=== PATIENT | male | born 1970 | race Caucasian/White ===

== ENCOUNTER 2016-08-04 19:11 | Emergency (ER) | payer OTHER ==
[~2016-08-04] VITALS: Ht 190.5 cm; Wt 131.8 kg
[~2016-08-04 19:11] MED LIST: ALBUAER19 INH; HYDR-5688 PO
[2016-08-04 19:22] VITALS: TEMP 36.8; Ht 190.5 cm; Wt 131.8 kg
--- NOTE | 2016-08-04 21:01 | DIAGNOSTIC IMAGING REPORT ---
CHEST ONE VIEW PORTABLE CLINICAL HISTORY: Altered mental status. Chest tightness. Weakness. COMPARISON STUDY: 11/20/2015 FINDINGS: The cardiac and mediastinal contours are normal. There is no evidence of focal pulmonary consolidation. There is no evidence of failure. No pleural effusions are visualized.[ There is equivocal irregularity of the cortex the proximal left humeral diaphysis. IMPRESSION: 1. No active disease in the chest 2. Equivocal cortical irregularity of the proximal left humerus Electronically signed by: Balwinder Grier M.D. 08/04/2016 9:00 PM Dictated Date/Time: 08/04/2016 8:58 PM
--- NOTE | 2016-08-04 21:20 | DIAGNOSTIC IMAGING REPORT ---
CT HEAD WITHOUT CONTRAST (CT) CLINICAL HISTORY: Altered mental status and weakness COMPARISON STUDY: March 30, 2014 TECHNIQUE: Axial CT of the brain is performed from the vertex to the skull base. IV contrast was not administered for this examination. CT DOSE: 537.48 mGy.cm FINDINGS: No intra or extra-axial mass lesions are visualized. There is no CT evidence of acute cortical infarction. There is no evidence of midline shift. There is no acute hemorrhage. No calvarial fractures are visualized. There is no evidence of pathologic ventricular dilatation. There is no evidence of acute sinusitis IMPRESSION: No acute intracranial findings Electronically signed by: Balwinder Grier M.D. 08/04/2016 9:19 PM Dictated Date/Time: 08/04/2016 9:18 PM
[2016-08-04] MEDS ORDERED: HYDR100C PO (21:21)
[2016-08-04] MEDS: MoRPHine SULFATE 4 MG/ML 1 ML CARP\\VIAL IV PRN ×2 (21:28→22:55)
[2016-08-04 21:48] LABS: BASO % 0.9 %; BASO ABS # 0.06 K/uL (0-0.2); COMPLETE YES; EOS % 2.9 %; HEMATOCRIT 40.4 % (42-52); IG% 0.1 %; LYMPH % 38.8 %; LYMPH ABS # 2.64 K/uL (1.2-3.4); MEAN CELL VOLUME 85.8 fL (80-100); MEAN CORPUSCULAR HEMOGLOBIN 28.5 pg (25-34); MEAN CORPUSCULAR HGB CONC 33.2 g/dl (32-36); MEAN PLATELET VOLUME 11.9 fL (7.4-10.4); MONO % 7.2 %; NEUT % 50.1 %; PLATELET COUNT 232 K/uL (130-400); RED BLOOD COUNT 4.71 M/uL (4.7-6.1); WHITE BLOOD COUNT 6.81 K/uL (4.8-10.8)
[2016-08-04 22:19] LABS: ALT/SGPT 18 U/L (12-78); BLOOD UREA NITROGEN 13 mg/dl (7-18); BUN/CREATININE RATIO 12.7 (10-20); CALCIUM 8.9 mg/dl (8.5-10.1); CARBON DIOXIDE 25 mmol/L (21-32); CHLORIDE 107 mmol/L (98-107); GLUCOSE 89 mg/dl (70-99); POTASSIUM 4.4 mmol/L (3.5-5.1); SODIUM 141 mmol/L (136-145)
[2016-08-04 22:33] LABS: ALKALINE PHOSPHATASE 95 U/L (45-117); AST/SGOT 14 U/L (15-37)
--- NOTE | 2016-08-04 23:30 | EMERGENCY ROOM VISIT NOTE ---
History Report prepared by Davonte: Shana Chavira Under the Supervision of: Dr. Sonido Carbajal D.O. First contact with patient: 20:35 Chief Complaint: CHEST PAIN Stated Complaint: TIGHTNESS IN CHEST,RIGHT SIDE PAIN,HEADACHE Nursing Triage Summary: "I've been having pains in my chest for 2 days. I thought it was from stress because I have a lot of sress right now". Pt also c/o right arm numbness and CARMICHAEL. Hx of "mild stroke". History of Present Illness The patient is a 46 year old male who presents to the Emergency Room with complaints of constant chest pain starting 2 days ago that he describes as a tightness and like "gun has shot him in the chest." The patient currently rates the pain as a 8/10 in severity. The patient states that he has been dealing with a lot of family stress lately along with work stress. The patient states that he has also been experiencing right sided weakness and a headache over the last day. He states that he has also experienced dizziness and SOB. The patient' s states that she thought the patient was going to pass out while walking into the ED tonight. The patient states that his has history of a mild stroke which with his symptoms concerned him to come into the ED tonight. Source of History: patient, spouse/significant other () Onset: 2 days [employer] Position: chest Symptom Intensity: 8/10 Quality: other (tightness) Timing: constant Associated Symptoms: + SOB, + headache, + weakness (right sided) Note: Associated symptoms: dizziness. Review of Systems See HPI for pertinent positives & negatives. A total of 10 systems reviewed and were otherwise negative. 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 (20) Visit for suture removal (21) Visit for suture removal (22) Wound infection Surgical Problems: (1) Hx of cholecystectomy Family History Cancer Diabetes mellitus FH: heart disease Gallbladder disease Heart disease Hypertension Kidney disease Lung disease Social History Smoking Status: Current Every Day Smoker Alcohol Use: none Drug Use: none Marital Status: Housing Status: lives with family Occupation Status: unemployed, disabled Current/Historical Medications Scheduled Bupropion HCl (Bupropion HCl Sr), 150 MG PO QAM Clonazepam (Klonopin), 1 MG PO BID Divalproex Sodium (Depakote Etended-Release), 2,000 MG PO HS Hydroxyzine Pamoate (Vistaril), 100 MG PO HS Lurasidone Hcl (Latuda), 40 MG PO QAM Metformin Hcl (Glucophage), 500 MG PO BID Prazosin Hcl (Prazosin), 2 MG PO HS Prazosin Hcl (Prazosin), 1 MG PO HS Scheduled PRN Albuterol Inhaler (Ventolin Inhaler), 2 PUFFS INH QID PRN for Wheezing Allergies Coded Allergies: Penicillins (Verified Allergy, Intermediate, hives. PER PT. HAS TAKEN AUGMENTIN W/O A PROBLEM., 06/03/16) Aspirin (Verified Adverse Reaction, Mild, nausea, 06/03/16) Physical Exam Vital Signs Date Time Temp Pulse Resp B/P Pulse Ox O2 Delivery O2 Flow Rate FiO2 08/04/16 22:55 81 16 155/98 08/04/16 22:20 79 16 143/100 95 Room Air 08/04/16 21:50 82 08/04/16 21:30 81 16 148/79 95 Room Air 08/04/16 19:24 95 Room Air 08/04/16 19:22 36.8 90 20 166/104 95 Room Air Physical Exam CONSTITUTIONAL/VITAL SIGNS: Reviewed / noted above. GENERAL: Non-toxic in appearance. INTEGUMENTARY: Warm, dry, and [place]. HEAD: Normocephalic. EYES: without scleral icterus or trauma. ENT/OROPHARYNX: clear and moist. LYMPHADENOPATHY/NECK: Is supple without lymphadenopathy or meningismus. RESPIRATORY: Lungs clear and equal. CARDIOVASCULAR: Regular rate and rhythm. GI/ABDOMEN: Soft and nontender. No organomegaly or pulsatile mass. No rebound or guarding. Normal bowel sounds. EXTREMITIES: Warm and well perfused. BACK: No CVA tenderness. NEUROLOGICAL: Intact without focal deficits. PSYCHIATRIC: normal affect. MUSCULOSKELETAL: Normally developed with good muscle tone. Medical Decision & Procedures ER Provider Diagnostic Interpretation: X ray results and stated below per my interpretation and radiology interpretation. CHEST ONE VIEW PORTABLE CLINICAL HISTORY: Altered mental status. Chest tightness. Weakness. COMPARISON STUDY: 11/20/2015 FINDINGS: The cardiac and mediastinal contours are normal. There is no evidence of focal pulmonary consolidation. There is no evidence of failure. No pleural effusions are visualized.[ There is equivocal irregularity of the cortex the proximal left humeral diaphysis. IMPRESSION: 1. No active disease in the chest 2. Equivocal cortical irregularity of the proximal left humerus Electronically signed by: Balwinder Grier M.D. 08/04/2016 9:00 PM Dictated Date/Time: 08/04/2016 8:[address] results as stated below per my review and radiologist interpretation: CT HEAD WITHOUT CONTRAST (CT) CLINICAL HISTORY: Altered mental status and weakness COMPARISON STUDY: March 30, 2014 TECHNIQUE: Axial CT of the brain is performed from the vertex to the skull base. IV contrast was not administered for this examination. CT DOSE: 537.48 mGy.cm FINDINGS: No intra or extra-axial mass lesions are visualized. There is no CT evidence of acute cortical infarction. There is no evidence of midline shift. There is no acute hemorrhage. No calvarial fractures are visualized. There is no evidence of pathologic ventricular dilatation. There is no evidence of acute sinusitis IMPRESSION: No acute intracranial findings Electronically signed by: Balwinder Grier M.D. 08/04/2016 9:19 PM Dictated Date/Time: 08/04/2016 9:18 PM Laboratory Results 08/04/16 21:30 Red Blood Count 4.71, Mean Corpuscular Volume 85.8, Mean Corpuscular Hemoglobin 28.5, Mean Corpuscular Hemoglobin Concent 33.2, Mean Platelet Volume 11.9, Neutrophils (%) (Auto) 50.1, Lymphocytes (%) (Auto) 38.8, Monocytes (%) (Auto) 7.2, Eosinophils (%) (Auto) 2.9, Basophils (%) (Auto) 0.9, Neutrophils # (Auto) 3.41, Lymphocytes # (Auto) 2.64, Monocytes # (Auto) 0.49, Eosinophils # (Auto) 0.20, Basophils # (Auto) 0.06 08/04/16 21:30 Test 08/04/16 21:30 White Blood Count 6.81 K/uL (4.8-10.8) Red Blood Count 4.71 M/uL (4.7-6.1) Hemoglobin 13.4 g/dL (14.0-18.0) Hematocrit 40.4 % (42-52) Mean Corpuscular Volume 85.8 fL (80-100) Mean Corpuscular Hemoglobin 28.5 pg (25-34) Mean Corpuscular Hemoglobin Concent 33.2 g/dl (32-36) Platelet Count 232 K/uL (130-400) Mean Platelet Volume 11.9 fL (7.4-10.4) Neutrophils (%) (Auto) 50.1 % Lymphocytes (%) (Auto) 38.8 % Monocytes (%) (Auto) 7.2 % Eosinophils (%) (Auto) 2.9 % Basophils (%) (Auto) 0.9 % Neutrophils # (Auto) 3.41 K/uL (1.4-6.5) Lymphocytes # (Auto) 2.64 K/uL (1.2-3.4) Monocytes # (Auto) 0.49 K/uL (0.11-0.59) Eosinophils # (Auto) 0.20 K/uL (0-0.5) Basophils # (Auto) 0.06 K/uL (0-0.2) RDW Standard Deviation 44.4 fL (36.4-46.3) RDW Coefficient of Variation 14.1 % (11.5-14.5) Immature Granulocyte % (Auto) 0.1 % Immature Granulocyte # (Auto) 0.01 K/uL (0.00-0.02) Anion Gap 9.0 mmol/L (3-11) Est Creatinine Clear Calc Drug Dose 135.0 ml/min Estimated GFR () 104.1 Estimated GFR (Non- 89.9 BUN/Creatinine Ratio 12.7 (10-20) Calcium Level 8.9 mg/dl (8.5-10.1) Magnesium Level 2.0 mg/dl (1.8-2.4) Total Bilirubin 0.2 mg/dl (0.2-1) Direct Bilirubin < 0.1 mg/dl (0-0.2) Aspartate Amino Transf (AST/SGOT) 14 U/L (15-37) Alanine Aminotransferase (ALT/SGPT) 18 U/L (12-78) Alkaline Phosphatase 95 U/L (45-117) Total Creatine Kinase 93 U/L (39-308) Creatine Kinase MB < 0.5 ng/ml (0.5-3.6) Creatine Kinase MB Ratio (0-3.0) Troponin I < 0.015 ng/ml (0-0.045) Total Protein 6.5 gm/dl (6.4-8.2) Albumin 3.1 gm/dl (3.4-5.0) Lipase 258 U/L (73-393) Thyroid Stimulating Hormone (TSH) 1.580 uIu/ml (0.300-4.500) Laboratory results as stated above per my review. Medications Administered Medications (Trade) Dose Ordered Sig/Carito Route Start Time Stop Time Status Last Admin Dose Admin Morphine Sulfate (MoRPHine SULFATE INJ) 4 mg Q1H PRN IV 08/04/16 20:45 08/18/16 20:44 08/04/16 22:55 4 MG ECG Indication: chest pain Rate (beats per minute): 90 Findings: no ectopy, other (no acute injury) ED Course 2036: Previous medical records were reviewed. The patient was evaluated in room C12B. A complete history and physical examination was performed. 2044: Ordered Morphine Sulfate 4 mg IV. 2329: On reevaluation, the patient is resting comfortably. I discussed the results and findings with the patient. He verbalized agreement of the treatment plan. The patient was discharged home. Medical Decision the differential was considered includes acute myocardial infarction, acute coronary syndrome, myocarditis, pericarditis, pericardial effusions /tamponade, esophageal perforation, thoracic aortic dissection, pulmonary embolism, pneumonia, pneumothorax, pancreatitis, shingles, acute cholecystitis, perforated abdominal viscus. This is a 46-year-old male who presents to the ED with a chief complaint of chest discomfort. He states that he has been under a lot of stress recently with in-laws. He states that he has had a headache for the past 24 hours and feels like his right side is weak. The patient also had a little dizziness when he came in. He is also reports chest pain for the past 2 days with a tightness in his chest. He claims that it feels like a 44 caliber was shot in his chest. He has a little shortness of breath. Patient's physical exam vital signs are stable. He is a normal exam. A chest x-ray did not show acute disease. CT scan of the brain was negative for acute disease. EKG shows a normal sinus rhythm. Complete metabolic panel was unremarkable. Troponin was negative. TSH is normal. CBC is unremarkable. The patient was told results the test. He is felt to be stable for discharge and outpatient follow-up. Impression Primary Impression: Precordial chest pain Additional Impressions: Headache Stress Ruled Out: Shoulder pain, left Scribe Attestation The scribe's documentation has been prepared under my direction and personally reviewed by me in its entirety. I confirm that the note above accurately reflects all work, treatment, procedures, and medical decision making performed by me. Departure Information Dispostion Home / Self-Care Referrals Michael Omalley III, M.D. (PCP) Forms HOME CARE DOCUMENTATION FORM, IMPORTANT VISIT INFORMATION Patient Instructions Chest Pain - [facility], [facility] Additional Instructions Follow-up with your doctor for further care and evaluation in 1-2 days. Return to the emergency department for worsening or new symptoms or any concerns. You have been examined and treated today on an emergency basis only. This is not a substitute for, or an effort to provide, complete comprehensive medical care. It is impossible to recognize and treat all injuries or illnesses in a single emergency department visit. It is therefore important that you follow up closely with your doctor. Call as soon as possible for an appointment. Problem Qualifiers
[2016-08-04] MEDS ORDERED: GLC/500 PO (23:54)
[2016-08-05] VITALS: BP 134/91; PULSE 95; O2SAT 97
[2016-09-17] MEDS ORDERED: PRAZ2CAP2 PO (01:59)
[2016-09-17] MEDS ORDERED: CLON1TAB3 PO (21:33)
[2016-09-23] MEDS ORDERED: PRED10TA PO (00:21)
[2016-10-03] MEDS ORDERED: CLIN300C2 PO (13:19)
[2016-10-10] MEDS ORDERED: PRAZ2CAP3 PO (13:23)
[2016-10-10] MEDS ORDERED: METR-163 PO (13:24)
[2017-01-09] MEDS ORDERED: LCTX PO (13:24)
[2017-01-09] MEDS ORDERED: PANT40TA PO (13:25)
[2017-01-09] MEDS ORDERED: LISI-729 PO (13:25)
[2017-01-09] MEDS ORDERED: DPKSR/500 PO (21:21)
[2017-01-09] MEDS ORDERED: PRAZ1CAP28 PO (21:21)
[2017-01-09] MEDS ORDERED: WLLSR150 PO (21:33)
== END 2016-08-05 | disposition home or self-care (01) ==
LOC: C.EDB 19:13 → C.EDC 08-05
DX: R07.2 Precordial pain (principal); R51 Headache; F43.9 Reaction to severe stress, unspecified; F41.9 Anxiety disorder, unspecified; J45.909 Unspecified asthma, uncomplicated; F31.89 Other bipolar disorder; F20.9 Schizophrenia, unspecified; F17.200 Nicotine dependence, unspecified, uncomplicated; Z79.899 Other long term (current) drug therapy; Z86.73 Personal history of transient ischemic attack (TIA), and cerebral infarction without residual deficits; Z86.14 Personal history of Methicillin resistant Staphylococcus aureus infection; Z83.3 Family history of diabetes mellitus; Z82.49 Family history of ischemic heart disease and other diseases of the circulatory system

== ENCOUNTER 2016-09-17 22:01 | Emergency (ER) | payer OTHER ==
[~2016-09-17] VITALS: Ht 190.5 cm; Wt 130.0 kg
[~2016-09-17 22:01] MED LIST changes: +CLON1TAB3 PO; +GLC/500 PO; -HYDR-5688 PO; +HYDR100C PO; +PRAZ2CAP2 PO
[2016-09-17 22:03] VITALS: TEMP 36.5; Ht 190.5 cm; Wt 130.0 kg
[2016-09-17] MEDS ORDERED: MoRPHine SULFATE 4 MG/ML 1 ML CARP\\VIAL IV STA (22:29)
[2016-09-17] MEDS ORDERED: ONDANSETRON INJ 2 MG/ML 2 ML VIAL IV STA (22:29)
[2016-09-17] MEDS ORDERED: SODIUM CHLORIDE 0.9% 1000ML 1,000 ML IV STA (22:29)
[2016-09-17] MEDS ORDERED: DIPH1TAB PO (22:33)
[2016-09-17] MEDS ORDERED: MELO7.5T5 PO (22:33)
[2016-09-17] MEDS ORDERED: FLX/5 PO (22:33)
[2016-09-17] MEDS ORDERED: VNTHFA/IN INH (22:33)
[2016-09-17 22:54] LABS: BASO % 0.4 %; BASO ABS # 0.03 K/uL (0-0.2); COMPLETE YES; EOS % 3.2 %; IG% 0.3 %; LYMPH ABS # 3.21 K/uL (1.2-3.4); MEAN CELL VOLUME 82.8 fL (80-100); MEAN CORPUSCULAR HEMOGLOBIN 28.4 pg (25-34); MEAN CORPUSCULAR HGB CONC 34.3 g/dl (32-36); MEAN PLATELET VOLUME 10.9 fL (7.4-10.4); MONO % 7.3 %; NEUT % 47.8 %; PLATELET COUNT 190 K/uL (130-400); RED BLOOD COUNT 4.83 M/uL (4.7-6.1); WHITE BLOOD COUNT 7.83 K/uL (4.8-10.8)
[2016-09-17 23:10] LABS: ALT/SGPT 26 U/L (12-78); AST/SGOT 11 U/L (15-37); BLOOD UREA NITROGEN 19 mg/dl (7-18); BUN/CREATININE RATIO 17.2 (10-20); CALCIUM 8.4 mg/dl (8.5-10.1); CARBON DIOXIDE 27 mmol/L (21-32); CHLORIDE 109 mmol/L (98-107); GLUCOSE 90 mg/dl (70-99); POTASSIUM 4.2 mmol/L (3.5-5.1); SODIUM 144 mmol/L (136-145)
[2016-09-17 23:13] LABS: ALKALINE PHOSPHATASE 79 U/L (45-117)
[2016-09-18 00:01] LABS: URINE APPEARANCE CLEAR (CLEAR); URINE BILIRUBIN NEG (NEG); URINE COLOR YELLOW; URINE EPITHELIAL CELL AUTO >30 /lpf (0-5); URINE NITRITE NEG (NEG); URINE SPECIFIC GRAVITY 1.015 (1.000-1.030); UROBILINOGEN NEG (NEG)
[2016-09-18 00:09] LABS: MANUAL MICROSCOPIC REQUIRED? NO; REVIEW REQ? YES
[2016-09-18] MEDS ORDERED: KETOROLAC TROMETHAMINE 30 MG/ML VIAL IV STA (01:15)
[2016-09-18] MEDS ORDERED: HYDROmorphone INJ 1 MG/ML SYR IV STA (01:15)
[2016-09-18] MEDS ORDERED: OXYC1TAB3 PO (01:26)
--- NOTE | 2016-09-18 01:47 | EMERGENCY ROOM VISIT NOTE ---
History Report prepared by Davonte: Cruzito Hernandez Under the Supervision of: Faviola CardozaO. First contact with patient: 22:17 Chief Complaint: BACK PAIN Stated Complaint: LOW BACK PAIN,INCONTINENT History of Present Illness The patient is a 46 year old male with type 2 diabetes who presents to the Emergency Room with complaints of constant lower back pain beginning three days prior to arrival. He currently rates his discomfort as a 9/10 in severity. The patient associates urinary incontinence, burning with urination, and lower back pain that radiates into his left buttock and left upper back with today's symptoms. He states movement worsens his symptoms. The patient notes he lost control of his bladder last night, while he was sleeping and again tonight while laying in bed watching a movie. He states he has been able to have normal bowel movements. The patient denies previous back issues. Pt denies numbness in the legs or groin, headache, change in vision, fevers, cough, runny nose, chest pain, shortness of breath, nausea, vomiting, diarrhea, pain with urination, and melena. He denies any history of cancer or fevers greater than 100.4. 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 A total of 10 systems reviewed and were otherwise negative. 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 (20) Visit for suture removal (21) Visit for suture removal (22) Wound infection Surgical Problems: (1) Hx of cholecystectomy Family History Cancer Diabetes mellitus FH: heart disease Gallbladder disease Heart disease Hypertension Kidney disease Lung disease Social History Smoking Status: Current Every Day Smoker Alcohol Use: none Drug Use: none Marital Status: Housing Status: lives with family Occupation Status: unemployed, disabled Current/Historical Medications Scheduled Albuterol Hfa (Ventolin Hfa), 2 PUFFS INH Q6H Bupropion HCl (Bupropion HCl Sr), 150 MG PO QAM Clonazepam (Klonopin), 1 MG PO BID Divalproex Sodium (Depakote Etended-Release), 2,000 MG PO HS Hydroxyzine Pamoate (Vistaril), 100 MG PO HS Lurasidone Hcl (Latuda), 40 MG PO QAM Meloxicam (Mobic), 7.5 MG PO DAILY Metformin HCl (Metformin HCl), 500 MG PO AMPM Prazosin Hcl (Prazosin), 2 MG PO HS Prazosin Hcl (Prazosin), 1 MG PO HS Temazepam (Restoril), 15 MG PO HS Scheduled PRN Cyclobenzaprine HCl (Cyclobenzaprine HCl), 5 MG PO TID PRN for Muscle Spasms Diphenhydramine Hcl (Benadryl Allergy), 50 MG PO Q4 PRN for Itching Oxycodone Immediate Rel Tab (Roxicodone Ir), 5 MG PO Q6H PRN for Pain Allergies Coded Allergies: Penicillins (Verified Allergy, Intermediate, hives. PER PT. HAS TAKEN AUGMENTIN W/O A PROBLEM., 06/03/16) Aspirin (Verified Adverse Reaction, Mild, nausea, 06/03/16) Physical Exam Vital Signs Date Time Temp Pulse Resp B/P Pulse Ox O2 Delivery O2 Flow Rate FiO2 09/18/16 00:10 89 18 121/83 96 Room Air 09/17/16 22:03 36.5 93 20 145/91 97 Room Air Physical Exam GENERAL: sitting up in bed, uncomfortable, disheveled EYE EXAM: normal conjunctiva OROPHARYNX: no exudate, no erythema, lips, buccal mucosa, and tongue normal and mucous membranes are moist NECK: supple, no nuchal rigidity, no adenopathy, non-tender LUNGS: Clear to auscultation. Normal chest wall mechanics HEART: no murmurs, S1 normal and S2 normal ABDOMEN: abdomen soft, non-tender, normo-active bowel sounds, no masses, no rebound or guarding. BACK: Back is symmetrical on inspection and there is no deformity, no midline tenderness, no CVA tenderness. SKIN: no rashes and no bruising RECTAL: + rectal tone UPPER EXTREMITIES: upper extremities are grossly normal. LOWER EXTREMITIES: No pitting edema. NEURO EXAM: Normal sensorium, cranial nerves II-XII grossly intact, normal speech, no gross weakness of arms, legs: flexion/extension hip, knee, ankle and EHL 5/5 bilaterally. Able to walk on heels and toes. Patellar and Achilles reflexes are 1/4 bilaterally, gross sensation intact. DPs 2/4. Medical Decision & Procedures ER Provider Diagnostic Interpretation: CT:Per my review, radiologist interpretation. MRI L SPINE: Conus medullaris terminates at L1-L2 and distal cord is normal in signal. Multilevel disc desiccation and mild degenerative changes as delineated: L3-L4, facet arthropathy/ligamentous hypertrophy and minimal disc bulge cause mild right foraminal narrowing. L4-L5, posterior disc/osteophyte complex and facet arthropathy cause mild bilateral foraminal narrowing. L5-S1, posterior disc bulge and facet arthropathy cause mild foraminal narrowing. Bone marrow signal and vertebral body heights are preserved. Radiologist: Hammad Sarkar MD Study ready at 00:56 and initial results transmitted at 01:17 Laboratory Results 09/17/16 22:42 Red Blood Count 4.83, Mean Corpuscular Volume 82.8, Mean Corpuscular Hemoglobin 28.4, Mean Corpuscular Hemoglobin Concent 34.3, Mean Platelet Volume 10.9, Neutrophils (%) (Auto) 47.8, Lymphocytes (%) (Auto) 41.0, Monocytes (%) (Auto) 7.3, Eosinophils (%) (Auto) 3.2, Basophils (%) (Auto) 0.4, Neutrophils # (Auto) 3.75, Lymphocytes # (Auto) 3.21, Monocytes # (Auto) 0.57, Eosinophils # (Auto) 0.25, Basophils # (Auto) 0.03 09/17/16 22:42 Test 09/17/16 22:42 09/17/16 23:45 White Blood Count 7.83 K/uL (4.8-10.8) Red Blood Count 4.83 M/uL (4.7-6.1) Hemoglobin 13.7 g/dL (14.0-18.0) Hematocrit 40.0 % (42-52) Mean Corpuscular Volume 82.8 fL (80-100) Mean Corpuscular Hemoglobin 28.4 pg (25-34) Mean Corpuscular Hemoglobin Concent 34.3 g/dl (32-36) Platelet Count 190 K/uL (130-400) Mean Platelet Volume 10.9 fL (7.4-10.4) Neutrophils (%) (Auto) 47.8 % Lymphocytes (%) (Auto) 41.0 % Monocytes (%) (Auto) 7.3 % Eosinophils (%) (Auto) 3.2 % Basophils (%) (Auto) 0.4 % Neutrophils # (Auto) 3.75 K/uL (1.4-6.5) Lymphocytes # (Auto) 3.21 K/uL (1.2-3.4) Monocytes # (Auto) 0.57 K/uL (0.11-0.59) Eosinophils # (Auto) 0.25 K/uL (0-0.5) Basophils # (Auto) 0.03 K/uL (0-0.2) RDW Standard Deviation 43.0 fL (36.4-46.3) RDW Coefficient of Variation 14.2 % (11.5-14.5) Immature Granulocyte % (Auto) 0.3 % Immature Granulocyte # (Auto) 0.02 K/uL (0.00-0.02) Anion Gap 8.0 mmol/L (3-11) Est Creatinine Clear Calc Drug Dose 121.9 ml/min Estimated GFR () 92.8 Estimated GFR (Non- 80.1 BUN/Creatinine Ratio 17.2 (10-20) Calcium Level 8.4 mg/dl (8.5-10.1) Total Bilirubin 0.2 mg/dl (0.2-1) Direct Bilirubin < 0.1 mg/dl (0-0.2) Aspartate Amino Transf (AST/SGOT) 11 U/L (15-37) Alanine Aminotransferase (ALT/SGPT) 26 U/L (12-78) Alkaline Phosphatase 79 U/L (45-117) Total Protein 6.5 gm/dl (6.4-8.2) Albumin 3.2 gm/dl (3.4-5.0) Lipase 243 U/L (73-393) Urine Color YELLOW Urine Appearance CLEAR (CLEAR) Urine pH 6.0 (4.5-7.5) Urine Specific Velpen 1.015 (1.000-1.030) Urine Protein NEG (NEG) Urine Glucose (UA) NEG (NEG) Urine Ketones NEG (NEG) Urine Occult Blood NEG (NEG) Urine Nitrite NEG (NEG) Urine Bilirubin NEG (NEG) Urine Urobilinogen NEG (NEG) Urine Leukocyte Esterase TRACE (NEG) Urine WBC (Auto) 1-5 /hpf (0-5) Urine RBC (Auto) 0-4 /hpf (0-4) Urine Hyaline Casts (Auto) 0 /lpf (0-5) Urine Epithelial Cells (Auto) >30 /lpf (0-5) Urine Bacteria (Auto) NEG (NEG) Urine Renal Epithelial Cells /lpf (0-5) Urine Pathogenic Casts /lpf (0) Laboratory results per my review. Medications Administered Medications (Trade) Dose Ordered Sig/Carito Route Start Time Stop Time Status Last Admin Dose Admin Sodium Chloride (Nss 1000ml) 1,000 ml @ 999 mls/hr Q1H1M STAT IV 09/17/16 22:29 09/17/16 23:29 DC 09/18/16 00:17 999 MLS/HR Ondansetron HCl (Zofran Inj) 4 mg NOW STAT IV 09/17/16 22:29 09/17/16 22:31 DC 09/18/16 00:17 4 MG Morphine Sulfate (MoRPHine SULFATE INJ) 4 mg NOW STAT IV 09/17/16 22:29 09/17/16 22:31 DC 09/18/16 00:18 4 MG Hydromorphone HCl (Dilaudid Inj) 1 mg NOW STAT IV 09/18/16 01:15 09/18/16 01:16 DC 09/18/16 01:25 0.5 MG Ketorolac Tromethamine (Toradol Inj) 30 mg NOW STAT IV 09/18/16 01:15 09/18/16 01:16 DC 09/18/16 01:25 30 MG ED Course ED COURSE: Vital signs were reviewed and showed normal vitals. The patients medical record was reviewed The above diagnostic studies were performed and reviewed. ED treatments and interventions as stated above. 2220: The patient was evaluated in room A10. A complete history and physical examination was performed. 2229: Ordered Morphine Sulfate 4 mg IV, Zofran Inj 4 mg IV, Sodium Chloride 1, 000 ml @ 999 mls/hr IV. 0101: Reevaluated the patient at this time, and he is providing a urine sample. 0115: Ordered Toradol Inj 30 mg IV, Dilaudid Inj 1 mg IV. 0120: Upon reevaluation, the patient is doing well.I discussed my findings with the patient and he understands and agrees with the treatment plan. Based on the patients age, coexisting illnesses, exam and lab findings the decision to treat as an outpatient was made. The patient remained stable while under my care. The patient appeared well at the time of discharge. Medical Decision Differential diagnoses includes but is not limited to lumbar radiculopathy, muscle strain, facture, cauda equina, mass, and disc herniation. Patient is a 46-year-old male who presents the ER for lower back pain. This radiates across his bilateral lower back and tracks into his right and left gluteus. He is completely neurologically intact. He does complain of 2 bouts of urinary incontinence will sleeping. Postvoid bladder scanned was 70 MLS. Rectal tone is intact. Patellar and Achilles reflexes are intact. Vitals are unremarkable. He was given IV morphine and Toradol with improvement of his pain. MRI of the spine is noted as above. There is no signs of cauda equina. He has no fevers, abscess or impingement along the spinal canal. Based on his symptoms, exam and MRI was discharged follow-up with his primary care doctor. UA showed no signs of infection. Patient was discharged with prescription for OxyIR. Discussed with Pt concerning signs and symptoms to watch out for. Pt was instructed to follow up with their PCP and discussed with the patient their option to return to the ED at anytime for persistent or worsening symptoms. The appropriate anticipatory guidance and out-patient management, including indications for return to the emergency department, were explained at length to the patient and understood. [place] Drug Monitoring Program Search Results: patient reviewed within database, no issues identified Impression Primary Impression: Back pain Scribe Attestation The scribe's documentation has been prepared under my direction and personally reviewed by me in its entirety. I confirm that the note above accurately reflects all work, treatment, procedures, and medical decision making performed by me. Departure Information Dispostion Home / Self-Care Prescriptions Oxycodone Immediate Rel Tab (ROXICODONE IR) 5 Mg Tab 5 MG PO Q6H Y for Pain, #15 TAB Prov: Nathaniel Andrew Perdomo, DO 09/18/16 Referrals Michael Omalley III, M.D. (PCP) Forms HOME CARE DOCUMENTATION FORM, IMPORTANT VISIT INFORMATION Patient Instructions Back Pain - [facility], [facility] Additional Instructions Please follow up with your primary care doctor with in the next 24 hours. Any worsening of your symptoms, please return to the ED immediately. This includes numbness or weakness in your groin or legs, unable to peak, unable to poop, unable to walk, fevers greater than 100.4, or any other concerning signs or symptoms from your standpoint. You were given medications during this visit that will inhibit your ability to drive, operate machinery and work. Please do NOT drive, operate machinery or work for the next 12hrs. You were also given a prescription for a narcotic/Oxy IR. While taking this medication you should also not drive, operate machinery and or work. No heavy lifting and please try to rest as much as possible. Problem Qualifiers Primary Impression: Back pain Back pain location: low back pain Chronicity: unspecified Back pain laterality: unspecified Sciatica presence: unspecified whether sciatica present Qualified Codes: M54.5 - Low back pain
[2016-09-18 02:04] VITALS: BP 144/88; PULSE 91; O2SAT 97
--- NOTE | 2016-09-18 08:09 | DIAGNOSTIC IMAGING REPORT ---
LUMBAR SPINE MRI HISTORY: severe lower back pain. Lost control of bladder TECHNIQUE: Multiplanar multisequence MRI of the lumbar spine was performed without the use of contrast. COMPARISON: None. FINDINGS: For the purpose of the report the L5-S1 disc space will be located on axial image 27 of 30. Alignment and curvature is intact. No fracture or subluxation. Mild subcutaneous edema within the lumbar region. Visualized paraspinal soft tissues are unremarkable. The conus terminates at the L1-L2 disc space level. Mild disc space narrowing at L4-L5 and L5-S1. L1-L2: No significant central canal or neural foraminal narrowing. L2-L3: No significant central canal or neural foraminal narrowing. L3-L4: Minimal disc bulge with facet arthropathy resulting in minimal right neural foraminal narrowing. No central canal narrowing. L4-L5: Broad-based posterior disc bulge with facet hypertrophy. No severe central canal narrowing. Minimal right neural foraminal narrowing. L5-S1: Small focal central disc protrusion without significant central canal or neural foraminal narrowing. IMPRESSION: 1. Small focal central disc protrusion at L5-S1 without significant central canal or neural foraminal narrowing. 2. Additional mild degenerative changes as described above. 3. No fracture or subluxation. Electronically signed by: Jordan Gillette M.D. 09/18/2016 8:07 AM Dictated Date/Time: 09/18/2016 8:02 AM
[2016-09-23] MEDS ORDERED: PRED10TA PO (00:21)
[2016-10-03] MEDS ORDERED: CLIN300C2 PO (13:19)
[2016-10-10] MEDS ORDERED: PRAZ2CAP3 PO (13:23)
[2016-10-10] MEDS ORDERED: METR-163 PO (13:24)
[2017-01-09] MEDS ORDERED: LCTX PO (13:24)
[2017-01-09] MEDS ORDERED: LISI-729 PO (13:25)
[2017-01-09] MEDS ORDERED: PANT40TA PO (13:25)
[2017-01-09] MEDS ORDERED: PRAZ1CAP28 PO (21:21)
[2017-01-09] MEDS ORDERED: DPKSR/500 PO (21:21)
[2017-01-09] MEDS ORDERED: WLLSR150 PO (21:33)
== END 2016-09-18 02:09 | disposition home or self-care (01) ==
LOC: C.EDB 22:02 → C.EDA 09-18 02:09
DX: M54.5 Low back pain (principal); F41.9 Anxiety disorder, unspecified; F31.9 Bipolar disorder, unspecified; F20.9 Schizophrenia, unspecified; J45.909 Unspecified asthma, uncomplicated; K82.9 Disease of gallbladder, unspecified; F17.200 Nicotine dependence, unspecified, uncomplicated; Z86.14 Personal history of Methicillin resistant Staphylococcus aureus infection; Z86.73 Personal history of transient ischemic attack (TIA), and cerebral infarction without residual deficits; Z90.49 Acquired absence of other specified parts of digestive tract; Z79.4 Long term (current) use of insulin; Z79.899 Other long term (current) drug therapy; Z88.0 Allergy status to penicillin; Z88.6 Allergy status to analgesic agent; Z80.9 Family history of malignant neoplasm, unspecified; Z83.3 Family history of diabetes mellitus; Z82.49 Family history of ischemic heart disease and other diseases of the circulatory system; Z83.79 Family history of other diseases of the digestive system; Z84.1 Family history of disorders of kidney and ureter

== ENCOUNTER 2016-09-23 23:05 | Emergency (ER) | payer OTHER ==
[~2016-09-23 23:05] MED LIST changes: -ALBUAER19 INH; +DIPH1TAB PO; +FLX/5 PO; -GLC/500 PO; -HYDR100C PO; +MELO7.5T5 PO; +OXYC1TAB3 PO; +PRED10TA PO; +VNTHFA/IN INH
[2016-09-23 23:16] VITALS: TEMP 37.3; Ht 190.5 cm
[2016-09-23] MEDS ORDERED: DIPHTHERIA/TETANUS/PERTUSSIS 0.5 ML SYR/VIAL IM. ONE (23:45)
[2016-09-24] MEDS ORDERED: MELO15TA4 PO (00:17)
[2016-09-24 00:28] LABS: BASO % 0.3 %; BASO ABS # 0.02 K/uL (0-0.2); COMPLETE YES; EOS % 0.3 %; HEMATOCRIT 39.3 % (42-52); IG% 0.4 %; LYMPH % 14.6 %; LYMPH ABS # 1.07 K/uL (1.2-3.4); MEAN CELL VOLUME 85.2 fL (80-100); MEAN CORPUSCULAR HEMOGLOBIN 27.8 pg (25-34); MEAN CORPUSCULAR HGB CONC 32.6 g/dl (32-36); MEAN PLATELET VOLUME 11.3 fL (7.4-10.4); MONO % 2.4 %; PLATELET COUNT 207 K/uL (130-400); RED BLOOD COUNT 4.61 M/uL (4.7-6.1); WHITE BLOOD COUNT 7.35 K/uL (4.8-10.8)
[2016-09-24 00:50] LABS: ALT/SGPT 23 U/L (12-78); AST/SGOT 11 U/L (15-37); BLOOD UREA NITROGEN 10 mg/dl (7-18); BUN/CREATININE RATIO 7.5 (10-20); CALCIUM 8.7 mg/dl (8.5-10.1); CARBON DIOXIDE 24 mmol/L (21-32); CHLORIDE 110 mmol/L (98-107); GLUCOSE 272 mg/dl (70-99); POTASSIUM 4.4 mmol/L (3.5-5.1); SODIUM 144 mmol/L (136-145)
[2016-09-24 00:52] LABS: ACETAMINOPHEN < 2 ug/ml (10-30)
[2016-09-24 00:53] LABS: ALKALINE PHOSPHATASE 85 U/L (45-117)
[2016-09-24 01:24] LABS: URINE APPEARANCE CLEAR (CLEAR); URINE BILIRUBIN NEG (NEG); URINE COLOR YELLOW; URINE NITRITE NEG (NEG); URINE SPECIFIC GRAVITY 1.016 (1.000-1.030); UROBILINOGEN NEG (NEG); ZZUR CULT IF INDIC CLEAN CATCH NO
[2016-09-24 01:34] LABS: MANUAL MICROSCOPIC REQUIRED? NO; REVIEW REQ? NO
[2016-09-24 01:48] LABS: BENZODIAZEPINE, URINE NEG (NEG); COCAINE,URINE NEG (NEG); PHENCYCLIDINE, URINE NEG (NEG)
--- NOTE | 2016-09-24 02:32 | EMERGENCY ROOM VISIT NOTE ---
History Report prepared by Davonte: Rosales Dixon Under the Supervision of: Dr. Katt Garvey M.D. First contact with patient: 23:30 Chief Complaint: FALL Stated Complaint: FELL AND CUT RIGHT BICEP History of Present Illness The patient is a 46 year old male who presents to the Emergency Room with complaints of a constant right bicep laceration occurring today. He admits to self-cutting his arm tonight. He has a history of bipolar disorder and states that he has been very stressed out lately. The patient denies any suicidal ideation and states that he cuts himself in order to "release pain and anger". He states "I've just been doing things for other people, but don't get any appreciation". He denies any alcohol consumption today. The patient notes that he is on muscle relaxers, steroids as well as a few other medications and states that he took these medications fairly recently. Source of History: patient Onset: Today Position: arm (right bicep) Quality: other (laceration) Timing: constant Review of Systems See HPI for pertinent positives & negatives. A total of 10 systems reviewed and were otherwise negative. 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 (20) Visit for suture removal (21) Visit for suture removal (22) Wound infection Surgical Problems: (1) Hx of cholecystectomy Family History Cancer Diabetes mellitus FH: heart disease Gallbladder disease Heart disease Hypertension Kidney disease Lung disease Social History Smoking Status: Current Every Day Smoker Alcohol Use: none Drug Use: none Marital Status: Housing Status: lives with family Occupation Status: unemployed, disabled Current/Historical Medications Scheduled Bupropion HCl (Bupropion HCl Sr), 150 MG PO QAM Clonazepam (Klonopin), 1 MG PO BID Divalproex Sodium (Depakote Etended-Release), 2,000 MG PO HS Hydroxyzine Pamoate (Vistaril), 100 MG PO HS Lurasidone Hcl (Latuda), 40 MG PO QAM Meloxicam (Meloxicam), 15 MG PO DAILY Metformin HCl (Metformin HCl), 500 MG PO BIDM Prazosin Hcl (Prazosin), 2 MG PO HS Prazosin Hcl (Prazosin), 1 MG PO HS Prednisone (Prednisone), 10 MG PO UD Temazepam (Restoril), 15 MG PO HS Scheduled PRN Cyclobenzaprine HCl (Cyclobenzaprine HCl), 5 MG PO HS PRN for back pain Diphenhydramine Hcl (Benadryl Allergy), 50 MG PO Q4 PRN for Itching Allergies Coded Allergies: Penicillins (Verified Allergy, Intermediate, hives. PER PT. HAS TAKEN AUGMENTIN W/O A PROBLEM., 09/24/16) Aspirin (Verified Adverse Reaction, Mild, nausea, 09/24/16) Physical Exam Vital Signs Date Time Temp Pulse Resp B/P Pulse Ox O2 Delivery O2 Flow Rate FiO2 09/24/16 14:44 85 18 146/56 98 09/24/16 07:22 92 18 153/92 96 Room Air 09/24/16 04:02 79 17 158/71 95 Room Air 09/24/16 02:21 76 16 152/79 97 Room Air 09/23/16 23:16 37.3 72 20 145/86 95 Room Air Physical Exam Vital signs reviewed. General: Malodorous, disheveled male, somewhat intoxicated appearing. HEENT: No scleral icterus, PERRLA, neck supple. Atraumatic. No cervical spine tenderness. Cardiovascular: Regular rate and rhythm, no extra sounds. Pulmonary: Clear to auscultation bilaterally, normal work of breathing. Abdomen: Soft, nontender, nondistended, positive bowel sounds. Musculoskeletal: No peripheral edema. Multiple superficial lacerations to the RUE along the proximal arm with one deeper laceration. Appears to be self inflicted. Small abrasion to the right parietal scalp that appears to be healing. Neurologic: Patient awake alert and oriented x 3 Skin: Warm, dry, no rash Psych: Negative suicidal ideation. Negative homicidal ideation. Medical Decision & Procedures ER Provider Diagnostic Interpretation: CT results per statrad and my review. CT HEAD: No acute intracranial hemorrhage, mass effect or edema. No displaced skull fracture. Laboratory Results 09/24/16 00:15 Red Blood Count 4.61, Mean Corpuscular Volume 85.2, Mean Corpuscular Hemoglobin 27.8, Mean Corpuscular Hemoglobin Concent 32.6, Mean Platelet Volume 11.3, Neutrophils (%) (Auto) 82.0, Lymphocytes (%) (Auto) 14.6, Monocytes (%) (Auto) 2.4, Eosinophils (%) (Auto) 0.3, Basophils (%) (Auto) 0.3, Neutrophils # (Auto) 6.03, Lymphocytes # (Auto) 1.07, Monocytes # (Auto) 0.18, Eosinophils # (Auto) 0.02, Basophils # (Auto) 0.02 09/24/16 00:15 Test 09/24/16 00:15 09/24/16 00:50 White Blood Count 7.35 K/uL (4.8-10.8) Red Blood Count 4.61 M/uL (4.7-6.1) Hemoglobin 12.8 g/dL (14.0-18.0) Hematocrit 39.3 % (42-52) Mean Corpuscular Volume 85.2 fL (80-100) Mean Corpuscular Hemoglobin 27.8 pg (25-34) Mean Corpuscular Hemoglobin Concent 32.6 g/dl (32-36) Platelet Count 207 K/uL (130-400) Mean Platelet Volume 11.3 fL (7.4-10.4) Neutrophils (%) (Auto) 82.0 % Lymphocytes (%) (Auto) 14.6 % Monocytes (%) (Auto) 2.4 % Eosinophils (%) (Auto) 0.3 % Basophils (%) (Auto) 0.3 % Neutrophils # (Auto) 6.03 K/uL (1.4-6.5) Lymphocytes # (Auto) 1.07 K/uL (1.2-3.4) Monocytes # (Auto) 0.18 K/uL (0.11-0.59) Eosinophils # (Auto) 0.02 K/uL (0-0.5) Basophils # (Auto) 0.02 K/uL (0-0.2) RDW Standard Deviation 45.4 fL (36.4-46.3) RDW Coefficient of Variation 14.6 % (11.5-14.5) Immature Granulocyte % (Auto) 0.4 % Immature Granulocyte # (Auto) 0.03 K/uL (0.00-0.02) Anion Gap 10.0 mmol/L (3-11) Estimated GFR () 75.8 Estimated GFR (Non- 65.4 BUN/Creatinine Ratio 7.5 (10-20) Calcium Level 8.7 mg/dl (8.5-10.1) Total Bilirubin 0.2 mg/dl (0.2-1) Direct Bilirubin < 0.1 mg/dl (0-0.2) Aspartate Amino Transf (AST/SGOT) 11 U/L (15-37) Alanine Aminotransferase (ALT/SGPT) 23 U/L (12-78) Alkaline Phosphatase 85 U/L (45-117) Total Protein 6.4 gm/dl (6.4-8.2) Albumin 3.0 gm/dl (3.4-5.0) Salicylates Level 2.4 mg/dl (2.8-20) Acetaminophen Level < 2 ug/ml (10-30) Ethyl Alcohol mg/dL < 3.0 mg/dl (0-3) Urine Color YELLOW Urine Appearance CLEAR (CLEAR) Urine pH 7.0 (4.5-7.5) Urine Specific [place] 1.016 (1.000-1.030) Urine Protein NEG (NEG) Urine Glucose (UA) 3+ (NEG) Urine Ketones NEG (NEG) Urine Occult Blood NEG (NEG) Urine Nitrite NEG (NEG) Urine Bilirubin NEG (NEG) Urine Urobilinogen NEG (NEG) Urine Leukocyte Esterase NEG (NEG) Urine Opiates Screen NEG (NEG) Urine Methadone, Qualitative NEG (NEG) Urine Barbiturates NEG (NEG) Urine Phencyclidine (PCP) Level NEG (NEG) Ur Amphetamine/Methamphetamine NEG (NEG) MDMA (Ecstasy) Screen POS (NEG) Urine Benzodiazepines Screen NEG (NEG) Urine Cocaine Metabolite NEG (NEG) Urine Marijuana (THC) NEG (NEG) Date/Time Source Procedure Growth Status 09/24/16 04:05 Nasal MRSA DNA Surveillance Screen - Final Specimen Negative for MRSA by DNA Probe Complete Laboratory results per my review. Medications Administered Medications (Trade) Dose Ordered Sig/Carito Route Start Time Stop Time Status Last Admin Dose Admin Diphtheria/ Pertussis/Tetanus Vacc (Adacel Inj) 0.5 ml ONCE ONCE IM. 09/23/16 23:45 09/23/16 23:46 DC 09/24/16 02:19 0.5 ML Haloperidol Lactate (Haldol Inj) 5 mg NOW STAT IM 09/24/16 04:39 09/24/16 04:41 DC 09/24/16 05:13 5 MG Lorazepam (Ativan Inj) 2 mg NOW STAT IM 09/24/16 04:39 09/24/16 04:41 DC 09/24/16 05:13 2 MG Bupropion HCl (Wellbutrin-Sr Tab) 150 mg NOW STAT PO 09/24/16 06:45 09/24/16 06:47 DC 09/24/16 07:22 150 MG Lurasidone HCl (Latuda Tab) 40 mg NOW STAT PO 09/24/16 06:45 09/24/16 06:47 DC 09/24/16 07:22 40 MG Metformin HCl (Glucophage Tab) 500 mg NOW STAT PO 09/24/16 06:45 09/24/16 06:47 DC 09/24/16 07:22 500 MG Procedure Location: right proximal arm Total length: 7 cm Complexity: simple Verbal consent was obtained after the risks and benefits were explained, including but not limited to bleeding, scarring, infection, pain, and bone/joint /nerve damage. At this time, the risks of the procedure are less than the risks of NOT performing the procedure. A time out was taken and the correct patient and site identified. The skin was prepped with betadine. Copious irrigation was performed using normal saline. The skin was re-prepped with betadine and a sterile field set. The wound was explored for foreign bodies and none found. Examination revealed no injury to deep structures such as tendons, bone, or significant blood vessels. Debridement was not performed. The wound edges were approximated using Dermabond and Steri-strips. Hemostasis and excellent approximation was achieved. Antibacterial ointment and a sterile dressing applied. Detailed wound care instructions and signs and symptoms of infection reviewed with the the patient. No complications and the patient tolerated the procedure well. ECG Indication: other (possible fall) Rate (beats per minute): 89 Rhythm: normal sinus Findings: no acute ischemic change, no ectopy, other (QTC 438) ED Course 2338: Past medical records reviewed. The patient was evaluated in room B7. A complete history and physical examination was performed. 2345: Ordered Adacel Inj 0.5 mg IM. 0140: I conducted the laceration repair. See the procedure note for details. The patient is medically clear. [facility] will be called. 0345: I spoke with the loan servicing representative from [employer]. He notes that the patient made comments about hearing voices that were telling him to harm other people, and that he has been extremely paranoid lately. He recommends the patient receive inpatient treatment. The loan servicing representative from [facility] signed a 302 petitioning statement against the patient. A bed-search is now underway. 0415: The patient was moved to A5. 0439: Ordered Ativan Inj 2 mg IM, Haldol Inj 5 mg IM. 0635: I reassessed the patient. He is resting comfortably. 0730: The patient was signed out to Dr. Mooney at the change of shift as a 302 pending bed placement. Medical Decision Differential diagnosis: Etiologies such as mood disorder, infection, hypoglycemia, electrolyte abnormalities, cardiac sources, intracerebral event, toxicologic, neurologic, as well as others were entertained. This pt was evaluated and appeared to be in no distress. Patient's right upper extremities laceration is not consistent with accidental trauma. It appears that this is self-inflicted. Patient was medically cleared and played was repaired, please see my note above. Patient was given an Adacel injection. Patient became agitated and was evaluated by [facility]. He admitted to suicidal ideation with the plan to use a pistol. The patient was initially voluntary however became involuntary and was petitioned by [facility]. He was medicated with Haldol 5 mg and Ativan 2 mg and was able to rest. Patient was signed out at the change of shift to Dr. Mooney pending bed search and placement. Impression Primary Impression: Mood disorder Additional Impression: Suicidal ideation Scribe Attestation The scribe's documentation has been prepared under my direction and personally reviewed by me in its entirety. I confirm that the note above accurately reflects all work, treatment, procedures, and medical decision making performed by me. Departure Information Dispostion Still a Patient (Signed out to Dr. Mooney) Referrals Lyssa, Michael E.,III,M.D. (PCP) Patient Instructions My [facility] Problem Qualifiers
[2016-09-24] MEDS ORDERED: HALOPERIDOL LACTATE 5 MG/ML 1 ML VIAL IM STA (04:39)
[2016-09-24] MEDS ORDERED: LORAZEPAM 2 MG/ML 1 ML VIAL IM STA (04:39)
--- NOTE | 2016-09-24 06:28 | DIAGNOSTIC IMAGING REPORT ---
CT HEAD WITHOUT CONTRAST (CT) CLINICAL HISTORY: Head pain status post closed head injury COMPARISON STUDY: 08/04/2016 TECHNIQUE: Axial CT of the brain is performed from the vertex to the skull base. IV contrast was not administered for this examination. CT DOSE: 800.40 mGycm FINDINGS: No intra or extra-axial mass lesions are visualized. There is no CT evidence of acute cortical infarction. There is no evidence of midline shift. There is no acute hemorrhage. No calvarial fractures are visualized. There is no evidence of pathologic ventricular dilatation. There is no evidence of acute sinusitis IMPRESSION: No acute intracranial findings Electronically signed by: Balwinder Grier M.D. 09/24/2016 6:26 AM Dictated Date/Time: 09/24/2016 6:25 AM
[2016-09-24] MEDS ORDERED: METFORMIN HCL 500 MG TAB PO STA (06:45)
[2016-09-24] MEDS ORDERED: BuPROPion SR 150 MG TABCR PO STA (06:45)
[2016-09-24] MEDS ORDERED: LURASIDONE HCL 40 MG TAB PO STA (06:45)
--- NOTE | 2016-09-24 07:43 | EMERGENCY ROOM VISIT NOTE ---
ED Visit Note First contact with patient: 07:41 The patient was taken in signout from Dr. Garvey at the change of shift. He is on a 302 and [facility] is working on placement. She has ordered his morning medications. The patient was given lunch. He was resting comfortably. He had no requests only on my assessment. He was accepted for inpatient care and was transported uneventfully.
[2016-09-24 14:44] VITALS: BP 146/56; PULSE 85; O2SAT 98
[2016-09-29 11:38] LABS: SYNTHETIC CANNABINOIDS QL URIN NEGATIVE (Negative)
[2016-10-03] MEDS ORDERED: CLIN300C2 PO (13:19)
[2016-10-10] MEDS ORDERED: PRAZ2CAP3 PO (13:23)
[2016-10-10] MEDS ORDERED: METR-163 PO (13:24)
[2017-01-09] MEDS ORDERED: LCTX PO (13:24)
[2017-01-09] MEDS ORDERED: PANT40TA PO (13:25)
[2017-01-09] MEDS ORDERED: LISI-729 PO (13:25)
[2017-01-09] MEDS ORDERED: DPKSR/500 PO (21:21)
[2017-01-09] MEDS ORDERED: PRAZ1CAP28 PO (21:21)
[2017-01-09] MEDS ORDERED: WLLSR150 PO (21:33)
== END 2016-09-24 14:45 ==
LOC: C.EDB 23:06 → C.EDA 09-24 14:45
DX: S41.111A Laceration without foreign body of right upper arm, initial encounter (principal); X78.9XXA Intentional self-harm by unspecified sharp object, initial encounter; Z23 Encounter for immunization; F31.9 Bipolar disorder, unspecified; R45.851 Suicidal ideations; F41.9 Anxiety disorder, unspecified; Z86.73 Personal history of transient ischemic attack (TIA), and cerebral infarction without residual deficits; F20.9 Schizophrenia, unspecified; Z90.49 Acquired absence of other specified parts of digestive tract; F17.210 Nicotine dependence, cigarettes, uncomplicated; Z83.3 Family history of diabetes mellitus; Z82.49 Family history of ischemic heart disease and other diseases of the circulatory system; Z79.899 Other long term (current) drug therapy

== ENCOUNTER 2017-01-09 21:40 | Emergency (ER) | payer OTHER ==
[~2017-01-09] VITALS: Ht 188 cm; Wt 117.3 kg
[~2017-01-09 21:40] MED LIST changes: +CLIN300C2 PO; -CLON1TAB3 PO; -DIPH1TAB PO; +DPKSR/500 PO; -FLX/5 PO; +LCTX PO; +LISI-729 PO; -MELO7.5T5 PO; +METR-163 PO; -OXYC1TAB3 PO; +PANT40TA PO; +PRAZ1CAP28 PO; -PRAZ2CAP2 PO; +PRAZ2CAP3 PO; -PRED10TA PO; -VNTHFA/IN INH; +WLLSR150 PO
[2017-01-09 21:42] VITALS: TEMP 37.2; Ht 188 cm; Wt 117.3 kg
[2017-01-09] MEDS ORDERED: XYLOCAINE 1%/SOD BICARB 20 ML VIAL INFIL ONE (22:15)
[2017-01-09] MEDS ORDERED: CEPHALEXIN 500MG HOME PACK 1 EA BTL PO ONE (22:15)
[2017-01-09] MEDS ORDERED: SEPTRA DS HOME PACK 1 EA VIAL PO ONE (22:15)
[2017-01-09] MEDS ORDERED: TEMA15CA4 PO (22:33)
[2017-01-09] MEDS ORDERED: HYDR100C PO (22:33)
[2017-01-09] MEDS ORDERED: GLC500 PO (22:33)
[2017-01-09] MEDS ORDERED: OXYCODONE IR HOME PACK PO ONE (23:00)
[2017-01-09] MEDS ORDERED: CEPH500C2 PO (23:05)
[2017-01-09] MEDS ORDERED: SULF800T23 PO (23:05)
[2017-01-09 23:16] VITALS: BP 136/71; PULSE 80; O2SAT 98
[2017-01-09] MEDS ORDERED: LURA40TA PO (23:52)
--- NOTE | 2017-01-10 04:56 | EMERGENCY ROOM VISIT NOTE ---
History First contact with patient: 21:52 Chief Complaint: INFECTION Stated Complaint: CYST ON TAIL BONE, HX OF MRSA Nursing Triage Summary: Pilianidial cyst X 1.5 days. Negative nausea/vomiting. HIstory of the same. History of Present Illness The patient is a 46 year old male who presents to the Emergency Room with complaints of pilonidal cyst pain for the past 2 days has a history of abscesses. Patient denies fevers, nausea, vomiting, diarrhea, abdominal pain, chest pain, dyspnea. He is time by mouth fluids and food. No IV drug abuse. He does smoke. Review of Systems See HPI for pertinent positives & negatives. A total of 6 systems reviewed and were otherwise negative. Past Medical/Surgical History Medical Problems: (1) Alcohol dependence (2) ANXIETY STATE NOS (3) Asthma (4) ASTHMA, UNSPECIFIED (5) BIPOL I, REC EPIS OR CURRENT DEPR, SEVERE, SPEC W PSYCH BEH (6) Bronchitis (7) Cellulitis (8) CVA (9) Encounter for wound re-check (10) Encounter for wound re-check (11) Epigastric pain (12) Epigastric pain (13) Gall bladder disease (14) Hx MRSA infection (15) Laceration (16) SCHIZOPHRENIA NOS-UNSPEC (17) Shoulder pain, left (18) TOBACCO USE DISORDER (19) VARIANTS MIGRAINE NEC W/O INTRACT MGRN W/O STATUS MGRAINOSUS (20) Visit for suture removal (21) Visit for suture removal (22) Wound infection Surgical Problems: (1) Hx of cholecystectomy Family History Cancer Diabetes mellitus FH: heart disease Gallbladder disease Heart disease Hypertension Kidney disease Lung disease Social History Smoking Status: Current Every Day Smoker Alcohol Use: none Drug Use: marijuana Marital Status: Housing Status: lives with family Occupation Status: unemployed, disabled Current/Historical Medications Scheduled Bupropion HCl (Bupropion HCl Sr), 150 MG PO QAM Cephalexin Monohydrate (Keflex), 500 MG PO QID Divalproex Sodium (Depakote Etended-Release), 2,000 MG PO HS Hydroxyzine Pamoate (Vistaril), 100 MG PO HS Lactobacillus Acidophilus (Lactinex), 2 TAB PO BID Lisinopril (Zestril), 5 MG PO DAILY Lurasidone Hcl (Latuda), 60 MG PO HS Metformin HCl (Metformin HCl), 500 MG PO BIDM Pantoprazole (Protonix), 40 MG PO BID Prazosin Hcl (Prazosin), 3 MG PO HS Sulfa/Trimethoprim (Bactrim Ds 800MG/160MG), 1 TAB PO BID Temazepam (Restoril), 15 MG PO HS Allergies Coded Allergies: Penicillins (Verified Allergy, Intermediate, hives. PER PT. HAS TAKEN AUGMENTIN W/O A PROBLEM., 09/24/16) Aspirin (Verified Adverse Reaction, Mild, nausea, 09/24/16) Physical Exam Vital Signs Date Time Temp Pulse Resp B/P (MAP) Pulse Ox O2 Delivery O2 Flow Rate FiO2 01/09/17 23:16 80 16 136/71 98 01/09/17 21:42 37.2 93 18 149/90 97 Room Air Pain Rating (0-10): 0 Physical Exam VITALS: Vitals are noted on the nurse's note and reviewed by myself. Vital signs stable. GENERAL: Pleasant male, in no acute distress, nondiaphoretic, well-developed well-nourished. SKIN: Capillary reflex less than 2 seconds. HEENT: Normocephalic. PERRLA. EOMI. Nares patent. Mucous membranes moist. Neck is supple without nuchal rigidity. HEART: Regular rate and rhythm without murmurs gallops or rubs. LUNGS: Clear to auscultation bilaterally without wheezes, rales or rhonchi. No retractions or accessory muscle use. ABDOMEN: Positive bowel sounds x 4. Normal tympanic percussion. Soft, nontender, without masses or organomegaly. Harding sign negative. No guarding or rebound tenderness. Rectal exam: pilonidal cyst with abscess present that is fluctuant MUSCULOSKELETAL: No gross musculoskeletal defects. No pedal edema. No calf tenderness. NEURO: Patient was alert and oriented to person place and time. Normal sensation to light and sharp touch. No focal neurological deficits. Medical Decision & Procedures Medications Administered Medications (Trade) Dose Ordered Sig/Carito Route Start Time Stop Time Status Last Admin Dose Admin Lidocaine HCl (Buffered Lidocaine 1% Inj) 20 ml ONE ONCE INFIL 01/09/17 22:15 01/09/17 22:16 DC 01/09/17 22:19 20 ML Trimethoprim/ Sulfamethoxazole (Sulfameth/ Trimeth Ds 800/ 160MG Home Pack) 1 homepack UD ONCE PO 7/14/17 22:15 01/09/17 22:16 DC 01/09/17 22:19 1 HOMEPACK Cephalexin Monohydrate (Keflex 500MG Home Pack) 1 homepack NOW ONCE PO 01/09/17 22:15 01/09/17 22:16 DC 01/09/17 22:19 1 HOMEPACK Procedure Incision & Drainage Indication: Abscess. Location: pilonidal cyst/abscess Verbal consent was obtained after the risks and benefits were explained, including but not limited to bleeding, scarring, infection, pain, and bone/joint /nerve damage. At this time, the risks of the procedure are less than the risks of NOT performing the procedure. A time out was taken and the correct patient and site identified. The skin was prepped with betadine and a sterile field set. The wound was anesthetized with 4 ml of 1% lidocaine without epinephrine. The abscess cavity was entered with a number 11 blade and bloody purulent material expressed. Copious irrigation was performed using normal saline. The wound was explored for foreign bodies and none found. Debridement was not performed. Packing placed and a sterile dressing applied. Detailed wound care instructions and signs and symptoms of worsening infection reviewed with the patient. No complications and the patient tolerated the procedure well. ED Course Prior records reviewed and summarized as above. Triage Nursing notes reviewed. Additional history obtained from [place]. The patient's history was concerning for swelling and redness of the skin. Differential diagnosis: Etiologies such as cellulitis, abscess, MRSA infection, DVT, necrotizing fasciitis, dermatitis, drug eruption, as well as others were entertained.. Physical examination: The physical examination was consistent with abscess ER treatment provided: Keflex, Bactrim, I&D as above On reassessment the patient felt better. Diagnostics interpreted by me: Deferred This appears to be pilonidal abscess. This is recurrent for the patient. He was advised to follow surgery for removal of this. He is advised follow-up family care for wound repacking 2-3 days or here in the ER sooner for severe pain, fevers, vomiting, worsening signs or symptoms or as needed. By the evaluation outlined above emergent etiologies such as necrotizing fasciitis, as well as others were deemed relatively unlikely. The pt informed about the findings as listed above. All questions were answered and pleased with the treatment. Return instructions were outlined and the patient was discharged in stable condition. Outpatient prescription management: Keflex, Bactrim Referral: The patient was referred back to primary care physician for follow-up in 2 to 3 days for a recheck of the current condition. Medical Decision As above Impression Primary Impression: Pilonidal abscess Departure Information Dispostion Home / Self-Care Condition GOOD Prescriptions Sulfa/Trimethoprim (Bactrim Ds 800MG/160MG) Tab 1 TAB PO BID for 9 Days, #18 TAB Prov: Patricia Lynch .KORI 01/09/17 Cephalexin Monohydrate (KEFLEX) 500 Mg Cap 500 MG PO QID for 9 Days, #36 CAP Prov: Patricia Lynch .KORI 01/09/17 Referrals Justyna Gamez M.D. (PCP) Forms WORK / SCHOOL INSTRUCTIONS, HOME CARE DOCUMENTATION FORM, IMPORTANT VISIT INFORMATION Patient Instructions [facility], ED Cyst Pilonidal Infected IandD Additional Instructions Cephalexin(Keflex) 500mg: Take one pill four times daily for 10 days for your skin infection. All antibiotics can cause diarrhea. If this occurs and you feel worse or it does not resolve in 1-2 days follow up with your doctor or return to the Emergency Department as this could be signs of serious underlying problems. Any medication can cause an allergic reaction, stop the pills immediately and return to the ER for rash, hives, breathing difficulties, or swelling. Trimethoprim-Sulfamethoxazole(Bactrim DS): Take one pill twice daily for 10 days for your skin infection. All antibiotics can cause diarrhea. If this occurs and you feel worse or it does not resolve in 1-2 days follow up with your doctor or return to the Emergency Department as this could be signs of serious underlying problems. Any medication can cause an allergic reaction, stop the pills immediately and return to the ER for rash, hives, breathing difficulties, or swelling. Ibuprofen(Motrin, Advil) may be used for fever or pain. Use 600mg every six hours as needed. Take with food. Avoid using more than 2400mg in a 24 hour period. Do not use 2400mg per day for more than three consecutive days without physician direction. Prolonged inappropriate use can lead to stomach upset or ulcers. (AND/OR) Acetaminophen(Tylenol) may be used for fever or pain. Use 1000mg every six hours as needed. Avoid using more than 3000mg in a 24 hour period. Rest and drink plenty of fluids. Continue current medications. See a general surgeon for removal of your Pilonidal cyst as this is a recurrent problem for your. Return to the ER for severe pain, persistent fevers, spreading redness, or any worsening of your condition. Follow up with your primary physician within 2-3 days for a recheck of the current condition and wound repacking. Bring your packing material with you to your appointment. Do not open this.
== END 2017-01-09 23:17 | disposition home or self-care (01) ==
LOC: C.EDB 21:41 → C.EDC 23:17
DX: L05.01 Pilonidal cyst with abscess (principal); J45.909 Unspecified asthma, uncomplicated; F41.1 Generalized anxiety disorder; F20.9 Schizophrenia, unspecified; F31.5 Bipolar disorder, current episode depressed, severe, with psychotic features; F17.200 Nicotine dependence, unspecified, uncomplicated; Z86.14 Personal history of Methicillin resistant Staphylococcus aureus infection; Z90.49 Acquired absence of other specified parts of digestive tract; Z83.3 Family history of diabetes mellitus; Z82.49 Family history of ischemic heart disease and other diseases of the circulatory system; Z79.899 Other long term (current) drug therapy

== ENCOUNTER 2017-01-11 18:58 | Emergency (ER) | payer OTHER ==
[~2017-01-11] VITALS: Ht 188 cm; Wt 118.9 kg
[~2017-01-11 18:58] MED LIST changes: +CEPH500C2 PO; -CLIN300C2 PO; +GLC500 PO; +HYDR100C PO; +LURA40TA PO; -METR-163 PO; -PRAZ2CAP3 PO; +SULF800T23 PO; +TEMA15CA4 PO
[2017-01-11 19:01] VITALS: TEMP 37.4; Ht 188 cm; Wt 118.9 kg
[2017-01-11 19:23] VITALS: BP 141/88; PULSE 97; O2SAT 97
--- NOTE | 2017-01-11 19:50 | EMERGENCY ROOM VISIT NOTE ---
History Report prepared by Davonte: Amari Donohue Under the Supervision of: Dr. Andrew Armstrong D.O. First contact with patient: 19:06 Chief Complaint: PACKING REMOVAL Stated Complaint: HAD CYST REMOVED, NEEDS PACKING REMOVED Nursing Triage Summary: needs packing removed from tailbone area History of Present Illness The patient is a 46 year old male who presents to the Emergency Room for packing removal. The patient noticed an abscess on tailbone 4 days ago. He was evaluated in the Emergency Room 3 days ago by Taylor Lynch PA-C, and had an I&D procedure performed. He was discharged home on Bactrim and Keflex. He was told to return to the Emergency Room today to have the packing removed. The patient states that the area of incision/abscess seems to be improving. This is the third time that patient has had an abscess in the area. Pt denies headache, change in vision, fevers, chest pain, shortness of breath, nausea, vomiting, and diarrhea. Source of History: patient Onset: 4 days ago Position: other (global) Quality: other (packing removal ) Associated Symptoms: No fevers, No headache, No chest pain, No SOB, No nausea, No diarrhea Review of Systems See HPI for pertinent positives & negatives. A total of 10 systems reviewed and were otherwise negative. 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 (20) Visit for suture removal (21) Visit for suture removal (22) Wound infection Surgical Problems: (1) Hx of cholecystectomy Family History Cancer Diabetes mellitus FH: heart disease Gallbladder disease Heart disease Hypertension Kidney disease Lung disease Social History Smoking Status: Current Every Day Smoker Alcohol Use: none Drug Use: marijuana Marital Status: Housing Status: lives with family Occupation Status: unemployed, disabled Current/Historical Medications Scheduled Bupropion HCl (Bupropion HCl Sr), 150 MG PO QAM Cephalexin Monohydrate (Keflex), 500 MG PO QID Divalproex Sodium (Depakote Etended-Release), 2,000 MG PO HS Hydroxyzine Pamoate (Vistaril), 100 MG PO HS Lactobacillus Acidophilus (Lactinex), 2 TAB PO BID Lisinopril (Zestril), 5 MG PO DAILY Lurasidone Hcl (Latuda), 60 MG PO HS Metformin HCl (Metformin HCl), 500 MG PO BIDM Pantoprazole (Protonix), 40 MG PO BID Prazosin Hcl (Prazosin), 3 MG PO HS Sulfa/Trimethoprim (Bactrim Ds 800MG/160MG), 1 TAB PO BID Temazepam (Restoril), 15 MG PO HS Allergies Coded Allergies: Penicillins (Verified Allergy, Intermediate, hives. PER PT. HAS TAKEN AUGMENTIN W/O A PROBLEM., 09/24/16) Aspirin (Verified Adverse Reaction, Mild, nausea, 09/24/16) Physical Exam Vital Signs Date Time Temp Pulse Resp B/P (MAP) Pulse Ox O2 Delivery O2 Flow Rate FiO2 01/11/17 19:23 97 18 141/88 97 01/11/17 19:01 37.4 97 18 141/88 97 Room Air Physical Exam GENERAL: Sitting up in bed, alert, well appearing, well nourished, no distress, non-toxic EYE EXAM: normal conjunctiva OROPHARYNX: no exudate, no erythema, lips, buccal mucosa, and tongue normal and mucous membranes are moist NECK: supple, no nuchal rigidity, no adenopathy, non-tender LUNGS: Clear to auscultation. Normal chest wall mechanics HEART: no murmurs, S1 normal and S2 normal ABDOMEN: abdomen soft, non-tender, normo-active bowel sounds, no masses, no rebound or guarding. BACK: Back is symmetrical on inspection and there is no deformity, no midline tenderness, no CVA tenderness. 1.5 cm by 2 cm cut into the muscle belly without purulence and minimal surrounding erythema less than 1 cm. Unable to palpate bone. Packing was removed. Appears to be healing well. SKIN: no rashes and no bruising UPPER EXTREMITIES: upper extremities are grossly normal. LOWER EXTREMITIES: No pitting edema. NEURO EXAM: Normal sensorium, cranial nerves II-XII grossly intact, normal speech, no gross weakness of arms, no gross weakness of legs. Medical Decision & Procedures ED Course ED COURSE: Vital signs were reviewed and showed hypertensive. The patients medical record was reviewed The above diagnostic studies were performed and reviewed. ED treatments and interventions as stated above. 190: The patient was evaluated in room A02. A complete history and physical examination was performed. 191: Upon reevaluation, the patient is resting comfortably.I discussed my findings with the patient and he understands and agrees with the treatment plan. Based on the patients age, coexisting illnesses, exam and lab findings the decision to treat as an outpatient was made. The patient remained stable while under my care. The patient appeared well at the time of discharge. Medical Decision Medication Reconciliation: I attest that I have personally reviewed the patient' s current medication list. Blood Pressure Screening: The patient was found to have a slightly elevated blood pressure due to circumstances. I do not believe that the patient requires hypertension monitoring. Differential diagnosis: Etiologies such as cellulitis, abscess, MRSA infection, DVT, necrotizing fasciitis, dermatitis, drug eruption, as well as others were entertained. Patient is a 46-year-old male that was seen here on who had an I&D performed for a pilonidal abscess. Packing was placed. Patient was placed on Bactrim and Keflex. Patient returns today to have packing removed. He notes it feels significantly better. There was minimal surrounding erythema without discharge. Packing was removed and intact. Patient was encouraged to continue antibiotics and follow-up with general surgery. Discussed with Pt concerning signs and symptoms to watch out for. Pt was instructed to follow up with their PCP and discussed with the patient their option to return to the ED at anytime for persistent or worsening symptoms. The appropriate anticipatory guidance and out-patient management, including indications for return to the emergency department, were explained at length to the patient and understood. Impression Primary Impression: Pilonidal abscess Scribe Attestation The scribe's documentation has been prepared under my direction and personally reviewed by me in its entirety. I confirm that the note above accurately reflects all work, treatment, procedures, and medical decision making performed by me. Departure Information Dispostion Home / Self-Care Referrals Justyna Gamez M.D. (PCP) Forms HOME CARE DOCUMENTATION FORM, IMPORTANT VISIT INFORMATION, WORK / SCHOOL INSTRUCTIONS Patient Instructions ED Cyst Pilonidal Infected [place], [facility] Additional Instructions Please follow up with your primary care doctor with in the next 24 hours. Any worsening of your symptoms, please return to the ED immediately. This includes fevers greater than 100.4, worsening pain, new drainage, surrounding redness, or any other concerning signs or symptoms from your standpoint. Please follow-up with general surgery as previously discussed within the next week. Please take antibiotics as prescribed. Use Motrin or Tylenol as needed for pain.
== END 2017-01-11 19:25 | disposition home or self-care (01) ==
LOC: C.EDB 18:59 → C.EDA 19:25
DX: L05.01 Pilonidal cyst with abscess (principal); J45.909 Unspecified asthma, uncomplicated; F41.9 Anxiety disorder, unspecified; J20.9 Acute bronchitis, unspecified; F17.200 Nicotine dependence, unspecified, uncomplicated; K86.1 Other chronic pancreatitis; Z86.73 Personal history of transient ischemic attack (TIA), and cerebral infarction without residual deficits; Z86.14 Personal history of Methicillin resistant Staphylococcus aureus infection; Z86.19 Personal history of other infectious and parasitic diseases; Z90.49 Acquired absence of other specified parts of digestive tract; Z79.84 Long term (current) use of oral hypoglycemic drugs; Z79.899 Other long term (current) drug therapy; Z88.0 Allergy status to penicillin; Z88.6 Allergy status to analgesic agent; Z80.9 Family history of malignant neoplasm, unspecified; Z83.3 Family history of diabetes mellitus; Z82.49 Family history of ischemic heart disease and other diseases of the circulatory system; Z83.79 Family history of other diseases of the digestive system; Z84.1 Family history of disorders of kidney and ureter

== ENCOUNTER 2017-06-01 20:12 | Observation (INO) | payer OTHER ==
[~2017-06-01] VITALS: Ht 188 cm; Wt 116.4 kg
[~2017-06-01 20:12] MED LIST changes: -CEPH500C2 PO; -DPKSR/500 PO; -GLC500 PO; -HYDR100C PO; -LURA40TA PO; -PRAZ1CAP28 PO; -SULF800T23 PO; -TEMA15CA4 PO
[2017-06-01] MEDS ORDERED: ALBUT/IPRATROP 3MG/0.5MG NEB 3 ML VIAL INH STA (20:25)
[2017-06-01] MEDS ORDERED: NITROGLYCERIN OINT 2% 1GM PACKET EXT ONE (20:30)
[2017-06-01] MEDS ORDERED: METHYLPREDNISOLONE 125 MG VIAL IV STA (20:52)
--- NOTE | 2017-06-01 20:54 | DIAGNOSTIC IMAGING REPORT ---
CHEST ONE VIEW PORTABLE CLINICAL HISTORY: Atypical chest pain COMPARISON STUDY: 08/04/2016 FINDINGS: The cardiac and mediastinal contours are normal. There is no evidence of focal pulmonary consolidation. There is no evidence of failure. No pleural effusions are visualized.[ IMPRESSION: No active disease in the chest. Electronically signed by: Balwinder Grier M.D. 06/01/2017 8:52 PM Dictated Date/Time: 06/01/2017 8:52 PM
[2017-06-01] MEDS ORDERED: INDSR/60 PO (20:58)
[2017-06-01] MEDS ORDERED: RANI150T2 PO (20:58)
[2017-06-01 21:00] LABS: BASO % 0.5 %; BASO ABS # 0.07 K/uL (0-0.2); COMPLETE YES; EOS % 4.1 %; HEMATOCRIT 41.4 % (42-52); IG% 0.5 %; LYMPH % 16.1 %; LYMPH ABS # 2.34 K/uL (1.2-3.4); MEAN CELL VOLUME 88.7 fL (80-100); MEAN CORPUSCULAR HEMOGLOBIN 29.3 pg (25-34); MEAN CORPUSCULAR HGB CONC 33.1 g/dl (32-36); MEAN PLATELET VOLUME 11.4 fL (7.4-10.4); MONO % 6.3 %; NEUT % 72.5 %; PLATELET COUNT 230 K/uL (130-400); RED BLOOD COUNT 4.67 M/uL (4.7-6.1); WHITE BLOOD COUNT 14.52 K/uL (4.8-10.8)
[2017-06-01 21:13] LABS: INR 0.9 (0.9-1.1); PROTHROMBIN TIME (PATIENT) 9.9 SECONDS (9.0-12.0)
[2017-06-01 21:16] LABS: BLOOD UREA NITROGEN 18 mg/dl (7-18); BUN/CREATININE RATIO 16.6 (10-20); CALCIUM 9.2 mg/dl (8.5-10.1); CARBON DIOXIDE 27 mmol/L (21-32); CHLORIDE 106 mmol/L (98-107); CREATININE 1.09 mg/dl (0.60-1.40); GLUCOSE 83 mg/dl (70-99); POTASSIUM 4.7 mmol/L (3.5-5.1); SODIUM 140 mmol/L (136-145)
[2017-06-01] MEDS ORDERED: DPKSR/500 PO (21:21)
[2017-06-01] MEDS ORDERED: PRAZ1CAP28 PO (21:21)
[2017-06-01] MEDS ORDERED: TEMA15CA4 PO (22:33)
[2017-06-01] MEDS ORDERED: HYDR100C PO (22:33)
[2017-06-01] MEDS ORDERED: GLC500 PO (22:33)
[2017-06-01] MEDS ORDERED: ASPIRIN 81 MG ECTAB PO STA (23:09)
[2017-06-01 23:28] LABS: ALKALINE PHOSPHATASE 101 U/L (45-117); ALT/SGPT 10 U/L (12-78); AST/SGOT 8 U/L (15-37)
[2017-06-01] MEDS ORDERED: LURA40TA PO (23:52)
[2017-06-02] MEDS ORDERED: SODIUM CHLORIDE 0.9% 1000ML 1,000 ML IV SCH (00:24)
[2017-06-02] MEDS ORDERED: GLUCOSE 10 TABS/TUBE PO PRN (00:30)
[2017-06-02] MEDS ORDERED: GLUCOSE 40% GEL 15 GM TUBE PO PRN (00:30)
[2017-06-02] MEDS ORDERED: LORAZEPAM 2 MG/ML 1 ML VIAL IV PRN (00:30)
[2017-06-02] MEDS ORDERED: PROCHLORPERAZINE INJ 5 MG in SYRINGE 4 ML IV PRN (00:30)
[2017-06-02] MEDS ORDERED: GLUCAGON FOR INJ 1 MG VIAL SQ PRN (00:30)
[2017-06-02] MEDS ORDERED: ACETAMINOPHEN 325 MG TAB PO PRN (00:30)
[2017-06-02] MEDS ORDERED: TRAMADOL HCL 50 MG TAB PO PRN (00:30)
[2017-06-02] MEDS ORDERED: NITROGLYCERIN 0.4 MG SL PER TAB CHARGE SL PRN (00:30)
[2017-06-02] MEDS ORDERED: DEXTROSE 50% 50 ML SYR IV PRN (00:30)
[2017-06-02] MEDS ORDERED: MoRPHine SULFATE 4 MG/ML 1 ML CARP\\VIAL IV PRN (00:30)
[2017-06-02] MEDS ORDERED: LEVALBUTEROL/IPRATROPIUM NEB INH PRN (00:30)
[2017-06-02 00:50] VITALS: BP 132/84; PULSE 88; TEMP 37.5; O2SAT 94; BMI 32.9
[2017-06-02] MEDS ORDERED: LEVALBUTEROL 1.25MG/0.5ML NEB INH PRN (01:00)
[2017-06-02] MEDS ORDERED: IPRATROPIUM BROMIDE NEB SOLN 0.02% 2.5 ML VIAL INH PRN (01:00)
--- NOTE | 2017-06-02 01:25 | EMERGENCY ROOM VISIT NOTE ---
History Report prepared by Davonte: Argelia Byrd Under the Supervision of: Dr. John Herbert M.D. First contact with patient: 20:16 Chief Complaint: CHEST PAIN Stated Complaint: CHEST PAIN History of Present Illness The patient is a 46 year old male who presents to the Emergency Room with complaints of constant chest pain beginning 1 hour [employer]. The patient was at home when his symptoms started. His mother had fallen out of her wheelchair and he was trying to lift her up off the floor. While this was happening his dogs got into a fight and he was also trying to break the dogs up. He thinks that he became overwhelmed and overexerted himself. The patient developed chest pain and shortness of breath. He became diaphoretic and his left arm started hurting. He states, "It felt like someone was sitting on my chest." He has had similar symptoms in the past. The patient was brought to the ED by ambulance. He was given 2 nitro SL en route and states that his symptoms have started to improve with rest and after the nitro. The patient is currently complaining of a headache. He has a personal history of DM and COPD. He has never had a cardiac catheterization. He does report that his father had an NJ when he was in his 40s. Source of History: patient Onset: 1 hour [employer] Position: chest Quality: pressure (someone sitting on chest) Timing: constant Modifying Factors (Worsening): other (exertion) Modifying Factors (Relieving): rest, other (nitro) Associated Symptoms: + headache, + diaphoresis, + SOB Review of Systems See HPI for pertinent positives & negatives. A total of 10 systems reviewed and were otherwise negative. 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 (20) Visit for suture removal (21) Visit for suture removal (22) Wound infection Surgical Problems: (1) Hx of cholecystectomy Family History Cancer Diabetes mellitus FH: heart disease Gallbladder disease Heart disease Hypertension Kidney disease Lung disease Social History Smoking Status: Current Every Day Smoker Alcohol Use: none Drug Use: marijuana Marital Status: Housing Status: lives with family Occupation Status: unemployed, disabled Current/Historical Medications Scheduled Divalproex Sodium (Depakote Etended-Release), 2,000 MG PO HS Hydroxyzine Pamoate (Vistaril), 100 MG PO HS Lactobacillus Acidophilus (Lactinex), 1 TAB PO BID Lurasidone Hcl (Latuda), 60 MG PO HS Metformin HCl (Metformin HCl), 500 MG PO BIDM Pantoprazole (Protonix), 40 MG PO BID Prazosin Hcl (Prazosin), 3 MG PO HS Propranolol Hcl (Propranolol ER), 60 MG PO DAILY Ranitidine HCl (Ranitidine HCl), 150 MG PO BID Temazepam (Restoril), 15 MG PO HS Allergies Coded Allergies: Penicillins (Verified Allergy, Intermediate, hives. PER PT. HAS TAKEN AUGMENTIN W/O A PROBLEM., 09/24/16) Physical Exam Vital Signs Date Time Temp Pulse Resp B/P (MAP) Pulse Ox O2 Delivery O2 Flow Rate FiO2 06/02/17 00:40 95 20 138/80 95 Room Air 06/01/17 23:18 105 18 125/88 97 Room Air 06/01/17 22:16 87 20 134/103 96 Room Air 06/01/17 20:47 83 18 143/87 96 Room Air 06/01/17 20:47 95 Room Air 06/01/17 20:30 36.8 87 20 126/80 95 Room Air 06/01/17 20:30 95 Room Air 06/01/17 20:30 95 Room Air 06/01/17 20:19 86 Physical Exam Constitutional: Vital signs reviewed. Eyes: Pupils are equal round reactive to light. Conjunctiva are noninjected. ENT: Pharynx is clear without erythema or exudate. Mucous membranes are moist. Neck supple without meningeal signs. Respiratory: Wheezing bilaterally. Breath sounds are equal bilaterally. Cardiovascular: Regular rate and rhythm. No rubs or gallops. GI: Soft, nondistended and nontender. Bowel sounds are present. Musculoskeletal: No peripheral edema. No lower extremity tenderness. Integumentary: No cyanosis. Neurological: The patient is awake and alert. No focal deficits. Psychiatric: Normal affect. Medical Decision & Procedures ER Provider Diagnostic Interpretation: Radiology results as stated below per my review and the radiologist's interpretation: CHEST ONE VIEW PORTABLE CLINICAL HISTORY: Atypical chest pain COMPARISON STUDY: 08/04/2016 FINDINGS: The cardiac and mediastinal contours are normal. There is no evidence of focal pulmonary consolidation. There is no evidence of failure. No pleural effusions are visualized.[ IMPRESSION: No active disease in the chest. Electronically signed by: Balwinder Grier M.D. 06/01/2017 8:52 PM Dictated Date/Time: 06/01/2017 8:52 PM Laboratory Results 06/01/17 20:31 Red Blood Count 4.67, Mean Corpuscular Volume 88.7, Mean Corpuscular Hemoglobin 29.3, Mean Corpuscular Hemoglobin Concent 33.1, Mean Platelet Volume 11.4, Neutrophils (%) (Auto) 72.5, Lymphocytes (%) (Auto) 16.1, Monocytes (%) (Auto) 6.3, Eosinophils (%) (Auto) 4.1, Basophils (%) (Auto) 0.5, Neutrophils # (Auto) 10.54, Lymphocytes # (Auto) 2.34, Monocytes # (Auto) 0.91, Eosinophils # (Auto) 0.59, Basophils # (Auto) 0.07 06/01/17 20:31 Test 06/01/17 20:31 06/01/17 20:39 06/01/17 23:27 White Blood Count 14.52 K/uL (4.8-10.8) Red Blood Count 4.67 M/uL (4.7-6.1) Hemoglobin 13.7 g/dL (14.0-18.0) Hematocrit 41.4 % (42-52) Mean Corpuscular Volume 88.7 fL (80-100) Mean Corpuscular Hemoglobin 29.3 pg (25-34) Mean Corpuscular Hemoglobin Concent 33.1 g/dl (32-36) Platelet Count 230 K/uL (130-400) Mean Platelet Volume 11.4 fL (7.4-10.4) Neutrophils (%) (Auto) 72.5 % Lymphocytes (%) (Auto) 16.1 % Monocytes (%) (Auto) 6.3 % Eosinophils (%) (Auto) 4.1 % Basophils (%) (Auto) 0.5 % Neutrophils # (Auto) 10.54 K/uL (1.4-6.5) Lymphocytes # (Auto) 2.34 K/uL (1.2-3.4) Monocytes # (Auto) 0.91 K/uL (0.11-0.59) Eosinophils # (Auto) 0.59 K/uL (0-0.5) Basophils # (Auto) 0.07 K/uL (0-0.2) RDW Standard Deviation 45.8 fL (36.4-46.3) RDW Coefficient of Variation 14.2 % (11.5-14.5) Immature Granulocyte % (Auto) 0.5 % Immature Granulocyte # (Auto) 0.07 K/uL (0.00-0.02) Prothrombin Time 9.9 SECONDS (9.0-12.0) Prothromb Time International Ratio 0.9 (0.9-1.1) Activated Partial Thromboplast Time 25.7 SECONDS (21.0-31.0) Partial Thromboplastin Ratio 1.0 Anion Gap 7.0 mmol/L (3-11) Estimated GFR () 93.8 Estimated GFR (Non- 81.0 BUN/Creatinine Ratio 16.6 (10-20) Calcium Level 9.2 mg/dl (8.5-10.1) Magnesium Level 2.0 mg/dl (1.8-2.4) Total Bilirubin 0.2 mg/dl (0.2-1) Direct Bilirubin < 0.1 mg/dl (0-0.2) Aspartate Amino Transf (AST/SGOT) 8 U/L (15-37) Alanine Aminotransferase (ALT/SGPT) 10 U/L (12-78) Alkaline Phosphatase 101 U/L (45-117) Total Protein 6.8 gm/dl (6.4-8.2) Albumin 3.1 gm/dl (3.4-5.0) Lipase 190 U/L (73-393) Bedside Troponin I < 0.030 ng/ml (0-0.045) Troponin I < 0.015 ng/ml (0-0.045) Valproic Acid (Depakene) Level 87 mcg/ml (50-100) Laboratory results as reviewed by me. Medications Administered Medications (Trade) Dose Ordered Sig/Carito Route Start Time Stop Time Status Last Admin Dose Admin Nitroglycerin (Nitroglycerin 2% Oint) 0.5 inch NOW ONCE EXT 06/01/17 20:30 06/01/17 20:31 DC 06/01/17 20:43 0.5 INCH Albuterol/ Ipratropium (Duoneb) 3 ml NOW STAT INH 06/01/17 20:25 06/01/17 20:28 DC 06/01/17 20:43 3 ML Methylprednisolone Sodium Succinate (Solu-Medrol IV) 125 mg NOW STAT IV 06/01/17 20:52 06/01/17 20:53 DC 06/01/17 20:58 125 MG Aspirin (Ecotrin Tab) 81 mg NOW STAT PO 06/01/17 23:09 06/01/17 23:22 DC 06/01/17 23:29 81 MG ECG Indication: chest pain Rate (beats per minute): 83 Rhythm: normal sinus Findings: no acute ischemic change, no ectopy ED Course 2015: The patient was evaluated in room B4B. A complete history and physical exam was performed. 2024: DuoNeb 3 ml INH 2029: Nitroglycerin 0.5 inch EXT 2049: Upon reevaluation the patient's discomfort is almost gone. He is still wheezing on exam but is still using the neb. 2051: Solu-Medrol 125 mg IV 2131: I reassessed the patient at this time. He is feeling better and resting comfortably. His chest discomfort has completely resolved. I discussed the results and treatment plan with the patient. I answered all pertaining questions that he had. He expressed understanding and verbalized agreement. 2150: I spoke with Dr. Ramirez. We discussed the patients case. [facility] Medical Decision This is a 46-year-old male who presents with chest pain. Differential diagnosis includes unstable angina, NJ, GERD, pneumonia, pneumothorax, pleurisy. I did perform a limited focused review of portions of the patient's old chart on the electronic medical record. The patient has had no recent pertinent visits to this hospital. I did evaluate the patient as noted above. Patient is presenting with the sensation of someone sitting on his chest after exerting himself. He does have cardiac risk factors including smoking history, obesity and a family history of heart disease. His father had an NJ in his 40s. IV access was established. The patient was placed on a continuous rn ante partum. The patient was given a DuoNeb here. He is also given nitroglycerin paste and Solu-Medrol 125 mg IV. I did order and personally review the patient's 12-lead EKG and chest x-ray as described above. Twelve-lead EKG is unremarkable. I did order and review the patient's blood work as noted in the electronic medical record. Initial troponin is negative. I did reassess patient. His chest pain is resolved. He still has some wheezing. I did discuss his test results with him and recommended hospitalization for repeat cardiac enzymes and further care. I did discuss case with the hospitalist and rn case manager. Medication Reconcilliation Current Medication List: was personally reviewed by me Blood Pressure Screening Patient's blood pressure: Elevated blood pressure Blood pressure disposition: Elevated BP felt to be situational Consults Time Called: 2139 Consulting Physician: Dr. Ramirez Returned Call: [address] Ramirez. We discussed the patients case. The patient will be evaluated by the [facility] for further management. Impression Primary Impression: Exertional chest pain Additional Impression: COPD exacerbation Scribe Attestation The scribe's documentation has been prepared under my direct and personally reviewed by me in its entirety. I confirm that the note above accurately reflects all work, treatment, procedures, and medical decision making performed by me. Departure Information Dispostion Being Evaluated By Hospitalist Referrals Justyna Gamez M.D. (PCP) Patient Instructions [facility] Problem Qualifiers
[2017-06-02] MEDS ORDERED: IV FLUIDS COMPLETED PRN (01:45)
[2017-06-02] MEDS ORDERED: INSULIN ASPART 100 UNITS/ML 3 ML PEN SC ONE ×2 (02:15→04:59)
[2017-06-02] MEDS ORDERED: PANTOprazole SOD 40 MG TAB PO ONE (02:15)
[2017-06-02] MEDS ORDERED: hydrOXYzine HCL 25 MG TAB PO ONE (02:15)
[2017-06-02] MEDS ORDERED: PRAZOSIN HCL 1 MG CAP PO ONE (02:15)
[2017-06-02] MEDS ORDERED: RANITIDINE HCL 150 MG TAB PO ONE (02:15)
[2017-06-02] MEDS ORDERED: LURASIDONE HCL 40 MG TAB PO ONE (02:15)
[2017-06-02] MEDS ORDERED: TEMAZEPAM 15 MG CAP PO ONE (02:15)
[2017-06-02 04:00] VITALS: BP 130/77; PULSE 88; TEMP 36.6; O2SAT 93
[2017-06-02 04:24] LABS: HEMATOCRIT 39.7 % (42-52); MEAN CELL VOLUME 87.8 fL (80-100); MEAN CORPUSCULAR HEMOGLOBIN 29.4 pg (25-34); MEAN CORPUSCULAR HGB CONC 33.5 g/dl (32-36); MEAN PLATELET VOLUME 11.5 fL (7.4-10.4); PLATELET COUNT 218 K/uL (130-400); RED BLOOD COUNT 4.52 M/uL (4.7-6.1)
[2017-06-02 04:45] LABS: BLOOD UREA NITROGEN 22 mg/dl (7-18); BUN/CREATININE RATIO 19.1 (10-20); CALCIUM 8.9 mg/dl (8.5-10.1); CARBON DIOXIDE 26 mmol/L (21-32); CHLORIDE 106 mmol/L (98-107); CREATININE 1.16 mg/dl (0.60-1.40); GLUCOSE 197 mg/dl (70-99); POTASSIUM 4.5 mmol/L (3.5-5.1); SODIUM 136 mmol/L (136-145)
[2017-06-02] MEDS ORDERED: INFLUENZA VIRUS QUAD VACCINE 0.5 ML SYR IM. ONE (04:45)
[2017-06-02] MEDS ORDERED: INFLUENZA ADMINISTRATION CHARGE ONE (04:45)
[2017-06-02 04:50] LABS: CHOLESTEROL 171 mg/dl (0-200); CHOLESTEROL/HDL RATIO 3.7; HDL CHOLESTEROL 46 mg/dl; LDL CHOLESTEROL CALCULATED 102 mg/dl; TRIGLYCERIDES 113 mg/dl (0-150); VERY LOW DENSITY LIPOPROT CALC 23 mg/dl
--- NOTE | 2017-06-02 04:52 | HISTORY & PHYSICAL EXAMINATION ---
DATE OF ADMISSION: 06/01/2017 PRIMARY CARE DOCTOR: Justyna Gamez MD. CHIEF COMPLAINT: Chest pain. HISTORY OF PRESENT ILLNESS: History obtained from patient and records. Medical history significant for hypertension, mood disorder, ongoing tobacco abuse, chronic anemia (baseline hemoglobin 13), COPD as per records, heterozygous factor V Leiden mutation, schizophrenia as per records, chronic tremors, DM2 on oral meds. Recent confinement under Orthopedics service May 2016 for left knee surgery. Today, the patient stressed out after trying to breakup a fight between house dogs. Patient subsequently noted epigastric pain going to chest with some shortness of breath, burning. He felt sweaty. Could not take a deep breath, usual smoker's cough symptoms. At the Emergency Room, the patient relieved with nitroglycerin, Solu-Medrol, aspirin and DuoNebs. MEDICAL HISTORY: As above. SURGERIES: Orthopedic procedures, wound repair pilonidal cyst removal. HOME MEDICATIONS: Include Depakote, Vistaril, Latuda, Lactinex, metformin, Protonix, ranitidine, Restoril, propranolol. ALLERGIES: PENICILLIN. FAMILY HISTORY: There is a family history of heart disease. PERSONAL AND SOCIAL HISTORY: Eight cigarettes a day. No chronic intake of alcoholic beverages. On disability. REVIEW OF SYSTEMS: As per HPI, all 10 systems reviewed. All other ROS negative. PHYSICAL EXAMINATION: VITAL SIGNS: Blood pressure was noted to be 126/80, pulse rate 87, RR 26, T 37 sats 92 on room air. GENERAL: Noted to be slightly anxious, obese, no respiratory distress. SKIN: Multiple tattoos. Pallor, warm. HEENT: Partial alopecia. [place] palpebral conjuctivae. No ptosis. Dry mucosa. NECK: Short neck. No tenderness. CHEST: Occasional wheeze. No tenderness. HEART: Regular rate and rhythm. No murmur. ABDOMEN: Soft, some distension, nontender. EXTREMITIES: No edema, no tenderness. No gross deformities. NEUROLOGIC: Coherent. No gross focality. LABORATORY DATA: Hemoglobin was noted to be 13.7, hematocrit 41, white cell 14.5, platelets noted to be 230. Sodium noted to be 140, potassium 4.7, chloride 106, CO2 27, BUN 18, creatinine 0.1, glucose was noted to be 83. Troponin normal. Hemoglobin A1c November 2016 was 5.3. Chest x-ray, no active disease. EKG as per my interpretation, rate 85, normal sinus rhythm, no ischemia. T-wave inversions in the septal leads. ASSESSMENT: 1. Atypical chest pain secondary to GERD rule out acute coronary syndrome given patient risk factors for ischemic heart disease 2. hypertension, stable 3. chronic obstructive pulmonary disease, ongoing tobacco abuse no acute exacerbation off breathing issues 4. Mood disorder, stable on medications. 2. DM 2 on oral meds, well controlled as of recent hemoglobin A1C. PLAN: Observation PCU Continue home PPI Aspirin for now for secondary CAD prevention until ACS ruled out. Stress test in the morning if troponin normal. ISS BG goal 140-180. Nicotine patch. DVT prophylaxis, Lovenox subQ. Full code. MTDD
[2017-06-02 05:12] LABS: BASO % 0.2 %; BASO ABS # 0.02 K/uL (0-0.2); COMPLETE YES; EOS % 0.2 %; IG% 0.3 %; LYMPH % 12.2 %; LYMPH ABS # 1.31 K/uL (1.2-3.4); MONO % 1.5 %; NEUT % 85.6 %
[2017-06-02] MEDS ORDERED: INSULIN ASPART 100 UNITS/ML 3 ML PEN SC SCH (07:00)
[2017-06-02 07:14] VITALS: BP 118/77; PULSE 92; TEMP 36.6; O2SAT 92
[2017-06-02] MEDS ORDERED: ASPIRIN 81 MG ECTAB PO SCH (09:00)
[2017-06-02] MEDS ORDERED: LACTOBACILLUS ACIDOPHILUS (FLORANEX) TAB PO SCH (09:00)
[2017-06-02] MEDS ORDERED: PROPRANOLOL HCL 60 MG LA CAP PO SCH (09:00)
[2017-06-02] MEDS ORDERED: NICOTINE 7 MG/24 HR TDSY TD SCH (09:00)
[2017-06-02] MEDS ORDERED: RANITIDINE HCL 150 MG TAB PO SCH (09:00)
[2017-06-02] MEDS ORDERED: PANTOprazole SOD 40 MG TAB PO SCH (09:00)
[2017-06-02] MEDS ORDERED: ENOXAPARIN 40 MG/0.4 ML SYR SC SCH (09:00)
[2017-06-02 11:25] VITALS: BP 123/71; PULSE 89; TEMP 36.6; O2SAT 92
[2017-06-02] MEDS: INSULIN ASPART 100 UNITS/ML 3 ML PEN SC SCH ×2 (12:07→16:15)
[2017-06-02 14:18] VITALS: Ht 188 cm; Wt 116.4 kg
--- NOTE | 2017-06-02 14:54 | Progress Note ---
Internal Med Progress Note Date of Service: Jun 02, 2017. Provider Documentation: SUBJECTIVE: resting comfortably denies chest pain or sob afebrile no nausea OBJECTIVE: Vital Signs-as noted below Exam: General-alert and awake and oriented ENT-normal hearing Neck-no neck masses Lungs-cta b/l no wheezing or crackles Heart-s1 and s2 heard regular rate and rhythm no murmurs Abdomen-soft BS present non tender Extremities-no edema no erythema Neuro-alert and awake moves extremities Lab data as noted below. ASSESSMENT & PLAN: 1. Atypical chest pain secondary to GERD rule out acute coronary syndrome given patient risk factors for ischemic heart disease serial ce and ekg unremarkable await stress echo. currently asymptomatic. 2. hypertension, stable on Inderal. 3. chronic obstructive pulmonary disease, ongoing tobacco abuse stable. 4. Mood disorder, stable on medications. 5. DM 2 on oral meds, well controlled as of recent hemoglobin A1C currently holding po meds. On iss. will monitor DVT PROPHYLAXIS Lovenox DISPOSITION possible d/c today if stress echo negative Vital Signs: Date Time Temp Pulse Resp B/P (MAP) Pulse Ox O2 Delivery O2 Flow Rate FiO2 06/02/17 12:00 Room Air 06/02/17 11:25 36.6 89 20 123/71 (88) 92 06/02/17 08:00 Room Air 06/02/17 07:14 36.6 92 14 118/77 (91) 92 Room Air 06/02/17 04:00 Room Air 06/02/17 04:00 36.6 88 20 130/77 (94) 93 Room Air 06/02/17 00:50 37.5 88 20 132/84 94 Room Air 06/02/17 00:40 95 20 138/80 95 Room Air 06/01/17 23:18 105 18 125/88 97 Room Air 06/01/17 22:16 87 20 134/103 96 Room Air 06/01/17 20:47 83 18 143/87 96 Room Air 06/01/17 20:47 95 Room Air 06/01/17 20:30 36.8 87 20 126/80 95 Room Air 06/01/17 20:30 95 Room Air 06/01/17 20:30 95 Room Air 06/01/17 20:19 86 Lab Results: Results Past 24 Hours Test 06/01/17 20:31 06/01/17 20:39 06/01/17 23:27 06/02/17 02:47 Range/Units White Blood Count 14.52 4.8-10.8 K/uL Red Blood Count 4.67 4.7-6.1 M/uL Hemoglobin 13.7 14.0-18.0 g/dL Hematocrit 41.4 42-52 % Mean Corpuscular Volume 88.7 80-100 fL Mean Corpuscular Hemoglobin 29.3 25-34 pg Mean Corpuscular Hemoglobin Concent 33.1 32-36 g/dl Platelet Count 230 130-400 K/uL Mean Platelet Volume 11.4 7.4-10.4 fL Neutrophils (%) (Auto) 72.5 % Lymphocytes (%) (Auto) 16.1 % Monocytes (%) (Auto) 6.3 % Eosinophils (%) (Auto) 4.1 % Basophils (%) (Auto) 0.5 % Neutrophils # (Auto) 10.54 1.4-6.5 K/uL Lymphocytes # (Auto) 2.34 1.2-3.4 K/uL Monocytes # (Auto) 0.91 0.11-0.59 K/uL Eosinophils # (Auto) 0.59 0-0.5 K/uL Basophils # (Auto) 0.07 0-0.2 K/uL RDW Standard Deviation 45.8 36.4-46.3 fL RDW Coefficient of Variation 14.2 11.5-14.5 % Immature Granulocyte % (Auto) 0.5 % Immature Granulocyte # (Auto) 0.07 0.00-0.02 K/uL Prothrombin Time 9.9 9.0-12.0 SECONDS Prothromb Time International Ratio 0.9 0.9-1.1 Activated Partial Thromboplast Time 25.7 21.0-31.0 SECONDS Partial Thromboplastin Ratio 1.0 Sodium Level 140 136-145 mmol/L Potassium Level 4.7 3.5-5.1 mmol/L Chloride Level 106 98-107 mmol/L Carbon Dioxide Level 27 21-32 mmol/L Anion Gap 7.0 3-11 mmol/L Blood Urea Nitrogen 18 7-18 mg/dl Creatinine 1.09 0.60-1.40 mg/dl Estimated GFR () 93.8 Estimated GFR (Non- 81.0 BUN/Creatinine Ratio 16.6 10-20 Random Glucose 83 70-99 mg/dl Calcium Level 9.2 8.5-10.1 mg/dl Magnesium Level 2.0 1.8-2.4 mg/dl Total Bilirubin 0.2 0.2-1 mg/dl Direct Bilirubin < 0.1 0-0.2 mg/dl Aspartate Amino Transf (AST/SGOT) 8 15-37 U/L Alanine Aminotransferase (ALT/SGPT) 10 12-78 U/L Alkaline Phosphatase 101 45-117 U/L Total Protein 6.8 6.4-8.2 gm/dl Albumin 3.1 3.4-5.0 gm/dl Lipase 190 73-393 U/L Bedside Troponin I < 0.030 0-0.045 ng/ml Troponin I < 0.015 0-0.045 ng/ml Valproic Acid (Depakene) Level 87 50-100 mcg/ml Bedside Glucose 190 70-99 mg/dl Test 06/02/17 04:05 06/02/17 06:08 06/02/17 11:23 Range/Units White Blood Count 10.70 4.8-10.8 K/uL Red Blood Count 4.52 4.7-6.1 M/uL Hemoglobin 13.3 14.0-18.0 g/dL Hematocrit 39.7 42-52 % Mean Corpuscular Volume 87.8 80-100 fL Mean Corpuscular Hemoglobin 29.4 25-34 pg Mean Corpuscular Hemoglobin Concent 33.5 32-36 g/dl Platelet Count 218 130-400 K/uL Mean Platelet Volume 11.5 7.4-10.4 fL Neutrophils (%) (Auto) 85.6 % Lymphocytes (%) (Auto) 12.2 % Monocytes (%) (Auto) 1.5 % Eosinophils (%) (Auto) 0.2 % Basophils (%) (Auto) 0.2 % Neutrophils # (Auto) 9.16 1.4-6.5 K/uL Lymphocytes # (Auto) 1.31 1.2-3.4 K/uL Monocytes # (Auto) 0.16 0.11-0.59 K/uL Eosinophils # (Auto) 0.02 0-0.5 K/uL Basophils # (Auto) 0.02 0-0.2 K/uL RDW Standard Deviation 45.4 36.4-46.3 fL RDW Coefficient of Variation 14.1 11.5-14.5 % Immature Granulocyte % (Auto) 0.3 % Immature Granulocyte # (Auto) 0.03 0.00-0.02 K/uL Sodium Level 136 136-145 mmol/L Potassium Level 4.5 3.5-5.1 mmol/L Chloride Level 106 98-107 mmol/L Carbon Dioxide Level 26 21-32 mmol/L Anion Gap 4.0 3-11 mmol/L Blood Urea Nitrogen 22 7-18 mg/dl Creatinine 1.16 0.60-1.40 mg/dl Est Creatinine Clear Calc Drug Dose 107.9 ml/min Estimated GFR () 87.0 Estimated GFR (Non- 75.1 BUN/Creatinine Ratio 19.1 10-20 Random Glucose 197 70-99 mg/dl Calcium Level 8.9 8.5-10.1 mg/dl Troponin I < 0.015 0-0.045 ng/ml Triglycerides Level 113 0-150 mg/dl Cholesterol Level 171 0-200 mg/dl HDL Cholesterol 46 mg/dl LDL Cholesterol, Calculated 102 mg/dl VLDL Cholesterol, Calculated 23 mg/dl Cholesterol/HDL Ratio 3.7 Bedside Glucose 185 203 70-99 mg/dl
--- NOTE | 2017-06-02 16:26 | EXERCISE STRESS ECHO ---
*NOTICE TO RECEIVING [employer]Y This information is strictly Confidential and protected under [place] law. [place] law prohibits you from making any further disclosure of this information unless further disclosure is expressly permitted by the written consent of the person to whom it pertains or is authorized by law. A general authorization for the release of medical or other information is not sufficient for this purpose. Hospital accepts no responsibility if the information is made available to any other person, INCLUDING THE PATIENT. Interpretation Summary * Name: WILLIAM LEMON Study Date: 06/02/2017 01:55 PM BP: 124/69 mmHg * Patient Location: C.2T\S\E221\S\1 HR: 88 * : 1970 (M/d/yyyy) Gender: Male Height: 74 in * Age: 46 yrs Ethnicity: [place] Weight: 256 lb * Ordering Physician: Sixto Ramirez * Referring Physician: Self, Referred * Performed By: Kendal Murillo RCS * * Reason For Study: CHEST PAIN * BSA: 2.4 m2 * STRESS STUDY: Normal exercise stress echocardiogram. No echocardiographic or ECG evidence of myocardial ischemia having achieved heart rate adequate for diagnostic purposes. * Exercise capacity is below average. * -- Conclusions -- * Left ventricular systolic function is normal. * Ejection Fraction = 60-65%. * Pulse wave TDI of the anterior and posterior mitral annulas demonstrates normal LV relaxation Procedure Details * ECHOEX, CPT #[id number] * ECHO COLOR FLOW, CPT #[id number] * ECHO DOPPLER, CPT #[id number] Left Ventricle * The left ventricle is normal in size. * There is no thrombus. * There is normal left ventricular wall thickness. * Left ventricular systolic function is normal. * Ejection Fraction = 60-65%. * The left ventricular ejection fraction increases normally with stress. The left ventricular end-systolic cavity size reduces post-stress (normal response). The left ventricular wall motion with stress is normal. * Resting wall motion: Normal. Stress wall motion: Appropriate increase in Left ventricular systolic function and decrease in cavity size. No stress induced segmental wall motion abnormalities. Right Ventricle * The right ventricle is normal in size and function. Atria * The left atrial size is normal. * Right atrial size is normal. * No ASD detected; PFO is not assessed. Mitral Valve * The mitral valve is normal. * Redundant elongated chordae are noted. * There is no mitral valve stenosis. * There is trace mitral regurgitation. Tricuspid Valve * The tricuspid valve is normal. * There is no tricuspid stenosis. * No tricuspid regurgitation. Aortic Valve * The aortic valve is trileaflet. * No hemodynamically significant valvular aortic stenosis. * No aortic regurgitation is present. Pulmonic Valve * The pulmonic valve is not well visualized. Great Vessels * The aortic root is normal size. Pericardium * There is no pericardial effusion. Stress Parameters * The baseline ECG displays normal sinus rhythm. * Stress ECG: No ST changes. No arrhythmias. * The stress portion of this study was personally supervised by the undersigned interpreting physician. * Rest heart rate was '88' BPM. * Rest blood pressure was '124/69' * Maximum heart rate achieved was 151 bpm. * Maximum heart rate was 86 % of maximum age-predicted heart rate. * Maximum blood pressure was '175/74' * Total exercise time was '05:53' * Maximum exercise MET level achieved was '7.00' METS * Maximum treadmill speed was '2.50' miles per hour. * Maximum treadmill elevation was '12.00'% grade. * Dobutamine infusion was terminated due to achieving target heart rate * Exercise was stopped due to fatigue. * Normal blood pressure response to exercise. Left Ventricular Diastolic Function * Pulse wave TDI of the anterior and posterior mitral annulas demonstrates normal LV relaxation MMode 2D Measurements and Calculations IVSd 1.2 cm IVSs 1.7 cm LVIDd 4.6 cm LVIDs 2.7 cm LVPWd 1.1 cm LVPWs 1.6 cm IVS/LVPW 1.1 FS 41.4 % EDV(Teich) 95.6 ml ESV(Teich) 26.4 ml EF(Teich) 72.4 % EDV(cubed) 95.2 ml ESV(cubed) 19.2 ml EF(cubed) 79.9 % % IVS thick 42.5 % % LVPW thick 43.5 % LV mass(C)d 191.7 grams LV mass(C)dI 79.4 grams/m\S\2 LV mass(C)s 162.2 grams LV mass(C)sI 67.2 grams/m\S\2 SV(Teich) 69.2 ml SI(Teich) 28.7 ml/m\S\2 SV(cubed) 76.0 ml SI(cubed) 31.5 ml/m\S\2 Ao root diam 3.3 cm Ao root area 8.7 cm\S\2 ACS 2.3 cm LA dimension 3.2 cm LA/Ao 0.97 LVOT diam 2.0 cm LVOT area 3.0 cm\S\2 LVAd ap4 34.2 cm\S\2 LVLd ap4 8.4 cm EDV(MOD-sp4) 111.6 ml EDV(sp4-el) 118.5 ml LVAs ap4 21.1 cm\S\2 LVLs ap4 6.6 cm ESV(MOD-sp4) 55.7 ml ESV(sp4-el) 56.8 ml EF(MOD-sp4) 50.1 % EF(sp4-el) 52.1 % LVAd ap2 35.0 cm\S\2 LVLd ap2 8.8 cm EDV(MOD-sp2) 116.0 ml EDV(sp2-el) 118.0 ml LVAs ap2 24.1 cm\S\2 LVLs ap2 7.9 cm ESV(MOD-sp2) 62.6 ml ESV(sp2-el) 62.2 ml EF(MOD-sp2) 46.1 % EF(sp2-el) 47.3 % LVLd %diff 5.2 % EDV(MOD-bp) 114.4 ml LVLs %diff 16.2 % ESV(MOD-bp) 63.5 ml EF(MOD-bp) 44.5 % SV(MOD-sp4) 55.9 ml SI(MOD-sp4) 23.2 ml/m\S\2 SV(MOD-sp2) 53.5 ml SI(MOD-sp2) 22.2 ml/m\S\2 SV(MOD-bp) 50.9 ml SI(MOD-bp) 21.1 ml/m\S\2 SV(sp4-el) 61.7 ml SI(sp4-el) 25.6 ml/m\S\2 SV(sp2-el) 55.8 ml SI(sp2-el) 23.1 ml/m\S\2 Doppler Measurements and Calculations MV E max moses 59.3 cm/sec MV A max moses 70.1 cm/sec MV E/A 0.85 MV P1/2t max moses 68.2 cm/sec MV P1/2t 75.7 msec MVA(P1/2t) 2.9 cm\S\2 MV dec slope 263.7 cm/sec\S\2 MV dec time 0.28 sec Ao V2 max 115.6 cm/sec Ao max PG 5.3 mmHg Ao max PG (full) 1.2 mmHg FABBY(V,A) 2.7 cm\S\2 FABBY(V,D) 2.7 cm\S\2 LV V1 max PG 4.2 mmHg LV V1 max 102.1 cm/sec PA V2 max 82.0 cm/sec PA max PG 2.7 mmHg
[2017-06-02 16:41] VITALS: BP 139/88; PULSE 93; TEMP 37; O2SAT 93
--- NOTE | 2017-06-02 17:43 | Discharge Instructions ---
Discharge Instructions Date of Service Jun 02, 2017. Admission Reason for Admission: Chest Pain Discharge Discharge Diagnosis / Problem: chest pain Discharge Goals Goal(s): Decrease discomfort, Improve function Activity Recommendations Activity Limitations: resume your previous activity . Instructions / Follow-Up Instructions / Follow-Up FOLLOWUP WITH FAMILY DOCTOR IN ONE WEEK Current Hospital Diet Patient's current hospital diet: AHA Diet (Heart Healthy), Diabetes Type 2 Diet Discharge Diet Recommended Diet: AHA Diet (Heart Healthy), Diabetes Type 2 Diet Pending Studies Studies pending at discharge: no Laboratory Results Lipid Panel Test 06/02/17 04:05 Range/Units Triglycerides Level 113 0-150 mg/dl Cholesterol Level 171 0-200 mg/dl HDL Cholesterol 46 mg/dl Cholesterol/HDL Ratio 3.7 LDL Cholesterol, Calculated 102 mg/dl Medical Emergencies . Who to Call and When: Medical Emergencies: If at any time you feel your situation is an emergency, please call 911 immediately. . Non-Emergent Contact Non-Emergency issues call your: Primary Care Provider . . "Provider Documentation" section prepared by Adam Covarrubias. . VTE Core Measure Inpt VTE Proph given/why not?: Enoxaparin (Lovenox)SQ (REFUSED)
[2017-06-02 17:57] VITALS: BP 139/88; PULSE 93; TEMP 37; O2SAT 93
--- NOTE | 2017-06-02 18:09 | Discharge Summary ---
Discharge Summary Date of Service Jun 02, 2017. Discharge Summary Admission Date: Jun 01, 2017 at 23:59 Discharge Date: Jun 02, 2017 Discharge Disposition: Home Principal Diagnosis: CHEST PAIN Secondary Diagnoses/Problems: hypertension, mood disorder, ongoing tobacco abuse, chronic anemia (baseline hemoglobin 13), COPD as per records, heterozygous factor V Leiden mutation, schizophrenia as per records, chronic tremors, DM2 on oral meds. Procedures: CXR: No active disease in the chest. STRESS ECHO: Normal exercise stress echocardiogram. No echocardiographic or ECG evidence of myocardial ischemia having achieved heart rate adequate for diagnostic purposes. * Exercise capacity is below average. * -- Conclusions -- * Left ventricular systolic function is normal. * Ejection Fraction = 60-65%. * Pulse wave TDI of the anterior and posterior mitral annulas demonstrates normal LV relaxation Medication Reconciliation Continued Medications: Divalproex Sodium (Depakote Etended-Release) 500 Mg Tabcr 2000 MG PO HS Hydroxyzine Pamoate (Vistaril) 100 Mg Cap 100 MG PO HS, CAP Lactobacillus Acidophilus (Lactinex) Tab 1 TAB PO BID, TAB Lurasidone Hcl (Latuda) 40 Mg Tab 60 MG PO HS, TAB Metformin HCl (Metformin HCl) 500 Mg Tab 500 MG PO BIDM Pantoprazole (Protonix) 40 Mg Tab 40 MG PO BID, TAB Prazosin Hcl (Prazosin) 1 Mg Cap 3 MG PO HS Propranolol Hcl (Propranolol ER) 60 Mg Capcr 60 MG PO DAILY Ranitidine HCl (Ranitidine HCl) 150 Mg Tab 150 MG PO BID Temazepam (Restoril) 15 Mg Cap 15 MG PO HS, CAP Admission Information HPI (per Admitting provider): History obtained from patient and records. Medical history significant for hypertension, mood disorder, ongoing tobacco abuse, chronic anemia (baseline hemoglobin 13), COPD as per records, heterozygous factor V Leiden mutation, schizophrenia as per records, chronic tremors, DM2 on oral meds. Recent confinement under Orthopedics service May 2016 for left knee surgery. Today, the patient stressed out after trying to breakup a fight between house dogs. Patient subsequently noted epigastric pain going to chest with some shortness of breath, burning. He felt sweaty. Could not take a deep breath, usual smoker's cough symptoms. At the Emergency Room, the patient relieved with nitroglycerin, Solu-Medrol, aspirin and DuoNebs. Physical Exam (per Admitting): VITAL SIGNS: Blood pressure was noted to be 126/80, pulse rate 87, RR 26, T 37 sats 92 on room air. GENERAL: Noted to be slightly anxious, obese, no respiratory distress. SKIN: Multiple tattoos. Pallor, warm. HEENT: Partial alopecia. [place] palpebral conjuctivae. No ptosis. Dry mucosa. NECK: Short neck. No tenderness. CHEST: Occasional wheeze. No tenderness. HEART: Regular rate and rhythm. No murmur. ABDOMEN: Soft, some distension, nontender. EXTREMITIES: No edema, no tenderness. No gross deformities. NEUROLOGIC: Coherent. No gross focality Hospital Course 1. Atypical chest pain secondary to GERD rule out acute coronary syndrome given patient risk factors for ischemic heart disease serial ce and ekg unremarkable await stress echo. currently asymptomatic. 2. hypertension, stable on Inderal. 3. chronic obstructive pulmonary disease, ongoing tobacco abuse stable. 4. Mood disorder, stable on medications. 5. DM 2 on oral meds, well controlled as of recent hemoglobin A1C currently holding po meds. On iss. will monitor DVT PROPHYLAXIS Lovenox DISPOSITION possible d/c today if stress echo negative Total time spent on discharge = 35MINUTES This includes examination of the patient, discharge planning, medication reconciliation, and communication with other providers. Discharge Instructions Discharge Instructions Date of Service Jun 02, 2017. Admission Reason for Admission: Chest Pain Discharge Discharge Diagnosis / Problem: chest pain Discharge Goals Goal(s): Decrease discomfort, Improve function Activity Recommendations Activity Limitations: resume your previous activity . Instructions / Follow-Up Instructions / Follow-Up FOLLOWUP WITH FAMILY DOCTOR IN ONE WEEK Current Hospital Diet Patient's current hospital diet: AHA Diet (Heart Healthy), Diabetes Type 2 Diet Discharge Diet Recommended Diet: AHA Diet (Heart Healthy), Diabetes Type 2 Diet Pending Studies Studies pending at discharge: no Laboratory Results Lipid Panel Test 06/02/17 04:05 Range/Units Triglycerides Level 113 0-150 mg/dl Cholesterol Level 171 0-200 mg/dl HDL Cholesterol 46 mg/dl Cholesterol/HDL Ratio 3.7 LDL Cholesterol, Calculated 102 mg/dl Medical Emergencies . Who to Call and When: Medical Emergencies: If at any time you feel your situation is an emergency, please call 911 immediately. . Non-Emergent Contact Non-Emergency issues call your: Primary Care Provider . . "Provider Documentation" section prepared by Adam Covarrubias. . VTE Core Measure Inpt VTE Proph given/why not?: Enoxaparin (Lovenox)SQ (REFUSED)
[2017-06-02] MEDS ORDERED: DIVALPROEX 500 MG EXTENDED RELEASE TAB PO ONE (20:15)
[2017-06-02] MEDS ORDERED: DIVALPROEX 500 MG EXTENDED RELEASE TAB PO SCH (21:00)
[2017-06-02] MEDS ORDERED: PRAZOSIN HCL 3 MG PO SCH (21:00)
[2017-06-02] MEDS ORDERED: LURASIDONE HCL 40 MG TAB PO SCH (21:00)
[2017-06-02] MEDS ORDERED: HYDROXYZINE PAMOATE 100 MG PO SCH (21:00)
[2017-06-02] MEDS ORDERED: hydrOXYzine HCL 25 MG TAB PO SCH (21:00)
[2017-06-02] MEDS ORDERED: TEMAZEPAM 15 MG CAP PO SCH (21:00)
== END 2017-06-02 18:08 | disposition home or self-care (01) ==
LOC: EDBD 20:12 → C.EDB 20:14 → C.2T 23:59 → ENRESERV 06-02 00:07
PROVIDERS: ADMIT Internal Medicine; ATTEND Internal Medicine
DX: R07.89 Other chest pain (principal); K21.9 Gastro-esophageal reflux disease without esophagitis; J44.9 Chronic obstructive pulmonary disease, unspecified; F31.5 Bipolar disorder, current episode depressed, severe, with psychotic features; Z86.73 Personal history of transient ischemic attack (TIA), and cerebral infarction without residual deficits; Z86.14 Personal history of Methicillin resistant Staphylococcus aureus infection; Z90.49 Acquired absence of other specified parts of digestive tract; E11.9 Type 2 diabetes mellitus without complications; Z82.49 Family history of ischemic heart disease and other diseases of the circulatory system; Z83.3 Family history of diabetes mellitus; F17.210 Nicotine dependence, cigarettes, uncomplicated; Z88.0 Allergy status to penicillin; D68.51 Activated protein C resistance; Z79.84 Long term (current) use of oral hypoglycemic drugs; E66.9 Obesity, unspecified; I10 Essential (primary) hypertension

== ENCOUNTER → 2017-09-03 | Outpatient (CLI) | payer OTHER ==
[~2017-09-03] MED LIST changes: +DPKSR/500 PO; +GLC500 PO; +HYDR100C PO; +INDSR/60 PO; -LISI-729 PO; +LURA40TA PO; +PRAZ1CAP28 PO; +RANI150T2 PO; +TEMA15CA4 PO; -WLLSR150 PO
--- NOTE | 2017-09-03 10:38 | DIAGNOSTIC IMAGING REPORT ---
R UPPER EXT JOINT WITHOUT CLINICAL HISTORY: RIGHT SHOULDER PAIN pain TECHNIQUE: MRI multi axial acquisition COMPARISON STUDY: 03/06/2015 FINDINGS: Heterogeneous bone marrow signal of the humeral metaphysis. This is identical compared to the prior study and appears to relate to a chronic bone infarct. The biceps tendon is intact within the bicipital groove. Rotator cuff is intact. No evidence for full-thickness rotator cuff tear. Minimal degenerative subchondral cystic change posterolateral aspect humeral head unchanged. Glenoid labrum is intact with no well-defined acute labral tear. Minimal degenerative change of the apices of the glenoid labrum unchanged from the prior exam. IMPRESSION: 1. No acute process of the shoulder. 2. Rotator cuff is intact with no rotator cuff tear. 3. 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 4. Minimal degenerative truncation of the apex of the glenoid labrum also considered chronic. The above report was generated using voice recognition software. It may contain grammatical, syntax or spelling errors. Electronically signed by: Antonio Martin M.D. 09/03/2017 10:36 AM Dictated Date/Time: 09/03/2017 10:32 AM
== END | disposition home or self-care (01) ==
LOC: C.MRIBC 09:38
PROVIDERS: ATTEND Orthopaedic Surgery
DX: M75.101 Unspecified rotator cuff tear or rupture of right shoulder, not specified as traumatic (principal)

== ENCOUNTER 2019-03-06 19:33 | Inpatient (IN) ==
[2019-03-06] MEDS ORDERED: SODIUM CHLORIDE 0.9% 500 ML IV SCH (20:00)
[2019-03-06 20:40] LABS: Appearance Urine Clear (Clear); Bacteria Urine Automated Negative (Negative); Bilirubin Urine Negative (Negative); Blood Urine 3+ (Negative); Color Urine Dark Yellow; Epithelial Cell Urine Auto >30 /lpf (0-5); Glucose Urine UA Negative (Negative); Ketones Urine Negative (Negative); Leukocyte Esterase Urine Trace (Negative); Nitrite Urine Negative (Negative); Protein Urine Negative (Negative); RBC Urine Automated >30 /hpf (0-4); Specific Gravity Urine 1.018 (1.000-1.030); Urobilinogen Urine Negative (Negative)
--- NOTE | 2019-03-06 20:41 | XRay Report ---
SINGLE VIEW CHEST CLINICAL HISTORY: Atypical chest pain. FINDINGS: An AP, portable, upright chest radiograph is compared to study dated 06/01/2017. The cardiom ediastinal silhouette is unremarkable. There is mild bibasilar atelectasis. The lungs and pleural spa favio are otherwise clear. No pneumothorax is seen. The bony thorax is grossly intact. IMPRESSION: No active disease in the chest. Electronically signed by: Tripp Bhardwaj M.D. 03/06/2019 8:40 PM
[2019-03-06 20:58] LABS: Basophils # (auto) 0.04 K/uL (0-0.2); Basophils % (auto) 0.6 %; Eosinophils % (auto) 10.2 %; Hematocrit (blood only) 37.8 % (42-52); Hemoglobin 12.7 g/dL (14.0-18.0); Immature Granulocytes # (auto) 0.02 K/uL (0.00-0.02); Immature Granulocytes % (auto) 0.3 %; Lymphocytes # (auto) 2.66 K/uL (1.2-3.4); Lymphocytes % (auto) 38.9 %; Mean Corpuscular Hgb Conc 33.6 g/dL (32-36); Mean Corpuscular Volume 87.5 fL (80-100); Mean Platelet Volume 10.7 fL (7.4-10.4); Monocytes # (auto) 0.46 K/uL (0.11-0.59); Monocytes % (auto) 6.7 %; Neutrophils # (auto) 2.96 K/uL (1.4-6.5); Neutrophils % (auto) 43.3 %; Platelet Count 222 K/uL (130-400); RDW Coefficient of Variation 14.6 % (11.5-14.5); RDW Standard Deviation 46.7 fL (36.4-46.3); Red Blood Count 4.32 M/uL (4.7-6.1); White Blood Count 6.84 K/uL (4.8-10.8)
[2019-03-06 21:10] LABS: Alanine Aminotransferase 14 U/L (12-78); Albumin Level 2.7 gm/dl (3.4-5.0); Aspartate Aminotransferase 10 U/L (15-37); BUN Creatinine Ratio 13.5 (10-20); Blood Urea Nitrogen 13 mg/dl (7-18); Calcium 8.9 mg/dl (8.5-10.1); Carbon Dioxide 28 mmol/L (21-32); Chloride 110 mmol/L (98-107); Creatinine Clr Calc Pharmacy 128.6 ml/min; Est GFR (African American) 103.9; Est GFR (Non-African American) 89.7; Glucose 161 mg/dl (70-99); Potassium 3.7 mmol/L (3.5-5.1); Sodium 146 mmol/L (136-145)
[2019-03-06 21:14] LABS: Albumin Globulin Ratio 0.8 (0.9-2); Alkaline Phosphatase 70 U/L (45-117); Bilirubin,Total 0.3 mg/dl (0.2-1); Globulin 3.4 gm/dl (2.5-4.0); Total Protein 6.1 gm/dl (6.4-8.2)
[2019-03-06] MEDS ORDERED: ONDANSETRON INJ 2 MG/ML 2 ML VIAL IV STA (21:22)
[2019-03-06] MEDS ORDERED: KETOROLAC 30 MG/ML VIAL IV STA (21:22)
[2019-03-06] MEDS ORDERED: FLUTICASONE PROPIONATE NA SPR 16 GM BTL PRN (23:31)
[2019-03-06] MEDS ORDERED: ACETAMINOPHEN 325 MG TAB PO PRN (23:31)
[2019-03-06 23:50] LABS: Troponin I < 0.015 ng/ml (0-0.045)
[2019-03-07] MEDS: NITROGLYCERIN SL 0.4 MG/TAB TAB SL PRN ×2 (00:28→13:45)
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
[2019-03-07] MEDS: MoRPHine SULFATE 4 MG/ML 1 ML CARP\\VIAL IV PRN ×6 (01:20→22:24)
[2019-03-07] MEDS: LORazepam 0.5 MG TAB PO PRN ×3 (01:20→22:24)
--- NOTE | 2019-03-07 02:24 | History and Physical Report ---
DATE OF ADMISSION: 03/06/2019 CHIEF COMPLAINT: Chest pain and flank pain. HISTORY OF PRESENT ILLNESS: This is a 48-year-old male with past medical history significant for prediabetes, COPD, mild persistent asthma, hypertension, history of gross hematuria, history of heterozygous factor V Leiden mutation, history of MRSA infection, history of tobacco use disorder, presents with chest pain and also ongoing flank pain. The patient says he has noticed chest pain about 3 days ago, retrosternal in nature, feels as someone sitting on his chest and it comes and goes, mostly on exertion, associated with shortness of breath, has COPD, but some shortness of breath is more than his usual. Denies dizziness, was nauseous earlier, but currently no nausea, no sweating. He also has ongoing flank pains and hematuria. He is following with Urology, saw Urology on 02/10/2019. He has difficulty starting urine. Ultrasound on 12/22/2018 showed nonobstructing 9-mm right mid pole calculus. Small right renal cyst located in the mid pole region, may have hemorrhagic changes. He was started on Flomax by Urology and since the stone is intraparenchymal, no treatment was planned and plan was to try Flomax. But the patient says he still gets hematuria on and off. Recently in the ER on 03/03/2019, with flank pain, and hematuria and CAT scan done at that time shows there was no renal or ureteral calculi or obstructive uropathy, . He has no diarrhea, no constipation, no blood in the stools. No swelling in the legs, no rash, no headaches, no blurred vision, no runny nose, no sore throat, no difficulty swallowing. Currently, resting comfortably and hemodynamically stable. ALLERGIES: PENICILLINS AND ASPIRIN. PAST MEDICAL HISTORY: As mentioned above. PAST SURGICAL HISTORY: Cyst excision on the right flank, colonoscopy, I&D of pilonidal abscess, removal of left knee cartilage, cholecystectomy. MEDICATIONS: The patient is currently on Zantac 150 mg p.o. b.i.d., Abilify 5 mg p.o. daily, Ativan 0.5 mg p.o. t.i.d. p.r.n., Flomax 0.4 mg daily, propranolol ER 60 mg p.o. daily, Trelegy Ellipta 1 puff daily, hydrochlorothiazide 12.5 mg p.o. daily, Colace 100 mg p.o. b.i.d., MiraLax 17 g p.o. daily p.r.n., Flonase 2 sprays each nostril daily, Depakote ER 1500 mg p.o. at bedtime, hydroxyzine 50 mg in a.m. and 100 mg at bedtime, Protonix 40 mg p.o. b.i.d., Wellbutrin SR 150 mg p.o. daily, Benadryl 50 mg p.r.n. for allergic reaction. FAMILY HISTORY: Significant for, mother has allergies, factor V deficiency, breast cancer. Father had heart attack at age of 45. Paternal uncle has heart attack. Paternal grandfather has [place]. SOCIAL HISTORY: , smokes quarter pack a day for 27 years. No alcohol use, no drug use. REVIEW OF SYMPTOMS: As per HPI. Rest of review of systems negative. PHYSICAL EXAMINATION: GENERAL: The patient is of moderate build, not in acute distress. VITAL SIGNS: Temperature 37, pulse 86, respiratory rate 21, blood pressure 149/92, oxygen 97% room air. HEENT: No pallor, no icterus. Pupils equal, round, reactive to light. NECK: No JVD, no neck masses, no carotid bruit. CARDIOVASCULAR: S1, S2 heard, regular rate and rhythm, no murmur, no gallop. RESPIRATORY SYSTEM: Normal AP diameter. No accessory muscle use. No wheezing, no crackles. ABDOMEN: Soft, bowel sounds present, nontender. No distention. Mild b/l CVA tenderness. CENTRAL NERVOUS SYSTEM: Cranial nerves II-XII grossly intact, nonfocal. EXTREMITIES: No edema, no erythema. LABORATORY DATA: WBC 6.8, hemoglobin 12.7, hematocrit 37.8, platelets 222. Sodium 146, potassium 3.7, chloride 110, bicarbonate 28, BUN 13, creatinine 0.9, serum glucose 161, calcium 8.9, total bilirubin 0.3, AST 10, ALT 14, alkaline phosphatase 70, lipase 183. Urinalysis positive for blood, trace leukocyte esterase. Chest x-ray, no acute disease in the chest. EKG: Normal sinus rhythm, rate of 96, no acute ST changes seen. ASSESSMENT AND PLAN: This is a 48-year-old male who presents with chest pain on exertion and also ongoing flank pain and hematuria. 1. Chest pain with exertional shortness of breath, going for last 3 days. Initial EKG and troponins are negative. Risk factors are age, smoking history and family history. We will observe in tele floor. Serial cardiac enzymes, echocardiogram. Keep n.p.o. and consult cardiology for possible stress test in a.m. 2. Flank pain and hematuria. Ultrasound done on 12/22/2018 showed 9-mm right intraparenchymal kidney stone and left renal cyst and hematuria on and off, followed with Urology and also difficulty initiating micturition. Saw Urology on 02/10/2019, recommendation was for a trial of Flomax. The patient says he started on flomax and he did not see much improvement. He was in the ER because of same complaints on 03/03/2019 and CAT scan at that time was unremarkable. UA done today shows some 3+ blood. His hemoglobin is 12.7, slightly lower from the last admission. We will follow labs in a.m. If any concerns, we will consult Urology while patient is in the hospital. 3. History of chronic obstructive pulmonary disease Continue his home inhalers, currently stable. 4. Gastroesophageal reflux disease. Continue his PPI. 5. Prediabetes. We will follow his HbA1c levels. 6. Hypertension, on hydrochlorothiazide. We will monitor his blood pressure. 7. Generalized anxiety disorder and possible bipolar disorder, follows with Psychiatry. Recently psych changed his medications. We will continue the current medications and follow up with psych. 6. Deep venous thrombosis prophylaxis, sequential compression devices. DISPOSITION: Admit to tele. Observe in tele. Expect discharge home and follow with family doctor. Level 1 full code. MTDD
[2019-03-07 05:45] LABS: Basophils # (auto) 0.04 K/uL (0-0.2); Basophils % (auto) 0.5 %; Eosinophils # (auto) 0.83 K/uL (0-0.5); Eosinophils % (auto) 10.4 %; Hematocrit (blood only) 38.1 % (42-52); Hemoglobin 12.6 g/dL (14.0-18.0); Immature Granulocytes # (auto) 0.01 K/uL (0.00-0.02); Immature Granulocytes % (auto) 0.1 %; Lymphocytes # (auto) 3.71 K/uL (1.2-3.4); Lymphocytes % (auto) 46.7 %; Mean Corpuscular Hgb Conc 33.1 g/dL (32-36); Mean Corpuscular Volume 89.4 fL (80-100); Mean Platelet Volume 10.6 fL (7.4-10.4); Monocytes # (auto) 0.64 K/uL (0.11-0.59); Monocytes % (auto) 8.1 %; Neutrophils # (auto) 2.72 K/uL (1.4-6.5); Neutrophils % (auto) 34.2 %; Platelet Count 193 K/uL (130-400); RDW Coefficient of Variation 14.9 % (11.5-14.5); RDW Standard Deviation 48.3 fL (36.4-46.3); Red Blood Count 4.26 M/uL (4.7-6.1); White Blood Count 7.95 K/uL (4.8-10.8)
[2019-03-07 05:59] LABS: Partial Thromboplastin Time 26.9 Seconds (21.0-31.0); Prothrombin Time 10.4 Seconds (9.0-12.0)
[2019-03-07 06:16] LABS: BUN Creatinine Ratio 17.4 (10-20); Calcium 8.5 mg/dl (8.5-10.1); Creatinine Clr Calc Pharmacy 137.1 ml/min; Est GFR (African American) 112.1; Est GFR (Non-African American) 96.7; Magnesium 1.7 mg/dl (1.8-2.4); Potassium 3.6 mmol/L (3.5-5.1)
[2019-03-07 06:26] LABS: Estimated Average Glucose 117 mg/dl; Hemoglobin A1C 5.7 % (4.5-5.6)
[2019-03-07] MEDS ORDERED: PERFLUTREN LIPID MICROSPHERE (DEFINITY) IV ONE (07:39)
[2019-03-07] MEDS ORDERED: NITROGLYCERIN SL 0.4 MG/TAB TAB ONE ×2 (09:34→09:49)
[2019-03-07] MEDS: hydroCHLOROthiazide 25 MG TAB PO SCH (10:00)
[2019-03-07] MEDS: BuPROPion SR 150 MG TABCR PO SCH (10:01)
[2019-03-07] MEDS: TAMSULOSIN HCL 0.4 MG CAP PO SCH (10:01)
[2019-03-07] MEDS ORDERED: ASPIRIN 81 MG ECTAB PO STA (10:01)
[2019-03-07] MEDS: ARIPiprazole 5 MG TAB PO SCH (10:01)
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
--- NOTE | 2019-03-07 22:01 | Hospitalist Progress Note ---
Date of Service March 07, 2019 Assessment & Plan (1) Unstable angina: Presented with exertional chest pressure and dyspnea. Multiple risk factors for ischemic heart disease. No acute changes on resting EKG. Serial troponins normal. Abnormal stress test at low-level activity. Symptoms and stress test findings consistent with unstable angina. Cardiac catheterization with possible PCI recommended. Patient has been experiencing gross hematuria as discussed below, making antithrombotic therapy more challenging. Case discussed with Urology. It was felt that the highest priority should be given to cardiac concerns with further urologic management as necessary. Patient was started on aspirin therapy and had no adverse reactions despite he reported history of a allergy or adverse reaction in childhood. Continue propranolol for tremor + CAD. Check lipid profile. (2) Hyperglycemia: Random blood sugar at the time of admission was 161. Fasting blood sugar today 95. Hemoglobin A1c 5.7. Patient does not have diabetes. (3) Hypomagnesemia: Serum magnesium 1.7. Replace. Follow. (4) Hematuria: Recent gross hematuria. CT of abdomen pelvis performed on 03/02 demonstrated thickening of the urinary bladder. Further evaluation per Urology. (5) DVT prophylaxis: SCDs ordered. Ambulate as cardiac status allows. (6) Discharge planning issues: Anticipated discharge to home. Internal Medicine follow-up with Dr. Justyna Gamez. Subjective Recheck for multiple problems. Patient seen in their room around 1120. visiting. Admitted with worsening exertional chest pressure and dyspnea. Seen in consultation by Cardiology. Symptoms reproduced during treadmill stress echo this morning at low levels of activity with associated ST and wall motion abnormalities. Cardiac catheterization and consideration of PCI recommended, but procedure postponed pending further discussion with Urology in light of hematuria. Urine described as orange-colored yesterday, clearer today. No dysuria. History of aspirin allergy from childhood, details not known. Received a dose of aspirin this morning without a signs of allergic reaction. Review of Systems: Constitutional- no fever. Cardiac- as noted above. Pulmonary- no cough or SOB. GI- no nausea, vomiting, diarrhea, melena, hematochezia. - as noted above. Otherwise, as noted above. Physical Exam Physical Exam: Constitutional- afebrile, no acute distress Eyes- sclerae anicteric Respiratory- clear to auscultation, no respiratory distress Cardiovascular- cardiac rhythm regular, no murmurs or gallops appreciated, no JVD, no pretibial edema or calf tenderness Gastrointestinal- normal bowel sounds, soft, nondistended, nontender Skin- warm and dry, no rash Psychiatric- alert, oriented Neuro- resting tremor hands Results & Data Vital Signs (Past 12 Hours) Vital Signs Temp Pulse Pulse Resp BP BP Pulse Ox 03/07/19 19:37 36.5 C 76 18 158/83 H 95 03/07/19 15:47 36.9 C 72 21 134/85 95 03/07/19 14:20 78 03/07/19 11:15 36.9 C 77 21 130/86 96 Laboratory Results Laboratory Results - last 24 hr 03/06/19 03/07/19 03/07/19 20:39 05:23 05:23 WBC 7.95 RBC 4.26 L Hgb 12.6 L Hct 38.1 L MCV 89.4 MCH 29.6 MCHC 33.1 RDW Std Deviation 48.3 H RDW Coeff of Ale 14.9 H Plt Count 193 MPV 10.6 H Immature Gran % (Auto) 0.1 Neut % (Auto) 34.2 Lymph % (Auto) 46.7 [place] % (Auto) 8.1 Eos % (Auto) 10.4 Baso % (Auto) 0.5 Immature Gran # (Auto) 0.01 Neut # (Auto) 2.72 Lymph # (Auto) 3.71 H [place] # (Auto) 0.64 H Eos # (Auto) 0.83 H Baso # (Auto) 0.04 PT INR APTT PTT Ratio Sodium 145 Potassium 3.6 Chloride 110 H Carbon Dioxide 29 Anion Gap 6.0 BUN 16 Creatinine 0.93 Est Cr Clr Drug Dosing 137.1 Est GFR ( Amer) 112.1 Est GFR (Non-Af Amer) 96.7 BUN/Creatinine Ratio 17.4 Glucose 95 Estimat Average Glucose Hemoglobin A1c Calcium 8.5 Magnesium 1.7 L Troponin I < 0.015 03/07/19 03/07/19 03/07/19 05:23 05:23 05:23 WBC RBC Hgb Hct MCV MCH MCHC RDW Std Deviation RDW Coeff of Ale Plt Count MPV Immature Gran % (Auto) Neut % (Auto) Lymph % (Auto) [place] % (Auto) Eos % (Auto) Baso % (Auto) Immature Gran # (Auto) Neut # (Auto) Lymph # (Auto) [place] # (Auto) Eos # (Auto) Baso # (Auto) PT 10.4 INR 1.0 APTT 26.9 PTT Ratio 1.0 Sodium Potassium Chloride Carbon Dioxide Anion Gap BUN Creatinine Est Cr Clr Drug Dosing Est GFR ( Amer) Est GFR (Non-Af Amer) BUN/Creatinine Ratio Glucose Estimat Average Glucose 117 Hemoglobin A1c 5.7 H Calcium Magnesium Troponin I < 0.015 03/07/19 11:17 WBC RBC Hgb Hct MCV MCH MCHC RDW Std Deviation RDW Coeff of Ale Plt Count MPV Immature Gran % (Auto) Neut % (Auto) Lymph % (Auto) [place] % (Auto) Eos % (Auto) Baso % (Auto) Immature Gran # (Auto) Neut # (Auto) Lymph # (Auto) [place] # (Auto) Eos # (Auto) Baso # (Auto) PT INR APTT PTT Ratio Sodium Potassium Chloride Carbon Dioxide Anion Gap BUN Creatinine Est Cr Clr Drug Dosing Est GFR ( Amer) Est GFR (Non-Af Amer) BUN/Creatinine Ratio Glucose Estimat Average Glucose Hemoglobin A1c Calcium Magnesium Troponin I < 0.015 ECG Additional Comments: EKG performed at 0630 reviewed and demonstrated normal sinus rhythm at 70/minute, no acute ST or T wave abnormalities. (1) Hematuria Hematuria type: unspecified type Qualified Code(s): R31.9 - Hematuria, unspecified
[2019-03-07] MEDS: DIVALPROEX DELAY RELEASE 500 MG TAB PO SCH (22:21)
[2019-03-07] MEDS: PROPRANOLOL HCL 60 MG LA CAP PO SCH (22:22)
[2019-03-07] MEDS: PANTOprazole 40 MG TAB PO SCH (22:23)
[2019-03-08] MEDS: ONDANSETRON INJ 2 MG/ML 2 ML VIAL IV PRN ×2 (06:05→17:28)
[2019-03-08] MEDS: MoRPHine SULFATE 4 MG/ML 1 ML CARP\\VIAL IV PRN ×3 (06:08→22:12)
[2019-03-08 06:46] LABS: BUN Creatinine Ratio 15.3 (10-20); Calcium 8.9 mg/dl (8.5-10.1); Creatinine Clr Calc Pharmacy 126.4 ml/min; Est GFR (African American) 101.5; Est GFR (Non-African American) 87.5; Magnesium 1.8 mg/dl (1.8-2.4); Potassium 3.6 mmol/L (3.5-5.1)
[2019-03-08] MEDS ORDERED: ASPIRIN 81 MG ECTAB PO STA (09:34)
[2019-03-08] MEDS: BuPROPion SR 150 MG TABCR PO SCH (09:43)
[2019-03-08] MEDS: hydroCHLOROthiazide 25 MG TAB PO SCH (09:44)
[2019-03-08] MEDS: ARIPiprazole 5 MG TAB PO SCH (09:44)
[2019-03-08] MEDS: MAGNESIUM OXIDE 400 MG TAB PO SCH ×2 (09:45→20:18)
[2019-03-08] MEDS: TAMSULOSIN HCL 0.4 MG CAP PO SCH (09:45)
[2019-03-08] MEDS ORDERED: HEPARIN (PORCINE) 1000 UNIT/ML 10 ML (CATH LAB USE ONLY) ONE (12:01)
[2019-03-08] MEDS ORDERED: NiCARDipine HCL INJ 2.5 MG/ML 10 ML AMP ONE (12:01)
[2019-03-08] MEDS ORDERED: NITROGLYCERIN/D5W 100MCG/ML 20ML SYR ONE (12:01)
[2019-03-08] MEDS ORDERED: fentaNYL citrate 100 MCG/2 ML VIAL ONE (12:01)
[2019-03-08] MEDS ORDERED: MIDAZOLAM HCL 1 MG/ML 2ML VIAL ONE ×2 (12:01→12:55)
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
--- NOTE | 2019-03-08 12:22 | Pre Anesthesia Assessment ---
Date of Service March 08, 2019 Pre Sedation Assessment Vital Signs Temp Pulse Pulse Pulse Resp BP BP 03/08/19 12:00 98.8 F 87 18 117/80 03/08/19 07:48 97.9 F 80 18 142/96 H 03/08/19 07:35 68 03/08/19 04:26 97.7 F 80 18 138/92 03/07/19 23:04 97.9 F 75 18 136/87 03/07/19 19:37 97.7 F 76 18 158/83 H 03/07/19 15:47 98.4 F 72 21 134/85 03/07/19 14:20 78 Pulse Ox 03/08/19 12:00 95 03/08/19 07:48 94 03/08/19 07:35 03/08/19 04:26 95 03/07/19 23:04 95 03/07/19 19:37 95 03/07/19 15:47 95 03/07/19 14:20 Cardiovascular RRR, no murmur, no edema Respiratory normal respiratory effort, lungs clear to auscultation Pre-Sedation Airway Assessment Smoking Status: Unknown if ever smoked Hx Sleep Apnea: No Hx Difficult Intubation: No Short, Thick Neck: No Thyromental Distance: > or= 3.5 Finger Breadths Oral Cavity: + WNL Mallampati Class: III ASA: ASA3 Procedure Planning Contraindications for Sedation: none Current Medications Reviewed: Yes Notes The planned sedation has been discussed with the patient. Informed Consent was obtained. I have identified the patient, determined the appropriateness of sedation and have assessed the patient immediately prior to the procedure. All medicine(s) and interventions are by my order.
--- NOTE | 2019-03-08 12:59 | Post Anesthesia Assessment ---
Date of Service March 08, 2019 Post Sedation Assessment Vital Signs Temp Pulse Pulse Pulse Resp BP BP 03/08/19 12:00 98.8 F 87 18 117/80 03/08/19 07:48 97.9 F 80 18 142/96 H 03/08/19 07:35 68 03/08/19 04:26 97.7 F 80 18 138/92 03/07/19 23:04 97.9 F 75 18 136/87 03/07/19 19:37 97.7 F 76 18 158/83 H 03/07/19 15:47 98.4 F 72 21 134/85 03/07/19 14:20 78 Pulse Ox 03/08/19 12:00 95 03/08/19 07:48 94 03/08/19 07:35 03/08/19 04:26 95 03/07/19 23:04 95 03/07/19 19:37 95 03/07/19 15:47 95 03/07/19 14:20 Recovery Score Activity: Moves 4 extremities Respiration: Deep Breath/Cough Circulation: +/-20% PreAnes Value Consciousness: Fully Awake Oxygen Saturation: O2 needed for >90% Discharge Sedation Level of Care: Fast Track Phase II Post Sedation Plan On clinical assessment, the patient appears to have tolerated the sedation without complications. Patient is recovering as anticipated. Patient will continue to be monitored by nursing and may be discharged when sedation discharge criteria are met per below protocol. Upon Completions of procedure and additional 15 minutes continue every 5 minute vital signs and the P.A.R. score; then discharge to a Phase I or Fast Track to Phase II per the following guidelines: * Discharge Patient to appropriate Phase II area if PAR is 8 or greater or return to pre- procedure baseline. The post - procedure orders will be as directed. * If PAR score is less than 8 or not return to pre-procedure baseline then patient will follow Phase I monitoring till PAR is reached for Phase II. The Phase I may be done in procedure room or may call to secure a Phase I area. * If naloxone or flumazenil are used for reversal, hold in Phase I for continued monitoring from when last reversal dose was given for a minimum of 60 minutes or longer pending the nurse and/or physician discretion of patient condition before discharge to Phase II. Please call the Sedation Physician to re-evaluate and complete post-note for discharge to Phase II area. Do NOT discharge from procedure sedation or Phase 1 until post- sedation evaluation note is complete by procedure /sedation MD Sedation Discharge Instructions to be given to the patient at discharge to home.
--- NOTE | 2019-03-08 13:07 | Cardiac Catheterization ---
[facility] Data: Inspector Insulation Cardiac Status Clinical evaluation leading to the procedure CAD Presenation: Positive Stress Test Anginal Classification: CCS III Heart Failure: No Cardiogenic Shock within 24 Hours: No Cardiac Arrest within 24 Hours: No Imaging Studies Past 6 Months: Yes Stress Studies Past 6 Months: Yes Stress Echocardiogram: Yes - Positive and Risk/Extent of Ischemia (Intermediate) Diagnostic Physicians Name: Laron Reyes MD Status: Elective Closure Device Percutaneous Entry Location: Radial Recommendations: Medical Therapy and/or Counseling Intraprocedure Events Significant Disection: No Perforation: No Cardiac Cath Procedure Full Procedure Date March 08, 2019 Pre-Procedure Diagnosis Pre-Procedure Diagnosis: Positive Stress Test AUC Score AUC Score: 7 Post-Procedure Diagnosis Post-Procedure Diagnosis: Normal Coronary Arteries and Normal Intracardiac Pressures Procedure(s) Performed Procedure(s) Performed: Coronary Angiography and Left Heart Cath Clinic Administrator Laron Reyes MD Steam Heating Installer(s) Raúl Estimated Blood Loss Estimated Blood Loss: 10 Medication(s) Medication(s): Fentanyl, Heparin, Lidocaine 1%, Nicardipine, Nitroglycerin and Versed Summary of Findings Indication: Abnormal stress test Access: 6 Fr right radial artery Catheters: Warfield, JR4, AR-1, RCA eventually cannulated with AL1 Findings: LM -moderate caliber vessel, no significant disease LAD -moderate caliber vessel, proximal luminal irregularities, tapers in mid segment and extends around apex. Large diagonal with proximal luminal irregularities. Circumflex -moderate caliber, luminal irregularities. Gives off moderate caliber OM1, OM 2 without significant disease. RCA -very large caliber vessel, dominant, anterior takeoff. Mid segment luminal irregularities. LVEDP -10 Arterial Closure: TR band Summary: 1. Essentially normal coronary arteries 2. Normal intracardiac filling pressure Recommendations: Continued ASCVD risk factor modification Further evaluation of chest pain per Dr. Maier Hemodynamics Rest Ao:: 129/84/102 Final Ao: 131/84/107 LV: 133/10 Recommendations Recommendations: Medical Therapy and/or Counseling Specimens Specimens: None Radiation Exposure (mGy) 1960 Contrast (mls) 70 Fluids (cc crystalloids) Fluids (cc crystalloids): 80 Drains Drains: None Anesthesia Moderate Procedural Complication(s) None Disposition PCU
[2019-03-08] MEDS ORDERED: SODIUM CHLORIDE 0.9% 500 ML IV SCH (13:15)
--- NOTE | 2019-03-08 13:38 | Cardiology Progress Note ---
Date of Service March 08, 2019 Assessment & Plan (1) Exertional chest pain: cardiac cath without any cad no cardiac source for chest pain no further testing necessary no cardiac follow up needed and will not be scheduled ok to d/c from cardiac standpoint. (2) Bilateral flank pain: f/u with urology for ureteral calculi (3) Aspirin allergy: tolerated 2 doses of aspirin 81mg without issue given ongoing bleeding and lack of cad, would not continue aspirin Subjective Pt seen and examined, some chest discomfort overnight, improved with morphine. Cardiac cath negative for CAD. tele reviewed: sinus rhythm without arrhythmia or significant ectopy Review of Systems Review of Systems: All systems reviewed & are unremarkable except as noted in HPI & below Physical Exam Physical Exam: General: Awake, alert and oriented x 3. No acute distress. HEENT: Normocephalic, atraumatic. Pupils equal, round and reactive to light and accommodation. Extraocular muscles are intact. Anicteric sclera. Moist mucous membranes. Neck: No JVD. No bruit. Cardiovascular: Regular. Positive S-4. Normal S-1 and S-2. No S-3. No murmurs or rubs. Pulmonary: Clear to auscultation B/L. No rales, rhonchi or wheezing Abdomen: Bowel sounds x 4, soft. No rebound, guarding or tenderness. No organomegaly. Extremities: No clubbing, cyanosis or edema. +2 pedal pulses bilaterally. Skin: Warm and dry. Results & Data Vital Signs (Past 12 Hours) Vital Signs Temp Pulse Pulse Pulse Resp BP Pulse Ox 03/08/19 12:00 37.1 C 87 18 117/80 95 03/08/19 07:48 36.6 C 80 18 142/96 H 94 03/08/19 07:35 68 03/08/19 04:26 36.5 C 80 18 138/92 95
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
[2019-03-08] MEDS: DIVALPROEX DELAY RELEASE 500 MG TAB PO SCH (20:17)
[2019-03-08] MEDS: PROPRANOLOL HCL 60 MG LA CAP PO SCH (20:18)
[2019-03-08] MEDS: PANTOprazole 40 MG TAB PO SCH (20:22)
[2019-03-08] MEDS: LORazepam 0.5 MG TAB PO PRN (20:31)
--- NOTE | 2019-03-08 21:59 | Hospitalist Progress Note ---
Date of Service March 08, 2019 Assessment & Plan (1) Exertional chest pain: Presented with exertional chest pressure and dyspnea. Multiple risk factors for ischemic heart disease. No acute changes on resting EKG. Serial troponins normal. Abnormal stress test at low-level activity. Symptoms and stress test findings consistent with unstable angina. Cardiac catheterization with possible PCI recommended. Patient has been experiencing gross hematuria as discussed below, making antithrombotic therapy more challenging. Case discussed with Urology. It was felt that the highest priority should be given to cardiac concerns with further urologic management as necessary. Cardiac cath did not show any significant coronary artery disease. Ongoing risk factor modification. (2) Dyspnea: Experiencing chest pressure and dyspnea on exertion. OK ruled out. Treadmill stress echo suggested ischemic heart disease, but cath OK. History of factor V Leiden mutation + COPD. Prudent to rule out PE before discharge. Should not do CTA chest same day as cardiac cath. Check venous duplex lower extremities. Check CTA chest tomorrow if creatinine stable. Check 2-step pulse oximetry prior to discharge. Check outpatient PFT's if not recently done. (3) Hypertension: Continue HCTZ + propranolol. (4) COPD (chronic obstructive pulmonary disease): Continue Trelegy Ellipta. 2-step pulse oximetry prior to DC. Outpatient PFT's if not recently done. (5) Hyperglycemia: Random blood sugar at the time of admission was 161. Fasting blood sugar 03/07 was 95. Hemoglobin A1c 5.7. Patient does not have diabetes. (6) Hypomagnesemia: Serum magnesium 1.7. Replaced. Mg today = 1.8. Follow. (7) Hematuria: Recent gross hematuria. CT of abdomen pelvis performed on 03/02 demonstrated thickening of the urinary bladder. Further evaluation per Urology. (8) Smoking: Smoking cessation counseling. (9) DVT prophylaxis: SCDs ordered. Ambulate as cardiac status allows. (10) Discharge planning issues: Anticipated discharge to home. Internal Medicine follow-up with Dr. Justyna Gamez. Subjective Recheck for multiple problems. Patient seen in their room around 1120. visiting. Cardiac cath went well. No significant coronary artery disease. Has not ambulated in hallway yet since procedure. No CP / SOB at rest. Review of Systems: Constitutional- no fever. Cardiac- as noted above. Pulmonary- no cough or SOB. GI- no nausea, vomiting, diarrhea, melena, hematochezia. - as noted above. Otherwise, as noted above. Physical Exam Physical Exam: Constitutional- afebrile, no acute distress Eyes- sclerae anicteric Respiratory- clear to auscultation, no respiratory distress Cardiovascular- cardiac rhythm regular, no murmurs or gallops appreciated, no JVD, no pretibial edema or calf tenderness Gastrointestinal- normal bowel sounds, soft, nondistended, nontender Extremities- compression band applied to right wrist Skin- warm and dry, no rash Psychiatric- alert, oriented Neuro- resting tremor hands Results & Data Vital Signs (Past 12 Hours) Vital Signs Temp Pulse Pulse Resp BP Pulse Ox 03/08/19 20:31 37.0 C 74 17 132/88 96 03/08/19 18:52 78 18 139/86 95 03/08/19 17:49 76 03/08/19 16:52 77 17 136/72 96 03/08/19 16:01 36.9 C 70 21 130/76 98 03/08/19 15:00 36.7 C 74 17 149/90 H 97 03/08/19 14:30 73 133/92 03/08/19 13:52 76 134/94 03/08/19 13:37 76 140/92 03/08/19 13:23 70 03/08/19 13:22 70 141/87 H 03/08/19 12:00 37.1 C 87 18 117/80 95 Laboratory Results Laboratory Results - last 24 hr 03/08/19 03/08/19 05:49 16:00 Sodium 145 Potassium 3.6 Chloride 107 Carbon Dioxide 30 Anion Gap 8.0 BUN 16 Creatinine 1.01 Est Cr Clr Drug Dosing 126.4 Est GFR ( Amer) 101.5 Est GFR (Non-Af Amer) 87.5 BUN/Creatinine Ratio 15.3 Glucose 127 H Calcium 8.9 Magnesium 1.8 Triglycerides 146 Cholesterol 151 LDL Cholesterol, Calc 90 VLDL Cholesterol, Calc 29 HDL Cholesterol 32 Cholesterol/HDL Ratio 5 Nasal Screen MRSA (PCR) Negative (1) Hematuria Hematuria type: unspecified type Qualified Code(s): R31.9 - Hematuria, unspecified
--- NOTE | 2019-03-08 22:26 | Ultrasound Report ---
US venous doppler LE BI CLINICAL HISTORY: Chest pain and shortness of breath. Possible pulmonary embolism. Evaluate for DVT. COMPARISON STUDY: 01/01/2016 FINDINGS: Real-time and color flow Doppler imaging were performed. Flow was seen within the femoral, popliteal and calf veins with no intraluminal thrombus demonstrated. The saphenous vein is patent. IMPRESSION: No evidence of lower extremity DVT. Electronically signed by: Balwinder Grier M.D. 03/08/2019 10:24 PM
[2019-03-09] MEDS: MoRPHine SULFATE 4 MG/ML 1 ML CARP\\VIAL IV PRN (03:16)
[2019-03-09] MEDS: ONDANSETRON INJ 2 MG/ML 2 ML VIAL IV PRN (03:16)
[2019-03-09 06:45] LABS: BUN Creatinine Ratio 11.1 (10-20); Creatinine Clr Calc Pharmacy 115.5 ml/min; Est GFR (African American) 91.5
[2019-03-09] MEDS: MAGNESIUM OXIDE 400 MG TAB PO SCH (08:57)
[2019-03-09] MEDS: BuPROPion SR 150 MG TABCR PO SCH (08:57)
[2019-03-09] MEDS: ARIPiprazole 5 MG TAB PO SCH (08:58)
[2019-03-09] MEDS: TAMSULOSIN HCL 0.4 MG CAP PO SCH (08:58)
[2019-03-09] MEDS ORDERED: ASPIRIN 81 MG ECTAB PO SCH (09:00)
[2019-03-09] MEDS ORDERED: SODIUM CHLORIDE 0.9% 1000ML 1,000 ML IV SCH (09:45)
[2019-03-09] MEDS ORDERED: OPTIRAY 320 125ml IV PRN (10:04)
--- NOTE | 2019-03-09 10:17 | CT Scan Report ---
CT ANGIOGRAPHY OF THE CHEST, PULMONARY EMBOLUS PROTOCOL CLINICAL HISTORY: Shortness of breath. Chest pain. Evaluate for pulmonary embolus. COMPARISON STUDY: Chest radiograph March 06, 2019. TECHNIQUE: Following IV administration of 120 mL of Optiray-320, helical axial images of the chest we re obtained utilizing the pulmonary embolus protocol. Maximal intensity projections and sagittal and coronal reformats were viewed on an independent 3D workstation. IV contrast was administered withou t complication. Automated exposure control was utilized for the study. A dose lowering technique wa s utilized adhering to the principles of ALARA. CT DOSE: 753.89 mGy.cm FINDINGS: No pulmonary emboli are identified. There is no evidence for thoracic aortic dissection. S ize of the heart is normal. There is no pericardial effusion. No enlarged thoracic lymph nodes are no donnell. The central airways are patent. There is no consolidation to suggest pneumonia. Mild paraseptal emphysema is noted. There is no pneumothorax or pleural effusion. No suspicious lesions within the [place] thorax are noted. Biliary ductal dilatation is unchanged from earlier exams and is likely due to p revious cholecystectomy. IMPRESSION: 1. No pulmonary emboli identified. 2. No acute intrathoracic findings. 3. Mild paraseptal emphysema. Electronically signed by: Rayray Lindquist M.D. 03/09/2019 10:16 AM
--- NOTE | 2019-03-09 10:43 | Cardiology Progress Note ---
Date of Service March 09, 2019 Assessment & Plan (1) Exertional chest pain: cardiac cath without any cad no cardiac source for chest pain no further testing necessary no cardiac follow up needed and will not be scheduled ok to d/c from cardiac standpoint. (2) Bilateral flank pain: f/u with urology for ureteral calculi (3) Aspirin allergy: tolerated 2 doses of aspirin 81mg without issue given ongoing bleeding and lack of cad, would not continue aspirin at this time however, given multiple risk factors for development of atherosclerotic disease would recommend outpatient allergy/immunology eval Subjective Pt seen and examined, states that he feels well. No recurrence of chest pain since stress testing. Denies cp, sob, palpitations, lightheadedness or dizziness. tele reviewed: sinus rhythm without arrhythmia or significant ectopy Review of Systems Review of Systems: All systems reviewed & are unremarkable except as noted in HPI & below Physical Exam Physical Exam: General: Awake, alert and oriented x 3. No acute distress. HEENT: Normocephalic, atraumatic. Pupils equal, round and reactive to light and accommodation. Extraocular muscles are intact. Anicteric sclera. Moist mucous membranes. Neck: No JVD. No bruit. Cardiovascular: Regular. Positive S-4. Normal S-1 and S-2. No S-3. No murmurs or rubs. Pulmonary: Clear to auscultation B/L. No rales, rhonchi or wheezing Abdomen: Bowel sounds x 4, soft. No rebound, guarding or tenderness. No organomegaly. Extremities: No clubbing, cyanosis or edema. +2 pedal pulses bilaterally. Skin: Warm and dry. Results & Data Vital Signs (Past 12 Hours) Vital Signs Temp Pulse Pulse Pulse Pulse Pulse Pulse 03/09/19 09:45 98 H 96 H 74 03/09/19 07:18 36.5 C 74 03/09/19 04:12 36.7 C 74 03/09/19 01:10 79 03/08/19 23:42 36.9 C 76 Resp Resp Resp Resp BP Pulse Ox Pulse Ox 03/09/19 09:45 16 16 16 98 03/09/19 07:18 18 129/85 96 03/09/19 04:12 20 118/75 97 03/09/19 01:10 03/08/19 23:42 18 131/83 98 Pulse Ox Pulse Ox 03/09/19 09:45 96 95 03/09/19 07:18 03/09/19 04:12 03/09/19 01:10 03/08/19 23:42
--- NOTE | 2019-03-09 13:09 | Hospitalist Progress Note ---
Date of Service March 09, 2019 Assessment & Plan (1) Exertional chest pain: Acute coronary syndrome ruled out Acute pulmonary embolism ruled out Likely secondary to anxiety/emotional distress Possible contribution of underlying gastritis/GERD Multiple risk factors for ischemic heart disease. EKG: Negative Troponins negative Abnormal stress test at low-level activity. Symptoms and stress test findings consistent with unstable angina. Status post cardiac catheterization: Did not show any significant coronary artery disease Aspirin not indicated at this point per cardiology service, but due to multiple risk factors for atherosclerotic disease, would recommend referral to allergy s pecialist before initiating aspirin Continue PPI and ranitidine (2) Dyspnea: Resolved History of factor V Leiden mutation + COPD. Prudent to rule out PE before discharge. CT angios: No acute rule out embolism Venous Doppler of the lower extremities: No DVT Two-step exercise test: No indication for supplemental oxygen (3) Hypertension: Continue propranolol Hold HCTZ to prevent acute kidney injury as patient underwent cardiac catheterization and CT angiogram during admission Repeat basic metabolic profile to monitor renal function on follow-up with PCP this Thursday, March 28, 2019 (4) COPD (chronic obstructive pulmonary disease): Continue Trelegy Ellipta. Outpatient PFTs (5) Hyperglycemia: As per Dr. Yun: Random blood sugar at the time of admission was 161. Fasting blood sugar 03/07 was 95. Hemoglobin A1c 5.7. Patient does not have diabetes. (6) Hypomagnesemia: Serum magnesium 1.7. Replaced. Mg = 1.8. Magnesium BID repeat Mg on ff up with PCP (7) Hematuria: Recent gross hematuria. CT of abdomen pelvis performed on 03/02 demonstrated thickening of the urinary bladder. Evaluated by urologist Dr. Delvalle: Recommend outpatient cystoscopy Follow-up with urologist as an outpatient (8) Smoking: Smoking cessation counseling performed. (9) DVT prophylaxis: SCDs ordered. Ambulate as cardiac status allows. (10) Discharge planning issues: Anticipated discharge to home. Internal Medicine follow-up with Dr. Justyna Gamez on Monday, March 11, 2019 at 10:45 AM Follow-up with the urologist Dr. Delvalle for outpatient cystoscopy. Refer to structural engineering technician to rule out aspirin allergy. Subjective Follow-up for chest pain Seen sitting up in bed, comfortable, not in distress, in good spirits States he feels much better today Was able to ambulate in the hallways with no shortness of breath or chest pain, no desaturation Reports chest discomfort occurs only with emotional distress Chest pain-free today No shortness of breath, palpitations, dizziness Denies any other symptoms States he is ready for discharge today Review of Systems Review of Systems: All systems reviewed & are unremarkable except as noted in HPI & below Physical Exam Physical Exam: General- oriented x 3, not in distress, speaks in sentences with no effort or accessory muscle use Eyes- anicteric Neck- no JVD Lungs- clear breath sounds bilaterally, no rales/wheezes Heart- normal rate, regular rhythm; no murmurs Abdomen- normal bowel sounds, nondistended, soft, nontender Extremities- no pretibial edema, no calf tenderness Neuro- alert, oriented x 3; no gross focal neurologic deficits Skin- warm & dry Results & Data Vital Signs (Past 12 Hours) Vital Signs Temp Pulse Pulse Pulse Pulse Pulse Pulse 03/09/19 11:26 37.1 C 73 03/09/19 09:45 98 H 96 H 74 03/09/19 07:40 73 03/09/19 07:18 36.5 C 74 03/09/19 04:12 36.7 C 74 03/09/19 01:10 79 Resp Resp Resp Resp BP Pulse Ox Pulse Ox 03/09/19 11:26 133/83 03/09/19 09:45 16 16 16 98 03/09/19 07:40 03/09/19 07:18 18 129/85 96 03/09/19 04:12 20 118/75 97 03/09/19 01:10 Pulse Ox Pulse Ox 03/09/19 11:26 03/09/19 09:45 96 95 03/09/19 07:40 03/09/19 07:18 03/09/19 04:12 03/09/19 01:10 Laboratory Results Laboratory Results - last 24 hr 03/08/19 03/09/19 16:00 05:39 Sodium 144 Potassium 4.0 Chloride 109 H Carbon Dioxide 29 Anion Gap 6.0 BUN 12 Creatinine 1.10 Est Cr Clr Drug Dosing 115.5 Est GFR ( Amer) 91.5 Est GFR (Non-Af Amer) 79.0 BUN/Creatinine Ratio 11.1 Glucose 84 Calcium 8.0 L Nasal Screen MRSA (PCR) Negative (1) Hematuria Hematuria type: unspecified type Qualified Code(s): R31.9 - Hematuria, unspecified
--- NOTE | 2019-03-09 13:23 | Discharge Summary ---
Date of Service March 09, 2019 Admission HPI Per Admitting Provider CHIEF COMPLAINT: Chest pain and flank pain. HISTORY OF PRESENT ILLNESS: This is a 48-year-old male with past medical history significant for prediabetes, COPD, mild persistent asthma, hypertension, history of gross hematuria, history of heterozygous factor V Leiden mutation, history of MRSA infection, history of tobacco use disorder, presents with chest pain and also ongoing flank pain. The patient says he has noticed chest pain about 3 days ago, retrosternal in nature, feels as someone sitting on his chest and it comes and goes, mostly on exertion, associated with shortness of breath, has COPD, but some shortness of breath is more than his usual. Denies dizziness, was nauseous earlier, but currently no nausea, no sweating. He also has ongoing flank pains and hematuria. He is following with Urology, saw Urology on 02/10/2019. He has difficulty starting urine. Ultrasound on 12/22/2018 showed nonobstructing 9-mm right mid pole calculus. Small right renal cyst located in the mid pole region, may have hemorrhagic changes. He was started on Flomax by Urology and since the stone is intraparenchymal, no treatment was planned and plan was to try Flomax. But the patient says he still gets hematuria on and off. Recently in the ER on 03/03/2019, with flank pain, and hematuria and CAT scan done at that time shows there was no renal or ureteral calculi or obstructive uropathy, . He has no diarrhea, no constipation, no blood in the stools. No swelling in the legs, no rash, no headaches, no blurred vision, no runny nose, no sore throat, no difficulty swallowing. Currently, resting comfortably and hemodynamically stable. ALLERGIES: PENICILLINS AND ASPIRIN. PAST MEDICAL HISTORY: As mentioned above. PAST SURGICAL HISTORY: Cyst excision on the right flank, colonoscopy, I&D of pilonidal abscess, removal of left knee cartilage, cholecystectomy. MEDICATIONS: The patient is currently on Zantac 150 mg p.o. b.i.d., Abilify 5 mg p.o. daily, Ativan 0.5 mg p.o. t.i.d. p.r.n., Flomax 0.4 mg daily, propranolol ER 60 mg p.o. daily, Trelegy Ellipta 1 puff daily, hydrochlorothiazide 12.5 mg p.o. daily, Colace 100 mg p.o. b.i.d., MiraLax 17 g p.o. daily p.r.n., Flonase 2 sprays each nostril daily, Depakote ER 1500 mg p.o. at bedtime, hydroxyzine 50 mg in a.m. and 100 mg at bedtime, Protonix 40 mg p.o. b.i.d., Wellbutrin SR 150 mg p.o. daily, Benadryl 50 mg p.r.n. for allergic reaction. FAMILY HISTORY: Significant for, mother has allergies, factor V deficiency, breast cancer. Father had heart attack at age of 45. Paternal uncle has heart attack. Paternal grandfather has IA. SOCIAL HISTORY: , smokes quarter pack a day for 27 years. No alcohol use, no drug use. REVIEW OF SYMPTOMS: As per HPI. Rest of review of systems negative. Admission Exam Per Admitting Provider PHYSICAL EXAMINATION: GENERAL: The patient is of moderate build, not in acute distress. VITAL SIGNS: Temperature 37, pulse 86, respiratory rate 21, blood pressure 149/92, oxygen 97% room air. HEENT: No pallor, no icterus. Pupils equal, round, reactive to light. NECK: No JVD, no neck masses, no carotid bruit. CARDIOVASCULAR: S1, S2 heard, regular rate and rhythm, no murmur, no gallop. RESPIRATORY SYSTEM: Normal AP diameter. No accessory muscle use. No wheezing, no crackles. ABDOMEN: Soft, bowel sounds present, nontender. No distention. Mild b/l CVA tenderness. CENTRAL NERVOUS SYSTEM: Cranial nerves II-XII grossly intact, nonfocal. EXTREMITIES: No edema, no erythema. Principal Diagnosis Chest pain, acute coronary syndrome ruled out, acute pulmonary embolism ruled out Discharge Exam General- oriented x 3, not in distress, speaks in sentences with no effort or accessory muscle use Eyes- anicteric Neck- no JVD Lungs- clear breath sounds bilaterally, no rales/wheezes Heart- normal rate, regular rhythm; no murmurs Abdomen- normal bowel sounds, nondistended, soft, nontender Extremities- no pretibial edema, no calf tenderness Neuro- alert, oriented x 3; no gross focal neurologic deficits Skin- warm & dry Discharge Data Allergies Allergy/AdvReac Type Severity Reaction Status Date / Time Penicillins Allergy Intermediate Hives Verified 03/06/19 21:27 aspirin Allergy Unknown Unknown Verified 03/06/19 21:27 Consultations 03/06/19 21:22 ED Decision to Admit Stat 03/06/19 23:31 Consult Cardiology Routine 03/07/19 08:00 Consult Urology Routine 03/07/19 14:27 Consult Cardiac Catheterization Routine Procedures Performed Operation Date: 03/07/19 15:00 <No data on this case meets the specified criteria> Operation Date: 03/08/19 11:00 Actual Procedures p Cath, Left with Cors and Vent - David Reyes MD s Cineradiography w/Routine Exam - David Reyes MD Ordered Studies 03/08/19 06:39 CL Cath Imgs for PACS use only Routine 03/08/19 16:00 US venous doppler LE BI Routine IMPRESSION: No evidence of lower extremity DVT. 03/09/19 08:43 CT angio chest PE protocol Routine FINDINGS: No pulmonary emboli are identified. There is no evidence for thoracic aortic dissection. Size of the heart is normal. There is no pericardial effusion. No enlarged thoracic lymph nodes are noted. The central airways are patent. There is no consolidation to suggest pneumonia. Mild paraseptal emphysema is noted. There is no pneumothorax or pleural effusion. No suspicious lesions within the bony thorax are noted. Biliary ductal dilatation is unchanged from earlier exams and is likely due to previous cholecystectomy. IMPRESSION: 1. No pulmonary emboli identified. 2. No acute intrathoracic findings. 3. Mild paraseptal emphysema. Hospital Course (1) Exertional chest pain: Acute coronary syndrome ruled out Acute pulmonary embolism ruled out Likely secondary to anxiety/emotional distress Possible contribution of underlying gastritis/GERD Multiple risk factors for ischemic heart disease. EKG: Negative Troponins negative Abnormal stress test at low-level activity. Symptoms and stress test findings consistent with unstable angina. Status post cardiac catheterization: Did not show any significant coronary artery disease Aspirin not indicated at this point per cardiology service, but due to multiple risk factors for atherosclerotic disease, would recommend referral to criminal research specialist before initiating aspirin for CAD prevention Continue PPI and ranitidine Discussed several techniques for patient management of emotional distress, denies depression (2) Dyspnea: Resolved History of factor V Leiden mutation + COPD. Prudent to rule out PE before discharge. CT angios: No acute rule out embolism Venous Doppler of the lower extremities: No DVT Two-step exercise test: No indication for supplemental oxygen (3) Hypertension: Continue propranolol Hold HCTZ to prevent acute kidney injury as patient underwent cardiac catheterization and CT angiogram during admission Repeat basic metabolic profile to monitor renal function on follow-up with PCP this Thursday, March 28, 2019 (4) COPD (chronic obstructive pulmonary disease): Continue Trelegy Ellipta. Outpatient PFTs (5) Hyperglycemia: As per Dr. Yun: Random blood sugar at the time of admission was 161. Fasting blood sugar 03/07 was 95. Hemoglobin A1c 5.7. Patient does not have diabetes. (6) Hypomagnesemia: Serum magnesium 1.7. Replaced. from PPI? repeat Mg = 1.8. Magnesium BID x 7 days repeat Mg on ff up with PCP (7) Hematuria: Recent gross hematuria. CT of abdomen pelvis performed on 03/02 demonstrated thickening of the urinary bladder. resolved while admitted Evaluated by urologist Dr. Delvalle: Recommend outpatient cystoscopy Follow-up with urologist as an outpatient (8) Smoking: Smoking cessation counseling performed. Patient verbalized agreement. (9) DVT prophylaxis: SCDs ordered. Ambulate as cardiac status allows. (10) Discharge planning issues: Discharge to home. Internal Medicine follow-up with Dr. Justyna Gamez on Monday, March 11, 2019 at 10:45 AM Follow-up with the urologist Dr. Delvalle for outpatient cystoscopy. Refer to care associate to rule out aspirin allergy. Total Time Total Time Spent Total Time Spent (In Minutes): 45 minutes Discharge Plan Discharge Items Patient Disposition: Home - Self-Care Reason For Visit: CHEST PAIN Discharge Diagnosis: Chest pain Activity: Resume your previous activity Activity Comment: Resume activity gradually as tolerated Non-emergency contact: Primary Care Provider Call non-emergency contact if: you have any medication questions, your symptoms worsen, your pain is not controlled, your pain is worsening, your pain is unusual for you and you have a fever Follow-up/Referrals: Justyna Gamez MD [Primary Care Provider] - 03/11/19 10:45 am Yin Delvalle MD [Physician] - Diet: Heart Healthy Addtl Attending Provider Instructions: Follow-up with urologist Dr. Delvalle in 1 to 2 weeks. Contact information noted above. Please call her office for an appointment. You will also need to be referred to an criminal research specialist to evaluate possible aspirin allergy. Call primary care physician or return to the ER immediately if with worsening or recurrence of symptoms, changes with urination. Hold HCTZ for now. Dr. Gamez will advise you when you can resume HCTZ. Drink plenty of fluids, 6 to 8 glasses of water a day. Do not take NSAIDs-including ibuprofen, naproxen, etc. Always speak with your primary care physician before starting any new medication. Pending Studies at Discharge: Yes Studies:: Blood work: Basic metabolic profile and magnesium level on follow-up with primary care physician this Thursday, March 11, 2019 Stand-Alone Forms: My [facility] Medications and DC Order Prescriptions: New magnesium oxide 400 mg (241.3 mg magnesium) Tablet 400 mg PO BID 7 Days Qty: 14 RF: 0 Continued fluticasone propionate 50 mcg/actuation spray,suspension 2 spray Intranasal DAILY PRN (Reason: Allergy Symptoms) RF: 0 propranolol 60 mg capsule,extended release 24 hr 60 mg PO QPM RF: 0 pantoprazole 40 mg tablet,delayed release (DR/EC) 40 mg PO QPM RF: 0 divalproex [Depakote] 500 mg Tablet,Delayed Release (Dr/Ec) 1,500 mg PO HS RF: 0 lorazepam 0.5 mg tablet 0.5 mg PO TID PRN (Reason: Anxiety) RF: 0 aripiprazole [Abilify] 5 mg tablet 5 mg PO DAILY RF: 0 hydroxyzine HCl 50 mg tablet 100 mg PO HS RF: 0 hydroxyzine HCl 50 mg tablet 50 mg PO QAM RF: 0 Trelegy Ellipta 100-62.5-25 mcg blister with device 1 inh inhalation DAILY RF: 0 bupropion HCl 150 mg tablet sustained-release 12 hr 150 mg PO QAM RF: 0 tamsulosin 0.4 mg capsule 0.4 mg PO DAILY RF: 0 ranitidine HCl 150 mg tablet 150 mg PO BID RF: 0 Discontinued hydrochlorothiazide 12.5 mg capsule 12.5 mg PO DAILY RF: 0 Discharge Orders: Discharge Order (Routine); Ordered 03/09/19 Ordered By: Valentin Grayson Admission Data Admit Date/Time: 03/07/19 10:56 Attending Provider: Valentin Grayson Admit Provider: Adam Covarrubias Primary Care Provider: Justyna Gamez Other Providers: Adam Covarrubias ; Miguel Maeir ; Yin Delvalle ; David Reyes ; Michael Yun
== END 2019-03-09 14:11 | disposition home or self-care (01) | DRG 287 ==
LOC: ED 19:33 → 2S 19:33 → SUATTDRO 23:01 → 2S 23:25 → SUATTDRO 03-07 10:56

== ENCOUNTER 2019-06-20 15:15 | Inpatient (IN) ==
[2019-06-20] MEDS ORDERED: LORazepam 1 MG TAB PO STA (15:34)
[2019-06-20] MEDS ORDERED: ACETAMINOPHEN 325 MG TAB PO STA (15:55)
--- NOTE | 2019-06-20 15:59 | XRay Report ---
XR chest 1V portable CLINICAL HISTORY: Atypical chest pain COMPARISON STUDY: June 17, 2019 FINDINGS: The cardiac and mediastinal contours are normal. There is no evidence of focal pulmonary co nsolidation. There is no evidence of failure. No pleural effusions are visualized.[ IMPRESSION: No active disease in the chest. ACT 112: Negative or not required by law. Electronically signed by: Balwinder Grier M.D. 06/20/2019 3:58 PM
[2019-06-20 16:30] LABS: Basophils # (auto) 0.04 K/uL (0-0.2); Basophils % (auto) 0.4 %; Eosinophils # (auto) 0.09 K/uL (0-0.5); Eosinophils % (auto) 0.8 %; Hematocrit (blood only) 44.3 % (42-52); Hemoglobin 14.9 g/dL (14.0-18.0); Immature Granulocytes # (auto) 0.02 K/uL (0.00-0.02); Immature Granulocytes % (auto) 0.2 %; Lymphocytes % (auto) 27.9 %; Mean Corpuscular Hemoglobin 29.7 pg (25-34); Mean Corpuscular Hgb Conc 33.6 g/dL (32-36); Mean Corpuscular Volume 88.4 fL (80-100); Mean Platelet Volume 11.8 fL (7.4-10.4); Monocytes # (auto) 0.61 K/uL (0.11-0.59); Monocytes % (auto) 5.7 %; Neutrophils # (auto) 6.99 K/uL (1.4-6.5); Platelet Count 279 K/uL (130-400); RDW Coefficient of Variation 13.9 % (11.5-14.5); RDW Standard Deviation 45.3 fL (36.4-46.3); Red Blood Count 5.01 M/uL (4.7-6.1); White Blood Count 10.75 K/uL (4.8-10.8)
[2019-06-20 16:48] LABS: Alanine Aminotransferase 21 U/L (12-78); Albumin Level 3.8 gm/dl (3.4-5.0); Aspartate Aminotransferase 11 U/L (15-37); BUN Creatinine Ratio 10.6 (10-20); Blood Urea Nitrogen 10 mg/dl (7-18); Calcium 9.7 mg/dl (8.5-10.1); Carbon Dioxide 26 mmol/L (21-32); Chloride 109 mmol/L (98-107); Creatinine Clr Calc Pharmacy 130.9 ml/min; Est GFR (African American) 110.7; Est GFR (Non-African American) 95.5; Glucose 85 mg/dl (70-99); Potassium 3.6 mmol/L (3.5-5.1); Sodium 139 mmol/L (136-145)
[2019-06-20 16:58] LABS: Albumin Globulin Ratio 0.9 (0.9-2); Alkaline Phosphatase 141 U/L (45-117); Bilirubin,Total 0.5 mg/dl (0.2-1); Globulin 4.2 gm/dl (2.5-4.0); Thyroid Stimulating Hormone 0.769 uIu/ml (0.300-4.500); Troponin I < 0.015 ng/ml (0-0.045)
[2019-06-20 17:18] LABS: Acetaminophen < 2 ug/ml (10-30)
[2019-06-20 17:19] LABS: Salicylate 3.9 mg/dl (2.8-20)
[2019-06-20 18:00] LABS: Appearance Urine Clear (Clear); Bacteria Urine Automated 1+ (Negative); Bilirubin Urine Negative (Negative); Blood Urine Negative (Negative); Color Urine Yellow; Epithelial Cell Urine Auto >30 /lpf (0-5); Glucose Urine UA Negative (Negative); Ketones Urine Negative (Negative); Leukocyte Esterase Urine Trace (Negative); Nitrite Urine Negative (Negative); Protein Urine Negative (Negative); RBC Urine Automated 0-4 /hpf (0-4); Specific Gravity Urine 1.016 (1.000-1.030); Urobilinogen Urine Negative (Negative); pH Urine 5.5 (4.5-7.5)
[2019-06-20 18:27] LABS: Amphetamines+Metham, Urine Neg (Neg); Barbiturates, Urine Neg (Neg); Benzodiazepine, Urine Neg (Neg); Cocaine, Urine Neg (Neg); MDMA (Ecstacy), Urine Neg (Neg); Methadone, Urine Neg (Neg); Opiate, Urine Neg (Neg); Phencyclidine, Urine Neg (Neg)
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
[2019-06-20] MEDS ORDERED: SODIUM CHLORIDE 0.65% NA SOLN 45 ML (OCEAN) PRN (20:54)
[2019-06-20] MEDS ORDERED: BISMUTH SUBSALICYLATE PER ML OMNICELL CHARGE PO PRN (20:54)
[2019-06-20] MEDS ORDERED: ALUMINUM/MAGNESIUM SUSP 30 ML UDC PO PRN (20:54)
[2019-06-20] MEDS ORDERED: MAGNESIUM HYDROXIDE SUSP 30 ML UDC PO PRN (20:54)
[2019-06-20] MEDS ORDERED: ACETAMINOPHEN 325 MG TAB PO PRN (20:54)
[2019-06-20] MEDS ORDERED: FLUTICASONE PROPIONATE NA SPR 16 GM BTL PRN (20:57)
[2019-06-20] MEDS ORDERED: ALBUTEROL HFA 8 GM INHALER INH PRN (21:05)
[2019-06-20] MEDS: LORazepam 0.5 MG TAB PO SCH (21:51)
[2019-06-20] MEDS: POTASSIUM CHLORIDE 10 MEQ TABCR PO SCH (21:54)
[2019-06-20] MEDS: TAMSULOSIN HCL 0.4 MG CAP PO SCH (21:54)
[2019-06-20] MEDS: GABAPENTIN 100 MG CAP PO SCH (21:54)
[2019-06-20] MEDS: MONTELUKAST SODIUM 10 MG TABLET PO SCH (21:55)
[2019-06-20] MEDS: lisinopriL 5 MG TAB PO SCH (21:56)
[2019-06-20] MEDS ORDERED: ARIPIprazole SOLN 10 MG/10 ML UDP PO SCH (22:00)
[2019-06-20] MEDS: ARIPiprazole 10 MG TAB PO SCH (22:20)
[2019-06-20] MEDS: TIOTROPIUM BROMIDE 5 PUFF/90 MCG INH INH SCH (22:20)
[2019-06-20] MEDS: FLUTICASONE/SALMETEROL 100/50 (ADVAIR) 14 PUFF/1 INHALER INH SCH (22:20)
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
[2019-06-21] MEDS ORDERED: buPROPion HCl 75 MG TABLET PO SCH (09:00)
[2019-06-21] MEDS: LORazepam 0.5 MG TAB PO SCH ×2 (09:08→21:44)
[2019-06-21] MEDS: LORATADINE 10 MG TAB PO SCH (09:09)
[2019-06-21] MEDS: NICOTINE 14 MG/24 HR PATCH TD SCH (09:12)
[2019-06-21] MEDS: TAMSULOSIN HCL 0.4 MG CAP PO SCH (21:42)
[2019-06-21] MEDS: TIOTROPIUM BROMIDE 5 PUFF/90 MCG INH INH SCH (21:43)
[2019-06-21] MEDS: GABAPENTIN 100 MG CAP PO SCH (21:44)
[2019-06-21] MEDS: MONTELUKAST SODIUM 10 MG TABLET PO SCH (21:44)
[2019-06-21] MEDS: lisinopriL 5 MG TAB PO SCH (21:45)
[2019-06-21] MEDS: ARIPiprazole 10 MG TAB PO SCH (21:46)
[2019-06-21] MEDS: FLUTICASONE/SALMETEROL 100/50 (ADVAIR) 14 PUFF/1 INHALER INH SCH (21:47)
[2019-06-21] MEDS: POTASSIUM CHLORIDE 10 MEQ TABCR PO SCH (21:47)
--- NOTE | 2019-06-22 09:34 | Psychiatric Progress Note ---
Date of Service June 22, 2019 Impression / Recommendations Impression 48-year-old man, recently when his unexpectedly of a heart attack 1 month ago, who has a history of bipolar NOS with episodes of anger alternating with episodes of depression, and alcohol and nicotine dependence, multiple previous hospitalizations for suicidality/suicide attempts, and nonadherence with outpatient treatment, and is admitted with suicidal ideation in the context of multiple losses. He recently started with a new psychiatrist and therapist, and has had multiple medication changes over the past several months, for which he is a poor historian. He continues to drink intermittently, despite identifying as a "recovering alcoholic," and has been abusing lorazepam. He endorses suicidal thoughts to overdose or shoot himself, and has access to the means. He is struggling to function, stating that his paid the bills and did the grocery shopping, and he has had difficulty performing these tasks. He lives with his [id number] and [id number], and also identifies his own mother, who lives next door, as a support. He does not have case management, and is not in regular therapy. Inpatient treatment is indicated given the high risk for suicide if discharged, and the need for increased outpatient supports/services. (1) Suicidal ideations: -Continue inpatient hospitalization. -15-minute checks for safety. -Participate in groups and therapy. Work on healthy coping skills and discharge safety plan. -Family meeting; commend guns be removed until he has stabilized, and medications secured and dispensed daily. 06/22 - Patient willing for family meeting with mother, states it will need to be by phone as she doesn't drive. Brother also lives close to him and is supportive. (2) Bipolar disorder: 06/21 -bipolar NOS, no known history of classic manic episodes, but per old records, has a history of episodes of anger which responded well to mood stabilizing medication. Depressed mood since 's , exacerbated by interpersonal problems with SAMEER and MIL. Recommend family meeting, and that gun be removed until he has stabilized. -Continue aripiprazole 10mg daily, and consider increase to 15mg. Fasting labs from 02/2019 reviewed; FLP normal, glucose elevated 127. Patient states he has been told he has "prediabetes," but does not follow a diabetic diet or check blood sugar. -Recommend increased services including weekly therapy and case management, with psych rehab and/or [facility]. (3) Anxiety: 06/21 - patient reports anxiety is his primary concern, and has been abusing lorazepam. H/o alcohol abuse, high risk of benzo abuse/misuse, so will taper off. Discussed other options including SSRI and buspirone. Reviewed risks, benefits, and side effects; he opted for a trial of buspirone. Start 5 mg 3 times daily and titrate as tolerated. -Patient does not think bupropion has been helpful for mood, and as it may be worsening anxiety, will discontinue it. -Coordinate care with outpatient psychiatrist Dr. Craig, and recommend weekly therapy. 06/22 - Much improved. Continue taper off lorazepam. (4) Smokin/24 - Smoking cessation education provided. Patient w/ COPD and aware of risks of ongoing nicotine use. States he has tried to quit, got Wellbutrin to quit but has not used the patch as his insurance doesn't cover it. Advised he can get it over the counter, and agreed to continue 14mg patch at d/c. Will need f/u with PCP for smoking cessation. (5) Alcohol dependence: h/o alcohol dependence, denies heavy use recently, but a limited historian. Collateral information would be helpful. Taper off benzodiazepines due to abuse. Avoid controlled substances due to the high risk of abuse/misuse/negative outcomes. (6) COPD (chronic obstructive pulmonary disease): Continue home medications, and follow-up with PCP. (7) Hypertension: Continue home medications, and follow-up with PCP. (8) Abnormal finding on urinalysis: Patient denies symptoms of UTI, no treatment indicated. Culture ending. Inventory Assets Strengths: Engaged in treatment, supportive family Needs: Taper off controlled substances, increase therapy/outpatient services Risk Factors Assessment Male: Yes : Yes Do You Have Access To A Gun?: Yes Health Problems: Yes Mental Health Diagnoses: Yes Substance Use Disorders: Yes Previous Attempt: Yes Previous Attempt; Highly Lethal: Yes Family History of Suicide: No Previous Psychiatric Hospitalization: Yes Hopelessness: Yes Smoker: Yes Protective Factors Assessment : No Responsible for Young Children: No Employed: No (Disabled r/t Bipolar and PTSD) Stable Relationships: Yes Supportive Family: Yes Interval History Identifying Information WILLIAM LEMON is a 48-year-old M who currently lives in [place] with his mother in law and sister in law, has a history of bipolar disorder, alcohol and nicotine abuse, and multiple medical problems, and was admitted on 06/20/19 20:14 on a 201 voluntary commitment for suicidal ideation with a plan to shoot himself and access to guns. Chief Complaint "Pretty good, I actually talked to my ex-". Review of Systems Sleep Information Total Hours of Sleep: 6.5 Sleep Comments: pt on q-15 minute checks. Meal Information Percent Meal Consumed - Breakfast: 80 Percent Meal Consumed - Lunch: 100 Percent Meal Consumed - Dinner: 100 Subjective Subjective Patient was seen & assessed and interval progress reviewed with nursing. Staff report he has been eating well, participating in groups, and reported improved mood after receiving a phone call from his ex- who indicated she was interested in a closer relationship with him. He declined to schedule a family meeting. On my assessment, he reports mood is improved, which he attributes to talking to his ex- on the phone, who lives in [place], and she told him he should have come to her if he was having a hard time. States he was to her briefly at age 18, and get back into contact with her again about 6 months ago. He denies SI, and reports anxiety is improved. Reports good sleep last night, and is eating well. He is willing for a meeting with his mother, but hasn't been able to reach her yet. Physical Exam Psychiatric Orientation: alert and cooperative Dressed in pajamas, multiple large tattoos and earrings, malodorous Eye Contact: good eye contact Motor Behavior: steady gait and station and + psychomotor agitation (jiggling legs up and down) Speech: normal rate/rhythm/volume of speech Affect: + anxious affect; + mood not congruent with affect "good" Thought Process: goal directed thought process and + concrete thought process Thought Content: reality based without delusions Suicidal Thoughts: denies suicidal thoughts Homicidal Thoughts: denies homicidal thoughts Hallucinations: no auditory hallucinations and no visual hallucinations Cognition: recent memory grossly intact, attention grossly intact and language grossly intact Estimated Intelligence: consistent with education level Insight: + fair insight Judgement: + fair judgement Vital Signs (Past 24 Hours) Last Vital Signs Temp 36.7 C 06/22/19 06:52 Pulse 118 H 06/22/19 06:53 Resp 18 06/22/19 06:52 BP 155/74 H 06/22/19 06:53 Pulse Ox 99 06/20/19 21:18 Results & Data Current Inpatient Medications Current Inpatient Medications: Current Inpatient Medications Acetaminophen (Tylenol) 650 mg PO Q4H PRN PRN Reason: Headache or Minor Fever Stop: 07/20/19 20:53 Al Hydrox/Mg Hydrox/Simethicone (Maalox) 30 ml PO Q4H PRN PRN Reason: GI Upset Stop: 07/20/19 20:53 Albuterol (Ventolin Hfa) 2 puffs INH Q4 PRN PRN Reason: Shortness Of Breath Stop: 07/20/19 21:04 Aripiprazole (Abilify) 10 mg PO [facility] Stop: 07/20/19 21:59 Last Admin: 06/21/19 21:46 Dose: 10 mg Documented by: Bismuth Subsalicylate (Kaopectate) 15 ml PO PRN PRN PRN Reason: Loose Stool Stop: 07/20/19 20:53 Buspirone HCl (Buspar) 5 mg PO [facility] Stop: 07/21/19 13:59 Last Admin: 06/21/19 21:45 Dose: 5 mg Documented by: Fluticasone Propionate (Flonase) 2 sprays NA DAILY PRN PRN Reason: Allergy Symptoms Stop: 07/21/19 08:59 Gabapentin (Neurontin) 200 mg PO [facility] Stop: 07/20/19 21:59 Last Admin: 06/21/19 21:44 Dose: 200 mg Documented by: Hydroxyzine HCl (Vistaril) 100 mg PO [facility] Stop: 07/20/19 21:59 Last Admin: 06/21/19 21:44 Dose: 100 mg Documented by: Hydroxyzine HCl (Vistaril) 50 mg PO DAILY [facility] Stop: 07/21/19 08:59 Last Admin: 06/21/19 09:09 Dose: 50 mg Documented by: Lisinopril (Zestril) 5 mg PO [facility] Stop: 07/20/19 21:59 Last Admin: 06/21/19 21:45 Dose: 5 mg Documented by: Loratadine (Claritin) 10 mg PO [facility] Stop: 07/21/19 08:59 Last Admin: 06/21/19 09:09 Dose: 10 mg Documented by: Lorazepam (Ativan) 0.5 mg PO [facility] Stop: 07/21/19 21:59 Last Admin: 06/21/19 21:44 Dose: 0.5 mg Documented by: Magnesium Hydroxide (Milk Of Magnesia) 30 ml PO DAILY PRN PRN Reason: Constipation Stop: 07/20/19 20:53 Miscellaneous (Remove Nicoderm Patch) 1 ea N/A DAILY@[id number] [facility] Stop: 07/21/19 08:58 Last Admin: 06/21/19 09:09 Dose: Not Given Documented by: Montelukast Sodium (Singulair) 10 mg PO [facility] Stop: 07/20/19 21:59 Last Admin: 06/21/19 21:44 Dose: 10 mg Documented by: Nicotine (Nicoderm Cq) [facility] Stop: 07/21/19 08:59 Last Admin: 06/21/19 09:12 Dose: 14 mg Documented by: Potassium Chloride (Klor-Con M10) 10 meq PO [facility] Stop: 07/20/19 21:59 Last Admin: 06/21/19 21:47 Dose: 10 meq Documented by: Fluticasone/Salmeterol (Advair Diskus 100/50) 1 puffs INH [facility] Stop: 07/20/19 21:59 Last Admin: 06/21/19 21:47 Dose: 1 puffs Documented by: Sodium Chloride ([place] Nasal) 1 - 2 sprays NA PRN PRN PRN Reason: Nasal Dryness/Congestion Stop: 07/20/19 20:53 Tamsulosin HCl (Flomax) 0.4 mg PO [facility] Stop: 07/20/19 21:59 Last Admin: 06/21/19 21:42 Dose: 0.4 mg Documented by: Tiotropium [place] (Spiriva) 1 puffs INH [facility] Stop: 07/20/19 21:59 Last Admin: 06/21/19 21:43 Dose: 1 puffs Documented by: Mental Health & Subst Abuse Tx Psychiatrist Date of Appointment with Psychiatrist: 07/18/19 Therapist Name of Therapist: Chris Shultz just saw this month Date of Therapist Appointment: 08/04/19 Corrections Caseworker Name of Corrections Caseworker: open to referral Post Discharge Appointments Primary Care Physician Name Of Family Doctor: Dr. Moody Bansal ([facility]) Date of Appointment with PCP: 07/18/19
[2019-06-22] MEDS: LORATADINE 10 MG TAB PO SCH (09:42)
[2019-06-22] MEDS: NICOTINE 14 MG/24 HR PATCH TD SCH (09:43)
[2019-06-22] MEDS: FLUTICASONE/SALMETEROL 100/50 (ADVAIR) 14 PUFF/1 INHALER INH SCH (21:08)
[2019-06-22] MEDS: POTASSIUM CHLORIDE 10 MEQ TABCR PO SCH (21:09)
[2019-06-22] MEDS: MONTELUKAST SODIUM 10 MG TABLET PO SCH (21:09)
[2019-06-22] MEDS: LORazepam 0.5 MG TAB PO SCH (21:09)
[2019-06-22] MEDS: GABAPENTIN 100 MG CAP PO SCH (21:09)
[2019-06-22] MEDS: TIOTROPIUM BROMIDE 5 PUFF/90 MCG INH INH SCH (21:09)
[2019-06-22] MEDS: TAMSULOSIN HCL 0.4 MG CAP PO SCH (21:10)
[2019-06-22] MEDS: lisinopriL 5 MG TAB PO SCH (21:10)
[2019-06-22] MEDS: ARIPiprazole 10 MG TAB PO SCH (21:11)
[2019-06-23] MEDS: NICOTINE 14 MG/24 HR PATCH TD SCH (08:46)
[2019-06-23] MEDS: LORATADINE 10 MG TAB PO SCH (08:46)
--- NOTE | 2019-06-23 10:28 | Discharge Summary ---
Date of Service June 23, 2019 History of Present Illness Patient presented to the ER yesterday on referral from PCP's office for SI, after he presented there for an ER follow-up (4th ER visit in the past 30 days). His cardiac workup has been negative, yesterday had normal CXR, EKG sinus tachycardia rate 102, negative troponin, and elevated BP. Admission labs notable for alkaline phosphatase 141, UA with trace leukocyte esterase, >30 epithelial cells, 1+ bacteria. TSH normal, UDS negative. He reported that he took 5 doses of Ativan 0.5mg at home prior to coming in, and got another 1mg of Ativan in the ER. He reported worsening mood and anxiety since 05/23/2019 when his from a heart attack. A few days later, his uncle . The night prior to presentation, he found out that a friend of his had . 2 of his dogs also recently . He reported SI with thoughts to overdose or shoot himself, and said he has guns at home. He agreed to inpatient treatment and signed in voluntarily. On my assessment, he reports he saw a PA at his PCP's office for ER follow up visit, and "a floodgate opened up." States mood has been "pretty rough" for months, worsened acutely when suddenly from an MT 30 days ago, and the one month anniversary of her is tomorrow. States he has "tried to be strong, do it myself," but feels unable to cope, overwhelmed, depressed, and hopeless. His sleep has been poor (often staying up until 2 or 3am worrying about his dogs who were recently sick), and decreased appetite (reports slow weight loss over past year of around 50lbs). He has been having suicidal thoughts since his 's , and they worsened acutely yesterday with thoughts to shoot himself. Denies that he took any steps toward acting on this, and states his gun is locked and only his mother (who lives next door) has the leonard. He reports worsening anxiety in context of multiple deaths/stressors as above, which interferes with sleep. States he had to "learn to pay the bills and go grocery shopping," as his "did all that." States he was not in therapy until recently because his "took care of that, just talked to her." He reports anxiety due to arguing amongst his in laws, which has worsened since his . Reports chest tightness, lightheadedness, irritability/anger, wanting to isolate from others when anxious. He has been taking more lorazepam than prescribed and says he "just found out it can be addictive, and don't want to take anything I can be addicted to." States it is prescribed bid, but he has been taking it at least 3 times a day, and up to 5 times a day. He states he is a "recovering alcoholic," but continues to drink "only on special occasions," which includes recently going to a bar because "it was a special occasion because I just wanted to have a drink." Estimates drinking 2-3 times a month, "just one drink." Per records he has a history of OCD symptoms, and reports he often checks if his car is locked and how much money he has in his wallet (3-4 times/day), denies that it is impairing. He denies psychotic symptoms. Cannot recall when last manic episode was, "I don't really keep track of what's going on with me." States he was being seen at [facility] but [facility] a few months ago as "they were just pushing pills on me." States Dr. Craig stopped quetiapine and Depakote and started aripiprazole. Says he has been on Wellbutrin for years, initially started to stop smoking. He states his primary concern is his anxiety, and ability to function at home. Physical Exam Mental Examination Overweight male. Older than his stated age, casually dressed in [employer]. Multiple large tattoos, ear piercings. Fair hygiene and grooming. Seated in no acute distress, with good eye contact and no abnormal movements. Calm and cooperative with the assessment. Reports improved mood, and affect is euthymic, congruent, and appropriate. Thoughts are linear and goal-directed. Denies suicidal thoughts, homicidal thoughts, hallucinations, and paranoia. No delusions evident. Alert and oriented. Insight and judgment are fair. Vital Signs (Past 24 Hours) Last Vital Signs Temp 36.6 C 06/23/19 06:52 Pulse 102 H 06/23/19 06:52 Resp 18 06/23/19 06:52 BP 137/80 06/23/19 06:52 Pulse Ox 99 06/20/19 21:18 Principal Diagnosis Depression not otherwise specified History of bipolar disorder not otherwise specified Anxiety not otherwise specified Benzodiazepine use disorder Alcohol use disorder Psychiatric Data Patient was hospitalized for 3 days. On admission, his past treatment history was reviewed, which indicated he had been diagnosed with bipolar disorder not otherwise specified due to episodes of anger which responded well to mood stabilizing medication. Per records and his own report, he has no history of classic manic or hypomanic episodes. He reported mood has been depressed since his 's 1 month ago, and exacerbated prior to admission by interpersonal problems with [id number] and [id number], whom he lives with. He reported increased anxiety recently, and had been taking Ativan 3-5 times a day, more often than it was prescribed. He said he was unaware that the medication was addictive, and reports a long history of alcohol addiction, with ongoing use, although decreased from heavy daily drinking in the past. He was agreeable to recommendations to taper off the benzodiazepine, recognizing that he continues to struggle with substance use and has been unable to take the medication as prescribed. In order to address anxiety, bupropion was discontinued and buspirone started, which he tolerated well. Mood and anxiety symptoms improved quickly in the hospital, he attended and participated in groups and therapy, and was able to work on healthy coping skills and his discharge safety plan. He got in touch with his ex-, who he was to briefly at age 18, and said that greatly improved his mood. He agreed to a family meeting with his mother, who lives next door to him, which is scheduled for this afternoon prior to discharge. He endorsed access to guns, and stated they are stored in a locked safe and his mother has the leonard. Regular therapy was recommended, and he worked with the pediatric social worker to arrange outpatient treatment. Options for increased supports in the community were explored and recommended, but he declined referral for blended case management, [facility], and/or psych rehab. His insurance company assigned him a piano case and bench assembler, who will follow up with him the day after discharge and assist him in arranging therapy in the community. Day of Discharge Assessment Staff report the patient has been attending and participating in groups, displaying euthymic mood, interacting appropriately with others, and taking medications without difficulty. He is performing ADLs, and eating and sleeping well. He has been consistently denying suicidal thoughts, and reporting significantly improved mood. He has been talking about his hope for the future, namely starting a new romantic relationship. On my assessment, he states that he is "great," rates mood an 8-9 out of 10, and denies any suicidal thoughts or safety concerns. He reports good support from his mother, and agrees to continue to allow her to keep that he to his guns so that he will not have immediate access to them. They will have a meeting today prior to discharge (see social work notes for details). He is willing to follow-up with outpatient treatment, including psychiatry and therapy through [facility], while exploring options for more regular therapy in the community. He denies any side effects to medications. Spoke to Dr. Craig his outpatient psychiatrist and reviewed his presentation, history, and treatment here. Also reviewed recommendations for increased outpatient services, which he declined. Transition of Care Transition Of Care Record: was reviewed with the patient Advance Directives Advance Directives Information Provided: Yes Advance Directives: No Mental Health Advance Directive: No Advance Directives on File: No Living Will: No Power of Dog Control Officer: No Advance Directives Reason:: Declines as Mental Health Visit. Risk Factors Assessment Risk factors were mitigated by admission to the inpatient unit, adjustment of medications to target mood and anxiety symptoms, tapering him off medications that he is abusing, psychoeducation regarding his diagnoses and the recommended treatment, education regarding ongoing alcohol use and recommendations for abstinence, involving him in groups and therapy, working on healthy coping skills and discharge safety plan, exploring options for increased supports in the community, recommendations for B[facility]/psych rehab/[facility] which he declined, coordination with piano case and bench assembler through his insurance company, coordination with his outpatient psychiatrist, recommendations for regular outpatient therapy, and family meeting with his mother including discussion of securing his guns. He has demonstrated improvement in mood and anxiety, is reporting resolution of suicidal thoughts, is performing ADLs independently, and is requesting discharge. As he is no longer at acute risk of harm to himself, he can be managed as an outpatient at this time. Male: Yes : Yes Do You Have Access To A Gun?: No (Has guns, but they are stored in a safe and his mother has the leonard, so he will not have access to them.) Health Problems: Yes Mental Health Diagnoses: Yes Substance Use Disorders: Yes Previous Attempt: Yes Previous Attempt; Highly Lethal: Yes Family History of Suicide: No Previous Psychiatric Hospitalization: Yes Hopelessness: Yes Smoker: Yes Protective Factors Assessment : No Responsible for Young Children: No Employed: No (Disabled r/t Bipolar and PTSD) Stable Relationships: Yes Supportive Family: Yes Tobacco Cessation at Discharge Tobacco Cessation Medication Prescribed at Discharge: Offered & Pt Refused Total Time Total Time Spent: Greater Than 30 Minutes Total Time Includes: Examination of the patient, Discharge Planning, Medication Reconciliation and Communication with other providers Discharge Data Lab Results 06/20/19 06/20/19 06/20/19 16:08 16:08 16:08 WBC 10.75 RBC 5.01 Hgb 14.9 Hct 44.3 MCV 88.4 MCH 29.7 MCHC 33.6 RDW Std Deviation 45.3 RDW Coeff of Ale 13.9 Plt Count 279 MPV 11.8 H Immature Gran % (Auto) 0.2 Neut % (Auto) 65.0 Lymph % (Auto) 27.9 Rankin % (Auto) 5.7 Eos % (Auto) 0.8 Baso % (Auto) 0.4 Immature Gran # (Auto) 0.02 Neut # (Auto) 6.99 H Lymph # (Auto) 3.00 Rankin # (Auto) 0.61 H Eos # (Auto) 0.09 Baso # (Auto) 0.04 Sodium 139 Potassium 3.6 Chloride 109 H Carbon Dioxide 26 Anion Gap 4.0 BUN 10 Creatinine 0.94 Est Cr Clr Drug Dosing 130.9 Est GFR ( Amer) 110.7 Est GFR (Non-Af Amer) 95.5 BUN/Creatinine Ratio 10.6 Glucose 85 Calcium 9.7 Total Bilirubin 0.5 AST 11 L ALT 21 Alkaline Phosphatase 141 H Troponin I < 0.015 Total Protein 8.0 Albumin 3.8 Globulin 4.2 H Albumin/Globulin Ratio 0.9 TSH 0.769 Urine Color Urine Appearance Urine pH Ur Specific [place] Urine Protein Urine Glucose (UA) Urine Ketones Urine Blood Urine Nitrite Urine Bilirubin Urine Urobilinogen Ur Leukocyte Esterase Urine WBC (Auto) Urine RBC (Auto) U Hyaline Cast (Auto) U Epithel Cells (Auto) Urine Bacteria (Auto) Salicylates 3.9 Urine Opiates Screen Ur Methadone, Qual Acetaminophen < 2 L Urine Barbiturates Ur Phencyclidine (PCP) U Amphetamin/Meth Scrn MDMA (Ecstasy) Screen U Benzodiazepines Scrn Ur Cocaine Metabolite U Marijuana (THC) Screen Ethyl Alcohol mg/dL 06/20/19 06/20/19 06/20/19 16:08 17:43 17:43 WBC RBC Hgb Hct MCV MCH MCHC RDW Std Deviation RDW Coeff of Ale Plt Count MPV Immature Gran % (Auto) Neut % (Auto) Lymph % (Auto) Rankin % (Auto) Eos % (Auto) Baso % (Auto) Immature Gran # (Auto) Neut # (Auto) Lymph # (Auto) Rankin # (Auto) Eos # (Auto) Baso # (Auto) Sodium Potassium Chloride Carbon Dioxide Anion Gap BUN Creatinine Est Cr Clr Drug Dosing Est GFR ( Amer) Est GFR (Non-Af Amer) BUN/Creatinine Ratio Glucose Calcium Total Bilirubin AST ALT Alkaline Phosphatase Troponin I Total Protein Albumin Globulin Albumin/Globulin Ratio TSH Urine Color Yellow Urine Appearance Clear Urine pH 5.5 Ur Specific [place] 1.016 Urine Protein Negative Urine Glucose (UA) Negative Urine Ketones Negative Urine Blood Negative Urine Nitrite Negative Urine Bilirubin Negative Urine Urobilinogen Negative Ur Leukocyte Esterase Trace H Urine WBC (Auto) 1-5 Urine RBC (Auto) 0-4 U Hyaline Cast (Auto) 5-10 H U Epithel Cells (Auto) >30 H Urine Bacteria (Auto) 1+ H Salicylates Urine Opiates Screen Neg Ur Methadone, Qual Neg Acetaminophen Urine Barbiturates Neg Ur Phencyclidine (PCP) Neg U Amphetamin/Meth Scrn Neg MDMA (Ecstasy) Screen Neg U Benzodiazepines Scrn Neg Ur Cocaine Metabolite Neg U Marijuana (THC) Screen Neg Ethyl Alcohol mg/dL < 3.0 Hospital Course (1) Suicidal ideations: -Continue inpatient hospitalization. -15-minute checks for safety. -Participate in groups and therapy. Work on healthy coping skills and discharge safety plan. -Family meeting; commend guns be removed until he has stabilized, and medications secured and dispensed daily. 06/22 - Patient willing for family meeting with mother, states it will need to be by phone as she doesn't drive. Brother also lives close to him and is supportive. 06/23 -family meeting with mother prior to discharge; recommend that she continue to hold keys to his gun safe and that he not have immediate access to guns until he has had a period of stability. (2) Bipolar disorder: 06/21 -bipolar NOS, no known history of classic manic episodes, but per old records, has a history of episodes of anger which responded well to mood stabilizing medication. Depressed mood since 's , exacerbated by interpersonal problems with SAMEER and MIL. Recommend family meeting, and that gun be removed until he has stabilized. -Continue aripiprazole 10mg daily, and consider increase to 15mg. Fasting labs from 02/2019 reviewed; FLP normal, glucose elevated 127. Patient states he has been told he has "prediabetes," but does not follow a diabetic diet or check blood sugar. -Recommend increased services including weekly therapy and case management, with psych rehab and/or [facility]. 06/23 -patient's mood improved rapidly in the hospital, with noted improvement after talking to his ex- and rekindling the relationship. (3) Anxiety: 06/21 - patient reports anxiety is his primary concern, and has been abusing lorazepam. H/o alcohol abuse, high risk of benzo abuse/misuse, so will taper off. Discussed other options including SSRI and buspirone. Reviewed risks, benefits, and side effects; he opted for a trial of buspirone. Start 5 mg 3 times daily and titrate as tolerated. -Patient does not think bupropion has been helpful for mood, and as it may be worsening anxiety, will discontinue it. -Coordinate care with outpatient psychiatrist Dr. Craig, and recommend weekly therapy. 06/22 - Much improved. Continue taper off lorazepam. 06/23 -tolerated taper off lorazepam well. Prescription issued for buspirone; dose may need to be titrated as an outpatient, although at this point he reports complete resolution of anxiety. (4) Smokin/24 - Smoking cessation education provided. Patient w/ COPD and aware of risks of ongoing nicotine use. States he has tried to quit, got Wellbutrin to quit but has not used the patch as his insurance doesn't cover it. Advised he can get it over the counter, and agreed to continue 14mg patch at d/c. Will need f/u with PCP for smoking cessation. (5) Alcohol dependence: h/o alcohol dependence, denies heavy use recently, but a limited historian. Collateral information would be helpful. Taper off benzodiazepines due to abuse. Avoid controlled substances due to the high risk of abuse/misuse/negative outcomes. (6) COPD (chronic obstructive pulmonary disease): Continue home medications, and follow-up with PCP. (7) Hypertension: Continue home medications, and follow-up with PCP. (8) Abnormal finding on urinalysis: Patient denies symptoms of UTI, no treatment indicated. Culture ending. Mental Health & Subst Abuse Tx Psychiatrist Name of Psychiatrist: Chris Ragsdale [facility] Psychiatrist's Date of Appointment with Psychiatrist: 07/18/19 Time of Appointment with Psychiatrist: 2pm Therapist Name of Therapist: Chris Shultz Ramírez Therapist's Date of Therapist Appointment: 08/04/19 Therapy Appointment Comment: Padma Champion is looking into other options and will instruct you Travel Cota Name of Travel Cota: Padma Champion [facility] Phone Number for Travel Cota: [phone] Case Management Appointment Comment: Will call 06/24 Post Discharge Appointments Primary Care Physician Name Of Family Doctor: Dr. Moody Bansal (Chris Sheth) Primary Care Date of Appointment with PCP: 06/28/19 Time of Appointment with PCP: 2:45 Provider Appointment Comment: 07/18/19 12:20, Chris Sheth Smoking Cessation Counseling Tobacco Cessation Medication Prescribed at Discharge: Offered & Pt Refused Contact Information Discharge Discharge Address: [address] [place] [address] Discharge Plan Discharge Items Patient Disposition: Home - Self-Care Reason For Visit: BIPOLAR DISORDER Discharge Diagnosis: Depression not otherwise specified Anxiety not otherwise specified Benzodiazepine use disorder Activity: Per Instructions section Non-emergency contact: Primary Care Provider, Psychiatrist, Therapist and Passenger Brakeman Call non-emergency contact if: you have any medication questions and your symptoms worsen Follow-up/Referrals: Justyna Gamez MD [Primary Care Provider] - Diet: Regular Addtl Attending Provider Instructions: SPECIAL CARE INSTRUCTIONS: 1. Follow through with your scheduled aftercare appointments. If unable to keep an appointment, please call to reschedule. 2. Take your medication only as prescribed. Medication should not be changed or stopped without the approval of your doctor. In the event of worsening symptoms or concerns about side effects, contact your doctor immediately. 3. Utilize new healthy coping skills, anger management skills, and stress management skills learned during your hospitalization. Journal feelings and process them with a support person. Identify stressors or situations that may result in relapse, deterioration or inappropriate behaviors and develop a plan to deal with those issues. 4. If your coping skills are ineffective and you are in crisis, contact your ou tpatient providers for direction. If unable to reach your providers, please call the CAN HELP LINE AT or go to the closest Emergency Room. 5. You should not drink alcohol or take un-prescribed drugs. Ativan was discontinued due to abuse/overuse. 6. You have been provided with the Mental Health Advance Directives Pamphlet for your review. AFTERCARE APPOINTMENTS: * Please call your insurance company prior to your scheduled appointment to confirm your aftercare providers are covered. Take your insurance information to your appointments. WHO TO CALL AND WHEN: Medical Emergencies: For questions or emergencies related to your hospital stay, please contact the Inpatient Behavioral Health Unit at [phone]. A psychiatric social worker is on-call 19/01 for the Behavioral Health Unit for emergencies At any time you feel your situation is an emergency, you may also call 911 immediately. Your Doctors Instructions noted above were prepared by provider Neli Richardson MD. Pending Studies at Discharge: No Stand-Alone Forms: [facility], Smoking Cessation, Suicide Prevention Resources Medications and DC Order Prescriptions: New buspirone 5 mg Tablet 5 mg PO TID Qty: 90 RF: 0 Continued fluticasone propionate 50 mcg/actuation spray,suspension 2 spray Intranasal DAILY PRN (Reason: Allergy Symptoms) RF: 0 potassium chloride 10 mEq capsule, extended release 10 meq PO HS RF: 0 albuterol sulfate 90 mcg/actuation HFA aerosol inhaler 2 puff INHALATION Q4H PRN (Reason: Shortness Of Breath) RF: 0 aripiprazole 10 mg tablet 10 mg PO HS RF: 0 montelukast 10 mg tablet 10 mg PO HS RF: 0 loratadine 10 mg tablet 10 mg PO DAILY RF: 0 hydroxyzine HCl 50 mg tablet 100 mg PO HS RF: 0 hydroxyzine HCl 50 mg tablet 50 mg PO QAM RF: 0 Trelegy Ellipta 100-62.5-25 mcg blister with device 1 inh inhalation HS RF: 0 tamsulosin 0.4 mg capsule 0.4 mg PO HS RF: 0 gabapentin 100 mg capsule 200 mg PO HS RF: 0 lisinopril 5 mg Tablet 5 mg PO HS RF: 0 Discontinued lorazepam 0.5 mg tablet 0.5 mg PO BID RF: 0 acetaminophen 500 mg Tablet 3,000 mg PO DAILY PRN (Reason: Pain) RF: 0 bupropion HCl 150 mg tablet sustained-release 12 hr 150 mg PO QAM RF: 0 Discharge Orders: Discharge Order (Routine); Ordered 06/23/19 Ordered By: Neli Richardson Admission Data Admit Date/Time: 06/20/19 20:14 Attending Provider: Neli Richardson Admit Provider: Neli Richardson Primary Care Provider: Justyna Gamez Other Interventions: PSY Interdisciplinary Discharge Planning Last Done: 06/23/19 09:31 Coding Level of Care Code 47939 D/C day mgmt > 30 min Diagnoses Suicidal ideations R45.851 Bipolar disorder F31.9 Anxiety F41.9 Smoking F17.200 Alcohol dependence F10.20 COPD (chronic obstructive pulmonary disease) J44.9 Hypertension I10 Abnormal finding on urinalysis R82.90
--- NOTE | 2019-06-30 13:39 | Coding Query ---
CODING QUERY To promote full compliance with coding requirements relating to patient care, provider participation is requested in all cases of clamshell operator uncertainty. Please assist us with the question(s) below: Coding Question(s): 1. The Discharge Summary documents Depression NOS and History of Bipolar Disorder NOS. Please clarify below, in your clinical opinion. ( ) Patient has current Bipolar Disorder with Depression related to it ( ) Patient has current Bipolar Disorder with unrelated Depression ( ) Patient has No current diagnosis of Bipolar Disorder ( x ) Other: Please Specify pt reported h/ o bipolar disorder, but diagnosis during admission was depression NOS 2. There is documentation of Benzodiazepine use disorder and also documentation of abuse of Lorazepam in the record. Please specify below, in your clinical opinion. ( x) Benzodiazepine Abuse ( ) Benzodiazepine Use ( ) Other: Please specify 3. There is documentation of Alcohol use disorder, and history of alcohol dependence. Please specify below. ( ) Alcohol Abuse ( ) Alcohol Dependence ( ) Alcohol Use (x ) Other: Please specify previous diagnosis of alcohol dependence. Current DSM terminology is "alcohol use disorder" Physician's Response(s): Thank you Louisa Aguila Principal Diagnosis: "that condition established after study, to be chiefly responsible for occasioning the admission of the patient to the hospital for care." Co-Existing Principal Diagnosis: "when two or more diagnoses equally meet the criteria for principal diagnosis as determined by the circumstances of admission, diagnostic work up, and/or therapy provided, and the Alphabetic Index, Tabular List, or another coding guideline does not provide sequencing direction, any one of the diagnoses may be sequenced first." "When the physician has documented what appears to be a current diagnosis in the body of the record, but has not included the diagnosis in the final diagnostic statement, the physician should be asked whether the diagnosis should be added." (Source Coding Clinic 2 QTR90. p3-4) ZOEY
== END 2019-06-23 12:25 | disposition home or self-care (01) | DRG 881 ==
LOC: ED 15:15 → 3S 20:14

== ENCOUNTER 2019-12-15 19:50 | Inpatient (IN) ==
[2019-12-15] MEDS ORDERED: ACTIVATED CHARCOAL/SORBITOL 25 GM/120 ML TUBE PO STA (20:37)
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
[2019-12-15] MEDS ORDERED: SODIUM CHLORIDE 0.9% 1000ML 1,000 ML IV SCH (20:45)
[2019-12-15 22:54] LABS: Basophils # (auto) 0.05 K/uL (0-0.2); Basophils % (auto) 0.4 %; Eosinophils # (auto) 0.12 K/uL (0-0.5); Hematocrit (blood only) 46.2 % (42-52); Hemoglobin 15.4 g/dL (14.0-18.0); Immature Granulocytes # (auto) 0.02 K/uL (0.00-0.02); Immature Granulocytes % (auto) 0.2 %; Lymphocytes # (auto) 2.27 K/uL (1.2-3.4); Lymphocytes % (auto) 19.6 %; Mean Corpuscular Hemoglobin 29.8 pg (25-34); Mean Corpuscular Hgb Conc 33.3 g/dL (32-36); Mean Corpuscular Volume 89.5 fL (80-100); Mean Platelet Volume 12.1 fL (7.4-10.4); Monocytes # (auto) 0.48 K/uL (0.11-0.59); Monocytes % (auto) 4.1 %; Neutrophils # (auto) 8.65 K/uL (1.4-6.5); Neutrophils % (auto) 74.7 %; Platelet Count 325 K/uL (130-400); RDW Coefficient of Variation 14.9 % (11.5-14.5); Red Blood Count 5.16 M/uL (4.7-6.1); White Blood Count 11.59 K/uL (4.8-10.8)
[2019-12-15 23:10] LABS: Albumin Level 3.4 gm/dl (3.4-5.0); BUN Creatinine Ratio 10.3 (10-20); Calcium 9.4 mg/dl (8.5-10.1); Creatinine Clr Calc Pharmacy 121.5 ml/min; Est GFR (African American) 104.5; Est GFR (Non-African American) 90.2; Magnesium 1.9 mg/dl (1.8-2.4); Potassium 3.8 mmol/L (3.5-5.1)
[2019-12-15 23:12] LABS: Albumin Globulin Ratio 0.9 (0.9-2); Bilirubin,Total 0.6 mg/dl (0.2-1); Globulin 3.8 gm/dl (2.5-4.0); Total Protein 7.2 gm/dl (6.4-8.2)
[2019-12-15 23:23] LABS: Acetaminophen < 2 ug/ml (10-30); Salicylate < 1.7 mg/dl (2.8-20)
[2019-12-16] MEDS ORDERED: ACETAMINOPHEN 325 MG TAB PO STA (00:14)
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
[2019-12-16] MEDS ORDERED: PROMETHAZINE HCL 12.5 MG in SODIUM CHLORIDE 0.9% 50 ML IV PRN (01:15)
[2019-12-16] MEDS ORDERED: IBUPROFEN 200 MG TAB PO PRN (01:15)
[2019-12-16] MEDS ORDERED: LORazepam 0.5 MG/1 ML VIAL IV PRN (01:15)
[2019-12-16] MEDS ORDERED: ACETAMINOPHEN 325 MG TAB PO PRN (01:15)
[2019-12-16] MEDS ORDERED: LACTATED RINGER'S 1,000 ML IV ONE (01:15)
[2019-12-16] MEDS ORDERED: FLUTICASONE PROPIONATE NA SPR 16 GM BTL PRN (01:15)
[2019-12-16 02:39] LABS: Appearance Urine Clear (Clear); Bilirubin Urine Negative (Negative); Blood Urine Negative (Negative); Color Urine Yellow; Glucose Urine UA Negative (Negative); Ketones Urine Negative (Negative); Leukocyte Esterase Urine Negative (Negative); Nitrite Urine Negative (Negative); Protein Urine Negative (Negative); Specific Gravity Urine 1.017 (1.000-1.030); Urobilinogen Urine Negative (Negative); pH Urine 5.5 (4.5-7.5)
[2019-12-16 02:58] LABS: Amphetamines+Metham, Urine Neg (Neg); Barbiturates, Urine Neg (Neg); Benzodiazepine, Urine Neg (Neg); Cocaine, Urine Neg (Neg); MDMA (Ecstacy), Urine Neg (Neg); Methadone, Urine Neg (Neg); Opiate, Urine Neg (Neg); Phencyclidine, Urine Neg (Neg)
--- NOTE | 2019-12-16 07:23 | XRay Report ---
XR chest 1V portable CLINICAL HISTORY: od COMPARISON STUDY: Chest radiograph October 02, 2019. FINDINGS: Lung volumes are normal. Lungs are clear. There is no pneumothorax or pleural effusion. Car diac size is normal. Mediastinal contours are normal. There is no evidence for pulmonary edema. IMPRESSION: No acute cardiopulmonary findings. ACT 112: Negative or not required by law. Electronically signed by: Rayray Lindquist M.D. 12/16/2019 7:22 AM
[2019-12-16] MEDS: ENOXAPARIN INJ 40 MG/0.4 ML SYR SQ SCH (07:31)
[2019-12-16 09:42] LABS: Basophils # (auto) 0.05 K/uL (0-0.2); Basophils % (auto) 0.4 %; Eosinophils # (auto) 0.17 K/uL (0-0.5); Eosinophils % (auto) 1.5 %; Hemoglobin 14.3 g/dL (14.0-18.0); Immature Granulocytes # (auto) 0.03 K/uL (0.00-0.02); Immature Granulocytes % (auto) 0.3 %; Lymphocytes # (auto) 1.59 K/uL (1.2-3.4); Lymphocytes % (auto) 13.6 %; Mean Corpuscular Hgb Conc 32.5 g/dL (32-36); Mean Corpuscular Volume 89.2 fL (80-100); Mean Platelet Volume 11.7 fL (7.4-10.4); Monocytes # (auto) 0.56 K/uL (0.11-0.59); Monocytes % (auto) 4.8 %; Neutrophils # (auto) 9.29 K/uL (1.4-6.5); Neutrophils % (auto) 79.4 %; Platelet Count 245 K/uL (130-400); RDW Standard Deviation 48.3 fL (36.4-46.3); Red Blood Count 4.93 M/uL (4.7-6.1); White Blood Count 11.69 K/uL (4.8-10.8)
[2019-12-16 10:00] LABS: BUN Creatinine Ratio 10.6 (10-20); Calcium 8.7 mg/dl (8.5-10.1); Creatinine Clr Calc Pharmacy 114.3 ml/min; Est GFR (African American) 107.1; Est GFR (Non-African American) 92.4; Potassium 3.6 mmol/L (3.5-5.1)
[2019-12-16] MEDS ORDERED: ONDANSETRON INJ 2 MG/ML 2 ML VIAL IV PRN (12:03)
--- NOTE | 2019-12-16 15:32 | Communication Note ---
Date of Service: December 16, 2019 Received psychiatric consultation on a 49-year-old male admitted medically on 12/16/2019 s/p reported intentional ingestion of ~20 tablets each of 10mg busp irone and 50mg lamotrigine. Pt was hospitalized on our behavioral health unit in 05/2019 for suicidality in the context of depression and missing his who had of a heart attack. Diagnosis at that time was bipolar disorder, NOS - as this was a reported historical diagnosis, but patient was unable to endorse classic signs of silva. Pt reportedly claimed in the ED that he was diagnosed with schizophrenia, bipolar disorder, and depression. Reported psychiatric medications were refilled for 90-day supply on 11/18/[address] Gris Craig: aripiprazole 15mg qHS, buspirone 10mg BID, and lamotrigine 50mg BID. A 90-supply of prazosin 2mg was ordered on 09/16/2019. Patient's case was reviewed and discussed during morning report with psychiatric nurse liaison and supervising psychiatrist. Multiple attempts were made by nurse liaison to gather preliminary history; however, patient was reportedly vomiting and unable to participate in interview. He was then observed to be sl eeping. Due to reports physical discomfort, will attempt to evaluate patient when he is better able to participate in productive interview. In the interim, would suggest continuing to hold buspirone and lamotrigine in the context of overdose. A 302 petitioning statement was completed by the ED psychiatric manager of case and reads: "Pt reports to ED via ambulance after an intentional overdose. Pt reports to ED physician that he took appx: 20 of his buspar and 20 of his lamictal because he, "couldn't take it anymore." Pt states his in April and he hasn't been doing well with it. Pt reports a hx of schizophrenia, depression, and bipolar disorder. Pt is a danger to self and in need of inpatient mental health treatment." It is very likely that inpatient psychiatric treatment will be recommended once the patient is medically cleared. Should patient attempt to leave the hospital AMA, mental health delegate can be contacted to authorize a 302 warrant based on petitioning statement provided. Pt should not be permitted to leave the hospital until an appropriate psychiatric assessment can be completed to assess patient's safety and make recommendations regarding discharge planning. Dr. Miguel Qiu was directly involved in review and discussion of the patient's case and participated in medical decision making regarding treatment recommenda tions.
[2019-12-16 15:42] LABS: Potassium 3.9 mmol/L (3.5-5.1)
[2019-12-16 15:43] LABS: Magnesium 1.8 mg/dl (1.8-2.4)
[2019-12-16] MEDS: D5NSS + 20MEQ KCL 20 MEQ/1,000 ML BAG IV SCH (16:49)
--- NOTE | 2019-12-16 17:47 | Hospitalist Progress Note ---
Date of Service December 16, 2019 Assessment & Plan (1) Intentional overdose of drug in tablet form: 49-year-old male with history of hypertension, anxiety, PTSD, COPD, prediabetes, restless leg syndrome/tremors, presenting with Tensional overdose of lamotrigine and risperidone. Buspirone and Lamictal overdose History anxiety/mood disorder/PTSD as per records. --Given activated charcoal at the ER --Discussed case with [facility] control center Lamotrigine level ordered, pending --Patient is awake alert oriented x3 LFTs within normal limits EKG no arrhythmia, QT prolongation noted --We will continue supportive care specifically with GI symptoms N.p.o. for now, continue IV fluids Monitor telemetry --Hold psych meds including omeprazole, buspirone, Lamictal Psychiatry service consulted Continue one-to-one observation HTN --stable --Continue lisinopril COPD as per records --Stable, no exacerbation Hypercoagulable state -- as per records Prediabetes, hemoglobin A1c of 5.7 last 2018 Past tobacco/alcohol abuse --Denies alcohol use DVT prophylaxis per Lovenox subcu Full code Disposition Pending Likely will need admission to 3 . Admission and Anticipated Discharge Date Admission Date: December 16, 2019 Subjective Follow-up for Lamictal and risperidone overdose Seen with CHRISTINA Osborne at the bedside throughout whole encounter Resting in bed, sitting up, not in distress, comfortable, oriented x3 States he has been having nausea this morning, also had 2 episodes of diarrhea, loose black/green stools Also reports having central abdominal discomfort Nausea abdominal pain improving at this time No chest pain, shortness of breath, dizziness, headache, blurring of vision, focal neurologic deficits, lethargy, confusion States his mood is better today, ports mild anxiety, but denies depression or suicidal ideation No other symptoms Review of Systems Review of Systems: All systems reviewed & are unremarkable except as noted in HPI & below Physical Exam Physical Exam: General- oriented x 3, not in distress, speaks in sentences with no effort or accessory muscle use Head- atraumatic Eyes- PERRL, EOMI, anicteric ENT- oropharynx clear Neck- supple, no JVD, no adenopathy, no thyromegaly; carotids +2/2, no bruits appreciated Lungs- clear to auscultation bilaterally, no rales/wheezes Heart- normal rate, regular rhythm; no murmur, no gallop, no rub appreciated Abdomen- normal bowel sounds, nondistended, soft, mild tenderness at the center, no masses or hepatosplenomegaly Extremities- no pretibial edema, no calf tenderness; peripheral pulses intact Neuro- alert, oriented x 3; CN 2-12 grossly intact; motor 5/5 bi laterally;sensation 100% on all extremities; no other gross focal neurologic deficits Skin- warm & dry Psych-appropriate affect, denies suicidal ideation, depression, reports mild anxiety Results & Data Results & Data ([facility]) Vital Signs (Past 12 Hours) Vital Signs Temp Pulse Pulse Resp BP BP Pulse Ox 12/16/19 15:00 81 12/16/19 14:52 36.9 C 88 20 152/86 H 98 12/16/19 09:02 69 12/16/19 07:47 36.6 C 86 18 141/95 H 97 Laboratory Results Laboratory Results - last 24 hr 12/15/19 12/15/19 12/15/19 19:58 22:40 22:40 WBC 11.59 H RBC 5.16 Hgb 15.4 Hct 46.2 MCV 89.5 MCH 29.8 MCHC 33.3 RDW Std Deviation 49.0 H RDW Coeff of Ale 14.9 H Plt Count 325 MPV 12.1 H Immature Gran % (Auto) 0.2 Neut % (Auto) 74.7 Lymph % (Auto) 19.6 Rincon % (Auto) 4.1 Eos % (Auto) 1.0 Baso % (Auto) 0.4 Immature Gran # (Auto) 0.02 Neut # (Auto) 8.65 H Lymph # (Auto) 2.27 Rincon # (Auto) 0.48 Eos # (Auto) 0.12 Baso # (Auto) 0.05 Absolute Nucleated RBC Nucleated RBC % (auto) Neutrophils % (Manual) Band Neutrophils % Lymphocytes % (Manual) Prolymphocyte % Reactive Lymphs % (Man) Monocytes % (Manual) Eosinophils % (Manual) Basophils % (Manual) Metamyelocytes % (Man) Myelocytes % (Man) Promyelocytes % (Man) Blast Cells % (Manual) Plasma Cell % (Manual) Other Cells % Nucleated RBC % Neutrophils # (Manual) Band Neutrophils # Total Absolute Neuts Lymphocytes # (Manual) Prolymphocyte # Reactive Lymphs # Total Abs Lymphocytes Monocytes # (Manual) Eosinophils # (Manual) Basophils # (Manual) Metamyelocytes # (Man) Myelocytes # (Manual) Promyelocytes # (Man) Blast Cells # (Man) Plasma Cell # (Manual) Other Cells # Nucleated RBCs # (Man) Hypersegmented Neuts Hyposegmented Neuts Hypogranular Neuts Large Granular Lymphs # Lrg Granular Lymphs Hairy Cells Smudge Cells Toxic Granulation Toxic Vacuolation Dohle Bodies Basilio Rods Platelet Estimate Hypogranular Platelets Clumped Platelets Giant Platelets Platelet Satelliting RBC Morphology Polychromasia Hypochromasia Poikilocytosis Basophilic Stippling Anisocytosis Microcytosis Macrocytosis Spherocytes Pappenheimer Bodies Sickle Cells Target Cells Tear Drop Cells Ovalocytes Stomatocytes Dennis-Teller Bodies Echinocytes Acanthocytes (Spur) Rouleaux RBC Agglutinates Schistocytes RBC Morph Comment Sezary Cell Sodium 141 Potassium 3.8 Chloride 109 H Carbon Dioxide 23 Anion Gap 8.0 BUN 10 Creatinine 0.98 Est Cr Clr Drug Dosing 121.5 Est GFR ( Amer) 104.5 Est GFR (Non-Af Amer) 90.2 BUN/Creatinine Ratio 10.3 Glucose 102 H POC Glucose 88 Calcium 9.4 Magnesium 1.9 Total Bilirubin 0.6 AST 7 L ALT 11 L Alkaline Phosphatase 121 H Total Creatine Kinase 33 L Total Protein 7.2 Albumin 3.4 Globulin 3.8 Albumin/Globulin Ratio 0.9 Urine Color Urine Appearance Urine pH Ur Specific Dunn Urine Protein Urine Glucose (UA) Urine Ketones Urine Blood Urine Nitrite Urine Bilirubin Urine Urobilinogen Ur Leukocyte Esterase Salicylates Urine Opiates Screen Ur Methadone, Qual Acetaminophen Urine Barbiturates Lamotrigine Ur Phencyclidine (PCP) U Amphetamin/Meth Scrn MDMA (Ecstasy) Screen U Benzodiazepines Scrn Ur Cocaine Metabolite U Marijuana (THC) Screen Ethyl Alcohol mg/dL 12/15/19 12/15/19 12/16/19 22:40 22:40 01:25 WBC RBC Hgb Hct MCV MCH MCHC RDW Std Deviation RDW Coeff of Ale Plt Count MPV Immature Gran % (Auto) Neut % (Auto) Lymph % (Auto) Rincon % (Auto) Eos % (Auto) Baso % (Auto) Immature Gran # (Auto) Neut # (Auto) Lymph # (Auto) Rincon # (Auto) Eos # (Auto) Baso # (Auto) Absolute Nucleated RBC Nucleated RBC % (auto) Neutrophils % (Manual) Band Neutrophils % Lymphocytes % (Manual) Prolymphocyte % Reactive Lymphs % (Man) Monocytes % (Manual) Eosinophils % (Manual) Basophils % (Manual) Metamyelocytes % (Man) Myelocytes % (Man) Promyelocytes % (Man) Blast Cells % (Manual) Plasma Cell % (Manual) Other Cells % Nucleated RBC % Neutrophils # (Manual) Band Neutrophils # Total Absolute Neuts Lymphocytes # (Manual) Prolymphocyte # Reactive Lymphs # Total Abs Lymphocytes Monocytes # (Manual) Eosinophils # (Manual) Basophils # (Manual) Metamyelocytes # (Man) Myelocytes # (Manual) Promyelocytes # (Man) Blast Cells # (Man) Plasma Cell # (Manual) Other Cells # Nucleated RBCs # (Man) Hypersegmented Neuts Hyposegmented Neuts Hypogranular Neuts Large Granular Lymphs # Lrg Granular Lymphs Hairy Cells Smudge Cells Toxic Granulation Toxic Vacuolation Dohle Bodies Basilio Rods Platelet Estimate Hypogranular Platelets Clumped Platelets Giant Platelets Platelet Satelliting RBC Morphology Polychromasia Hypochromasia Poikilocytosis Basophilic Stippling Anisocytosis Microcytosis Macrocytosis Spherocytes Pappenheimer Bodies Sickle Cells Target Cells Tear Drop Cells Ovalocytes Stomatocytes Dennis-Teller Bodies Echinocytes Acanthocytes (Spur) Rouleaux RBC Agglutinates Schistocytes RBC Morph Comment Sezary Cell Sodium Potassium Chloride Carbon Dioxide Anion Gap BUN Creatinine Est Cr Clr Drug Dosing Est GFR ( Amer) Est GFR (Non-Af Amer) BUN/Creatinine Ratio Glucose POC Glucose Calcium Magnesium Total Bilirubin AST ALT Alkaline Phosphatase Total Creatine Kinase Total Protein Albumin Globulin Albumin/Globulin Ratio Urine Color Urine Appearance Urine pH Ur Specific Dunn Urine Protein Urine Glucose (UA) Urine Ketones Urine Blood Urine Nitrite Urine Bilirubin Urine Urobilinogen Ur Leukocyte Esterase Salicylates < 1.7 L Urine Opiates Screen Neg Ur Methadone, Qual Neg Acetaminophen < 2 L Urine Barbiturates Neg Lamotrigine Ur Phencyclidine (PCP) Neg U Amphetamin/Meth Scrn Neg MDMA (Ecstasy) Screen Neg U Benzodiazepines Scrn Neg Ur Cocaine Metabolite Neg U Marijuana (THC) Screen Neg Ethyl Alcohol mg/dL < 3.0 12/16/19 12/16/1920 01:25 06:35 09:23 WBC Cancelled 11.69 H RBC Cancelled 4.93 Hgb Cancelled 14.3 Hct Cancelled 44.0 MCV Cancelled 89.2 MCH Cancelled 29.0 MCHC Cancelled 32.5 RDW Std Deviation Cancelled 48.3 H RDW Coeff of Ale Cancelled 15.0 H Plt Count Cancelled 245 MPV Cancelled 11.7 H Immature Gran % (Auto) Cancelled 0.3 Neut % (Auto) Cancelled 79.4 Lymph % (Auto) Cancelled 13.6 Rincon % (Auto) Cancelled 4.8 Eos % (Auto) Cancelled 1.5 Baso % (Auto) Cancelled 0.4 Immature Gran # (Auto) Cancelled 0.03 H Neut # (Auto) Cancelled 9.29 H Lymph # (Auto) Cancelled 1.59 Rincon # (Auto) Cancelled 0.56 Eos # (Auto) Cancelled 0.17 Baso # (Auto) Cancelled 0.05 Absolute Nucleated RBC Cancelled Nucleated RBC % (auto) Cancelled Neutrophils % (Manual) Cancelled Band Neutrophils % Cancelled Lymphocytes % (Manual) Cancelled Prolymphocyte % Cancelled Reactive Lymphs % (Man) Cancelled Monocytes % (Manual) Cancelled Eosinophils % (Manual) Cancelled Basophils % (Manual) Cancelled Metamyelocytes % (Man) Cancelled Myelocytes % (Man) Cancelled Promyelocytes % (Man) Cancelled Blast Cells % (Manual) Cancelled Plasma Cell % (Manual) Cancelled Other Cells % Cancelled Nucleated RBC % Cancelled Neutrophils # (Manual) Cancelled Band Neutrophils # Cancelled Total Absolute Neuts Cancelled Lymphocytes # (Manual) Cancelled Prolymphocyte # Cancelled Reactive Lymphs # Cancelled Total Abs Lymphocytes Cancelled Monocytes # (Manual) Cancelled Eosinophils # (Manual) Cancelled Basophils # (Manual) Cancelled Metamyelocytes # (Man) Cancelled Myelocytes # (Manual) Cancelled Promyelocytes # (Man) Cancelled Blast Cells # (Man) Cancelled Plasma Cell # (Manual) Cancelled Other Cells # Cancelled Nucleated RBCs # (Man) Cancelled Hypersegmented Neuts Cancelled Hyposegmented Neuts Cancelled Hypogranular Neuts Cancelled Large Granular Lymphs Cancelled # Lrg Granular Lymphs Cancelled Hairy Cells Cancelled Smudge Cells Cancelled Toxic Granulation Cancelled Toxic Vacuolation Cancelled Dohle Bodies Cancelled Basilio Rods Cancelled Platelet Estimate Cancelled Hypogranular Platelets Cancelled Clumped Platelets Cancelled Giant Platelets Cancelled Platelet Satelliting Cancelled RBC Morphology Cancelled Polychromasia Cancelled Hypochromasia Cancelled Poikilocytosis Cancelled Basophilic Stippling Cancelled Anisocytosis Cancelled Microcytosis Cancelled Macrocytosis Cancelled Spherocytes Cancelled Pappenheimer Bodies Cancelled Sickle Cells Cancelled Target Cells Cancelled Tear Drop Cells Cancelled Ovalocytes Cancelled Stomatocytes Cancelled Dennis-Teller Bodies Cancelled Echinocytes Cancelled Acanthocytes (Spur) Cancelled Rouleaux Cancelled RBC Agglutinates Cancelled Schistocytes Cancelled RBC Morph Comment Cancelled Sezary Cell Cancelled Sodium Potassium Chloride Carbon Dioxide Anion Gap BUN Creatinine Est Cr Clr Drug Dosing Est GFR ( Amer) Est GFR (Non-Af Amer) BUN/Creatinine Ratio Glucose POC Glucose Calcium Magnesium Total Bilirubin AST ALT Alkaline Phosphatase Total Creatine Kinase Total Protein Albumin Globulin Albumin/Globulin Ratio Urine Color Yellow Urine Appearance Clear Urine pH 5.5 Ur Specific Dunn 1.017 Urine Protein Negative Urine Glucose (UA) Negative Urine Ketones Negative Urine Blood Negative Urine Nitrite Negative Urine Bilirubin Negative Urine Urobilinogen Negative Ur Leukocyte Esterase Negative Salicylates Urine Opiates Screen Ur Methadone, Qual Acetaminophen Urine Barbiturates Lamotrigine Ur Phencyclidine (PCP) U Amphetamin/Meth Scrn MDMA (Ecstasy) Screen U Benzodiazepines Scrn Ur Cocaine Metabolite U Marijuana (THC) Screen Ethyl Alcohol mg/dL 12/16/19 12/16/19 12/16/19 09:23 15:04 15:04 WBC RBC Hgb Hct MCV MCH MCHC RDW Std Deviation RDW Coeff of Ale Plt Count MPV Immature Gran % (Auto) Neut % (Auto) Lymph % (Auto) Rincon % (Auto) Eos % (Auto) Baso % (Auto) Immature Gran # (Auto) Neut # (Auto) Lymph # (Auto) Rincon # (Auto) Eos # (Auto) Baso # (Auto) Absolute Nucleated RBC Nucleated RBC % (auto) Neutrophils % (Manual) Band Neutrophils % Lymphocytes % (Manual) Prolymphocyte % Reactive Lymphs % (Man) Monocytes % (Manual) Eosinophils % (Manual) Basophils % (Manual) Metamyelocytes % (Man) Myelocytes % (Man) Promyelocytes % (Man) Blast Cells % (Manual) Plasma Cell % (Manual) Other Cells % Nucleated RBC % Neutrophils # (Manual) Band Neutrophils # Total Absolute Neuts Lymphocytes # (Manual) Prolymphocyte # Reactive Lymphs # Total Abs Lymphocytes Monocytes # (Manual) Eosinophils # (Manual) Basophils # (Manual) Metamyelocytes # (Man) Myelocytes # (Manual) Promyelocytes # (Man) Blast Cells # (Man) Plasma Cell # (Manual) Other Cells # Nucleated RBCs # (Man) Hypersegmented Neuts Hyposegmented Neuts Hypogranular Neuts Large Granular Lymphs # Lrg Granular Lymphs Hairy Cells Smudge Cells Toxic Granulation Toxic Vacuolation Dohle Bodies Basilio Rods Platelet Estimate Hypogranular Platelets Clumped Platelets Giant Platelets Platelet Satelliting RBC Morphology Polychromasia Hypochromasia Poikilocytosis Basophilic Stippling Anisocytosis Microcytosis Macrocytosis Spherocytes Pappenheimer Bodies Sickle Cells Target Cells Tear Drop Cells Ovalocytes Stomatocytes Dennis-Teller Bodies Echinocytes Acanthocytes (Spur) Rouleaux RBC Agglutinates Schistocytes RBC Morph Comment Sezary Cell Sodium 140 Potassium 3.6 3.9 Chloride 110 H Carbon Dioxide 21 Anion Gap 9.0 BUN 10 Creatinine 0.96 Est Cr Clr Drug Dosing 114.3 Est GFR ( Amer) 107.1 Est GFR (Non-Af Amer) 92.4 BUN/Creatinine Ratio 10.6 Glucose 121 H POC Glucose Calcium 8.7 Magnesium 1.8 Total Bilirubin AST ALT Alkaline Phosphatase Total Creatine Kinase Total Protein Albumin Globulin Albumin/Globulin Ratio Urine Color Urine Appearance Urine pH Ur Specific Dunn Urine Protein Urine Glucose (UA) Urine Ketones Urine Blood Urine Nitrite Urine Bilirubin Urine Urobilinogen Ur Leukocyte Esterase Salicylates Urine Opiates Screen Ur Methadone, Qual Acetaminophen Urine Barbiturates Lamotrigine Pending Ur Phencyclidine (PCP) U Amphetamin/Meth Scrn MDMA (Ecstasy) Screen U Benzodiazepines Scrn Ur Cocaine Metabolite U Marijuana (THC) Screen Ethyl Alcohol mg/dL
--- NOTE | 2019-12-16 19:13 | Electrocardiogram Report ---
Test Reason : Blood Pressure : / mmHG Vent. Rate : 087 BPM Atrial Rate : 087 BPM P-R Int : 156 ms QRS Dur : 086 ms QT Int : 350 ms P-R-T Axes : 052 058 066 degrees QTc Int : 421 ms Normal sinus rhythm Normal ECG When compared with ECG of 08-OCT-2019 20:51, No significant change was found Confirmed by Laron Tarango ([id number]) on 12/16/2019 7:13:11 PM Referred By: REFERRED SELF Confirmed By:Jam Tarango
--- NOTE | 2019-12-16 19:21 | Electrocardiogram Report ---
Test Reason : Blood Pressure : / mmHG Vent. Rate : 093 BPM Atrial Rate : 093 BPM P-R Int : 166 ms QRS Dur : 086 ms QT Int : 348 ms P-R-T Axes : 037 045 058 degrees QTc Int : 432 ms Normal sinus rhythm Normal ECG When compared with ECG of 15-DEC-2019 19:55, (unconfirmed) No significant change was found Confirmed by Laron Tarango ([id number] on 12/16/2019 7:21:03 PM Referred By: REFERRED SELF Confirmed By:Jam Tarango
[2019-12-16] MEDS: MONTELUKAST SODIUM 10 MG TABLET PO SCH (21:13)
[2019-12-16] MEDS: ARIPiprazole 15 MG TAB PO SCH (21:13)
[2019-12-16] MEDS: lisinopriL 5 MG TAB PO SCH (21:16)
[2019-12-17] MEDS: D5NSS + 20MEQ KCL 20 MEQ/1,000 ML BAG IV SCH ×3 (01:29→23:31)
[2019-12-17] MEDS: ENOXAPARIN INJ 40 MG/0.4 ML SYR SQ SCH (10:43)
[2019-12-17 11:28] LABS: Basophils # (auto) 0.04 K/uL (0-0.2); Basophils % (auto) 0.5 %; Eosinophils # (auto) 0.16 K/uL (0-0.5); Eosinophils % (auto) 1.9 %; Hemoglobin 13.6 g/dL (14.0-18.0); Immature Granulocytes # (auto) 0.01 K/uL (0.00-0.02); Immature Granulocytes % (auto) 0.1 %; Lymphocytes # (auto) 2.87 K/uL (1.2-3.4); Lymphocytes % (auto) 33.3 %; Mean Corpuscular Hemoglobin 27.1 pg (25-34); Mean Corpuscular Hgb Conc 30.2 g/dL (32-36); Mean Corpuscular Volume 89.6 fL (80-100); Monocytes # (auto) 0.58 K/uL (0.11-0.59); Monocytes % (auto) 6.7 %; Neutrophils # (auto) 4.96 K/uL (1.4-6.5); Neutrophils % (auto) 57.5 %; Platelet Count 289 K/uL (130-400); RDW Coefficient of Variation 14.8 % (11.5-14.5); RDW Standard Deviation 48.6 fL (36.4-46.3); Red Blood Count 5.02 M/uL (4.7-6.1); White Blood Count 8.62 K/uL (4.8-10.8)
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
[2019-12-17 12:20] LABS: Albumin Level 3.1 gm/dl (3.4-5.0); BUN Creatinine Ratio 9.6 (10-20); Bilirubin Direct 0.2 mg/dl (0-0.2); Calcium 8.7 mg/dl (8.5-10.1); Creatinine Clr Calc Pharmacy 144.8 ml/min; Est GFR (African American) 120.3; Est GFR (Non-African American) 103.8; Magnesium 1.8 mg/dl (1.8-2.4); Potassium 3.7 mmol/L (3.5-5.1)
[2019-12-17 12:23] LABS: Phosphorus 2.3 mg/dl (2.5-4.9); Total Protein 6.2 gm/dl (6.4-8.2)
[2019-12-17] MEDS: POT PHOSPHATE MONOBASIC W/ SOD TAB PO SCH ×2 (17:33→21:14)
--- NOTE | 2019-12-17 19:35 | Hospitalist Progress Note ---
Date of Service December 17, 2019 Assessment & Plan (1) Intentional overdose of drug in tablet form: 49-year-old male with history of hypertension, anxiety, PTSD, COPD, prediabetes, restless leg syndrome/tremors, presenting with Tensional overdose of lamotrigine and risperidone. Buspirone and Lamictal overdose History anxiety/mood disorder/PTSD as per records. --Given activated charcoal at the ER --Discussed case with poison control center Lamotrigine level ordered, pending --Patient is awake alert oriented x3 LFTs within normal limits EKG no arrhythmia, QT prolongation noted --GI symptoms continue to improve Continue supportive care Advance diet today, continue IV fluids --Hold psych meds including omeprazole, buspirone, Lamictal Psychiatry service consulted Continue one-to-one observation HTN --stable --Continue lisinopril COPD as per records --Stable, no exacerbation Hypercoagulable state -- as per records Prediabetes, hemoglobin A1c of 5.7 last 2018 Past tobacco/alcohol abuse --Denies alcohol use DVT prophylaxis per Lovenox subcu Full code Disposition Pending Likely [facility] need admission to [facility]. Admission and Anticipated Discharge Date Admission Date: December 17, 2019 Subjective Follow-up for buspirone and Lamictal overdose Seen resting in bed, watching TV, seen at the bedside throughout whole encounter Patient is comfortable, not in distress, calm cooperative oriented x3 States he feels improved today compared to yesterday No nausea, no diarrhea, no abdominal pain Denies chest pain, shortness of breath, palpitations, dizziness, headache No other symptoms Review of Systems Review of Systems: All systems reviewed & are unremarkable except as noted in HPI & below Physical Exam Physical Exam: General- oriented x 3, not in distress, speaks in sentences with no effort or accessory muscle use Eyes- anicteric Neck- no JVD Lungs- clear breath sounds bilaterally, no rales/wheezes Heart- normal rate, regular rhythm; no murmurs Abdomen- normal bowel sounds, nondistended, soft, nontender Extremities- no pretibial edema, no calf tenderness Mild edema left foot: No erythema/warmth/tenderness Neuro- alert, oriented x 3; no gross focal neurologic deficits Skin- warm & dry Results & Data Results & Data ([facility]) Vital Signs (Past 12 Hours) Vital Signs Temp Pulse Pulse Pulse Pulse Resp BP 12/17/19 19:19 37.1 C 80 20 12/17/19 17:12 82 12/17/19 15:00 36.8 C 92 H 92 H 18 12/17/19 09:21 36.8 C 81 18 145/86 H 12/17/19 08:57 64 BP Pulse Ox 12/17/19 19:19 140/89 98 12/17/19 17:12 12/17/19 15:00 150/84 H 98 12/17/19 09:21 96 12/17/19 08:57
[2019-12-17] MEDS: lisinopriL 5 MG TAB PO SCH (21:14)
[2019-12-17] MEDS: ARIPiprazole 15 MG TAB PO SCH (21:14)
[2019-12-17] MEDS: MONTELUKAST SODIUM 10 MG TABLET PO SCH (21:14)
[2019-12-18] MEDS: ENOXAPARIN INJ 40 MG/0.4 ML SYR SQ SCH (08:12)
[2019-12-18] MEDS: POT PHOSPHATE MONOBASIC W/ SOD TAB PO SCH (08:13)
[2019-12-18] MEDS: D5NSS + 20MEQ KCL 20 MEQ/1,000 ML BAG IV SCH (09:31)
[2019-12-18 09:53] LABS: Basophils # (auto) 0.03 K/uL (0-0.2); Basophils % (auto) 0.4 %; Eosinophils # (auto) 0.18 K/uL (0-0.5); Eosinophils % (auto) 2.5 %; Hemoglobin 13.4 g/dL (14.0-18.0); Immature Granulocytes # (auto) 0.01 K/uL (0.00-0.02); Immature Granulocytes % (auto) 0.1 %; Lymphocytes # (auto) 2.13 K/uL (1.2-3.4); Lymphocytes % (auto) 29.5 %; Mean Corpuscular Hemoglobin 29.2 pg (25-34); Mean Corpuscular Hgb Conc 32.7 g/dL (32-36); Mean Corpuscular Volume 89.3 fL (80-100); Monocytes # (auto) 0.43 K/uL (0.11-0.59); Neutrophils # (auto) 4.44 K/uL (1.4-6.5); Neutrophils % (auto) 61.5 %; Platelet Count 267 K/uL (130-400); RDW Coefficient of Variation 14.7 % (11.5-14.5); RDW Standard Deviation 47.7 fL (36.4-46.3); Red Blood Count 4.59 M/uL (4.7-6.1); White Blood Count 7.22 K/uL (4.8-10.8)
[2019-12-18 10:21] LABS: BUN Creatinine Ratio 5.4 (10-20); Bilirubin Direct 0.2 mg/dl (0-0.2); Calcium 8.9 mg/dl (8.5-10.1); Creatinine Clr Calc Pharmacy 131.3 ml/min; Est GFR (African American) 114.3; Est GFR (Non-African American) 98.6; Magnesium 1.5 mg/dl (1.8-2.4); Potassium 3.5 mmol/L (3.5-5.1)
[2019-12-18 10:28] LABS: Phosphorus 3.2 mg/dl (2.5-4.9); Total Protein 6.4 gm/dl (6.4-8.2)
[2019-12-18] MEDS: MAGNESIUM OXIDE 400 MG TAB PO SCH ×2 (12:45→20:04)
--- NOTE | 2019-12-18 14:43 | Electrocardiogram Report ---
Test Reason : Blood Pressure : / mmHG Vent. Rate : 082 BPM Atrial Rate : 082 BPM P-R Int : 146 ms QRS Dur : 090 ms QT Int : 368 ms P-R-T Axes : 043 045 055 degrees QTc Int : 429 ms Normal sinus rhythm Normal ECG When compared with ECG of 16-DEC-2019 11:27, No significant change was found Confirmed by Cameron Ayers ([id number]) on 12/18/2019 2:43:43 PM Referred By: REFERRED SELF Confirmed By:Cameron Ayers
[2019-12-18] MEDS ORDERED: AMLODIPINE BESYLATE 5 MG TAB PO ONE (15:52)
--- NOTE | 2019-12-18 15:52 | Hospitalist Progress Note ---
Date of Service December 18, 2019 Assessment & Plan (1) Intentional overdose of drug in tablet form: 49-year-old male with history of hypertension, anxiety, PTSD, COPD, prediabetes, restless leg syndrome/tremors, presenting with Tensional overdose of lamotrigine and risperidone. Buspirone and Lamictal overdose History anxiety/mood disorder/PTSD as per records. --Given activated charcoal at the ER --Discussed case with poison control center Lamotrigine level ordered, pending --Patient is awake alert oriented x3 LFTs within normal limits EKG no arrhythmia, NO QT prolongation noted --GI symptoms resolved Continue supportive care Advance diet d/c IV fluids --Hold psych meds including buspirone, Lamictal Psychiatry service consulted Continue one-to-one observation -- medically cleared to transfer to anticipate d/c to Psych Unit tomorrow HTN --BP slightly elevated, asymptomatic add Amlodipine 2.5 mg --Continue lisinopril 5mg po daily monitor COPD as per records --Stable, no exacerbation Hypercoagulable state -- as per records Prediabetes, hemoglobin A1c of 5.7 last 2018 Past tobacco/alcohol abuse --Denies alcohol use DVT prophylaxis per Lovenox subcu Full code Disposition cleared to transfer to discussed with Psych [facility]- Liaison John Admission and Anticipated Discharge Date Admission Date: December 17, 2019 Results & Data Results & Data ([facility]) Vital Signs (Past 12 Hours) Vital Signs Temp Pulse Pulse Resp BP BP Pulse Ox 12/18/19 15:43 91 H 12/18/19 15:00 36.7 C 79 18 157/89 H 96 12/18/19 08:17 36.8 C 79 18 161/94 H 96 12/18/19 07:16 78 12/18/19 05:08 84 12/18/19 04:04 37.0 C 79 19 162/97 H 95
[2019-12-18] MEDS: MONTELUKAST SODIUM 10 MG TABLET PO SCH (20:04)
[2019-12-18] MEDS: lisinopriL 5 MG TAB PO SCH (20:05)
[2019-12-18] MEDS: ARIPiprazole 15 MG TAB PO SCH (20:06)
[2019-12-18] MEDS ORDERED: TAMSULOSIN HCL 0.4 MG CAP PO SCH (21:00)
[2019-12-18] MEDS ORDERED: PRAZOSIN HCL 1 MG CAP PO SCH (21:00)
[2019-12-19] MEDS: ENOXAPARIN INJ 40 MG/0.4 ML SYR SQ SCH (08:04)
[2019-12-19] MEDS: MAGNESIUM OXIDE 400 MG TAB PO SCH (08:04)
[2019-12-19 08:37] LABS: Creatinine Clr Calc Pharmacy 153.2 ml/min; Est GFR (African American) 122.8
[2019-12-19 11:20] LABS: Estimated Average Glucose 103 mg/dl; Hemoglobin A1C 5.2 % (4.5-5.6)
[2019-12-19 12:20] LABS: D Dimer 1130 ug/L FEU (0-500)
[2019-12-19] MEDS ORDERED: OPTIRAY 320 125ml IV PRN (14:08)
--- NOTE | 2019-12-19 14:31 | CT Scan Report ---
CHEST CTA for PULMONARY ARTERIES CT DOSE: 546.77 mGycm HISTORY: Shortness of breath. Atypical chest pain. TECHNIQUE: Multiaxial CT images of the chest were performed following the intravenous administration of contrast to evaluate the pulmonary arteries. Maximal intensity projection images were also obtaine d. A dose lowering technique was utilized adhering to the principles of ALARA. COMPARISON STUDY: Chest CTA 03/09/2019. FINDINGS: Normal caliber thoracic aorta with no evidence for dissection. The majority views of the up per abdomen demonstrate a normal liver, spleen, and adrenal glands. Prior cholecystectomy. Normal eso phagus. No mediastinal or hilar lymphadenopathy. No pleural or pericardial effusions. The heart is no rmal in size. The bilateral lower lobe and right middle lobe subsegmental pulmonary arteries are nond iagnostic due to the motion artifact. However, the remaining pulmonary arteries show no filling defec ts to suggest pulmonary embolus. No suspicious lytic or blastic osseous lesions. No pneumothorax. Sta ble 2 mm subpleural nodule within the left lung apex on image 261. No focal lung consolidations to basurto ggest pneumonia. Mild biapical paraseptal emphysema is again noted. This remains unchanged. Small yousuf unt of mucoid material within the mid trachea. IMPRESSION: 1. No evidence for pulmonary embolus with limitations as described above. 2. Mild paraseptal emphysema, unchanged. ACT 112: Negative or not required by law. Electronically signed by: Jordan Gillette M.D. 12/19/2019 2:29 PM
--- NOTE | 2019-12-19 15:18 | Ultrasound Report ---
BILATERAL LOWER EXTREMITY VENOUS DOPPLER HISTORY: elevated d dimer, r/o DVT COMPARISON STUDY: None. FINDINGS: There is normal compressibility, flow, and augmentation within the bilateral lower extremit y deep venous systems. IMPRESSION: No DVT within the right or left lower extremity. ACT 112: Negative or not required by law. Electronically signed by: Jordan Gillette M.D. 12/19/2019 3:17 PM
--- NOTE | 2019-12-19 15:19 | Ultrasound Report ---
US venous doppler UE LT CLINICAL HISTORY: Left arm edema, r/o DVT COMPARISON STUDY: No previous studies for comparison. FINDINGS: No intraluminal thrombus was visualized. The internal jugular, subclavian, axillary, cephal ic, brachial, basilic, radial, and ulnar veins were patent. Visualization of the left internal jugula r vein was limited due to an overlying bandage. IMPRESSION: No evidence of left upper extremity DVT ACT 112: Negative or not required by law. Electronically signed by: Balwinder Grier M.D. 12/19/2019 3:18 PM
--- NOTE | 2019-12-19 15:46 | Hospitalist Progress Note ---
Date of Service December 19, 2019 Assessment & Plan (1) Intentional overdose of drug in tablet form: (1) Intentional overdose of drug in tablet form: 49-year-old male with history of hypertension, anxiety, PTSD, COPD, prediabetes, restless leg syndrome/tremors, presenting with Tensional overdose of lamotrigine and risperidone. Buspirone and Lamictal overdose History anxiety/mood disorder/PTSD as per records. --Given activated charcoal at the ER --Discussed case with poison control center Lamotrigine level ordered, pending --Patient is awake alert oriented x3 LFTs within normal limits EKG no arrhythmia, NO QT prolongation noted --GI symptoms resolved Tolerating diet well --Hold psych meds including buspirone, Lamictal Psychiatry service consulted Continue one-to-one observation -- medically cleared to transfer to HTN -- patient received IV contrast for CT chest angio transition Lisinopril to Amlodipine 5mg po daily monitor BP daily Mild Hypomagenesemia -- Mg 1.7 from poor oral intake -- appetite improving supplement with Mg x 3 more days COPD as per records --Stable, no exacerbation Hypercoagulable state -- as per records patient noted to have sinus tachycardia 130s when ambulating, returns to normal heart rate with rest CT angio: no acute pulmonary Embolism DVT Left upper ext and Bilateral LE: negative for DVT -- please encourage to drink plenty of water daily repeat BMP in 3 days to check renal function Prediabetes, hemoglobin A1c of 5.7 last 2018 -- a1c 5.2 Past tobacco/alcohol abuse --Denies alcohol use DVT prophylaxis per Lovenox subcu given Full code Disposition cleared to transfer to ff up with [facility] PCP Dr. Gamez upon d/c from behavioral health unit Admission and Anticipated Discharge Date Admission Date: December 17, 2019 Subjective ff up for drug overdose seen with CHRISTINA Rubi at bedside throughout whole encounter sitting up in bed, comfortable, not in distress oriented x 3, calm, cooperative states he feels much better overall no abdominal pain ,nausea, diarrhea appetite is good, tolerating diet well denies chest pain, dizziness, palpitations, dyspnea, syncope/presyncope denies depression, anxiety, suicidal ideations no other symptoms Review of Systems Review of Systems: All systems reviewed & are unremarkable except as noted in HPI & below Physical Exam Physical Exam: General- oriented x 3, not in distress, speaks in sentences with no effort or accessory muscle use Eyes- anicteric Neck- no JVD Lungs- clear breath sounds , no crackles or wheezing bilaterally Heart- normal rate, regular rhythm; no murmurs Abdomen- normal bowel sounds, nondistended, soft, nontender Extremities- no pretibial edema, no calf tenderness mild edema left forearm, with mild erythema, no warmth/tenderness Neuro- alert, oriented x 3; no gross focal neurologic deficits Skin- warm & dry Psych- normal affect, denies suicidal ideations, depression, anxiety Results & Data Results & Data ([facility]) Vital Signs (Past 12 Hours) Vital Signs Temp Pulse Pulse Resp BP BP Pulse Ox 12/19/19 15:22 36.9 C 85 18 132/83 96 12/19/19 08:00 74 12/19/19 07:31 36.7 C 92 H 18 139/91 97 12/19/19 04:35 99 H 12/19/19 04:00 37.0 C 76 18 152/86 H 96 Laboratory Results Laboratory Results - last 24 hr 12/19/19 12/19/19 12/19/19 07:43 07:43 09:31 D-Dimer Creatinine 0.78 Est Cr Clr Drug Dosing 153.2 Est GFR ( Amer) 122.8 Est GFR (Non-Af Amer) 106.0 Estimat Average Glucose 103 Hemoglobin A1c 5.2 Magnesium 1.7 L 12/19/19 11:54 D-Dimer 1130 H* Creatinine Est Cr Clr Drug Dosing Est GFR ( Amer) Est GFR (Non-Af Amer) Estimat Average Glucose Hemoglobin A1c Magnesium
[2019-12-19] MEDS ORDERED: AMLODIPINE BESYLATE 5 MG TAB PO SCH (16:00)
--- NOTE | 2019-12-19 16:06 | Discharge Summary ---
Date of Service December 19, 2019 Admission HPI Per Admitting Provider History obtained from patient and records. Medical history significant for hypertension, anxiety/mood disorder, hx PTSD, COPD as per records, hypercoagulable state as per records, prediabetes, chronic tremors/restless leg syndrome as per records, past tobacco/alcohol use as per records Last confinement February 2019 for exertional chest pain secondary to anxiety. ACS ruled out. Patient's from heart issues last April,. Suicidal attempt September 2019 leading to admission at [facility]. 2 nights ago patient started getting depressed over 's again. Yesterday afternoon patient took a handful of BuSpar and Lamictal tablets with intent to kill himself. Some blurred vision and staggering noted at home. No chest pain, no S OB. Patient at the ER for evaluation. MEDICAL HISTORY: As above. SURGERIES: Orthopedic procedures, wound repair, knee surgery, cholecystectomy, scalp wound repair, pilonidal cyst removal. FAMILY HISTORY: Prostate cancer, lung cancer, breast cancer, heart disease. PERSONAL AND SOCIAL HISTORY: Past tobacco/alcohol use. On disability. Admission Exam Per Admitting Provider GENERAL: Comfortable, slightly anxious, no respiratory distress SKIN: Normal color, warm, multiple skin tattoos HEENT: [place] palpebral conjunctivae, no ptosis, dry buccal mucosa NECK : Limited neck motion due to vascular access placement on left EJV, mild left-sided neck tenderness CHEST : CTA, no tenderness HEART : RRR, no obvious murmurs ABDOMEN: Some distention, nontender EXTREMITIES : No LE swelling/tenderness, no other conspicuous deformities noted NEUROLOGIC : Coherent, no facial asymmetry, no other gross focality Principal Diagnosis INTENTIONAL BUSPIRONE AND LAMICTAL OVERDOSE Discharge Exam General- oriented x 3, not in distress, speaks in sentences with no effort or accessory muscle use Eyes- anicteric Neck- no JVD Lungs- clear breath sounds , no crackles or wheezing bilaterally Heart- normal rate, regular rhythm; no murmurs Abdomen- normal bowel sounds, nondistended, soft, nontender Extremities- no pretibial edema, no calf tenderness mild edema left forearm, with mild erythema, no warmth/tenderness Neuro- alert, oriented x 3; no gross focal neurologic deficits Skin- warm & dry Psych- normal affect, denies suicidal ideations, depression, anxiety Discharge Data Allergies Allergy/AdvReac Type Severity Reaction Status Date / Time Penicillins Allergy Intermediate Hives Verified 12/09/19 18:58 Consultations 12/15/19 23:16 ED Decision to Admit Stat 12/16/19 01:15 Consult Case Management - Discharge Planning Routine Consult Psychiatry Routine 12/16/19 01:31 Consult Behavioral Health Liaison Routine Ordered Studies 12/19/19 12:24 CT angio chest PE protocol Stat CHEST CTA for PULMONARY ARTERIES CT DOSE: 546.77 mGycm HISTORY: Shortness of breath. Atypical chest pain. TECHNIQUE: Multiaxial CT images of the chest were performed following the intravenous administration of contrast to evaluate the pulmonary arteries. Maximal intensity projection images were also obtained. A dose lowering technique was utilized adhering to the principles of ALARA. COMPARISON STUDY: Chest CTA 03/09/2019. FINDINGS: Normal caliber thoracic aorta with no evidence for dissection. The majority views of the upper abdomen demonstrate a normal liver, spleen, and adrenal glands. Prior cholecystectomy. Normal esophagus. No mediastinal or hilar lymphadenopathy. No pleural or pericardial effusions. The heart is normal in size. The bilateral lower lobe and right middle lobe subsegmental pulmonary arteries are nondiagnostic due to the motion artifact. However, the remaining pulmonary arteries show no filling defects to suggest pulmonary embolus. No suspicious lytic or blastic osseous lesions. No pneumothorax. Stable 2 mm subpleural nodule within the left lung apex on image 261. No focal lung consolidations to suggest pneumonia. Mild biapical paraseptal emphysema is again noted. This remains unchanged. Small amount of mucoid material within the mid trachea. IMPRESSION: 1. No evidence for pulmonary embolus with limitations as described above. 2. Mild paraseptal emphysema, unchanged. US venous doppler LE BI Stat FINDINGS: There is normal compressibility, flow, and augmentation within the bilateral lower extremity deep venous systems. IMPRESSION: No DVT within the right or left lower extremity. US venous doppler UE LT Stat FINDINGS: No intraluminal thrombus was visualized. The internal jugular, subclavian, axillary, cephalic, brachial, basilic, radial, and ulnar veins were patent. Visualization of the left internal jugular vein was limited due to an overlying bandage. IMPRESSION: No evidence of left upper extremity DVT Hospital Course (1) Intentional overdose of drug in tablet form: (1) Intentional overdose of drug in tablet form: 49-year-old male with history of hypertension, anxiety, PTSD, COPD, prediabetes, restless leg syndrome/tremors, presenting with intentional overdose of lamotrigine and risperidone. Buspirone and Lamictal overdose History anxiety/mood disorder/PTSD as per records. --Given activated charcoal at the ER --Discussed case with poison control center Lamotrigine level ordered, pending--> but patient cleared from their sta ndpoint --Patient is awake alert oriented x3 LFTs within normal limits EKG no arrhythmia, NO QT prolongation noted --GI symptoms resolved Tolerating diet well --Hold psych meds including buspirone, Lamictal Psychiatry service consulted Continue one-to-one observation -- medically cleared to transfer to Hypertension -- patient received IV contrast for CT chest angio transition Lisinopril to Amlodipine 5mg po daily monitor BP daily Mild Hypomagnesemia -- Mg 1.7 from poor oral intake -- appetite improving supplement with Mg x 3 more days COPD as per records --Stable, no exacerbation Hypercoagulable state -- as per records patient noted to have sinus tachycardia 130s when ambulating, returns to normal heart rate with rest CT angio: no acute pulmonary Embolism DVT Left upper ext and Bilateral LE: negative for DVT -- please encourage to drink plenty of water daily repeat BMP in 3 days to check renal function after IV contrast received 12/18 Prediabetes, hemoglobin A1c of 5.7 last 2018 -- a1c 5.2 Past tobacco/alcohol abuse --Denies alcohol use DVT prophylaxis per Lovenox subcu given Full code Disposition cleared to transfer to ff up with [facility] PCP Dr. Gamez upon d/c from behavioral health unit Total Time Total Time Spent Total Time Spent (In Minutes): 50 minutes Discharge Plan Discharge Items Patient Disposition: Transfer Behavioral Health Fac Reason For Visit: DRUG OD Discharge Diagnosis: INTENTIONAL BUSPIRONE AND LAMICTAL OVERDOSE Activity: Resume your previous activity Driving/Machine Use: NO DRIVING Non-emergency contact: Primary Care Provider Call non-emergency contact if: you have any medication questions, your symptoms worsen, your pain is not controlled, your pain is worsening, your pain is unusual for you, your pain is concerning for you and you have a fever Follow-up/Referrals: Justyna Gamez MD [Primary Care Provider] - Diet: Heart Healthy Addtl Attending Provider Instructions: REPEAT BASIC METABOLIC PANEL ON Thursday12/22/19. ENCOURAGE TO DRINK PLENTY OF WATER. NO NSAIDS. PLEASE REFER TO ACCOMPANYING HOSPITAL DISCHARGE SUMMARY FOR FURTHER DETAILS. Pending Studies at Discharge: Yes Studies:: BMP ON 12/22/19 Stand-Alone Forms: My [facility] [employer], Suicide Prevention Resources Skilled Items DNR: No Lines: None Urinary Catheter: No Medications and DC Order Prescriptions: New amlodipine [Norvasc] 5 mg Tablet 5 mg PO QAM Qty: 30 RF: 2 magnesium oxide 400 mg (241.3 mg magnesium) Tablet 400 mg PO BID Qty: 6 RF: 0 Continued fluticasone propionate 50 mcg/actuation spray,suspension 2 spray Intranasal DAILY PRN (Reason: Allergy Symptoms) RF: 0 albuterol sulfate 90 mcg/actuation HFA aerosol inhaler 2 puff INHALATION Q4H PRN (Reason: Shortness Of Breath Or Wheezing) RF: 0 montelukast 10 mg tablet 10 mg PO HS RF: 0 acetaminophen [Tylenol] 325 mg Tablet 650 mg PO QID PRN (Reason: Pain) RF: 0 aripiprazole 15 mg tablet 15 mg PO HS RF: 0 prazosin 2 mg capsule 2 mg PO HS RF: 0 omeprazole 40 mg capsule,delayed release(DR/EC) 40 mg PO DAILY RF: 0 tamsulosin 0.4 mg capsule 0.4 mg PO HS RF: 0 Discontinued buspirone 10 mg tablet 10 mg PO AMHS RF: 0 lamotrigine 100 mg tablet 50 mg PO BID RF: 0 loratadine 10 mg tablet 10 mg PO DAILY RF: 0 lisinopril 5 mg Tablet 5 mg PO HS RF: 0 Discharge Orders: Discharge Order (Routine); Ordered 12/19/19 Ordered By: Valentin Grayson Admission Data Admit Date/Time: 12/17/19 13:33 Attending Provider: Valentin Grayson Admit Provider: Sixto Ramirez Primary Care Provider: Justyna Gamez Other Providers: Sixto Ramirez ; Nlei Richardson
== END 2019-12-19 17:04 | DRG 918 ==
LOC: ED 19:50 → 2W 19:50

== ENCOUNTER 2019-12-19 16:40 | Inpatient (IN) ==
[2019-12-19] MEDS ORDERED: ACETAMINOPHEN 325 MG TAB PO PRN (17:43)
[2019-12-19] MEDS ORDERED: MAGNESIUM HYDROXIDE SUSP 30 ML UDC PO PRN (17:43)
[2019-12-19] MEDS ORDERED: ALUMINUM/MAGNESIUM SUSP 30 ML UDC PO PRN (17:43)
[2019-12-19] MEDS ORDERED: BISMUTH SUBSALICYLATE PER ML OMNICELL CHARGE PO PRN (17:43)
[2019-12-19] MEDS ORDERED: SODIUM CHLORIDE 0.65% NA SOLN 45 ML (OCEAN) PRN (17:43)
[2019-12-19] MEDS ORDERED: NICOTINE POLACRILEX 2 MG GUM MT PRN (17:52)
[2019-12-19] MEDS ORDERED: FLUTICASONE PROPIONATE NA SPR 16 GM BTL PRN (17:59)
[2019-12-19] MEDS ORDERED: ALBUTEROL HFA 8 GM INHALER INH PRN (18:01)
[2019-12-19] MEDS: MAGNESIUM OXIDE 400 MG TAB PO SCH (20:53)
[2019-12-19] MEDS: ARIPiprazole 15 MG TAB PO SCH (20:54)
[2019-12-19] MEDS: TAMSULOSIN HCL 0.4 MG CAP PO SCH (20:55)
[2019-12-19] MEDS: PRAZOSIN HCL 1 MG CAP PO SCH (20:55)
[2019-12-19] MEDS: MONTELUKAST SODIUM 10 MG TABLET PO SCH (20:56)
[2019-12-20] MEDS: PANTOprazole 40 MG TAB PO SCH (08:34)
[2019-12-20] MEDS: MAGNESIUM OXIDE 400 MG TAB PO SCH ×2 (08:35→21:15)
[2019-12-20] MEDS: AMLODIPINE BESYLATE 5 MG TAB PO SCH (08:36)
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
[2019-12-20] MEDS: MONTELUKAST SODIUM 10 MG TABLET PO SCH (21:14)
[2019-12-20] MEDS: PRAZOSIN HCL 1 MG CAP PO SCH (21:15)
[2019-12-20] MEDS: ARIPiprazole 15 MG TAB PO SCH (21:15)
[2019-12-20] MEDS: TAMSULOSIN HCL 0.4 MG CAP PO SCH (21:15)
[2019-12-21] MEDS: lamoTRIgine 25 MG TAB PO SCH (08:37)
[2019-12-21] MEDS: MAGNESIUM OXIDE 400 MG TAB PO SCH ×2 (08:37→20:54)
[2019-12-21] MEDS: BusPIRone 15 MG TAB PO SCH ×2 (08:37→20:54)
[2019-12-21] MEDS: AMLODIPINE BESYLATE 5 MG TAB PO SCH (08:37)
[2019-12-21] MEDS: PANTOprazole 40 MG TAB PO SCH (08:38)
--- NOTE | 2019-12-21 13:49 | Psychiatric Progress Note ---
Date of Service December 21, 2019 Impression / Recommendations Impression 49-year-old male admitted voluntarily for inpatient psychiatric treatment on 12/19/2019 after a 4-day stay on the medical floor. Pt had intentionally ingested ~20 - 50mg lamotrigine and ~20 - 10mg buspirone tablets with the intent to end his life to "be with my ", who passed unexpectedly in 04/2019. This is at least the patient's third psychiatric hospitalization since the passing of his , and he reports multiple suicide attempts by overdose in the past. Pt denies suicidality at this time, but admits that he is having increased difficulty effectively utilizing his coping strategies. Pt has a historical diagnosis of bipolar disorder, depressed with psychotic features from a 2002 hospitalization. Pt is a somewhat limited historian, but denies history of at least the past several years of mood fluctuations consistent with silva or onset of hallucinations. He follows with Dr. Gris Craig at [facility] for psychiatry and we will attempt to coordinate care. 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 Pt reports desire to continue his home medication regimen, but requests titration of buspirone. Given lamotrigine was involved in patient's overdose, and has therefore been held for ~5 days, will re-start standard titration and order 25mg qAM for 2 weeks. Pt will continue aripiprazole 15mg qHS. We will encourage patient to participate in group and recreational programming. Inpatient psychiatric hospitalization is medically necessary at this time given patient's suicide attempt. He remains at risk of suicide if he is discharged prematurely. We have resumed and as of 12/20 raised to 15mg bid with some probable adjustment s/e occurring 12/20 am. Appears to have some hearing impairment that likely impacts his quality of life. (1) Intentional overdose of drug in tablet form: 12/19 - Lamotrigine and buspirone held during medical admission - As patient feels his psychotropic medication regimen was effective for mood, he is requesting to resume these medications. Will restart standard lamotrigine titration, and patient will receive 25mg qAM for two weeks beginning with tomorrow's dose - Encourage participation in group programming to explore healthy and effective coping strategies 12/20 buspar now 15mg bid monitor for se and if notable consider adjsuting dose of this medication (2) Depression with suicidal ideation: 12/19 - Admitted to a locked inpatient behavioral health unit, on q15 minute safety checks - Request records from [facility] to clarify working diagnoses. Documentation from 2002 admission suggests diagnosis of bipolar disorder, depressed with psychotic feature. Pt denies recent changes in mood that are consistent with silva. Will plan to resume home psychotropic medication regimen - Will continues aripiprazole 15mg qAM. Restart buspirone 10mg BID, for two doses today - then titrate to 15mg BID to target anxiety. Will resume lamotrigine at 25mg qAM and restart standard titration - home dose was 50mg BID. - Explore referrals for outpatient therapy. - Encourage participation in group and recreational therapies - Gather collateral information from outpatient providers - Suggest family meeting to involve outpatient supports in safety planning (3) Anxiety: 12/19 - Resume buspirone at 10mg BID today, then titrating to 15mg BID starting with tomorrow morning's dose - Encourage development of healthy and effective coping strategies 12/20 - buspar 15mg bid, monitor for s/e naveed as dose increases and if notable consider adjusting dose some, pt prefers to maintain at 15mg bid for now (4) PTSD (post-traumatic stress disorder): 12/19 - Continue home dose of prazosin (5) Hearing difficulty: 12/20 reviewed pt's apparent hearing difficultly and his report of impairment of hearing noted on past hearing test and reviewed potential of hearing aid assessment with an Air Lift Operator. Pt thinks his insurance covers hearing aids. Reviewed with him how an costume mistress can assess him for an hearing aid and look at cost options/insurance options with him. He preferred to review with his PCP as a first potential step. Risk Factors Assessment Male: Yes : Yes Do You Have Access To A Gun?: No Health Problems: Yes Mental Health Diagnoses: Yes Previous Attempt: Yes Previous Psychiatric Hospitalization: Yes Hopelessness: No Smoker: Yes Protective Factors Assessment : No Responsible for Young Children: No Employed: No Supportive Family: Yes Good Rapport with Provider: Yes Interval History Chief Complaint "[]". Review of Systems Sleep Information Total Hours of Sleep: 6.5 Sleep Comments: pt on q-15 minute checks Meal Information Percent Meal Consumed - Breakfast: 100 Percent Meal Consumed - Lunch: 100 Percent Meal Consumed - Dinner: 95 Subjective Subjective Patient was seen & assessed and interval progress reviewed with treatment team. He denied SI today. He endorsed feeling tried and lightheaded after his buspar dose and was seen with him in his room with software writer waking him up from a nap. Pt feels calm currently and attributes this to his BuSpar dose being at 15mg a day. He endorsed that in past would have some fatigue and lightheadedness in mild way in first days of a dose increase of buspar and then it would resolve HE prefers to keep buspar at 15mg bid for now despite options to adjust the dosing in various ways. He is aiming to engage more with others and start psychotherapy appts as means ways of adding to his coping strategies and t o better handle his depressive symptoms and his grief from bereavement from his 's in Apr. Pt feels comfortable on the nit and is wondering about discharge in a day or two. He is glad to be back on Lamictal and hoping that it can be titrated back up relatively quickly. Denied rash or SJS related concerns. appetite intact, indicated slept decent last night. pt appeared ot have some hearing issues and endorsed some hearing impairment reported on a past hearing test and that his hearing has subjectively worsened further since his . He indicated that his understanding is that his insurance does cover hearing aids Physical Exam Psychiatric Orientation: alert, oriented x 3 and cooperative (And pleasant) Apperance: appropriately dressed (Casually, wearing a polo-shirt and scrub pants), appropriately groomed (Level of hygiene appears adequate, multiple tattoos covering arms) and appeared stated age Eye Contact: good eye contact Motor Behavior: steady gait and station and no abnormal motor movements Speech: normal rate/rhythm/volume of speech (Monotone) Affect: + constricted affect and mood congruent with affect Mood: no anxious mood (mood is "calm" ) Thought Process: goal directed thought process and + concrete thought process Thought Content: reality based without delusions and + loneliness; no hopelessness Suicidal Thoughts: denies suicidal thoughts and denies suicidal intent Homicidal Thoughts: denies homicidal thoughts Hallucinations: no auditory hallucinations and no visual hallucinations Cognition: recent memory grossly intact, attention grossly intact and language grossly intact Estimated Intelligence: + below average estimated intelligence Insight: + fair insight Judgement: + fair judgement Vital Signs (Past 24 Hours) Last Vital Signs Temp 36.7 C 06/24/20 06:43 Pulse 118 H 12/21/19 06:44 Resp 18 12/21/19 06:43 BP 110/73 12/21/19 06:44 Results & Data ([facility]) Current Inpatient Medications Current Inpatient Medications: Current Inpatient Medications Acetaminophen (Tylenol) 650 mg PO Q4H PRN PRN Reason: Headache or Minor Fever Stop: 01/18/20 17:42 Al Hydrox/Mg Hydrox/Simethicone (Maalox) 30 ml PO Q4H PRN PRN Reason: GI Upset Stop: 01/18/20 17:42 Albuterol (Ventolin Hfa) 2 puffs INH Q4 PRN PRN Reason: Shortness Of Breath Or Wheezing Stop: 01/18/20 18:00 Amlodipine Besylate (Norvasc) 5 mg PO QAM [facility] Stop: 01/19/20 08:59 Last Admin: 12/21/19 08:37 Dose: 5 mg Documented by: Aripiprazole (Abilify) 15 mg PO HS [facility] Stop: 01/18/20 21:59 Last Admin: 12/20/19 21:15 Dose: 15 mg Documented by: Bismuth Subsalicylate (Kaopectate) 15 ml PO PRN PRN PRN Reason: Loose Stool Stop: 01/18/20 17:42 Buspirone HCl (Buspar) 15 mg PO BID [facility] Stop: 01/20/20 08:59 Last Admin: 12/21/19 08:37 Dose: 15 mg Documented by: Fluticasone Propionate (Flonase) 2 sprays NA DAILY PRN PRN Reason: Allergy Symptoms Stop: 01/19/20 08:59 Hydroxyzine HCl (Vistaril) 25 mg PO Q4H PRN PRN Reason: Anxiety Stop: 01/18/20 17:42 Hydroxyzine HCl (Vistaril) 50 mg PO HSZ PRN PRN Reason: Insomnia Stop: 01/18/20 17:42 Lamotrigine (Lamictal) 25 mg PO QAM [facility] Stop: 01/20/20 08:59 Last Admin: 12/21/19 08:37 Dose: 25 mg Documented by: Magnesium Hydroxide (Milk Of Magnesia) 30 ml PO DAILY PRN PRN Reason: Constipation Stop: 07/22/20 17:42 Magnesium Oxide (Mag-Ox) 400 mg PO BID [facility] Stop: 12/22/19 09:01 Last Admin: 12/21/19 08:37 Dose: 400 mg Documented by: Montelukast Sodium (Singulair) 10 mg PO HS [facility] Stop: 01/18/20 21:59 Last Admin: 12/20/19 21:14 Dose: 10 mg Documented by: Nicotine Polacrilex (Nicorette 2mg) 1 piece MT PRN PRN PRN Reason: Nicotine Withdrawal Stop: 01/18/20 17:51 Last Admin: 12/19/19 18:31 Dose: 1 piece Documented by: Pantoprazole Sodium (Protonix) 40 mg PO QAM [facility] Stop: 01/19/20 08:59 Last Admin: 12/21/19 08:38 Dose: 40 mg Documented by: Prazosin HCl (Prazosin Hcl) 2 mg PO HS [facility] Stop: 01/18/20 21:59 Last Admin: 12/20/19 21:15 Dose: 2 mg Documented by: Sodium Chloride ([place] Nasal) 1 - 2 sprays NA PRN PRN PRN Reason: Nasal Dryness/Congestion Stop: 01/18/20 17:42 Tamsulosin HCl (Flomax) 0.4 mg PO [facility] Stop: 01/18/20 21:59 Last Admin: 12/20/19 21:15 Dose: 0.4 mg Documented by: Mental Health & Subst Abuse Tx Therapist Name of Therapist: none [employer] Gifts Director Name of Major Gifts Director: Padma Perez Post Discharge Appointments Primary Care Physician Name Of Family Doctor: Dr. Gamez
[2019-12-21] MEDS: ARIPiprazole 15 MG TAB PO SCH (21:40)
[2019-12-21] MEDS: TAMSULOSIN HCL 0.4 MG CAP PO SCH (21:41)
[2019-12-21] MEDS: MONTELUKAST SODIUM 10 MG TABLET PO SCH (21:41)
[2019-12-21] MEDS: PRAZOSIN HCL 1 MG CAP PO SCH (21:41)
[2019-12-22] MEDS: AMLODIPINE BESYLATE 5 MG TAB PO SCH (08:49)
[2019-12-22] MEDS: lamoTRIgine 25 MG TAB PO SCH (08:49)
[2019-12-22] MEDS: MAGNESIUM OXIDE 400 MG TAB PO SCH (08:49)
[2019-12-22] MEDS: BusPIRone 15 MG TAB PO SCH (08:49)
[2019-12-22] MEDS: PANTOprazole 40 MG TAB PO SCH (08:50)
[2019-12-22 09:17] LABS: BUN Creatinine Ratio 20.6 (10-20); Creatinine Clr Calc Pharmacy 158.1 ml/min; Est GFR (African American) 124.8; Est GFR (Non-African American) 107.7; Potassium 4.3 mmol/L (3.5-5.1)
--- NOTE | 2019-12-22 13:22 | Discharge Summary ---
Date of Service December 22, 2019 History of Present Illness John Spence is a 49-year-old male admitted voluntarily for inpatient psychiatric treatment on 12/19/2019 after a 4-day medical admission for treatment following an intentional overdose of lamotrigine and buspirone. Pt admitted to taking the medications in an attempt to end his life, but called 911 shortly after the ingestion as he recognized his need for medical treatment. Psychiatric consultation completed on 12/17/2019 (attempted on day of admission, but patient was unable to participate in conversation due to profound nausea/vomiting). A 302 petitioning statement was completed by the ED psychiatric outpatient case manager and reads: "Pt reports to ED via ambulance after an intentional overdose. Pt reports to ED physician that he took appx: 20 of his buspar and 20 of his lamictal because he, "couldn't take it anymore." Pt states his in April and he hasn't been doing well with it. Pt reports a hx of schizophrenia, depression, and bipolar disorder. Pt is a danger to self and in need of inpatient mental health treatment." Pt was seen on the medical floor to complete psychiatric consultation regarding suicide attempt. Inpatient psychiatric treatment was recommended and patient was willing for transfer to our unit upon medical clearance. Prior to medical clearance, patient's D-Dimer was elevated and additional imaging was ordered. Testing was negative for DVT/PE. The following is documentation from psychiatric consultation: "Pt was alert and cooperative, stating "I'm feeling much better today." He states he slept well last evening, better than he usual sleeps at home he claims. Pt was asked what led to his hospitalization, sharing with this provider that his recently, and that he was having thoughts to take pills "so that I could be with her." Pt states that generally he is able to complete coping strategies that would have prevented him from acting on these thoughts, but found himself unable to do so. He admits that he had taken the medications with intent to end his life, but after realizing what he had done decided to call EMS for help. Pt states that he is understanding of recommendation for inpatient psychiatric admission, but that his preference would be to come to [facility] for treatment. He is not sure that he would be willing to go to another location based on distance from his family and poor experiences at other facilities in the past. Pt denies any significant changes to his mental health. He denies current SI. He denies auditory or visual hallucinations. He states he follows with Dr. Gris Craig for psychiatric medication management at [facility]. Pt reports having a outpatient case manager, Padma (believed to be through [employer] insurance), and that he is interested in a therapist, though has not yet been able to schedule appointments with a provider. He denies other needs or concerns from our service at this time and was reassured we would be continuing to offer him support during his medical admission and through the transition to a psychiatric facility." Psychiatric admission assessment completed. Today, the patient "I am feeling a lot better now." Patient states that he is physically feeling much improved after his stay on the medical floor, and feels that his medical admission has also given him time to think about his suicide attempt. Patient states "I thought about what my would say if she were still here. I thought about what she would say to me if it had worked." Patient has admitted numerous times that it is very difficult for him to talk about his , and states thinking about her passing is generally what precipitates suicidal ideation. Patient is able to verbalize numerous coping strategies that he feels are helpful; however, states he was not able to effectively utilize these coping skills before deciding to overdose on medications. Patient reports that his goal for this hospitalization is to "work on coping skills and get a therapist." Patient does feel that his outpatient psychotropic medication regimen has been effective for his mood and anxiety, and he would like to resume these medications. Patient does request if it is possible to titrate his dose of buspirone, as he feels it has been less effective for his anxiety in the past several weeks. Patient is agreeable with a referral for outpatient therapy, and states he will continue to work with his insurance compliance analyst, whom he states calls him every other week. Patient admits to "poor sleep in general", depressed mood, decreased energy, limited motivation, and feelings of hopelessness prior to his overdose. He reports he was previously told that he had bipolar disorder, but that his current psychiatrist is treating him for anxiety and PTSD. Patient identifies with what he perceives to be silva; however, reports or not consistent with this presentation recently. Patient does admit to changes in mood from "really sad to really happy within a few hours." He denies recent events of excessive spending, and drastic changes to sleep pattern, hyperverbal behavior, or racing/expansive thoughts. Patient does denies suicidal ideation at this time, feeling that it resolved "on my second day in the hospital, I had a lot of time to think about it." The topic of a family meeting was brought up to the patient, who is not certain that it would be beneficial. He does report that he lives with his [id number] and gaoscj-bf-aws and that both are supportive. He denies other needs or concerns at this time. Physical Exam Psychiatric at time of discharge assesment Orientation: alert, oriented x 3 and cooperative (And pleasant) Apperance: appropriately dressed (Casually, wearing a polo-shirt and scrub pants), appropriately groomed (Level of hygiene appears adequate, multiple tattoos covering arms) and appeared stated age Eye Contact: good eye contact Motor Behavior: steady gait and station and no abnormal motor movements Speech: normal rate/rhythm/volume of speech (Monotone) Affect: euthymic affect and mood congruent with affect good but a little anxious about discharge Thought Process: goal directed thought process and + concrete thought process Thought Content: reality based without delusions; no hopelessness Suicidal Thoughts: denies suicidal thoughts Homicidal Thoughts: denies homicidal thoughts Hallucinations: no auditory hallucinations and no visual hallucinations Cognition: recent memory grossly intact, attention grossly intact and language grossly intact Estimated Intelligence: + below average estimated intelligence Insight: + fair insight Judgement: + fair judgement Vital Signs (Past 24 Hours) Last Vital Signs Temp 36.8 C 12/22/19 11:33 Pulse 103 H 12/22/19 11:33 Resp 18 12/22/19 11:33 BP 143/80 H 12/22/19 11:33 Principal Diagnosis Bipolar D/O - current epsiode depressive Psychiatric Data Day of Discharge Assessment Pt endorsed improved mood and not depressed in mood and much less anxious, with at times some mild anxiousness about question of timing of discharge and a bit about preparing for discharge itself. He denied any SI or HI. He denied any h ypomanic symptoms. He denied any psychotic features or paranoid thinking. He denied fatigue or lightheadedness and reports feeling that he sis now tolerating BuSpar well at the 15mg bid dose. He appeared more settled and was hearing video games storywriter more fully and easily today with smoother and quicker cognitive processing of video games storywriter's comments and questions. Pt is seeking psychotherapy referral and we established a outpatient therapy appt with Goldie at 0830AM on Thursday12/26/19 that pt expressed interest in attending. [facility] was another option e for him but that organization did not have a therapist that takes both of his insurance advisable for ablest a number of weeks from now. Pt shared about his smoking 1 ppd but that he feels decent with not smoking during the week he has been at [facility] for his medical and psychiatric admissions. he used only one nicotine gum dosage during that time and feels up for quitting at this time. I provided smoking cessation education greater then 10 minutes and as documented in the hospital course section, referred him to the tip line and reviewed the various medication options and we decided on nicotine patch stating at 21mg a day. HE is to obtain f/u on his smoking cessation treatment during his outpt psychiatric appts with with next on 2 weeks away as scheduled in the discharge summary below. Pt denied Chantix and is open to considering Wel lbutrin retrial if appropriate and if needed if patches are not sufficient but neither video games storywriter nor pt wanted to start this medication at this time given complexities involved. Pt was continued on Abilify 15mg a day and restarted on BuSpar titrated to 15mg bid and Lamictal was resumed but to be re-titrated up given recent OD attempt and given some limited time off the medication as well. He is tolerating these medications and no rash or SJS related concerns occurring. Pt is to have 10 more days of lamictal at 25mg a day and then aiming for 2 weeks at 50mg a day with assessment by Dr. Craig at his upcoming appt approx 2 weeks from discharge date as scheduled below to address next potential steps in his lamictal titration. Pt expressed desire to obtain more supportive and share more about his emotional state with his family members including his mother and his in laws that he lives with. He reviewed his safety plan and things he aims to do to help him eel grounded and deescalate any emotional tensions and he feels able to reach out for help as needed including contacting 911 or going to the ER or have family help with that if he were to have SI and not feel safe/have with risk of harm to self or others instead of acting on such thoughts. He was determined to be appropriate for discharge at this time with him feeling ready for discharge as well, Transition of Care Transition Of Care Record: was reviewed with the patient Advance Directives Advance Directives Information Provided: Yes Advance Directives: No Mental Health Advance Directive: No Advance Directives on File: No Living Will: No Power of Test Development Engineer: No Advance Directives Reason:: Declines as Mental Health Visit. Risk Factors Assessment Male: Yes : Yes Do You Have Access To A Gun?: No Health Problems: Yes Mental Health Diagnoses: Yes Previous Attempt: Yes Previous Psychiatric Hospitalization: Yes Hopelessness: No Smoker: Yes Protective Factors Assessment : No Responsible for Young Children: No Employed: No Supportive Family: Yes Good Rapport with Provider: Yes Tobacco Cessation at Discharge Tobacco Cessation Medication Prescribed at Discharge: Offered & Prescribed (nicotinue patch, with pt having SI for prior chantix trial and wellbutrin trial could worsen psychiatric condition and thus to be considered as second line treatment only) Practical counseling provided including: recognizing danger situations, developing coping skills and providing basic information about quitting Tobacco Cessation Outpatient Followup: Outpatient referral made to (as part of his psychiatric treatment care and smoking cessation tip line ) Total Time Total Time Spent: Greater Than 30 Minutes Total Time Includes: Examination of the patient, Discharge Planning and Medi cation Reconciliation Discharge Data Lab Results 12/22/19 08:34 Sodium 139 Potassium 4.3 Chloride 109 H Carbon Dioxide 24 Anion Gap 5.0 BUN 15 Creatinine 0.75 Est Cr Clr Drug Dosing 158.1 Est GFR ( Amer) 124.8 Est GFR (Non-Af Amer) 107.7 BUN/Creatinine Ratio 20.6 H Glucose 88 Calcium 9.0 Hospital Course (1) Intentional overdose of drug in tablet form: 12/19 - Lamotrigine and buspirone held during medical admission - As patient feels his psychotropic medication regimen was effective for mood, he is requesting to resume these medications. Will restart standard lamotrigine titration, and patient will receive 25mg qAM for two weeks beginning with tomorrow's dose - Encourage participation in group programming to explore healthy and effective coping strategies 12/20 buspar now 15mg bid monitor for se and if notable consider adjsuting dose of this medication (2) Depression with suicidal ideation: 12/19 - Admitted to a locked inpatient behavioral health unit, on q15 minute safety checks - Request records from [facility] to clarify working diagnoses. Documentation from 2002 admission suggests diagnosis of bipolar disorder, d epressed with psychotic feature. Pt denies recent changes in mood that are consistent with silva. Will plan to resume home psychotropic medication regimen - Will continues aripiprazole 15mg qAM. Restart buspirone 10mg BID, for two doses today - then titrate to 15mg BID to target anxiety. Will resume lamotrigine at 25mg qAM and restart standard titration - home dose was 50mg BID. - Explore referrals for outpatient therapy. - Encourage participation in group and recreational therapies - Gather collateral information from outpatient providers - Suggest family meeting to involve outpatient supports in safety planning 12/21 wihtout suicidal ideation during psychiatric admission and safety plan done and reviewed and pt building up his use of coping skills (3) Anxiety: 12/19 - Resume buspirone at 10mg BID today, then titrating to 15mg BID starting with tomorrow morning's dose - Encourage development of healthy and effective coping strategies 12/20 - buspar 15mg bid, monitor for s/e naveed as dose increases and if notable consider adjusting dose some, pt prefers to maintain at 15mg bid for now 12/21 denied dizziness, lightheadedness or fatigue currently and appears ot be tolerating buspar at current dose as of today and pt reporting further improvement of his anxiety symptoms , (4) PTSD (post-traumatic stress disorder): 12/19 - Continue home dose of prazosin (5) Hearing difficulty: 12/20 reviewed pt's apparent hearing difficultly and his report of impairment of hearing noted on past hearing test and reviewed potential of hearing aid assessment with an Bowling Ball Engraver. Pt thinks his insurance covers hearing aids. Reviewed with him how an plastics factory worker can assess him for an hearing aid and look at cost options/insurance options with him. He preferred to review with his PCP as a first potential step. 12/21 pt appears to be hearing video games storywriter more easily today. Some of the concern noted yesterday likely tied to his psychiatric presentation and/or medication s/e that were impacting him more yesterday. Given reported history of hearing impairment in general would still advise further assessment for potential benefit for hearing aid usage. (6) Smokin/23 offered pt nicotine replacement while on 3S 12/21 greater then 10 minutes of smoking cessation education completed, nicotine patch 21mg transderm topically qday rx'd with review w of r/b/a in detail and how to use in detail. Pt accepted option of smoking cessation tip line and agreed to review smoking cessation education and progress and further options of treatment approaches with his outpatient psychiatrist at scheduled follow up and future appointments as well. Pt failed Chantix in past with SI occurring. Pt has a past trial fo Wellbutrin that might have helped him quit but did resumed within 5 months of quitting. Given potential for Wellbutrin to sometimes activate hypomania and increase mood lability in pt's with bipolar d/o such as this pt and given pt's preference to start just with nicotine patches, with him feeling that might be sufficient for him we decided to hold off on Wellbutrin for now and can consider such a med addition at his upcoming January 04 appointment with his output psychiatrist, Dr. Craig who can best address the balance of treating both bipolar d/o and tobacco use disorder.. Mental Health & Subst Abuse Tx Psychiatrist Name of Psychiatrist: Chris Craig Psychiatrist's Date of Appointment with Psychiatrist: 01/05/20 Time of Appointment with Psychiatrist: 12:30 p.m. Psychiatric Appointment Comment: Video appointment Psychiatrist Release of Information: Obtained, Reviewed and Signed Therapist Name of Therapist: Mario Olmstead LCSW Therapist's Date of Therapist Appointment: 12/22/19 Time of Therapist Appointment: 3:30pm Therapy Appointment Comment: [facility] [address] [place] [address], [place] [address] Therapist Release of Information: Obtained, Reviewed and Signed Amortization Clerk Name of Amortization Clerk: Chris Champion Phone Number for Amortization Clerk: Case Management Appointment Comment: Follow up as needed Post Discharge Appointments Primary Care Physician Name Of Family Doctor: Chris Gamez Primary Care Time of Appointment with PCP: Please follow up as needed Provider Appointment Comment: [address] [facility] Release of Information: Obtained, Reviewed and Signed Smoking Cessation Counseling Tobacco Cessation Medication Prescribed at Discharge: Offered & Prescribed (nicotinue patch, with pt having SI for prior chantix trial and wellbutrin trial could worsen psychiatric condition and thus to be considered as second l ine treatment only) Contact Information Discharge Discharge Address: [address] [place] [address], [place] [address] Discharge Plan Discharge Items Patient Disposition: Home - Self-Care Reason For Visit: Bipolar D/o Discharge Diagnosis: Bipolar D/O depressive episode Activity: Resume your previous activity Non-emergency contact: Primary Care Provider and Therapist Call non-emergency contact if: you have any medication questions Follow-up/Referrals: Justyna Gamez MD [Primary Care Provider] - Diet: Regular Addtl Attending Provider Instructions: SPECIAL CARE INSTRUCTIONS: 1. Follow through with your scheduled aftercare appointments. If unable to keep an appointment, please call to reschedule. 2. Take your medication only as prescribed. Medication should not be changed or stopped without the approval of your doctor. In the event of worsening symptoms or concerns about side effects, contact your doctor immediately. 3. Utilize new healthy coping skills, anger management skills, and stress management skills learned during your hospitalization. Journal feelings and process them with a support person. Identify stressors or situations that may result in relapse, deterioration or inappropriate behaviors and develop a plan to deal with those issues. 4. If your coping skills are ineffective and you are in crisis, contact your outpatient providers for direction. If unable to reach your providers, please call the CAN HELP LINE AT or go to the closest Emergency Room. 5. Avoid alcohol and un-prescribed drugs. 6. You have been provided with the Mental Health Advance Directives Pamphlet for your review. AFTERCARE APPOINTMENTS: * Please call your insurance company prior to your scheduled appointment to confirm your aftercare providers are covered. Take your insurance information to your appointments. WHO TO CALL AND WHEN: Medical Emergencies: For questions or emergencies related to your hospital stay, please contact the Inpatient Behavioral Health Unit at [phone]. A behavioral health clinician is on-call 19/01 for the Behavioral Health Unit for emergencies At any time you feel your situation is an emergency, you may also call 911 immediately. Your Doctors Instructions noted above were prepared by provider Vick Adan MD. Addtl Sequins Stringer Provider Instructions: Stop lisinopril medication that was taken for Hypertension and start amlopdiine (Norvasc) 5mg tab 1 tab po qmorning instead, prescritpion sent to pharmacy Pending Studies at Discharge: No Stand-Alone Forms: My [facility], Smoking Cessation Medications and DC Order Prescriptions: New lamotrigine [Lamictal] 25 mg Tablet See Rx Instructions .ROUTE .COMPLEX Qty: 50 RF: 0 buspirone 15 mg Tablet 15 mg PO BID 60 Days Qty: 120 RF: 0 nicotine 21 mg/24 hr patch 24 hour 1 patch TD DAILY Qty: 28 RF: 0 Continued fluticasone propionate 50 mcg/actuation spray,suspension 2 spray Intranasal DAILY PRN (Reason: Allergy Symptoms) RF: 0 albuterol sulfate 90 mcg/actuation HFA aerosol inhaler 2 puff INHALATION Q4H PRN (Reason: Shortness Of Breath Or Wheezing) RF: 0 aripiprazole 15 mg tablet 15 mg PO HS RF: 0 prazosin 2 mg capsule 2 mg PO HS RF: 0 amlodipine [Norvasc] 5 mg Tablet 5 mg PO QAM Qty: 30 RF: 2 Discontinued magnesium oxide 400 mg (241.3 mg magnesium) Tablet 400 mg PO BID Qty: 6 RF: 0 Discharge Orders: Discharge Order (Routine); Ordered 12/22/19 Ordered By: Vick Adan Admission Data Admit Date/Time: 12/19/19 17:16 Attending Provider: Claudia Navarro Admit Provider: Claudia Navarro Primary Care Provider: Justyna Gamez Other Interventions: Discharge Summary Assessment (RN) Last Done: 12/22/19 11:33 PSY Interdisciplinary Discharge Planning Last Done: 12/22/19 11:34 DC Date/Time DO NOT enter until pt leaves facility: 12/22/19 13:33 Coding Level of Care Code 51901 D/C day mgmt > 30 min Diagnoses Intentional overdose of drug in tablet form T50.902A Depression with suicidal ideation F32.9; R45.851 Anxiety F41.9 PTSD (post-traumatic stress disorder) F43.10 Hearing difficulty H91.90 Smoking F17.200
== END 2019-12-22 13:33 | disposition home or self-care (01) | DRG 885 ==
LOC: 3S 17:16

== ENCOUNTER 2020-03-02 12:16 | Inpatient (IN) ==
[2020-03-02 12:51] LABS: Appearance Urine Cloudy (Clear); Bacteria Urine Automated 2+ (Negative); Blood Urine Negative (Negative); Color Urine Dark Yellow; Epithelial Cell Urine Auto >30 /lpf (0-5); Glucose Urine UA Negative (Negative); Ketones Urine Trace (Negative); Leukocyte Esterase Urine 2+ (Negative); Nitrite Urine Positive (Negative); Protein Urine 1+ (Negative); RBC Urine Automated 0-4 /hpf (0-4); Specific Gravity Urine 1.022 (1.000-1.030); Urobilinogen Urine Positive (Negative); WBC Urine Automated >30 /hpf (0-5)
[2020-03-02 12:54] LABS: Bilirubin Urine Negative (Negative); Ictotest Urine Negative (Negative)
[2020-03-02 13:00] LABS: Mucus Urine Present (None Prsent)
[2020-03-02 13:13] LABS: Basophils # (auto) 0.09 K/uL (0-0.2); Eosinophils # (auto) 1.41 K/uL (0-0.5); Eosinophils % (auto) 15.8 %; Hematocrit (blood only) 45.2 % (42-52); Hemoglobin 15.7 g/dL (14.0-18.0); Immature Granulocytes # (auto) 0.01 K/uL (0.00-0.02); Immature Granulocytes % (auto) 0.1 %; Lymphocytes # (auto) 2.71 K/uL (1.2-3.4); Lymphocytes % (auto) 30.3 %; Mean Corpuscular Hemoglobin 29.6 pg (25-34); Mean Corpuscular Hgb Conc 34.7 g/dL (32-36); Mean Corpuscular Volume 85.1 fL (80-100); Monocytes % (auto) 6.7 %; Neutrophils # (auto) 4.11 K/uL (1.4-6.5); Neutrophils % (auto) 46.1 %; Platelet Count 228 K/uL (130-400); RDW Coefficient of Variation 14.7 % (11.5-14.5); RDW Standard Deviation 45.3 fL (36.4-46.3); Red Blood Count 5.31 M/uL (4.7-6.1); White Blood Count 8.93 K/uL (4.8-10.8)
[2020-03-02 13:20] LABS: Amphetamines+Metham, Urine Neg (Neg); Barbiturates, Urine Neg (Neg); Benzodiazepine, Urine Neg (Neg); Cocaine, Urine Neg (Neg); MDMA (Ecstacy), Urine Neg (Neg); Methadone, Urine Neg (Neg); Opiate, Urine Neg (Neg); Phencyclidine, Urine Neg (Neg)
[2020-03-02 13:31] LABS: Albumin Level 3.3 gm/dl (3.4-5.0); BUN Creatinine Ratio 12.7 (10-20); Creatinine Clr Calc Pharmacy 115.5 ml/min; Est GFR (African American) 108.5; Est GFR (Non-African American) 93.6; Potassium 3.2 mmol/L (3.5-5.1)
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
[2020-03-02 13:41] LABS: Albumin Globulin Ratio 0.9 (0.9-2); Bilirubin,Total 1.1 mg/dl (0.2-1); Globulin 3.5 gm/dl (2.5-4.0); Thyroid Stimulating Hormone 2.12 uIu/ml (0.300-4.500); Total Protein 6.8 gm/dl (6.4-8.2)
[2020-03-02] MEDS ORDERED: POTASSIUM CHLORIDE 20 MEQ TABCR PO STA (13:49)
[2020-03-02] MEDS ORDERED: CEFDINIR 300 MG CAP PO STA (13:50)
[2020-03-02 13:51] LABS: Acetaminophen < 2 ug/ml (10-30); Salicylate 3.2 mg/dl (2.8-20)
[2020-03-02] MEDS ORDERED: ACETAMINOPHEN 325 MG TAB PO PRN (15:03)
[2020-03-02] MEDS ORDERED: BISMUTH SUBSALICYLATE PER ML OMNICELL CHARGE PO PRN (15:03)
[2020-03-02] MEDS ORDERED: MAGNESIUM HYDROXIDE SUSP 30 ML UDC PO PRN (15:03)
[2020-03-02] MEDS ORDERED: ALUMINUM/MAGNESIUM SUSP 30 ML UDC PO PRN (15:03)
[2020-03-02] MEDS ORDERED: SODIUM CHLORIDE 0.65% NA SOLN 45 ML (OCEAN) PRN (15:03)
[2020-03-02] MEDS ORDERED: ALBUTEROL HFA 8 GM INHALER INH PRN (15:05)
[2020-03-02] MEDS ORDERED: FLUTICASONE PROPIONATE NA SPR 16 GM BTL PRN (15:05)
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
[2020-03-02] MEDS ORDERED: ARIPiprazole 5 MG TAB PO ONE (17:27)
[2020-03-02] MEDS: CEFDINIR 300 MG CAP PO SCH (21:01)
[2020-03-02] MEDS: GABAPENTIN 100 MG CAP PO SCH (21:02)
[2020-03-02] MEDS: FAMOTIDINE 20 MG TAB PO SCH (21:02)
[2020-03-03] MEDS: CEFDINIR 300 MG CAP PO SCH ×2 (08:44→20:44)
[2020-03-03] MEDS: GABAPENTIN 100 MG CAP PO SCH ×3 (08:44→20:44)
[2020-03-03] MEDS: lamoTRIgine 25 MG TAB PO SCH (08:44)
[2020-03-03] MEDS: ARIPiprazole 10 MG TAB PO SCH (08:44)
[2020-03-03] MEDS: BusPIRone 15 MG TAB PO SCH ×2 (08:44→20:44)
[2020-03-03] MEDS: FAMOTIDINE 20 MG TAB PO SCH ×2 (08:44→20:44)
[2020-03-03] MEDS: AMLODIPINE BESYLATE 5 MG TAB PO SCH (08:44)
--- NOTE | 2020-03-03 11:35 | Psychiatric Progress Note ---
Date of Service March 03, 2020 Impression / Recommendations Impression 49-year-old male admitted voluntarily for inpatient psychiatric treatment on 03/02/2020 after presenting to the ED with reports of worsening depression and SI with plan to overdose. Pt was admitted to our unit on 12/19/2019 after a suicide attempt by overdose requiring 4 days of treatment on the medical floor. Pt's primary stressor has been the unexpected of his in 04/2019. Recently, he states his dog in the last week which has been a new stressor. Pt informed ED staff that he has not taken his psychotropic medications since 12/2019. Pt is agreeable with resuming his previous psych otropic medications: lamotrigine, aripiprazole, and buspirone. He states he was instructed to discontinue prazosin and denies worsening symptoms associated with this change. Will encourage patient's engagement in group and recreational programming. Will ensure aftercare is in place and involve outpatient supports as indicated. Inpatient psychiatric treatment is medically necessary, as the patient is at risk of suicide if discharged prematurely. 03/03 Reviewed. Improving. (1) Suicidal ideation: 03/02 - Admitted to a locked inpatient behavioral health unit, on q15 minute safety checks - Encourage medication initiation/adjustments as indicated - Encourage participation in group and recreational therapies - Gather collateral information from outpatient providers - Suggest family meeting to involve outpatient supports in safety planning - Arrange appropriate aftercare 03/03 reviewed (2) Depression: 03/02 - Pt has historical diagnosis of bipolar disorder, but in our time with the patient has not verbalize criteria suggestive of history of manic episodes. Mo od has historically been stable with aripiprazole, buspirone, and lamotrigine. - Will resume lamotrigine, aripiprazole, and buspirone - titrating to previous doses as tolerated. Pt agreed to receiving 5mg of aripiprazole today and increasing to 10mg qAM tomorrow. Will offer 10mg of buspirone tonight, and start 15mg BID tomorrow. Will also restart lamotrigine dosing at 25mg and increase according to standard titration. Risks, benefits, and potential side effects were reviewed with patient, who verbalized understanding and is agreeable with plan. - Encourage participation in group and recreational programming, assist with development of healthy and effective coping strategies. - Encourage involvement of outpatient supports - Make appropriate aftercare referrals. Pt claims he no longer has a psychiatric prescriber; however, he was scheduled with Dr. Craig at [facility] when he was discharged from our unit. 03/03--continue Abilify 10 mg for now, confirm discharge dose of 15 mg would then titrate in a few days. (3) PTSD (post-traumatic stress disorder): 03/02 - As above - Encourage engagement in group programming - Aftercare referrals 03/03--reviewed (4) Restless legs: 03/02 - Continue home dose of gabapentin 100mg TID 03/03 reviewed--significant, consider increase (5) Abnormal urinalysis: 03/02 - Cefdinir 300mg ordered in ED for abnormal urinalysis. Will continue antibiotic course of 300mg BID for 3 days. - Urine sample sent for culture. 03/03-- culture pending Risk Factors Assessment Male: Yes : Yes Do You Have Access To A Gun?: No Mental Health Diagnoses: Yes Previous Attempt: Yes Previous Psychiatric Hospitalization: Yes Hopelessness: Yes Smoker: Yes Protective Factors Assessment : No Responsible for Young Children: No Employed: No Supportive Family: Yes Interval History Chief Complaint "it was a lot but I do have support". Review of Systems Sleep Information Total Hours of Sleep: 6.25 Meal Information Percent Meal Consumed - Breakfast: 95 Subjective Subjective Patient was seen & assessed and interval progress reviewed with nursing and social work. Patient known to me from a previous admission, now grieving loss of his dog. He appears to have restlessness and states no difference than his baseline since restarting Abilify. He is glad to be back on previous medications as helpful. Physical Exam Psychiatric Orientation: alert and cooperative Apperance: appropriately dressed and appeared stated age; + inappropriately groomed Eye Contact: good eye contact Motor Behavior: + psychomotor agitation (appearing restless, tapping legs for duration of interview ) Speech: normal rate/rhythm/volume of speech Affect: + anxious affect and + constricted affect Mood: + depressed mood and + anxious mood Thought Process: + concrete thought process Thought Content: reality based without delusions Suicidal Thoughts: denies suicidal thoughts Homicidal Thoughts: denies homicidal thoughts Hallucinations: no auditory hallucinations and no visual hallucinations Cognition: recent memory grossly intact, attention grossly intact and language grossly intact Estimated Intelligence: + below average estimated intelligence (consistently concrete thought process) Insight: + limited insight Judgement: + limited judgement Vital Signs (Past 24 Hours) Last Vital Signs Temp 36.8 C 03/03/20 06:00 Pulse 102 H 03/03/20 06:45 Resp 17 03/03/20 06:00 BP 114/84 03/03/20 06:45 Pulse Ox 100 03/02/20 18:03 Results & Data ([facility]) Laboratory Results Laboratory Results - last 24 hr 03/02/20 03/02/20 03/02/20 12:32 12:32 12:57 WBC 8.93 RBC 5.31 Hgb 15.7 Hct 45.2 MCV 85.1 MCH 29.6 MCHC 34.7 RDW Std Deviation 45.3 RDW Coeff of Ale 14.7 H Plt Count 228 MPV 13.0 H Immature Gran % (Auto) 0.1 Neut % (Auto) 46.1 Lymph % (Auto) 30.3 [place] % (Auto) 6.7 Eos % (Auto) 15.8 Baso % (Auto) 1.0 Neut # (Auto) 4.11 Lymph # (Auto) 2.71 [place] # (Auto) 0.60 H Eos # (Auto) 1.41 H Baso # (Auto) 0.09 Immature Gran # (Auto) 0.01 Sodium Potassium Chloride Carbon Dioxide Anion Gap BUN Creatinine Est Cr Clr Drug Dosing Est GFR ( Amer) Est GFR (Non-Af Amer) BUN/Creatinine Ratio Glucose Calcium Total Bilirubin AST ALT Alkaline Phosphatase Total Protein Albumin Globulin Albumin/Globulin Ratio TSH Urine Color Dark Yellow Urine Appearance Cloudy A Urine pH 6.0 Ur Specific [place] 1.022 Urine Protein 1+ H Urine Glucose (UA) Negative Urine Ketones Trace H Urine Blood Negative Urine Nitrite Positive A Urine Bilirubin Negative Urine Urobilinogen Positive H Ur Leukocyte Esterase 2+ H Urine WBC (Auto) >30 H Urine RBC (Auto) 0-4 U Hyaline Cast (Auto) 1-5 U Epithel Cells (Auto) >30 H Urine Bacteria (Auto) 2+ H Urine Mucus Present A Urine Yeast Not Reportable Salicylates Urine Opiates Screen Neg Ur Methadone, Qual Neg Acetaminophen Urine Barbiturates Neg Ur Phencyclidine (PCP) Neg U Amphetamin/Meth Scrn Neg MDMA (Ecstasy) Screen Neg U Benzodiazepines Scrn Neg Ur Cocaine Metabolite Neg U Marijuana (THC) Screen Neg Ethyl Alcohol mg/dL 03/02/20 03/02/20 03/02/20 12:57 12:57 12:57 WBC RBC Hgb Hct MCV MCH MCHC RDW Std Deviation RDW Coeff of Ale Plt Count MPV Immature Gran % (Auto) Neut % (Auto) Lymph % (Auto) [place] % (Auto) Eos % (Auto) Baso % (Auto) Neut # (Auto) Lymph # (Auto) [place] # (Auto) Eos # (Auto) Baso # (Auto) Immature Gran # (Auto) Sodium 140 Potassium 3.2 L Chloride 108 H Carbon Dioxide 21 Anion Gap 11.0 BUN 12 Creatinine 0.95 Est Cr Clr Drug Dosing 115.5 Est GFR ( Amer) 108.5 Est GFR (Non-Af Amer) 93.6 BUN/Creatinine Ratio 12.7 Glucose 101 H Calcium 9.0 Total Bilirubin 1.1 H AST 12 L ALT 19 Alkaline Phosphatase 152 H Total Protein 6.8 Albumin 3.3 L Globulin 3.5 Albumin/Globulin Ratio 0.9 TSH 2.120 Urine Color Urine Appearance Urine pH Ur Specific [place] Urine Protein Urine Glucose (UA) Urine Ketones Urine Blood Urine Nitrite Urine Bilirubin Urine Urobilinogen Ur Leukocyte Esterase Urine WBC (Auto) Urine RBC (Auto) U Hyaline Cast (Auto) U Epithel Cells (Auto) Urine Bacteria (Auto) Urine Mucus Urine Yeast Salicylates 3.2 Urine Opiates Screen Ur Methadone, Qual Acetaminophen < 2 L Urine Barbiturates Ur Phencyclidine (PCP) U Amphetamin/Meth Scrn MDMA (Ecstasy) Screen U Benzodiazepines Scrn Ur Cocaine Metabolite U Marijuana (THC) Screen Ethyl Alcohol mg/dL < 3.0 Current Inpatient Medications Current Inpatient Medications: Current Inpatient Medications Acetaminophen (Acetaminophen 325 Mg Tab) 650 mg PO Q4H PRN PRN Reason: Headache or Minor Fever Stop: 04/01/20 15:02 Al Hydrox/Mg Hydrox/Simethicone (Aluminum/Magnesium Susp 30 Ml Udc) 30 ml PO Q4H PRN PRN Reason: GI Upset Stop: 04/01/20 15:02 Albuterol (Albuterol Hfa 8 Gm Inhaler) 2 puffs INH Q4H PRN PRN Reason: Shortness Of Breath Or Wheezing Stop: 04/01/20 15:04 Amlodipine Besylate (Amlodipine Besylate 5 Mg Tab) 5 mg PO QAM [facility] Stop: 04/02/20 08:59 Last Admin: 03/03/20 08:44 Dose: 5 mg Documented by: Aripiprazole (Aripiprazole 10 Mg Tab) [address] [facility] Stop: 04/02/20 08:59 Last Admin: 03/03/20 08:44 Dose: 10 mg Documented by: Bismuth Subsalicylate (Bismuth Subsalicylate Per Ml Omnicell Charge) 15 ml PO PRN PRN PRN Reason: Loose Stool Stop: 04/01/20 15:02 Buspirone HCl (Buspirone 15 Mg Tab) [address] [facility] Stop: 04/02/20 08:59 Last Admin: 03/03/20 08:44 Dose: 15 mg Documented by: Cefdinir (Cefdinir 300 Mg Cap) [address] [facility]; Protocol Stop: 03/04/20 20:59 Last Admin: 03/03/20 08:44 Dose: 300 mg Documented by: Famotidine (Famotidine 20 Mg Tab) [address] [facility] Stop: 04/01/20 20:59 Last Admin: 03/03/20 08:44 Dose: 20 mg Documented by: Fluticasone Propionate (Fluticasone Propionate Na Spr 16 Gm Btl) 2 sprays NA DAILY PRN PRN Reason: Allergy Symptoms Stop: 04/01/20 15:04 Gabapentin (Gabapentin 100 Mg Cap) [address] [facility] Stop: 04/01/20 20:59 Last Admin: 03/03/20 08:44 Dose: 100 mg Documented by: Hydroxyzine HCl (Hydroxyzine Hcl 25 Mg Tab) 50 mg PO HSZ PRN PRN Reason: Insomnia Stop: 04/01/20 15:02 Hydroxyzine HCl (Hydroxyzine Hcl 25 Mg Tab) 25 mg PO Q4H PRN PRN Reason: Anxiety Stop: 04/01/20 15:02 Lamotrigine (Lamotrigine 25 Mg Tab) [address] [facility] Stop: 04/02/20 08:59 Last Admin: 03/03/20 08:44 Dose: 25 mg Documented by: Magnesium Hydroxide (Magnesium Hydroxide Susp 30 Ml Udc) 30 ml PO DAILY PRN PRN Reason: Constipation Stop: 04/01/20 15:02 Sodium Chloride (Sodium Chloride 0.65% Na Soln 45 Ml ([place])) 1 - 2 sprays NA PRN PRN PRN Reason: Nasal Dryness/Congestion Stop: 04/01/20 15:02 Mental Health & Subst Abuse Tx Psychiatrist Name of Psychiatrist: Chris Craig Psychiatrist's Psychiatric Appointment Comment: Eleazar Spence Therapist Name of Therapist: None Semiautomatic Taper Operator Name of Semiautomatic Taper Operator: Chris Champion Phone Number for Semiautomatic Taper Operator: [phone] Post Discharge Appointments Primary Care Physician Name Of Family Doctor: Chris Gamez Primary Care Provider Appointment Comment: Eleazar Spence Contact Information Discharge Discharge Address: [address] [place] [address] (1) Depression Active/Remission status: currently active Depression Type: major depressive disorder Major depression episode severity: severe Major depression recurrence: recurrent Psychotic features: without psychotic features Qualified Code(s): F33.2 - Major depressive disorder, recurrent severe without psychotic features
[2020-03-04] MEDS: ARIPiprazole 10 MG TAB PO SCH (08:35)
[2020-03-04] MEDS: CEFDINIR 300 MG CAP PO SCH (08:35)
[2020-03-04] MEDS: BusPIRone 15 MG TAB PO SCH ×2 (08:35→17:19)
[2020-03-04] MEDS: FAMOTIDINE 20 MG TAB PO SCH ×2 (08:36→20:57)
[2020-03-04] MEDS: AMLODIPINE BESYLATE 5 MG TAB PO SCH (08:36)
[2020-03-04] MEDS: GABAPENTIN 100 MG CAP PO SCH ×3 (08:36→20:57)
[2020-03-04] MEDS: lamoTRIgine 25 MG TAB PO SCH (08:36)
--- NOTE | 2020-03-04 11:59 | Psychiatric Progress Note ---
Date of Service March 04, 2020 Impression / Recommendations Impression 49-year-old male admitted voluntarily for inpatient psychiatric treatment on 03/02/2020 after presenting to the ED with reports of worsening depression and SI with plan to overdose. Pt was admitted to our unit on 12/19/2019 after a suicide attempt by overdose requiring 4 days of treatment on the medical floor. Pt's primary stressor has been the unexpected of his in 04/2019. Recently, he states his dog in the last week which has been a new stressor. Pt informed ED staff that he has not taken his psychotropic medications since 12/2019. Pt is agreeable with resuming his previous psych otropic medications: lamotrigine, aripiprazole, and buspirone. He states he was instructed to discontinue prazosin and denies worsening symptoms associated with this change. Will encourage patient's engagement in group and recreational programming. Will ensure aftercare is in place and involve outpatient supports as indicated. Inpatient psychiatric treatment is medically necessary, as the patient is at risk of suicide if discharged prematurely. 03/04 Reviewed. Ongoing anxiety. (1) Suicidal ideation: 03/02 - Admitted to a locked inpatient behavioral health unit, on q15 minute safety checks - Encourage medication initiation/adjustments as indicated - Encourage participation in group and recreational therapies - Gather collateral information from outpatient providers - Suggest family meeting to involve outpatient supports in safety planning - Arrange appropriate aftercare 03/03 reviewed (2) Depression: 03/02 - Pt has historical diagnosis of bipolar disorder, but in our time with the patient has not verbalize criteria suggestive of history of manic episodes. Mood has historically been stable with aripiprazole, buspirone, and lamotrigine. - Will resume lamotrigine, aripiprazole, and buspirone - titrating to previous doses as tolerated. Pt agreed to receiving 5mg of aripiprazole today and increasing to 10mg qAM tomorrow. Will offer 10mg of buspirone tonight, and start 15mg BID tomorrow. Will also restart lamotrigine dosing at 25mg and increase according to standard titration. Risks, benefits, and potential side effects were reviewed with patient, who verbalized understanding and is agreeable with plan. - Encourage participation in group and recreational programming, assist with development of healthy and effective coping strategies. - Encourage involvement of outpatient supports - Make appropriate aftercare referrals. Pt claims he no longer has a psychiatric prescriber; however, he was scheduled with Dr. Craig at [facility] when he was discharged from our unit. 03/03--continue Abilify 10 mg for now, confirm discharge dose of 15 mg would then titrate in a few days. (3) PTSD (post-traumatic stress disorder): 03/02 - As above - Encourage engagement in group programming - Aftercare referrals 03/03--reviewed 03/04--Buspar for anxiety helpful but breakthrough between doses so shift 2nd dose to earlier pm (4) Restless legs: 03/02 - Continue home dose of gabapentin 100mg TID 03/03 reviewed--significant, consider increase 03/04--increase Neurontin to 200 mg TID to address restless legs and anxiety. (5) Abnormal urinalysis: 03/02 - Cefdinir 300mg ordered in ED for abnormal urinalysis. Will continue antibiotic course of 300mg BID for 3 days. - Urine sample sent for culture. 03/03-- culture pending 03/04--pinpoint growth, replating Risk Factors Assessment Male: Yes : Yes Do You Have Access To A Gun?: No Mental Health Diagnoses: Yes Previous Attempt: Yes Previous Psychiatric Hospitalization: Yes Hopelessness: Yes Smoker: Yes Protective Factors Assessment : No Responsible for Young Children: No Employed: No Supportive Family: Yes Interval History Chief Complaint "I'm really anxious". Review of Systems Sleep Information Total Hours of Sleep: 5.75 Meal Information Percent Meal Consumed - Breakfast: 100 Percent Meal Consumed - Lunch: 100 Percent Meal Consumed - Dinner: 95 Subjective Subjective Patient was seen & assessed and interval progress reviewed with nursing and social work. John denies triggered by getting a disorganized roommate. Focussed on how he can use his coping skills when leaves the hospital. States anxious feeling breaks through the most in the early evening and reviewed the dosing schedule for his Buspar. Also reviewed his internal sense of restlessness due to his restless legs which seems significant. Physical Exam Psychiatric Orientation: alert Apperance: appropriately groomed Eye Contact: good eye contact restless legs, ?sniffing tic Speech: normal rate/rhythm/volume of speech Affect: + anxious affect Mood: + anxious mood Thought Process: goal directed thought process Thought Content: reality based without delusions Suicidal Thoughts: denies suicidal thoughts Homicidal Thoughts: denies homicidal thoughts Hallucinations: no auditory hallucinations and no visual hallucinations Insight: + limited insight Judgement: + limited judgement Vital Signs (Past 24 Hours) Last Vital Signs Temp 36.8 C 03/04/20 06:22 Pulse 79 03/04/20 06:23 Resp 18 03/04/20 06:22 BP 112/78 03/04/20 06:23 Pulse Ox 100 03/02/20 18:03 Results & Data ([facility]) Current Inpatient Medications Current Inpatient Medications: Current Inpatient Medications Acetaminophen (Acetaminophen 325 Mg Tab) 650 mg PO Q4H PRN PRN Reason: Headache or Minor Fever Stop: 04/01/20 15:02 Al Hydrox/Mg Hydrox/Simethicone (Aluminum/Magnesium Susp 30 Ml Udc) 30 ml PO Q4H PRN PRN Reason: GI Upset Stop: 04/01/20 15:02 Albuterol (Albuterol Hfa 8 Gm Inhaler) 2 puffs INH Q4H PRN PRN Reason: Shortness Of Breath Or Wheezing Stop: 04/01/20 15:04 Amlodipine Besylate (Amlodipine Besylate 5 Mg Tab) 5 mg PO QAM [facility] Stop: 04/02/20 08:59 Last Admin: 03/04/20 08:36 Dose: 5 mg Documented by: Aripiprazole (Aripiprazole 10 Mg Tab) 10 mg PO QAM [facility] Stop: 04/02/20 08:59 Last Admin: 03/04/20 08:35 Dose: 10 mg Documented by: Bismuth Subsalicylate (Bismuth Subsalicylate Per Ml Omnicell Charge) 15 ml PO PRN PRN PRN Reason: Loose Stool Stop: 04/01/20 15:02 Buspirone HCl (Buspirone 15 Mg Tab) 15 mg PO BID [facility] Stop: 04/02/20 08:59 Last Admin: 03/04/20 08:35 Dose: 15 mg Documented by: Cefdinir (Cefdinir 300 Mg Cap) 300 mg PO BID [facility]; Protocol Stop: 03/04/20 20:59 Last Admin: 03/04/20 08:35 Dose: 300 mg Documented by: Famotidine (Famotidine 20 Mg Tab) 20 mg PO BID [facility] Stop: 04/01/20 20:59 Last Admin: 03/04/20 08:36 Dose: 20 mg Documented by: Fluticasone Propionate (Fluticasone Propionate Na Spr 16 Gm Btl) 2 sprays NA DAILY PRN PRN Reason: Allergy Symptoms Stop: 04/01/20 15:04 Gabapentin (Gabapentin 100 Mg Cap) 100 mg PO TID [facility] Stop: 04/01/20 20:59 Last Admin: 03/04/20 08:36 Dose: 100 mg Documented by: Hydroxyzine HCl (Hydroxyzine Hcl 25 Mg Tab) 50 mg PO HSZ PRN PRN Reason: Insomnia Stop: 04/01/20 15:02 Hydroxyzine HCl (Hydroxyzine Hcl 25 Mg Tab) 25 mg PO Q4H PRN PRN Reason: Anxiety Stop: 04/01/20 15:02 Lamotrigine (Lamotrigine 25 Mg Tab) 25 mg PO QAM [facility] Stop: 04/02/20 08:59 Last Admin: 03/04/20 08:36 Dose: 25 mg Documented by: Magnesium Hydroxide (Magnesium Hydroxide Susp 30 Ml Udc) 30 ml PO DAILY PRN PRN Reason: Constipation Stop: 04/01/20 15:02 Sodium Chloride (Sodium Chloride 0.65% Na Soln 45 Ml ([place])) 1 - 2 sprays NA PRN PRN PRN Reason: Nasal Dryness/Congestion Stop: 04/01/20 15:02 Mental Health & Subst Abuse Tx Psychiatrist Name of Psychiatrist: Chris Craig Psychiatrist's Psychiatric Appointment Comment: [phone] Therapist Name of Therapist: None Road Hogger Operator Name of Road Hogger Operator: Chris Champion Phone Number for Road Hogger Operator: [phone] Post Discharge Appointments Primary Care Physician Name Of Family Doctor: Chris Gamez Primary Care Provider Appointment Comment: Eleazar Spence Contact Information Discharge Discharge Address: [address] [place] [address] (1) Depression Active/Remission status: currently active Depression Type: major depressive disorder Major depression episode severity: severe Major depression recurrence: recurrent Psychotic features: without psychotic features Qualified Code(s): F33.2 - Major depressive disorder, recurrent severe without psychotic features
[2020-03-05] MEDS: BusPIRone 15 MG TAB PO SCH ×2 (09:52→17:04)
[2020-03-05] MEDS: FAMOTIDINE 20 MG TAB PO SCH ×2 (09:55→20:51)
[2020-03-05] MEDS: GABAPENTIN 100 MG CAP PO SCH ×3 (09:55→20:51)
[2020-03-05] MEDS: ARIPiprazole 10 MG TAB PO SCH (09:55)
[2020-03-05] MEDS: AMLODIPINE BESYLATE 5 MG TAB PO SCH (09:55)
[2020-03-05] MEDS: lamoTRIgine 25 MG TAB PO SCH (09:55)
--- NOTE | 2020-03-05 11:24 | Psychiatric Progress Note ---
Date of Service March 05, 2020 Impression / Recommendations Impression 49-year-old male admitted voluntarily for inpatient psychiatric treatment on 03/02/2020 after presenting to the ED with reports of worsening depression and SI with plan to overdose. Pt was admitted to our unit on 12/19/2019 after a suicide attempt by overdose requiring 4 days of treatment on the medical floor. Pt's primary stressor has been the unexpected of his in 04/2019. Recently, he states his dog in the last week which has been a new stressor. Pt informed ED staff that he has not taken his psychotropic medications since 12/2019. Pt is agreeable with resuming his previous psych otropic medications: lamotrigine, aripiprazole, and buspirone. He states he was instructed to discontinue prazosin and denies worsening symptoms associated with this change. Will encourage patient's engagement in group and recreational programming. Will ensure aftercare is in place and involve outpatient supports as indicated. Inpatient psychiatric treatment is medically necessary, as the patient is at risk of suicide if discharged prematurely. 03/05--improving, less anxious (1) Depression: 03/02 - Pt has historical diagnosis of bipolar disorder, but in our time with the patient has not verbalize criteria suggestive of history of manic episodes. Mood has historically been stable with aripiprazole, buspirone, and lamotrigine. - Will resume lamotrigine, aripiprazole, and buspirone - titrating to previous doses as tolerated. Pt agreed to receiving 5mg of aripiprazole today and increasing to 10mg qAM tomorrow. Will offer 10mg of buspirone tonight, and start 15mg BID tomorrow. Will also restart lamotrigine dosing at 25mg and increase according to standard titration. Risks, benefits, and potential side effects were reviewed with patient, who verbalized understanding and is agreeable with plan. - Encourage participation in group and recreational programming, assist with development of healthy and effective coping strategies. - Encourage involvement of outpatient supports - Make appropriate aftercare referrals. Pt claims he no longer has a psychiatric prescriber; however, he was scheduled with Dr. Craig at [facility] when he was discharged from our unit. 03/03--continue Abilify 10 mg for now, confirm discharge dose of 15 mg would then titrate in a few days. 03/05--Abilify 15 mg po qam starting tomorrow, continue Lamictal 25 mg and discussed retitration. He has some eczema on his arms that actually appears improved since last contact with lotion, no generalized rash. (2) PTSD (post-traumatic stress disorder): 03/02 - As above - Encourage engagement in group programming - Aftercare referrals 03/03--reviewed 03/04--Buspar for anxiety helpful but breakthrough between doses so shift 2nd dose to earlier pm (3) Restless legs: 03/02 - Continue home dose of gabapentin 100mg TID 03/03 reviewed--significant, consider increase 03/04--increase Neurontin to 200 mg TID to address restless legs and anxiety. 03/05--tolerating increase, no sedation (4) Abnormal urinalysis: 03/02 - Cefdinir 300mg ordered in ED for abnormal urinalysis. Will continue antibiotic course of 300mg BID for 3 days. - Urine sample sent for culture. 03/03-- culture pending 03/04--pinpoint growth, replating 03/05--coag negative staph, resistant only to bactrim Risk Factors Assessment Male: Yes : Yes Do You Have Access To A Gun?: No Mental Health Diagnoses: Yes Previous Attempt: Yes Previous Psychiatric Hospitalization: Yes Hopelessness: Yes Smoker: Yes Protective Factors Assessment : No Responsible for Young Children: No Employed: No Supportive Family: Yes Interval History Chief Complaint "I feel much calmer today". Review of Systems Sleep Information Total Hours of Sleep: 4.5 Meal Information Percent Meal Consumed - Breakfast: 100 Percent Meal Consumed - Lunch: 100 Percent Meal Consumed - Dinner: 100 Subjective Subjective Patient was seen & assessed and interval progress reviewed with nursing. Did agree to see a therapist Aniya Olmstead after discharge. Tolerating med changes and co-patients. Able to sleep through then night last pm for "the first time in a l anoop time". Physical Exam Psychiatric Orientation: alert, oriented x 3 and cooperative Apperance: appropriately dressed, appropriately groomed and appeared stated age Eye Contact: good eye contact Motor Behavior: steady gait and station Speech: normal rate/rhythm/volume of speech Affect: + anxious affect Mood: + depressed mood Thought Process: goal directed thought process Thought Content: reality based without delusions Suicidal Thoughts: denies suicidal thoughts Homicidal Thoughts: denies homicidal thoughts Hallucinations: no auditory hallucinations and no visual hallucinations Cognition: recent memory grossly intact, attention grossly intact and language grossly intact Insight: + limited insight Judgement: + limited judgement Vital Signs (Past 24 Hours) Last Vital Signs Temp 36.7 C 03/05/20 06:22 Pulse 76 03/05/20 06:23 Resp 18 03/05/20 06:22 BP 120/82 03/05/20 06:23 Pulse Ox 100 03/02/20 18:03 Results & Data ([facility]) Current Inpatient Medications Current Inpatient Medications: Current Inpatient Medications Acetaminophen (Acetaminophen 325 Mg Tab) 650 mg PO Q4H PRN PRN Reason: Headache or Minor Fever Stop: 04/01/20 15:02 Al Hydrox/Mg Hydrox/Simethicone (Aluminum/Magnesium Susp 30 Ml Udc) 30 ml PO Q4H PRN PRN Reason: GI Upset Stop: 04/01/20 15:02 Albuterol (Albuterol Hfa 8 Gm Inhaler) 2 puffs INH Q4H PRN PRN Reason: Shortness Of Breath Or Wheezing Stop: 04/01/20 15:04 Amlodipine Besylate (Amlodipine Besylate 5 Mg Tab) 5 mg PO QAM [facility] Stop: 04/02/20 08:59 Last Admin: 03/05/20 09:55 Dose: 5 mg Documented by: Aripiprazole (Aripiprazole 10 Mg Tab) 10 mg PO QAM [facility] Stop: 04/02/20 08:59 Last Admin: 03/05/20 09:55 Dose: 10 mg Documented by: Bismuth Subsalicylate (Bismuth Subsalicylate Per Ml Omnicell Charge) 15 ml PO PRN PRN PRN Reason: Loose Stool Stop: 04/01/20 15:02 Buspirone HCl (Buspirone 15 Mg Tab) 15 mg PO BID17 [facility] Stop: 04/03/20 16:59 Last Admin: 03/05/20 09:52 Dose: 15 mg Documented by: Famotidine (Famotidine 20 Mg Tab) 20 mg PO BID [facility] Stop: 04/01/20 20:59 Last Admin: 03/05/20 09:55 Dose: 20 mg Documented by: Fluticasone Propionate (Fluticasone Propionate Na Spr 16 Gm Btl) 2 sprays NA DAILY PRN PRN Reason: Allergy Symptoms Stop: 04/01/20 15:04 Gabapentin (Gabapentin 100 Mg Cap) 200 mg PO TID [facility] Stop: 04/03/20 13:59 Last Admin: 03/05/20 09:55 Dose: 200 mg Documented by: Hydroxyzine HCl (Hydroxyzine Hcl 25 Mg Tab) 50 mg PO HSZ PRN PRN Reason: Insomnia Stop: 04/01/20 15:02 Hydroxyzine HCl (Hydroxyzine Hcl 25 Mg Tab) 25 mg PO Q4H PRN PRN Reason: Anxiety Stop: 04/01/20 15:02 Lamotrigine (Lamotrigine 25 Mg Tab) 25 mg PO QAM [facility] Stop: 04/02/20 08:59 Last Admin: 03/05/20 09:55 Dose: 25 mg Documented by: Magnesium Hydroxide (Magnesium Hydroxide Susp 30 Ml Udc) 30 ml PO DAILY PRN PRN Reason: Constipation Stop: 04/01/20 15:02 Sodium Chloride (Sodium Chloride 0.65% Na Soln 45 Ml ([place])) 1 - 2 sprays NA PRN PRN PRN Reason: Nasal Dryness/Congestion Stop: 04/01/20 15:02 Mental Health & Subst Abuse Tx Psychiatrist Name of Psychiatrist: Chris Craig Psychiatrist's Psychiatric Appointment Comment: Eleazar Spence Therapist Name of Therapist: Hellen It Applications Analyst Name of It Applications Analyst: Chris Champion Phone Number for It Applications Analyst: [phone] Post Discharge Appointments Primary Care Physician Name Of Family Doctor: Chris Gamez Primary Care Provider Appointment Comment: Eleazar Spence Contact Information Discharge Discharge [address]: [address] [place] [address] (1) Depression Active/Remission status: currently active Depression Type: major depressive disorder Major depression episode severity: severe Major depression recurrence: recurrent Psychotic features: without psychotic features Qualified Code(s): F33.2 - Major depressive disorder, recurrent severe without psychotic features
[2020-03-06] MEDS ORDERED: ARIPiprazole 15 MG TAB PO SCH (09:00)
[2020-03-06] MEDS: GABAPENTIN 100 MG CAP PO SCH ×2 (09:09→13:01)
[2020-03-06] MEDS: BusPIRone 15 MG TAB PO SCH (09:09)
[2020-03-06] MEDS: AMLODIPINE BESYLATE 5 MG TAB PO SCH (09:10)
[2020-03-06] MEDS: lamoTRIgine 25 MG TAB PO SCH (09:10)
[2020-03-06] MEDS: FAMOTIDINE 20 MG TAB PO SCH (09:10)
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
== END 2020-03-06 14:05 | disposition home or self-care (01) | DRG 885 ==
LOC: ED 12:16 → 3S 15:03

== ENCOUNTER 2021-01-17 19:39 | Inpatient (IN) ==
[2021-01-17 20:26] LABS: Appearance Urine Clear (Clear); Bacteria Urine Automated Negative (Negative); Bilirubin Urine Negative (Negative); Blood Urine Negative (Negative); Color Urine Yellow; Epithelial Cell Urine Auto >30 /lpf (0-5); Glucose Urine UA Negative (Negative); Ketones Urine Trace (Negative); Leukocyte Esterase Urine Trace (Negative); Nitrite Urine Negative (Negative); Protein Urine Negative (Negative); RBC Urine Automated 0-4 /hpf (0-4); Specific Gravity Urine 1.011 (1.000-1.030); Urobilinogen Urine Negative (Negative); pH Urine 6.5 (4.5-7.5)
[2021-01-17 20:46] LABS: Basophils # (auto) 0.06 K/uL (0-0.2); Basophils % (auto) 0.6 %; Eosinophils # (auto) 0.23 K/uL (0-0.5); Eosinophils % (auto) 2.5 %; Hematocrit (blood only) 45.4 % (42-52); Hemoglobin 15.5 g/dL (14.0-18.0); Immature Granulocytes # (auto) 0.01 K/uL (0.00-0.02); Immature Granulocytes % (auto) 0.1 %; Lymphocytes % (auto) 21.4 %; Mean Corpuscular Hemoglobin 29.5 pg (25-34); Mean Corpuscular Hgb Conc 34.1 g/dL (32-36); Mean Corpuscular Volume 86.3 fL (80-100); Mean Platelet Volume 12.4 fL (7.4-10.4); Monocytes # (auto) 0.56 K/uL (0.11-0.59); Neutrophils # (auto) 6.49 K/uL (1.4-6.5); Neutrophils % (auto) 69.4 %; Platelet Count 263 K/uL (130-400); RDW Coefficient of Variation 14.4 % (11.5-14.5); RDW Standard Deviation 44.5 fL (36.4-46.3); Red Blood Count 5.26 M/uL (4.7-6.1); White Blood Count 9.35 K/uL (4.8-10.8)
--- NOTE | 2021-01-17 20:46 | XRay Report ---
SINGLE VIEW CHEST CLINICAL HISTORY: COPD FINDINGS: An AP, portable, upright chest radiograph is compared to study dated 02/15/2020 and correlat ed with chest CT dated 09/17/2020. The cardiomediastinal silhouette is unremarkable. Emphysema and chr onic additional thickening is similar to previous. No airspace consolidation or pleural effusion is i dentified. No pneumothorax is seen. The bony thorax is grossly intact. IMPRESSION: Emphysematous change with no active disease in the chest. ACT 112: Negative or not required by law. Electronically signed by: Tripp Bhardwaj M.D. 01/17/2021 8:45 PM
[2021-01-17 21:02] LABS: Alanine Aminotransferase 18 U/L (12-78); Albumin Level 3.7 gm/dl (3.4-5.0); Aspartate Aminotransferase 12 U/L (15-37); BUN Creatinine Ratio 9.1 (10-20); Blood Urea Nitrogen 9 mg/dl (7-18); Calcium 9.2 mg/dl (8.5-10.1); Carbon Dioxide 26 mmol/L (21-32); Chloride 108 mmol/L (98-107); Creatinine Clr Calc Pharmacy 121.9 ml/min; Est GFR (African American) 103.8 ml/min; Est GFR (Non-African American) 89.5 ml/min; Glucose 98 mg/dl (70-99); Potassium 3.8 mmol/L (3.5-5.1); Sodium 137 mmol/L (136-145)
[2021-01-17 21:05] LABS: Amphetamines+Metham, Urine Neg (Neg); Barbiturates, Urine Neg (Neg); Benzodiazepine, Urine Neg (Neg); Cocaine, Urine Neg (Neg); MDMA (Ecstacy), Urine Neg (Neg); Methadone, Urine Neg (Neg); Opiate, Urine Neg (Neg); Phencyclidine, Urine Neg (Neg)
[2021-01-17 21:13] LABS: Alkaline Phosphatase 137 U/L (45-117); Bilirubin,Total 0.6 mg/dl (0.2-1); Globulin 3.6 gm/dl (2.5-4.0); Total Protein 7.3 gm/dl (6.4-8.2); Troponin I < 0.015 ng/ml (0-0.045)
[2021-01-17 21:16] LABS: Salicylate 2.5 mg/dl (2.8-20)
[2021-01-17 21:17] LABS: Acetaminophen < 2 ug/ml (10-30)
[2021-01-17] MEDS ORDERED: GABAPENTIN 100 MG CAP PO STA (22:24)
[2021-01-17] MEDS ORDERED: busPIRone 15 MG TAB PO STA (22:24)
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
[2021-01-18] MEDS ORDERED: BISMUTH SUBSALICYLATE LIQD 236 ML PO PRN (00:01)
[2021-01-18] MEDS ORDERED: SODIUM CHLORIDE 0.65% NA SOLN 45 ML (OCEAN) PRN (00:01)
[2021-01-18] MEDS ORDERED: hydrOXYzine HCl 25 MG TAB PO PRN ×2 (00:01)
[2021-01-18] MEDS ORDERED: ALUMINUM/MAGNESIUM SUSP 30 ML UDC PO PRN (00:01)
[2021-01-18] MEDS ORDERED: ACETAMINOPHEN 325 MG TAB PO PRN (00:01)
[2021-01-18] MEDS ORDERED: MAGNESIUM HYDROXIDE SUSP 30 ML UDC PO PRN (00:01)
[2021-01-18] MEDS ORDERED: GABAPENTIN 100 MG CAP PO STA (00:04)
[2021-01-18] MEDS: amLODIPine BESYLATE 5 MG TAB PO SCH (08:50)
[2021-01-18] MEDS: ARIPiprazole 15 MG TAB PO SCH (08:50)
[2021-01-18] MEDS: busPIRone 15 MG TAB PO SCH ×3 (08:51→21:03)
[2021-01-18] MEDS: GABAPENTIN 100 MG CAP PO SCH ×2 (08:51→21:03)
[2021-01-18] MEDS ORDERED: ESCITALOPRAM OXALATE 10 MG TAB PO SCH (09:00)
--- NOTE | 2021-01-18 09:09 | Electrocardiogram Report ---
Test Reason : Blood Pressure : / mmHG Vent. Rate : 074 BPM Atrial Rate : 074 BPM P-R Int : 134 ms QRS Dur : 088 ms QT Int : 372 ms P-R-T Axes : -12 046 052 degrees QTc Int : 412 ms Normal sinus rhythm Normal ECG When compared with ECG of 15-FEB-2020 19:08, No significant change was found Confirmed by Russell Roy ([id number]) on 01/18/2021 9:08:45 AM Referred By: REFERRED SELF Confirmed By:Russell Roy
[2021-01-18] MEDS ORDERED: diazePAM 5 MG TABLET PO ONE (13:16)
[2021-01-18] MEDS ORDERED: NICOTINE POLACRILEX 2 MG GUM MT PRN (13:21)
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
[2021-01-18] MEDS ORDERED: LORazepam 1 MG TAB PO PRN (17:00)
[2021-01-19] MEDS: amLODIPine BESYLATE 5 MG TAB PO SCH (09:26)
[2021-01-19] MEDS: ESCITALOPRAM OXALATE 20 MG TAB PO SCH (09:26)
[2021-01-19] MEDS: busPIRone 15 MG TAB PO SCH ×3 (09:26→20:56)
[2021-01-19] MEDS: ARIPiprazole 15 MG TAB PO SCH (09:26)
[2021-01-19] MEDS: GABAPENTIN 100 MG CAP PO SCH ×2 (09:27→20:57)
--- NOTE | 2021-01-19 13:56 | Psychiatric Progress Note ---
Date of Service January 19, 2021 Impression / Recommendations Impression 50 old male who carries a diagnosis of bipolar disorder presented to the emergency department increasing depression and suicidal ideation and auditory hallucinations. Upon today's evaluation patient reports no further auditory hallucinations, but is reporting anxiety as well as poor mood and suicidal ideation. Patient will benefit from inpatient hospitalization for purposes of safety, stabilization, and medication management. (1) Depression: The patient was admitted to the [facility] ([facility]) on every 15 minute checks (behavioral with suicide precautions for safety. The patient will participate in group, recreational, and milieu therapies and will be offered additional individual and family sessions as clinically appropriate. 01/19/2021atient making incremental progress 01/18/2021we will plan to increase patient's Lexapro to 20 mg p.o. every morning starting tomorrow. Abilify dose will remain at 15 mg p.o. every morning. Protective Factors Assessment Employed: No (disabled) Interval History Chief Complaint "Good morning". Review of Systems Sleep Information Total Hours of Sleep: 6 Sleep Comments: admitted to unit at 0047 Meal Information Percent Meal Consumed - Breakfast: 100 Percent Meal Consumed - Lunch: 100 Percent Meal Consumed - Dinner: 100 Nutrition Comment: Pt remained in bed for breakfast but asked for it to be saved. Subjective Subjective Patient seen, chart reviewed and case discussed with treatment team, nursing and social work. Patient reports a good night of sleep and strong appetite. No side effects reported or observed of increase Lexapro dosage.. Regarding mood, patient reports some improvement which they attribute to the medications as well as the therapy they have received on the unit. Patient interacting appropriately with peers. Vital signs stable. I spent 30 minutes with the patient, 50% of which was dedicated to counselling and coordination of care. Physical Exam Psychiatric Orientation: alert and oriented x 3 Apperance: + disheveled Eye Contact: + fair eye contact Motor Behavior: no abnormal motor movements Speech: normal rate/rhythm/volume of speech Affect: + depressed affect Mood: + depressed mood and + anxious mood Thought Process: linear/logical thought process Thought Content: reality based without delusions Suicidal Thoughts: + reports suicidal thoughts and + reports suicidal plan Homicidal Thoughts: denies homicidal thoughts and denies homicidal plan Hallucinations: + auditory hallucinations Cognition: recent memory grossly intact Estimated Intelligence: consistent with education level Insight: + limited insight and + fair insight Judgement: + limited judgement Vital Signs (Past 24 Hours) Last Vital Signs Temp 36.5 C 01/19/21 07:03 Pulse 79 01/19/21 07:03 Resp 14 01/19/21 07:03 BP 137/86 01/19/21 07:03 Pulse Ox 98 01/18/21 00:41 Results & Data ([facility]) Current Inpatient Medications Current Inpatient Medications: Current Inpatient Medications Acetaminophen (Acetaminophen 325 Mg Tab) 650 mg PO Q4H PRN PRN Reason: Headache or Minor Fever Stop: 02/17/21 00:00 Al Hydrox/Mg Hydrox/Simethicone (Aluminum/Magnesium Susp 30 Ml Udc) 30 ml PO Q4H PRN PRN Reason: GI Upset Stop: 02/17/21 00:00 Amlodipine Besylate (A[facility]ip[facility] Besylate 5 Mg Tab) [facility] Stop: 02/17/21 08:59 Last Admin: 01/19/21 09:26 Dose: 5 mg Documented by: Aripiprazole (Aripiprazole 15 Mg Tab) [facility] Stop: 02/17/21 08:59 Last Admin: 01/19/21 09:26 Dose: 15 mg Documented by: Bismuth Subsalicylate (Bismuth Subsalicylate Liqd 236 Ml) 15 ml PO PRN PRN PRN Reason: Loose Stool Stop: 02/17/21 00:00 Buspirone HCl (Buspirone 15 Mg Tab) 15 mg PO TID [facility] Stop: 02/17/21 08:59 Last Admin: 01/19/21 13:46 Dose: 15 mg Documented by: Escitalopram Oxalate (Escitalopram Oxalate 20 Mg Tab) 20 [facility] Stop: 02/18/21 08:59 Last Admin: 01/19/21 09:26 Dose: 20 mg Documented by: Gabapentin (Gabapentin 100 Mg Cap) 100 mg [facility] Stop: 02/17/21 08:59 Last Admin: 01/19/21 09:27 Dose: 100 mg Documented by: Gabapentin (Gabapentin 100 Mg Cap) 200 mg PO [facility] Stop: 02/17/21 21:59 Last Admin: 01/18/21 21:03 Dose: 200 mg Documented by: Lorazepam (Lorazepam 1 Mg Tab) 1 mg PO Q6 PRN PRN Reason: Anxiety Stop: 02/17/21 16:59 Magnesium Hydroxide (Magnesium Hydroxide Susp 30 Ml Udc) 30 ml PO DAILY PRN PRN Reason: Constipation Stop: 02/17/21 00:00 Nicotine Polacrilex (Nicotine Polacrilex 2 Mg Gum) 1 piece MT Q8 PRN PRN Reason: smoking cravings Stop: 02/17/21 13:20 Sodium Chloride (Sodium Chloride 0.65% Na Soln 45 Ml ([place])) 1 - 2 sprays NA PRN PRN PRN Reason: Nasal Dryness/Congestion Stop: 02/17/21 00:00 Mental Health & Subst Abuse Tx Therapist Name of Therapist: none Douper Name of Douper: none Post Discharge Appointments Primary Care Physician Name Of Family Doctor: Dr. Gamez (1) Depression Active/Remission status: currently active Depression Type: major depressive disorder Major depression episode severity: severe Major depression recurrence: recurrent Psychotic features: without psychotic features Qualified Code(s): F33.2 - Major depressive disorder, recurrent severe without psychotic features
[2021-01-20] MEDS: ARIPiprazole 15 MG TAB PO SCH (08:54)
[2021-01-20] MEDS: amLODIPine BESYLATE 5 MG TAB PO SCH (08:54)
[2021-01-20] MEDS: ESCITALOPRAM OXALATE 20 MG TAB PO SCH (08:55)
[2021-01-20] MEDS: busPIRone 15 MG TAB PO SCH ×3 (08:55→21:28)
[2021-01-20] MEDS: GABAPENTIN 100 MG CAP PO SCH ×2 (08:55→21:30)
--- NOTE | 2021-01-20 10:35 | Psychiatric Progress Note ---
Date of Service January 20, 2021 Impression / Recommendations Impression 50 old male who carries a diagnosis of bipolar disorder presented to the emergency department increasing depression and suicidal ideation and auditory hallucinations. Upon today's evaluation patient reports no further auditory hallucinations, but is reporting anxiety as well as poor mood and suicidal ideation. Patient will benefit from inpatient hospitalization for purposes of safety, stabilization, and medication management. (1) Depression: The patient was admitted to the [facility] ([facility]) on every 15 minute checks (behavioral with suicide precautions for safety. The patient will participate in group, recreational, and milieu therapies and will be offered additional individual and family sessions as clinically appropriate. 01/20/2021--Patient mood is improving. continue with current treatment. 01/19/2021atient making incremental progress 01/18/2021we will plan to increase patient's Lexapro to 20 mg p.o. every morning starting tomorrow. Abilify dose will remain at 15 mg p.o. every morning. Protective Factors Assessment Employed: No (disabled) Interval History Chief Complaint "I'm doing good". Review of Systems Sleep Information Total Hours of Sleep: 6 Sleep Comments: admitted to unit at 0047 Meal Information Percent Meal Consumed - Breakfast: 100 Percent Meal Consumed - Lunch: 100 Percent Meal Consumed - Dinner: 100 Nutrition Comment: Pt remained in bed for breakfast but asked for it to be saved. Subjective Subjective Patient seen, chart reviewed and case discussed with treatment team, nursing and social work. Patient reports a good night of sleep and strong appetite. No side effects reported or observed. Regarding mood, patient reports some improvement which they attribute to the medications as well as the therapy they have received on the unit. I spent 30 minutes with the patient, 50% of which was dedicated to counselling and coordination of care. Physical Exam Psychiatric Orientation: alert and oriented x 3 Apperance: + disheveled Eye Contact: + fair eye contact Motor Behavior: no abnormal motor movements Speech: normal rate/rhythm/volume of speech Affect: + depressed affect Mood: + depressed mood and + anxious mood Thought Process: linear/logical thought process Thought Content: reality based without delusions Suicidal Thoughts: + reports suicidal thoughts and + reports suicidal plan Homicidal Thoughts: denies homicidal thoughts and denies homicidal plan Hallucinations: + auditory hallucinations Cognition: recent memory grossly intact Estimated Intelligence: consistent with education level Insight: + limited insight and + fair insight Judgement: + limited judgement Vital Signs (Past 24 Hours) Last Vital Signs Temp 36.5 C 01/20/21 06:47 Pulse 87 01/20/21 06:47 Resp 18 01/20/21 06:47 BP 130/81 01/20/21 06:47 Pulse Ox 98 01/18/21 00:41 Results & Data ([facility]) Current Inpatient Medications Current Inpatient Medications: Current Inpatient Medications Acetaminophen (Acetaminophen 325 Mg Tab) 650 mg PO Q4H PRN PRN Reason: Headache or Minor Fever Stop: 02/17/21 00:00 Al Hydrox/Mg Hydrox/Simethicone (Aluminum/Magnesium Susp 30 Ml Udc) 30 ml PO Q4H PRN PRN Reason: GI Upset Stop: 02/17/21 00:00 Amlodipine Besylate (Amlodipine Besylate 5 Mg Tab) [facility] [place]: 02/17/21 08:59 Last Admin: 01/20/21 08:54 Dose: 5 mg Documented by: Aripiprazole (Aripiprazole 15 Mg Tab) [facility] Stop: 02/17/21 08:59 Last Admin: 01/20/21 08:54 Dose: 15 mg Documented by: Bismuth Subsalicylate (Bismuth Subsalicylate Liqd 236 Ml) 15 ml PO PRN PRN PRN Reason: Loose Stool Stop: 02/17/21 00:00 Buspirone HCl (Buspirone 15 Mg Tab) 15 mg PO TID [facility] Stop: 02/17/21 08:59 Last Admin: 01/20/21 08:55 Dose: 15 mg Documented by: Escitalopram Oxalate (Escitalopram Oxalate 20 Mg Tab) [facility] Stop: 02/18/21 08:59 Last Admin: 01/20/21 08:55 Dose: 20 mg Documented by: Gabapentin (Gabapentin 100 Mg Cap) [facility] Stop: 02/17/21 08:59 Last Admin: 01/20/21 08:55 Dose: 100 mg Documented by: Gabapentin (Gabapentin 100 Mg Cap) 200 mg PO [facility] Stop: 02/17/21 21:59 Last Admin: 01/19/21 20:57 Dose: 200 mg Documented by: Lorazepam (Lorazepam 1 Mg Tab) 1 mg PO Q6 PRN PRN Reason: Anxiety Stop: 02/17/21 16:59 Magnesium Hydroxide (Magnesium Hydroxide Susp 30 Ml Udc) 30 ml PO DAILY PRN PRN Reason: Constipation Stop: 02/17/21 00:00 Nicotine Polacrilex (Nicotine Polacrilex 2 Mg Gum) 1 piece MT Q8 PRN PRN Reason: smoking cravings Stop: 02/17/21 13:20 Sodium Chloride (Sodium Chloride 0.65% Na Soln 45 Ml ([place])) 1 - 2 sprays NA PRN PRN PRN Reason: Nasal Dryness/Congestion Stop: 02/17/21 00:00 Mental Health & Subst Abuse Tx Psychiatrist Name of Psychiatrist: Chris Matthews Psychiatrist's Psychiatric Appointment Comment: Eleazar Spence Therapist Name of Therapist: marques Structural [employer] 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 Name of Structural Steel 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: [employer] Phone Number for Structural Steel 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: [phone] Post Discharge Appointments Primary Care Physician Name Of Family Doctor: Chris Gamez Primary Care Provider Appointment Comment: Eleazar Spence Contact Information Discharge Discharge Address: [address] [place] [address], [place] [address] (1) Depression Active/Remission status: currently active Depression Type: major depressive disorder Major depression episode severity: severe Major depression recurrence: recurrent Psychotic features: without psychotic features Qualified Code(s): F33.2 - Major depressive disorder, recurrent severe without psychotic features
[2021-01-21] MEDS: ESCITALOPRAM OXALATE 20 MG TAB PO SCH (08:56)
[2021-01-21] MEDS: amLODIPine BESYLATE 5 MG TAB PO SCH (08:56)
[2021-01-21] MEDS: ARIPiprazole 15 MG TAB PO SCH (08:56)
[2021-01-21] MEDS: busPIRone 15 MG TAB PO SCH ×3 (08:56→21:28)
[2021-01-21] MEDS: GABAPENTIN 100 MG CAP PO SCH ×2 (08:56→21:27)
[2021-01-21 11:12] LABS: Albumin Level 3.3 gm/dl (3.4-5.0); Bilirubin,Total 0.5 mg/dl (0.2-1); Calcium 8.7 mg/dl (8.5-10.1); Est GFR (African American) 100.1 ml/min; Est GFR (Non-African American) 86.3 ml/min; Globulin 3.3 gm/dl (2.5-4.0); Total Protein 6.6 gm/dl (6.4-8.2)
--- NOTE | 2021-01-21 11:42 | Psychiatric Progress Note ---
Date of Service January 21, 2021 Impression / Recommendations Impression 50 old male who carries a diagnosis of bipolar disorder presented to the emergency department increasing depression and suicidal ideation and auditory hallucinations. Upon today's evaluation patient reports no further auditory hallucinations, but is reporting anxiety as well as poor mood and suicidal ideation. Patient will benefit from inpatient hospitalization for purposes of safety, stabilization, and medication management. (1) Depression: The patient was admitted to the [facility] ([facility]) on every 15 minute checks (behavioral with suicide precautions for safety. The patient will participate in group, recreational, and milieu therapies and will be offered additional individual and family sessions as clinically appropriate. 01/21/2021atient is still depressed although mood seems to be improving. Patient is benefiting from group as well as individual therapy. We will continue the same regimen for now 01/20/2021--Patient mood is improving. continue with current treatment. 01/19/2021atient making incremental progress 01/18/2021we will plan to increase patient's Lexapro to 20 mg p.o. every morning starting tomorrow. Abilify dose will remain at 15 mg p.o. every morning. Protective Factors Assessment Employed: No (disabled) Interval History Chief Complaint "I'm okay". Review of Systems Sleep Information Total Hours of Sleep: 5.75 Sleep Comments: admitted to unit at 0047 Meal Information Percent Meal Consumed - Breakfast: 100 Percent Meal Consumed - Lunch: 100 Percent Meal Consumed - Dinner: 100 Nutrition Comment: Pt remained in bed for breakfast but asked for it to be saved. Subjective Subjective Patient seen, chart reviewed and case discussed with treatment team, nursing and social work. Patient reports a good night of sleep and strong appetite. No side effects reported or observed. Regarding mood, patient reports some improvement which they attribute to the medications as well as the therapy they have received on the unit. Patient has done well in group therapy and is participating meaningfully. He is open to the idea of case management and therapy following hospitalization. I spent 30 minutes with the patient, 50% of which was dedicated to counselling and coordination of care. Physical Exam Psychiatric Orientation: alert and oriented x 3 Apperance: + disheveled Eye Contact: + fair eye contact Motor Behavior: no abnormal motor movements Speech: normal rate/rhythm/volume of speech Affect: + depressed affect Mood: + depressed mood and + anxious mood Thought Process: linear/logical thought process Thought Content: reality based without delusions Suicidal Thoughts: + reports suicidal thoughts and + reports suicidal plan Homicidal Thoughts: denies homicidal thoughts and denies homicidal plan Hallucinations: + auditory hallucinations Cognition: recent memory grossly intact Estimated Intelligence: consistent with education level Insight: + limited insight and + fair insight Judgement: + limited judgement Vital Signs (Past 24 Hours) Last Vital Signs Temp 36.6 C 01/21/21 06:32 Pulse 88 01/21/21 06:32 Resp 18 01/21/21 06:32 BP 133/81 01/21/21 06:32 Pulse Ox 98 01/18/21 00:41 Results & Data ([facility]) Laboratory Results Laboratory Results - last 24 hr 01/21/21 10:24 Sodium 138 Potassium 4.0 Chloride 109 H Carbon Dioxide 24 Anion Gap 5.0 BUN 12 Creatinine 1.01 Est Cr Clr Drug Dosing 117.0 Est GFR ( Amer) 100.1 Est GFR (Non-Af Amer) 86.3 BUN/Creatinine Ratio 12.0 Glucose 122 H Calcium 8.7 Total Bilirubin 0.5 AST 12 L ALT 17 Alkaline Phosphatase 112 Total Protein 6.6 Albumin 3.3 L Globulin 3.3 Albumin/Globulin Ratio 1.0 Triglycerides 98 Cholesterol 137 LDL Cholesterol, Calc 74 VLDL Cholesterol, Calc 20 HDL Cholesterol 43 Cholesterol/HDL Ratio 3 Current Inpatient Medications Current Inpatient Medications: Current Inpatient Medications Acetaminophen (Acetaminophen 325 Mg Tab) 650 mg PO Q4H PRN PRN Reason: Headache or Minor Fever Stop: 02/17/21 00:00 Al Hydrox/Mg Hydrox/Simethicone (Aluminum/Magnesium Susp 30 Ml Udc) 30 ml PO Q4H PRN PRN Reason: GI Upset Stop: 02/17/21 00:00 Amlodipine Besylate (Amlodipine Besylate 5 Mg Tab) 5 mg PO QAM [facility] Stop: 02/17/21 08:59 Last Admin: 01/21/21 08:56 Dose: 5 mg Documented by: Aripiprazole (Aripiprazole 15 Mg Tab) 15 mg PO QAM [facility] Stop: 02/17/21 08:59 Last Admin: 01/21/21 08:56 Dose: 15 mg Documented by: Bismuth Subsalicylate (Bismuth Subsalicylate Liqd 236 Ml) 15 ml PO PRN PRN PRN Reason: Loose Stool Stop: 02/17/21 00:00 Buspirone HCl (Buspirone 15 Mg Tab) 15 mg PO TID [facility] Stop: 02/17/21 08:59 Last Admin: 01/21/21 08:56 Dose: 15 mg Documented by: Escitalopram Oxalate (Escitalopram Oxalate 20 Mg Tab) 20 mg PO QAM [facility] Stop: 02/18/21 08:59 Last Admin: 01/21/21 08:56 Dose: 20 mg Documented by: Gabapentin (Gabapentin 100 Mg Cap) 100 mg PO QAM [facility] Stop: 02/17/21 08:59 Last Admin: 01/21/21 08:56 Dose: 100 mg Documented by: Gabapentin (Gabapentin 100 Mg Cap) 200 mg PO HS [facility] Stop: 02/17/21 21:59 Last Admin: 01/20/21 21:30 Dose: 200 mg Documented by: Lorazepam (Lorazepam 1 Mg Tab) 1 mg PO Q6 PRN PRN Reason: Anxiety Stop: 02/17/21 16:59 Magnesium Hydroxide (Magnesium Hydroxide Susp 30 Ml Udc) 30 ml PO DAILY PRN PRN Reason: Constipation Stop: 02/17/21 00:00 Nicotine Polacrilex (Nicotine Polacrilex 2 Mg Gum) 1 piece MT Q8 PRN PRN Reason: smoking cravings Stop: 02/17/21 13:20 Sodium Chloride (Sodium Chloride 0.65% Na Soln 45 Ml ([place])) 1 - 2 sprays NA PRN PRN PRN Reason: Nasal Dryness/Congestion Stop: 02/17/21 00:00 Mental Health & Subst Abuse Tx Psychiatrist Name of Psychiatrist: Chris Matthews Psychiatrist's Date of Appointment with Psychiatrist: 02/04/21 Time of Appointment with Psychiatrist: 2:00 PM Psychiatric Appointment Comment: Provider will call you Therapist Name of Therapist: none Hand 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 Name of Hand Tacker: [employer] Phone Number for Hand Tacker: [phone] Post Discharge Appointments Primary Care Physician Name Of Family Doctor: Chris Gamez Primary Care Provider [facility]ment [facility] Information Discharge Discharge Address: [address] [place] [address], [place] [address] (1) Depression Active/Remission status: currently active Depression Type: major depressive disorder Major depression episode severity: severe Major depression recurrence: recurrent Psychotic features: without psychotic features Qualified Code(s): F33.2 - Major depressive disorder, recurrent severe without psychotic features
[2021-01-22] MEDS: amLODIPine BESYLATE 5 MG TAB PO SCH (09:30)
[2021-01-22] MEDS: ARIPiprazole 15 MG TAB PO SCH (09:31)
[2021-01-22] MEDS: GABAPENTIN 100 MG CAP PO SCH ×2 (09:31→20:53)
[2021-01-22] MEDS: ESCITALOPRAM OXALATE 20 MG TAB PO SCH (09:31)
[2021-01-22] MEDS: busPIRone 15 MG TAB PO SCH ×3 (09:31→20:53)
--- NOTE | 2021-01-22 11:53 | Psychiatric Progress Note ---
Date of Service January 22, 2021 Impression / Recommendations Impression 50 old male who carries a diagnosis of bipolar disorder presented to the emergency department increasing depression and suicidal ideation and auditory hallucinations. Upon today's evaluation patient reports no further auditory hallucinations, but is reporting anxiety as well as poor mood and suicidal ideation. Patient will benefit from inpatient hospitalization for purposes of safety, stabilization, and medication management. (1) Depression: The patient was admitted to the [facility]) on every 15 minute checks (behavioral with suicide precautions for safety. The patient will participate in group, recreational, and milieu therapies and will be offered additional individual and family sessions as clinically appropriate. 01/22/2021atient making improvements in mood. Lexapro dose remains at 20 mg p.o. every morning, Abilify dose remains at 15 mg p.o. every morning. We will start discharge planning for patient. 01/21/2021atient is still depressed although mood seems to be improving. Patient is benefiting from group as well as individual therapy. We will continue the same regimen for now 01/20/2021--Patient mood is improving. continue with current treatment. 01/19/2021atient making incremental progress 01/18/2021we will plan to increase patient's Lexapro to 20 mg p.o. every morning starting tomorrow. Abilify dose will remain at 15 mg p.o. every morning. Protective Factors Assessment Employed: No (disabled) Interval History Chief Complaint "I'm feeling good, just a little anxious about leaving tomorrow". Review of Systems Sleep Information Total Hours of Sleep: 5.25 Sleep Comments: admitted to unit at 0047 Meal Information Percent Meal Consumed - Breakfast: 100 Percent Meal Consumed - Lunch: 100 Percent Meal Consumed - Dinner: 100 Nutrition Comment: Pt remained in bed for breakfast but asked for it to be saved. Subjective Subjective Patient seen, chart reviewed and case discussed with treatment team, nursing and social work. Regarding mood, patient reports improvement. He states that he looks forward to continue his therapy once he leaves the hospital, but is feeling a bit anxious about returning home. Patient reports a good night of sleep and strong appetite. Complaint with his medications. No side effects reported or observed. I spent 30 minutes with the patient, 50% of which was dedicated to counselling and coordination of care. Physical Exam Psychiatric Orientation: alert and oriented x 3 Apperance: + disheveled Eye Contact: + fair eye contact Motor Behavior: no abnormal motor movements Speech: normal rate/rhythm/volume of speech Affect: + depressed affect Mood: + depressed mood and + anxious mood Thought Process: linear/logical thought process Thought Content: reality based without delusions Suicidal Thoughts: + reports suicidal thoughts and + reports suicidal plan Homicidal Thoughts: denies homicidal thoughts and denies homicidal plan Hallucinations: + auditory hallucinations Cognition: recent memory grossly intact Estimated Intelligence: consistent with education level Insight: + limited insight and + fair insight Judgement: + limited judgement Vital Signs (Past 24 Hours) Last Vital Signs Temp 36.7 C 01/22/21 06:49 Pulse 82 01/22/21 06:49 Resp 16 01/22/21 06:49 BP 138/85 01/22/21 06:49 Pulse Ox 98 01/18/21 00:41 Results & Data ([facility]) Current Inpatient Medications Current Inpatient Medications: Current Inpatient Medications Acetaminophen (Acetaminophen 325 Mg Tab) 650 mg PO Q4H PRN PRN Reason: Headache or Minor Fever Stop: 02/17/21 00:00 Al Hydrox/Mg Hydrox/Simethicone (Aluminum/Magnesium Susp 30 Ml Udc) 30 ml PO Q4H PRN PRN Reason: GI Upset Stop: 02/17/21 00:00 Amlodipine Besylate (Amlodipine Besylate 5 Mg Tab) 5 mg PO QAM [facility] Stop: 02/17/21 08:59 Last Admin: 01/22/21 09:30 Dose: 5 mg Documented by: Aripiprazole (Aripiprazole 15 Mg Tab) 15 mg PO QAM [facility] Stop: 02/17/21 08:59 Last Admin: 01/22/21 09:31 Dose: 15 mg Documented by: Bismuth Subsalicylate (Bismuth Subsalicylate Liqd 236 Ml) 15 ml PO PRN PRN PRN Reason: Loose Stool Stop: 02/17/21 00:00 Buspirone HCl (Buspirone 15 Mg Tab) 15 mg PO TID [facility] Stop: 02/17/21 08:59 Last Admin: 01/22/21 09:31 Dose: 15 mg Documented by: Escitalopram Oxalate (Escitalopram Oxalate 20 Mg Tab) 20 mg PO QAM [facility] Stop: 02/18/21 08:59 Last Admin: 01/22/21 09:31 Dose: 20 mg Documented by: Gabapentin (Gabapentin 100 Mg Cap) 100 mg PO QAM [facility] Stop: 02/17/21 08:59 Last Admin: 01/22/21 09:31 Dose: 100 mg Documented by: Gabapentin (Gabapentin 100 Mg Cap) 200 mg PO HS [facility] Stop: 02/17/21 21:59 Last Admin: 01/21/21 21:27 Dose: 200 mg Documented by: Lorazepam (Lorazepam 1 Mg Tab) 1 mg PO Q6 PRN PRN Reason: Anxiety Stop: 02/17/21 16:59 Last Admin: 01/21/21 18:38 Dose: 1 mg Documented by: Magnesium Hydroxide (Magnesium Hydroxide Susp 30 Ml Udc) 30 ml PO DAILY PRN PRN Reason: Constipation Stop: 02/17/21 00:00 Nicotine Polacrilex (Nicotine Polacrilex 2 Mg Gum) 1 piece MT Q8 PRN PRN Reason: smoking cravings Stop: 02/17/21 13:20 Sodium Chloride (Sodium Chloride 0.65% Na Soln 45 Ml ([place])) 1 - 2 sprays NA PRN PRN PRN Reason: Nasal Dryness/Congestion Stop: 02/17/21 00:00 Mental Health & Subst Abuse Tx Psychiatrist Name of Psychiatrist: Chris Matthews Psychiatrist's Date of Appointment with Psychiatrist: 02/04/21 Time of Appointment with Psychiatrist: 2:00 PM Psychiatric Appointment Comment: Provider will call you Therapist Name of Therapist: none Pickling 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 Contact Information Discharge Discharge Address: [address], [place] [address] (1) Depression Active/Remission status: currently active Depression Type: major depressive disorder Major depression episode severity: severe Major depression recurrence: recurrent Psychotic features: without psychotic features Qualified Code(s): F33.2 - Major depressive disorder, recurrent severe without psychotic features
[2021-01-23] MEDS: amLODIPine BESYLATE 5 MG TAB PO SCH (09:25)
[2021-01-23] MEDS: GABAPENTIN 100 MG CAP PO SCH (09:26)
[2021-01-23] MEDS: ARIPiprazole 15 MG TAB PO SCH (09:26)
[2021-01-23] MEDS: ESCITALOPRAM OXALATE 20 MG TAB PO SCH (09:26)
[2021-01-23] MEDS: busPIRone 15 MG TAB PO SCH (09:26)
--- NOTE | 2021-01-23 11:38 | Discharge Summary ---
Date of Service January 23, 2021 History of Present Illness HPI as per psychiatric case management "Pt states he is still having trouble dealing with the loss of his who passed from a heart attack last year. Pt is also having suicidal thoughts with a plan to OD on his medications. Pt states he and his were very close and were for 30 years. He has struggled to get over the loss of her. He reports have severe anxiety everything he thinks of her which he rates a 10 out of 10. Pt states that his anxiety will cause him to fast heart rate, heaviness in his chest and will often talk with his hands. Pt reports he sees his a lot and will often talk to her. When talking to her Pt reports she is telling him to come to her and join her. He says he greatly struggles with the urge to not join her and continues to tell her not yet. Pt says he does not know how much longer he can go before he decides to join her. Pt reports he was also diagnoses with manic depression as well as bipolar. Pt reports his depression is around a 5 out of 10 and it comes in goes in spurts. He reports having more good periods of time then bad but still struggles to fight it off when then bed times come. Pt is reporting hearing voices that tell him if you kill yourself you can be with your again. Pt reports that he has attempted suicide in the past and he is not afraid to do it again if it means seeing her again. He states he is likely to act out on these thoughts and that the thoughts are stronger when he is going through rough times with his family and friends. Pt reports a history of self harming by means of cutting or most recently burning himself with a cigarettes. He reports not self harming for a few months. Pt reports a history of suicide attempts by either attempting to OD or cut self. Pt has significant scarring on arms and legs from previous attempts. Pt reports a multiple inpatient mental health stays. The most recent was at [facility] in 03/02/20 as well as the [facility] in 2019 and [facility] in 2013. Pt reports a strong history family history of mental health with his mother, brother, and aunt all having anxiety and depression. Pt also reports his mother had tried to kill herself when he was younger by cutting. Pt does have a strong family support but has significant stress from his in-laws who he helps care for. Pt reports no drug or alcohol use and that he quit smoking two months ago. Pt does have access to a firearm but it is currently locked up at his parents house. Pt does have a psychiatrist Gris Craig whom he sees once a month via telehealth. Pt states inpatient treatment was helpful last time and he would like to sign himself in." Upon evaluation patient endorsed the above information is accurate, continues to state that he is feeling depressed with poor sleep, anxiety, poor appetite and occasional auditory hallucinations last 1 of which was several days ago which patient experiences voices telling [facility]. Patient denied any current auditory hallucinations. He is agreeable to medication changes to address his mood. Physical Exam Psychiatric Orientation: alert and oriented x 3 Apperance: appropriately groomed Eye Contact: good eye contact Motor Behavior: no abnormal motor movements Speech: normal rate/rhythm/volume of speech Affect: euthymic affect; no depressed affect Mood: no depressed mood and no anxious mood Thought Process: linear/logical thought process Thought Content: reality based without delusions Suicidal Thoughts: denies suicidal thoughts, denies suicidal plan and denies suicidal intent Homicidal Thoughts: denies homicidal thoughts and denies homicidal plan Hallucinations: no auditory hallucinations Cognition: recent memory grossly intact Estimated Intelligence: consistent with education level Insight: + fair insight Judgement: + fair judgement Vital Signs (Past 24 Hours) Last Vital Signs Temp 36.6 C 01/23/21 09:45 Pulse 69 01/23/21 09:45 Resp 16 01/23/21 09:45 BP 146/88 H 01/23/21 09:45 Pulse Ox 98 01/23/21 09:45 Principal Diagnosis Bipolar disorder Psychiatric Data See daily stay summary. In short, safety was maintained, and the patient was cooperative with care. Medication changes included up titiration of escitalopram to 20mg and they tolerated this well. A family session was held and safety plan was completed prior to discharge. Day of Discharge Assessment Today the patient voices readiness for discharge. They note improvement in mood and deny thoughts to harm self or others. Thoughts remain organized and they are improved from admission. There is no evidence of psychosis. They agree to take medications as prescribed and keep follow-up appointments. They are stable for discharge to outpatient level of care. Advance Directives Advance Directives Information Provided: Yes Advance Directives: No Mental Health Advance Directive: No Living Will: No Power of Internist Medical Doctor Md: No Advance Directives Reason:: Declines as Mental Health Visit. Risk Factors Assessment Male: Yes : Yes Do You Have Access To A Gun?: No Health Problems: No Mental Health Diagnoses: Yes Substance Use Disorders: No Hopelessness: No Protective Factors Assessment Employed: No (disabled) Stable Relationships: Yes Supportive Family: Yes Tobacco Cessation at Discharge Tobacco Cessation Medication Prescribed at Discharge: Not Applicable/Non-Smoker Discharge Data Lab Results 01/17/21 01/17/21 01/17/21 20:13 20:13 20:30 WBC RBC Hgb Hct MCV MCH MCHC RDW Std Deviation RDW Coeff of Ale Plt Count MPV Immature Gran % (Auto) Neut % (Auto) Lymph % (Auto) [place] % (Auto) Eos % (Auto) Baso % (Auto) Neut # (Auto) Lymph # (Auto) [place] # (Auto) Eos # (Auto) Baso # (Auto) Immature Gran # (Auto) Sodium Potassium Chloride Carbon Dioxide Anion Gap BUN Creatinine Est Cr Clr Drug Dosing Est GFR ( Amer) Est GFR (Non-Af Amer) BUN/Creatinine Ratio Glucose POC Glucose Calcium Total Bilirubin AST ALT Alkaline Phosphatase Troponin I Total Protein Albumin Globulin Albumin/Globulin Ratio Triglycerides Cholesterol LDL Cholesterol, Calc VLDL Cholesterol, Calc HDL Cholesterol Cholesterol/HDL Ratio TSH Urine Color Yellow Urine Appearance Clear Urine pH 6.5 Ur Specific [place] 1.011 Urine Protein Negative Urine Glucose (UA) Negative Urine Ketones Trace H Urine Blood Negative Urine Nitrite Negative Urine Bilirubin Negative Urine Urobilinogen Negative Ur Leukocyte Esterase Trace H Urine WBC (Auto) 1-5 Urine RBC (Auto) 0-4 U Hyaline Cast (Auto) 1-5 U Epithel Cells (Auto) >30 H Urine Bacteria (Auto) Negative Salicylates Urine Opiates Screen Neg Ur Methadone, Qual Neg Acetaminophen Urine Barbiturates Neg Ur Phencyclidine (PCP) Neg U Amphetamin/Meth Scrn Neg MDMA (Ecstasy) Screen Neg U Benzodiazepines Scrn Neg Ur Cocaine Metabolite Neg U Marijuana (THC) Screen Neg Ethyl Alcohol mg/dL COVID-19 Eval Order Covid19 at [facility] SARS-CoV-2 (PCR) 01/17/21 01/17/21 01/17/21 20:30 20:32 20:32 WBC 9.35 RBC 5.26 Hgb 15.5 Hct 45.4 MCV 86.3 MCH 29.5 MCHC 34.1 RDW Std Deviation 44.5 RDW Coeff of Ale 14.4 Plt Count 263 MPV 12.4 H Immature Gran % (Auto) 0.1 Neut % (Auto) 69.4 Lymph % (Auto) 21.4 [place] % (Auto) 6.0 Eos % (Auto) 2.5 Baso % (Auto) 0.6 Neut # (Auto) 6.49 Lymph # (Auto) 2.00 [place] # (Auto) 0.56 Eos # (Auto) 0.23 Baso # (Auto) 0.06 Immature Gran # (Auto) 0.01 Sodium 137 Potassium 3.8 Chloride 108 H Carbon Dioxide 26 Anion Gap 3.0 BUN 9 Creatinine 0.98 Est Cr Clr Drug Dosing 121.9 Est GFR ( Amer) 103.8 Est GFR (Non-Af Amer) 89.5 BUN/Creatinine Ratio 9.1 L Glucose 98 POC Glucose Calcium 9.2 Total Bilirubin 0.6 AST 12 L ALT 18 Alkaline Phosphatase 137 H Troponin I < 0.015 Total Protein 7.3 Albumin 3.7 Globulin 3.6 Albumin/Globulin Ratio 1.0 Triglycerides Cholesterol LDL Cholesterol, Calc VLDL Cholesterol, Calc HDL Cholesterol Cholesterol/HDL Ratio TSH 1.670 Urine Color Urine Appearance Urine pH Ur Specific [place] Urine Protein Urine Glucose (UA) Urine Ketones Urine Blood Urine Nitrite Urine Bilirubin Urine Urobilinogen Ur Leukocyte Esterase Urine WBC (Auto) Urine RBC (Auto) U Hyaline Cast (Auto) U Epithel Cells (Auto) Urine Bacteria (Auto) Salicylates Urine Opiates Screen Ur Methadone, Qual Acetaminophen Urine Barbiturates Ur Phencyclidine (PCP) U Amphetamin/Meth Scrn MDMA (Ecstasy) Screen U Benzodiazepines Scrn Ur Cocaine Metabolite U Marijuana (THC) Screen Ethyl Alcohol mg/dL COVID-19 Eval Order SARS-CoV-2 (PCR) NEGATIVE 01/17/21 01/17/21 01/18/21 20:32 20:32 07:07 WBC RBC Hgb Hct MCV MCH MCHC RDW Std Deviation RDW Coeff of Ale Plt Count MPV Immature Gran % (Auto) Neut % (Auto) Lymph % (Auto) [place] % (Auto) Eos % (Auto) Baso % (Auto) Neut # (Auto) Lymph # (Auto) [place] # (Auto) Eos # (Auto) Baso # (Auto) Immature Gran # (Auto) Sodium Potassium Chloride Carbon Dioxide Anion Gap BUN Creatinine Est Cr Clr Drug Dosing Est GFR ( Amer) Est GFR (Non-Af Amer) BUN/Creatinine Ratio Glucose POC Glucose 86 Calcium Total Bilirubin AST ALT Alkaline Phosphatase Troponin I Total Protein Albumin Globulin Albumin/Globulin Ratio Triglycerides Cholesterol LDL Cholesterol, Calc VLDL Cholesterol, Calc HDL Cholesterol Cholesterol/HDL Ratio TSH Urine Color Urine Appearance Urine pH Ur Specific [place] Urine Protein Urine Glucose (UA) Urine Ketones Urine Blood Urine Nitrite Urine Bilirubin Urine Urobilinogen Ur Leukocyte Esterase Urine WBC (Auto) Urine RBC (Auto) U Hyaline Cast (Auto) U Epithel Cells (Auto) Urine Bacteria (Auto) Salicylates 2.5 L Urine Opiates Screen Ur Methadone, Qual Acetaminophen < 2 L Urine Barbiturates Ur Phencyclidine (PCP) U Amphetamin/Meth Scrn MDMA (Ecstasy) Screen U Benzodiazepines Scrn Ur Cocaine Metabolite U Marijuana (THC) Screen Ethyl Alcohol mg/dL < 3.0 COVID-19 Eval Order SARS-CoV-2 (PCR) 01/21/21 10:24 WBC RBC Hgb Hct MCV MCH MCHC RDW Std Deviation RDW Coeff of Ale Plt Count MPV Immature Gran % (Auto) Neut % (Auto) Lymph % (Auto) [place] % (Auto) Eos % (Auto) Baso % (Auto) Neut # (Auto) Lymph # (Auto) [place] # (Auto) Eos # (Auto) Baso # (Auto) Immature Gran # (Auto) Sodium 138 Potassium 4.0 Chloride 109 H Carbon Dioxide 24 Anion Gap 5.0 BUN 12 Creatinine 1.01 Est Cr Clr Drug Dosing 117.0 Est GFR ( Amer) 100.1 Est GFR (Non-Af Amer) 86.3 BUN/Creatinine Ratio 12.0 Glucose 122 H POC Glucose Calcium 8.7 Total Bilirubin 0.5 AST 12 L ALT 17 Alkaline Phosphatase 112 Troponin I Total Protein 6.6 Albumin 3.3 L Globulin 3.3 Albumin/Globulin Ratio 1.0 Triglycerides 98 Cholesterol 137 LDL Cholesterol, Calc 74 VLDL Cholesterol, Calc 20 HDL Cholesterol 43 Cholesterol/HDL Ratio 3 TSH Urine Color Urine Appearance Urine pH Ur Specific [place] Urine Protein Urine Glucose (UA) Urine Ketones Urine Blood Urine Nitrite Urine Bilirubin Urine Urobilinogen Ur Leukocyte Esterase Urine WBC (Auto) Urine RBC (Auto) U Hyaline Cast (Auto) U Epithel Cells (Auto) Urine Bacteria (Auto) Salicylates Urine Opiates Screen Ur Methadone, Qual Acetaminophen Urine Barbiturates Ur Phencyclidine (PCP) U Amphetamin/Meth Scrn MDMA (Ecstasy) Screen U Benzodiazepines Scrn Ur Cocaine Metabolite U Marijuana (THC) Screen Ethyl Alcohol mg/dL COVID-19 Eval Order SARS-CoV-2 (PCR) Hospital Course (1) Depression: Impression 50 old male who carries a diagnosis of bipolar disorder presented to the [facility] department increasing depression and suicidal ideation and auditory hallucinations. Upon today's evaluation patient reports no further auditory hallucinations, but is reporting anxiety as well as poor mood and suicidal ideation. Patient will benefit from inpatient hospitalization for purposes of safety, stabilization, and medication management. (1) Depression: The patient was admitted to the [facility] ([facility] mental health unit) on every 15 minute checks (behavioral with suicide precautions for safety. The patient will participate in group, recreational, and milieu therapies and will be offered additional individual and family sessions as clinically appropriate. 01/22/2021atient making improvements in mood. Lexapro dose remains at 20 mg p.o. every morning, Abilify dose remains at 15 mg p.o. every morning. We will start discharge planning for patient. 01/21/2021atient is still depressed although mood seems to be improving. Patient is benefiting from group as well as individual therapy. We will continue the same regimen for now 01/20/2021--Patient mood is improving. continue with current treatment. 01/19/2021atient making incremental progress 01/18/2021we will plan to increase patient's Lexapro to 20 mg p.o. every morning starting tomorrow. Abilify dose will remain at 15 mg p.o. every morning. Mental Health & Subst Abuse Tx Psychiatrist Name of Psychiatrist: Chris Matthews Psychiatrist's Date of Appointment with Psychiatrist: 02/04/21 Time of Appointment with Psychiatrist: 2:00 PM Psychiatric Appointment Comment: Provider will call you Psychiatrist Release of Information: Obtained, Reviewed and Signed Therapist Name of Therapist: [facility] Therapist's Date of Therapist Appointment: 02/08/21 Time of Therapist Appointment: 10am Therapy Appointment Comment: [address] [place] [address] Therapist Release of Information: Obtained, Reviewed and Signed Administrative Receptionist Name of Administrative Receptionist: [facility] - Bill Phone Number for Administrative Receptionist: [phone] Case Management Appointment Comment: Will follow up with you to schedule Administrative Receptionist Release of Information: Obtained, Reviewed and Signed Post Discharge Appointments Primary Care Physician Name Of Family Doctor: Chris Gamez Primary Care Time of Appointment with PCP: Please follow up as needed Provider Appointment Comment: [address] [facility] Primary Care Release of Information: Obtained, Reviewed and Signed Smoking Cessation Counseling Tobacco Cessation Medication Prescribed at Discharge: Not Applicable/Non-Smoker Other #1: Name of Aftercare Appointment: [facility] Administrative Receptionist - Jonelle Fabian Aftercare Appointment Comment: Will call you within 48 hours of discharge, and weekly after that. Contact Information Discharge Discharge Address: [address] [place] [address] Discharge Plan Discharge Items Patient Disposition: Home - Self-Care Reason For Visit: BIPOLAR D/O Discharge Diagnosis: Bipolar Disorder Activity: Resume your previous activity Non-emergency contact: Primary Care Provider, Psychiatrist and Therapist Call non-emergency contact if: you have any medication questions and your symptoms worsen Follow-up/Referrals: Justyna Gamez MD [Primary Care Provider] - Diet: Regular Addtl Attending Provider Instructions: SPECIAL CARE INSTRUCTIONS: 1. Follow through with your scheduled aftercare appointments. If unable to keep an appointment, please call to reschedule. 2. Take your medication only as prescribed. Medication should not be changed or stopped without the approval of your doctor. In the event of worsening symptoms or concerns about side effects, contact your doctor immediately. 3. Utilize new healthy coping skills, anger management skills, and stress management skills learned during your hospitalization. Journal feelings and process them with a support person. Identify stressors or situations that may result in relapse, deterioration or inappropriate behaviors and develop a plan to deal with those issues. 4. If your coping skills are ineffective and you are in crisis, contact your outpatient providers for direction. If unable to reach your providers, please call the [facility] CRISIS LINE AT , go to the [facility] walk-in center at [address], [address], [place], or go to the closest Emergency Room. 5. Avoid alcohol and un-prescribed drugs. 6. You have been provided with the Mental Health Advance Directives Pamphlet for your review. AFTERCARE APPOINTMENTS: * Please call your insurance company prior to your scheduled appointment to confirm your aftercare providers are covered. Take your insurance information to your appointments. WHO TO CALL AND WHEN: Medical Emergencies: For questions or emergencies related to your hospital stay, please contact the Inpatient Behavioral Health Unit at [phone]. A electrolysis needle operator is on-call 19/01 for the Behavioral Health Unit for emergencies At any time you feel your situation is an emergency, you may also call 911 immediately. Pending Studies at Discharge: No Stand-Alone Forms: My [facility] [employer], Smoking Cessation Medications and DC Order Prescriptions: New escitalopram oxalate 20 mg Tablet 20 mg PO QAM 30 Days Qty: 30 RF: 0 Continued aripiprazole [Abilify] 15 mg Tablet 15 mg PO QAM Qty: 30 RF: 0 gabapentin 100 mg capsule 100 mg PO DAILY RF: 0 buspirone 15 mg tablet 15 mg PO TID RF: 0 gabapentin [Neurontin] 100 mg Capsule 200 mg PO HS RF: 0 hydroxyzine HCl 50 mg Tablet 50 mg PO TID PRN (Reason: Anxiety) RF: 0 amlodipine [Norvasc] 5 mg Tablet 5 mg PO QAM Qty: 30 RF: 2 Discontinued escitalopram oxalate 10 mg Tablet 10 mg PO QAM RF: 0 Discharge Orders: Discharge Order (Routine); Ordered 01/23/21 Ordered By: Sancho Davis Admission Data Admit Date/Time: 01/18/21 00:01 Attending Provider: Sancho Davis Admit Provider: Sancho Davis Primary Care Provider: Justyna Gamez Other Interventions: Discharge Summary Assessment (RN) Last Done: 01/23/21 09:45 PSY Interdisciplinary Discharge Planning Last Done: 01/23/21 10:39 Coding Level of Care Code 77930 D/C day mgmt > 30 min Diagnoses Depression F33.2 Active/Remission status: currently active Depression Type: major depressive disorder Major depression episode severity: severe Major depression recurrence: recurrent Psychotic features: without psychotic features
== END 2021-01-23 12:56 | disposition home or self-care (01) | DRG 885 ==
LOC: ED 19:39 → 3S 01-18 00:01